=== PATIENT | male | born 1940 | race Caucasian/White ===

== ENCOUNTER → 2016-11-14 | Outpatient (CLI) | payer MEDICARE, BC | END | disposition home or self-care (01) | LOC: LABWHC1 10:34 | PROVIDERS: ATTEND Internal Medicine | DX: M06.9 Rheumatoid arthritis, unspecified (principal) | CPT/HCPCS: 36415; 80299 ==

== ENCOUNTER → 2017-02-13 | Outpatient (CLI) | payer MEDICARE, BC | END | disposition home or self-care (01) | LOC: LABWHC1 10:34 | PROVIDERS: ATTEND Internal Medicine | DX: M06.9 Rheumatoid arthritis, unspecified (principal) | CPT/HCPCS: 36415; 80299 ==

== ENCOUNTER → 2017-05-22 | Outpatient (CLI) | payer MEDICARE, BC | END | disposition home or self-care (01) | LOC: LABWHC1 11:10 | PROVIDERS: ATTEND Internal Medicine | DX: M06.9 Rheumatoid arthritis, unspecified (principal) | CPT/HCPCS: 36415; 80299 ==

== ENCOUNTER → 2017-07-24 | Outpatient (CLI) | payer MEDICARE, BC ==
[2017-07-24 10:10] LABS: Basophils % (A) 0 %; CH 31.1; CHCM 33.3; Eosinophils # (A) 0.4 k/uL (0-0.7); Eosinophils % (A) 6 %; HCT 48.1 % (39.0-53.0); HDW 3.39; HGB 15.3 gm/dL (13.0-17.5); Luc # (Auto) 0.17; Luc % (Auto) 3; Lymphocytes # (A) 1.4 k/uL (1.0-4.8); Lymphocytes % (A) 20 %; MCHC 31.9 g/dL (31.0-37.0); MCV 93.9 fL (80.0-100.0); Monocytes # (A) 0.3 k/uL (0-1.0); Monocytes % (A) 5 %; Neutrophils # (A) 4.5 k/uL (1.3-7.7); Neutrophils % (A) 66 %; RBC 5.12 m/uL (4.30-5.90); RDW 15.7 % (11.5-15.5); WBC 6.8 k/uL (3.8-10.6); WBC (Perox) 6.66
[2017-07-24 10:20] LABS: ALT 36 U/L (21-72); AST 19 U/L (17-59); Alkaline Phosphatase 62 U/L (38-126); Anion Gap 8 mmol/L; Blood Urea Nitrogen 19 mg/dL (9-20); Calcium 9.2 mg/dL (8.4-10.2); Carbon Dioxide 28 mmol/L (22-30); Chloride 104 mmol/L (98-107); Cholesterol 174 mg/dL (<200); Glucose 176 mg/dL (74-99); HDL Cholesterol 59 mg/dL (40-60); Non-African American GFR(MDRD) >60 (>60 ml/min/1.73 sqM); Potassium 4.7 mmol/L (3.5-5.1); Sodium 140 mmol/L (137-145); Total Bilirubin 1.3 mg/dL (0.2-1.3); Total Protein 7.1 g/dL (6.3-8.2)
[2017-07-25 16:12] LABS: Mis test requested (Blood) CLORAZEPATE LEVEL
== END | disposition home or self-care (01) ==
LOC: LABWHC1 09:42
PROVIDERS: ATTEND Internal Medicine
DX: E78.5 Hyperlipidemia, unspecified (principal); I10 Essential (primary) hypertension; M06.9 Rheumatoid arthritis, unspecified; E11.9 Type 2 diabetes mellitus without complications
CPT/HCPCS: 80299; 80061; 80053; 85025; 83036; 36415; G0480; 80346

== ENCOUNTER → 2017-10-23 | Outpatient (CLI) | payer MEDICARE, BC ==
[2017-10-23 08:55] LABS: HCT 45.5 % (39.0-53.0); HGB 14.6 gm/dL (13.0-17.5); MCH 30.5 pg (25.0-35.0); MCHC 32.1 g/dL (31.0-37.0); Platelet Count 198 k/uL (150-450); RBC 4.79 m/uL (4.30-5.90); RDW 15.4 % (11.5-15.5); WBC 6.4 k/uL (3.8-10.6)
[2017-10-23 09:12] LABS: Albumin 3.9 g/dL (3.5-5.0); Bilirubin, Delta 0.3 mg/dL (0.0-0.2); Bilirubin,Unconjugated 1.3 mg/dL (0.0-1.1); Total Bilirubin 1.6 mg/dL (0.2-1.3); Total Protein 6.6 g/dL (6.3-8.2)
== END | disposition home or self-care (01) ==
LOC: LABWHC1 08:24
PROVIDERS: ATTEND Internal Medicine
DX: E11.9 Type 2 diabetes mellitus without complications (principal); M06.9 Rheumatoid arthritis, unspecified; R13.10 Dysphagia, unspecified
CPT/HCPCS: 36415; 80061; 80076; 80299; 82746; 83036; 85027

== ENCOUNTER → 2018-02-16 | Outpatient (CLI) | payer MEDICARE, BC ==
[2018-02-16 13:45] LABS: Anisocytosis Slight; HCT 44.5 % (39.0-53.0); MCH 31.2 pg (25.0-35.0); MCHC 33.7 g/dL (31.0-37.0); MCV 92.8 fL (80.0-100.0); Mean Platelet Volume 6.9; Platelet Count 201 k/uL (150-450); RBC 4.79 m/uL (4.30-5.90); RDW 16.1 % (11.5-15.5); WBC 6.9 k/uL (3.8-10.6)
[2018-02-16 13:58] LABS: Bilirubin, Delta 0.1 mg/dL (0.0-0.2); Bilirubin,Unconjugated 1.4 mg/dL (0.0-1.1); Total Bilirubin 1.5 mg/dL (0.2-1.3); Total Protein 6.6 g/dL (6.3-8.2)
[2018-02-16 22:51] LABS: Hemoglobin A1C 6.4 % (4.0-6.0)
== END | disposition home or self-care (01) ==
LOC: LABWHC1 12:55
PROVIDERS: ATTEND Internal Medicine
DX: M06.9 Rheumatoid arthritis, unspecified (principal); E78.5 Hyperlipidemia, unspecified; E11.9 Type 2 diabetes mellitus without complications
CPT/HCPCS: 36415; 80076; 80299; 82746; 83036; 85027

== ENCOUNTER → 2018-05-28 | Outpatient (CLI) | payer MEDICARE, BC ==
[2018-05-28 12:25] LABS: HCT 44.4 % (39.0-53.0); HGB 14.3 gm/dL (13.0-17.5); MCH 29.6 pg (25.0-35.0); MCHC 32.1 g/dL (31.0-37.0); MCV 92.1 fL (80.0-100.0); Mean Platelet Volume 6.8; Platelet Count 191 k/uL (150-450); RBC 4.83 m/uL (4.30-5.90); RDW 15.6 % (11.5-15.5); WBC 7.2 k/uL (3.8-10.6)
[2018-05-28 12:51] LABS: Albumin 3.7 g/dL (3.5-5.0); Bilirubin, Delta 0.3 mg/dL (0.0-0.2); Total Bilirubin 1.3 mg/dL (0.2-1.3); Total Protein 6.4 g/dL (6.3-8.2)
[2018-05-28 18:06] LABS: Hemoglobin A1C 5.7 % (4.0-6.0)
== END | disposition home or self-care (01) ==
LOC: LABWHC1 11:48
PROVIDERS: ATTEND Internal Medicine
DX: E78.5 Hyperlipidemia, unspecified (principal); E11.9 Type 2 diabetes mellitus without complications; M06.9 Rheumatoid arthritis, unspecified
CPT/HCPCS: 36415; 80076; 80299; 82746; 83036; 85027

== ENCOUNTER → 2018-09-03 | Outpatient (CLI) | payer MEDICARE, BC ==
[2018-09-03 10:41] LABS: HCT 42.7 % (39.0-53.0); HGB 13.7 gm/dL (13.0-17.5); MCH 29.4 pg (25.0-35.0); MCHC 32.1 g/dL (31.0-37.0); MCV 91.6 fL (80.0-100.0); Mean Platelet Volume 6.9; Platelet Count 233 k/uL (150-450); RBC 4.66 m/uL (4.30-5.90); RDW 15.9 % (11.5-15.5); WBC 6.3 k/uL (3.8-10.6)
[2018-09-03 15:42] LABS: Albumin/Globulin Ratio 1.82 (1.20-2.10); Bilirubin, Conjugated 0.2 mg/dL (0.20-0.40); Bilirubin,Unconjugated 0.8 mg/dL; Globulin 2.2 g/dL (1.6-3.3); Total Protein 6.2 g/dL (6.2-8.2)
[2018-09-03 17:19] LABS: Hemoglobin A1C 5.5 % (4.0-6.0)
== END ==
LOC: LABWHC1 10:03
PROVIDERS: ATTEND Internal Medicine
DX: E11.9 Type 2 diabetes mellitus without complications (principal); I51.9 Heart disease, unspecified; M06.9 Rheumatoid arthritis, unspecified
CPT/HCPCS: 36415; 80076; 80299; 82746; 83036; 85027

== ENCOUNTER → 2019-01-07 | Outpatient (CLI) | payer MEDICARE, BC ==
[2019-01-07 11:26] LABS: HCT 42.6 % (39.0-53.0); MCH 30.4 pg (25.0-35.0); MCHC 32.9 g/dL (31.0-37.0); MCV 92.4 fL (80.0-100.0); Mean Platelet Volume 7.2; Platelet Count 181 k/uL (150-450); RBC 4.61 m/uL (4.30-5.90); RDW 15.3 % (11.5-15.5); WBC 6.9 k/uL (3.8-10.6)
[2019-01-07 16:41] LABS: Albumin 3.9 g/dL (3.80-4.90); Albumin/Globulin Ratio 1.95 (1.60-3.17); Bilirubin, Conjugated 0.2 mg/dL (0.20-0.40); Bilirubin,Unconjugated 0.6 mg/dL; Total Bilirubin 0.8 mg/dL (0.3-1.2); Total Protein 5.9 g/dL (6.2-8.2)
[2019-01-07 18:44] LABS: Hemoglobin A1C 5.5 % (4.0-6.0)
== END ==
LOC: LABWHC1 10:38
PROVIDERS: ATTEND Internal Medicine
DX: E11.9 Type 2 diabetes mellitus without complications (principal); M06.9 Rheumatoid arthritis, unspecified; I51.9 Heart disease, unspecified
CPT/HCPCS: 36415; 80076; 80299; 82746; 83036; 85027

== ENCOUNTER → 2019-05-27 | Outpatient (CLI) | payer MEDICARE, BC | END | disposition home or self-care (01) | LOC: LABWHC1 11:03 | PROVIDERS: ATTEND Internal Medicine | DX: E78.5 Hyperlipidemia, unspecified (principal); G93.89 Other specified disorders of brain; M05.9 Rheumatoid arthritis with rheumatoid factor, unspecified; I25.10 Atherosclerotic heart disease of native coronary artery without angina pectoris; E11.9 Type 2 diabetes mellitus without complications | CPT/HCPCS: 36415; 80299 ==

== ENCOUNTER → 2019-08-07 | Outpatient (CLI) | payer MEDICARE, BC ==
[2019-08-07 09:36] LABS: Basophils % (A) 0 %; Eosinophils # (A) 0.3 k/uL (0-0.7); Eosinophils % (A) 5 %; HGB 14.8 gm/dL (13.0-17.5); Lymphocytes # (A) 1.2 k/uL (1.0-4.8); Lymphocytes % (A) 21 %; MCHC 33.5 g/dL (31.0-37.0); MCV 92.6 fL (80.0-100.0); Mean Platelet Volume 6.9; Monocytes # (A) 0.4 k/uL (0-1.0); Monocytes % (A) 7 %; Neutrophils # (A) 3.7 k/uL (1.3-7.7); Neutrophils % (A) 64 %; Platelet Count 186 k/uL (150-450); RBC 4.75 m/uL (4.30-5.90); RDW 15.2 % (11.5-15.5); WBC 5.8 k/uL (3.8-10.6)
[2019-08-07 17:15] LABS: ALT 16 U/L (10-49); AST 17 U/L (14-35); African American GFR (CKD) 74.1 (60.0-200.0); Alkaline Phosphatase 54 U/L (41-126); BUN/Creat Ratio 17.27 Ratio (12.00-20.00); Carbon Dioxide 30.5 mmol/L (21.6-31.8); Chloride 108 mmol/L (96-109); Chol/HDL Ratio 3.49; Cholesterol 164 mg/dL (0-200); Globulin 2.1 g/dL (1.6-3.3); Glucose 120 mg/dL (70-110); LDL Cholesterol,Calculated 66.8 mg/dL (0.0-131.0); Potassium 4.4 mmol/L (3.5-5.5); Sodium 144 mmol/L (135-145); Total Bilirubin 1.2 mg/dL (0.2-1.2); Total Protein 6.1 g/dL (6.2-8.2)
[2019-08-07 17:35] LABS: Folate, Serum >24.0 ng/mL
[2019-08-07 19:52] LABS: Hemoglobin A1C 5.3 % (4.0-6.0)
== END | disposition home or self-care (01) ==
LOC: LABWHC1 08:54
PROVIDERS: ATTEND Internal Medicine
DX: E11.9 Type 2 diabetes mellitus without complications (principal); M05.9 Rheumatoid arthritis with rheumatoid factor, unspecified; G93.89 Other specified disorders of brain; E78.5 Hyperlipidemia, unspecified; I25.10 Atherosclerotic heart disease of native coronary artery without angina pectoris
CPT/HCPCS: 80299; 80061; 80053; 82746; 85025; 83036; 36415; G0480; 80346

== ENCOUNTER 2020-01-30 02:25 | Inpatient (IN) | payer MEDICARE, BC ==
--- NOTE | 2020-01-30 02:37 | ED ---
Chest Pain HPI - General Chief Complaint: Chest Pain Stated Complaint: Chest Pain Time Seen by Provider: 01/30/20 02:26 Source: patient, EMS, RN notes reviewed, old records reviewed Mode of arrival: EMS Limitations: no limitations - History of Present Illness MD Complaint: chest pain -: hour(s) Onset: during rest, during exertion Pain Location: left chest, epigastric Pain Radiation: LUE Severity: moderate Severity scale (1-10): 6 Quality: aching, heaviness Consistency: constant Improves With: nothing Worsens With: nothing Anginal Symptoms: diaphoresis, dyspnea Other Symptoms: palpitations Treatments Prior to Arrival: none - Related Data Home Medications Medication Instructions Recorded Confirmed Cinnamon Bark [Cinnamon] 500 mg PO TID 01/30/20 01/30/20 Clorazepate Dipotassium [Tranxene 7.5 mg PO HS 01/30/20 01/30/20 T] Folic Acid 1 mg PO DAILY 01/30/20 01/30/20 Furosemide [Lasix] 40 mg PO BID 01/30/20 01/30/20 Methotrexate Sodium [Methotrexate] 25 mg PO SA 01/30/20 01/30/20 Metoprolol Tartrate [Lopressor] 25 mg PO BID 01/30/20 01/30/20 Olopatadine HCl [Pataday] 1 drop BOTH EYES BID 01/30/20 01/30/20 hydrALAZINE HCL [Apresoline] 50 mg PO AC-BID 01/30/20 01/30/20 metFORMIN HCL [Glucophage] 500 mg PO AC-BID 01/30/20 01/30/20 Allergies Allergy/AdvReac Type Severity Reaction Status Date / Time Penicillins Allergy Intermediate shortness Verified 01/30/20 09:38 of breath/nausea Review of Systems ROS Statement: Those systems with pertinent positive or pertinent negative responses have been documented in the HPI. ROS Other: All systems not noted in ROS Statement are negative. EKG Findings - EKG Comments: EKG Findings:: EKG is sinus rhythm 89, MD 144, QRS 76, QTC 455 Past Medical History Past Medical History: Atrial Fibrillation, Diabetes Mellitus, Hypertension History of Any Multi-Drug Resistant Organisms: None Reported Past Surgical History: Cholecystectomy Past Psychological History: No Psychological Hx Reported Smoking Status: Former smoker Past Alcohol Use History: None Reported Past Drug Use History: None Reported - Past Family History Father History Unknown: Yes Mother History Unknown: Yes General Exam Limitations: no limitations General appearance: alert, in no apparent distress, anxious Head exam: Present: atraumatic, normocephalic, normal inspection Eye exam: Present: normal appearance, PERRL, EOMI. Absent: scleral icterus, conjunctival injection, periorbital swelling ENT exam: Present: normal exam, mucous membranes moist Neck exam: Present: normal inspection. Absent: tenderness, meningismus, lymphadenopathy Respiratory exam: Present: normal lung sounds bilaterally. Absent: respiratory distress, wheezes, rales, rhonchi, stridor Cardiovascular Exam: Present: regular rate, normal rhythm, normal heart sounds. Absent: systolic murmur, diastolic murmur, rubs, gallop, clicks GI/Abdominal exam: Present: soft, normal bowel sounds. Absent: distended, tenderness, guarding, rebound, rigid Extremities exam: Present: normal inspection, full ROM, normal capillary refill. Absent: tenderness, pedal edema, joint swelling, calf tenderness Back exam: Present: normal inspection Neurological exam: Present: alert, oriented X3, CN II-XII intact Psychiatric exam: Present: normal affect, normal mood Skin exam: Present: warm, dry, intact, normal color. Absent: rash Course Vital Signs 01/30/20 01/30/20 01/30/20 02:27 02:32 03:25 Temperature 98.6 F Pulse Rate 93 66 Pulse Rate [ 99 Rivet Passer ] Respiratory 20 18 20 Rate Blood Pressure 107/64 95/57 O2 Sat by Pulse 99 97 Oximetry 01/30/20 01/30/20 04:40 05:00 Temperature Pulse Rate 62 74 Pulse Rate [ Rivet Passer ] Respiratory 16 16 Rate Blood Pressure 114/60 108/62 O2 Sat by Pulse 99 98 Oximetry Disposition Clinical Impression: Chest pain, Acute non-ST elevation myocardial infarction (NSTEMI) Disposition: ADMITTED IP TO THIS HOSP Condition: Fair Is patient prescribed a controlled substance at d/c from ED?: No
[2020-01-30 02:43] LABS: Basophils % (A) 0 %; Eosinophils # (A) 0.4 k/uL (0-0.7); Eosinophils % (A) 5 %; HCT 42.5 % (39.0-53.0); HGB 14.6 gm/dL (13.0-17.5); Lymphocytes # (A) 0.9 k/uL (1.0-4.8); Lymphocytes % (A) 12 %; MCH 31.5 pg (25.0-35.0); MCHC 34.5 g/dL (31.0-37.0); MCV 91.3 fL (80.0-100.0); Mean Platelet Volume 9.7; Monocytes # (A) 0.4 k/uL (0-1.0); Monocytes % (A) 5 %; Neutrophils % (A) 77 %; Platelet Count 217 k/uL (150-450); Poikilocytosis Slight; RBC 4.65 m/uL (4.30-5.90); RDW 15.5 % (11.5-15.5); WBC 7.8 k/uL (3.8-10.6)
[2020-01-30 03:01] LABS: Albumin 3.8 g/dL (3.5-5.0); Potassium 3.9 mmol/L (3.5-5.1); Total Bilirubin 1.2 mg/dL (0.2-1.3); Total Protein 6.8 g/dL (6.3-8.2)
--- NOTE | 2020-01-30 03:02 | XR ---
EXAMINATION TYPE: XR chest 2V DATE OF EXAM: 01/30/2020 COMPARISON: NONE HISTORY: Chest pain TECHNIQUE: 2 views FINDINGS: Heart is normal. There is slight blunting right costophrenic angle. There is no heart failu re. There are no hilar masses. There are chest leads. Bony thorax appears intact. IMPRESSION: Mild pleural diaphragmatic scarring at the lateral right lung base. Normal heart. No hear t failure.
[2020-01-30 03:11] LABS: INR 0.9 (<1.2); Partial Thromboplastin Time 25.1 sec (22.0-30.0); Prothrombin Time 9.9 sec (9.0-12.0)
[2020-01-30] MEDS ORDERED: NITROGLYCERIN SL TABS 0.4 MG TAB SUBLINGUAL PRN ×2 (04:25→10:25)
[2020-01-30] MEDS ORDERED: ASPIRIN 81 MG PO STA (04:25)
[2020-01-30 06:00] LABS: Glucose,Whole Blood 176 mg/dL (75-99)
[2020-01-30] MEDS: INSULIN ASPART (NovoLOG) 100 UNIT/ML VIAL SQ SCH ×4 (06:09→20:12)
[2020-01-30] MEDS ORDERED: ATORVASTATIN 80 MG TAB PO SCH (10:00)
[2020-01-30] MEDS ORDERED: METOPROLOL TARTRATE 25 MG TAB PO STA (10:18)
[2020-01-30] MEDS ORDERED: ATORVASTATIN 80 MG TAB PO STA (10:25)
[2020-01-30] MEDS ORDERED: SODIUM CHLORIDE 0.9% 1,000 ML in EMPTY BAG 1 BAG IV ONE (10:25)
[2020-01-30] MEDS ORDERED: ALPRAZolam 0.5 MG TAB PO PRN (10:25)
[2020-01-30] MEDS ORDERED: ASPIRIN 325 MG TAB PO STA ×2 (10:25→10:26)
[2020-01-30] MEDS ORDERED: ALPRAZolam 0.25 MG TAB PO PRN (10:25)
--- NOTE | 2020-01-30 10:25 | P.CRDCN ---
History of Present Illness History of present illness: Prakash tobin This is Dr. Mitchell dictating a consult on this patient The patient was interviewed and examined by me IMPRESSION / ASSESSMENT: Acute myocardial infarction, non-Q-wave VA Patient admitted with chest discomfort. T-wave inversions in the inferior leads First cardiac enzyme is mildly abnormal. Second troponin is higher History of hypertension PLAN: Serial troponins Repeat EKG stat IV heparin Statins 2-D echo and Doppler study I interviewed the patient and examined him. Discussed with Dr. Croft We'll proceed with coronary angiography today Discussed with patient and Susanna Bedolla Discussed with nurse HPI Patient admitted with chest discomfort History of hypertension Patient woke up this morning around 12 AM and started experiencing discomfort in the chest which is quite severe and radiated down his left arm. It lasted for several hours and then finally went away when EMS arrived and started oxygen His twelve-lead ECG shows inverted T waves in the inferior leads His repeat twelve-lead ECG shows T-wave inversions in the inferior leads but this seems to be an ST elevation in V1 consistent with posterior extension of the VA ROS: No fever chills or rigors, no cough, phlegm or expectoration, no nausea, vomiting or diarrhea, no hematuria, dysuria, no musculoskeletal complaints, no strokes or seizures, no skin lesions. EXAMINATION: On examination blood pressure 108/62, pulse rate in the 60s and 70s afebrile Ejection systolic murmur, harsh, radiating upwards into the neck but easily audible all over the precordium Diminished carotid pulses are palpable Abdomen soft Lungs are clear no rhonchi Extremities are warm no edema Scar of carotid endarterectomy in the right side REVIEW OF LABS, ECG & MEDICAL DATA twelve-lead ECG shows sinus rhythm normal IN QRS Inverted T waves in leads 3 and aVF Hemoglobin is 14.6, white count 7.8 Sodium 135 potassium 3.9 BUN 22 creatinine 0.94 First troponin is 0.035 Past Medical History Past Medical History: Diabetes Mellitus, Hypertension, Myocardial Infarction (VA) Last Myocardial Infarction Date:: 1993 History of Any Multi-Drug Resistant Organisms: None Reported Past Surgical History: Cholecystectomy, Heart Catheterization Past Anesthesia/Blood Transfusion Reactions: No Reported Reaction Past Psychological History: No Psychological Hx Reported Smoking Status: Former smoker Past Alcohol Use History: None Reported Past Drug Use History: None Reported - Past Family History Father History Unknown: Yes Mother History Unknown: Yes Medications and Allergies Home Medications Medication Instructions Recorded Confirmed Type Cinnamon Bark [Cinnamon] 500 mg PO TID 01/30/20 01/30/20 History Clorazepate Dipotassium [Tranxene 7.5 mg PO HS 01/30/20 01/30/20 History T] Folic Acid 1 mg PO DAILY 01/30/20 01/30/20 History Furosemide [Lasix] 40 mg PO BID 01/30/20 01/30/20 History Methotrexate Sodium [Methotrexate] 25 mg PO SA 01/30/20 01/30/20 History Metoprolol Tartrate [Lopressor] 25 mg PO BID 01/30/20 01/30/20 History Olopatadine HCl [Pataday] 1 drop BOTH EYES BID 01/30/20 01/30/20 History hydrALAZINE HCL [Apresoline] 50 mg PO AC-BID 01/30/20 01/30/20 History metFORMIN HCL [Glucophage] 500 mg PO AC-BID 01/30/20 01/30/20 History Allergies Allergy/AdvReac Type Severity Reaction Status Date / Time Penicillins Allergy Intermediate shortness Verified 01/30/20 09:38 of breath/nausea Physical Exam Vitals: Vital Signs Temp Pulse Pulse Resp BP BP Pulse Ox 01/30/20 08:00 97.6 F 59 L 18 103/52 97 01/30/20 05:25 98.1 F 59 L 18 143/74 97 01/30/20 05:00 74 16 108/62 98 01/30/20 04:40 62 16 114/60 99 01/30/20 03:25 66 20 95/57 97 01/30/20 02:32 99 18 01/30/20 02:27 98.6 F 93 20 107/64 99 Intake and Output 01/29/20 01/30/20 01/30/20 22:59 06:59 14:59 Other: Weight 93.8 kg Results 01/30/20 02:37 01/30/20 02:37 Cardiac Enzymes 01/30/20 01/30/20 01/30/20 Range/Units 02:37 02:37 08:37 AST 24 (17-59) U/L Troponin I 0.035 H* 0.181 H* (0.000-0.034) ng/mL Coagulation 01/30/20 Range/Units 02:37 PT 9.9 (9.0-12.0) sec APTT 25.1 (22.0-30.0) sec CBC 01/30/20 Range/Units 02:37 WBC 7.8 (3.8-10.6) k/uL RBC 4.65 (4.30-5.90) m/uL Hgb 14.6 (13.0-17.5) gm/dL Hct 42.5 (39.0-53.0) % Plt Count 217 (150-450) k/uL Comprehensive Metabolic Panel 01/30/20 Range/Units 02:37 Sodium 135 L (137-145) mmol/L Potassium 3.9 (3.5-5.1) mmol/L Chloride 101 (98-107) mmol/L Carbon Dioxide 27 (22-30) mmol/L BUN 22 H (9-20) mg/dL Creatinine 0.94 (0.66-1.25) mg/dL Glucose 183 H (74-99) mg/dL Calcium 9.0 (8.4-10.2) mg/dL AST 24 (17-59) U/L ALT 16 (4-49) U/L Alkaline Phosphatase 63 (38-126) U/L Total Protein 6.8 (6.3-8.2) g/dL Albumin 3.8 (3.5-5.0) g/dL Current Medications Generic Name Dose Route Start Last Admin Trade Name Freq PRN Reason Stop Dose Admin Aspirin 81 mg 01/31/20 09:00 Aspirin PO DAILY [facility] Atorvastatin Calcium 80 mg 01/30/20 10:00 Lipitor PO DAILY [facility] Heparin Sodium/Sodium Chloride 250 mls @ 10.037 mls/hr 01/30/20 10:15 25,000 unit/ Sodium Chloride IV .Q24H [facility] Protocol 10.7 UNITS/KG/HR Insulin Aspart 0 unit 01/30/20 07:30 01/30/20 06:09 Novolog SQ 2 unit ACHS [facility] Administration Protocol Metoprolol Tartrate 50 mg 01/30/20 21:00 Lopressor PO BID [facility] Nitroglycerin 0.4 mg 01/30/20 04:25 Nitrostat SUBLINGUAL Q5M PRN Chest Pain Intake and Output 01/29/20 01/30/20 01/30/20 22:59 06:59 14:59 Other: Weight 93.8 kg 01/30/20 02:37 01/30/20 02:37
[2020-01-30] MEDS ORDERED: HEPARIN SODIUM,PORCINE 5,000 UNIT/ML 1 ML VIAL IV ONE (10:27)
[2020-01-30] MEDS: HEPARIN SOD,PORK IN 0.45% NACL 25,000 UNIT in 0.45% NACL 1 250ML.BAG IV SCH (11:07)
[2020-01-30 11:21] LABS: Glucose,Whole Blood 149 mg/dL (75-99)
[2020-01-30] MEDS ORDERED: LIDOCAINE 1% INJ 10MG/ML (20 ML MDV) ONE (12:32)
[2020-01-30] MEDS ORDERED: IV FLUID CONTINUATION 1,000 ML IV ONE (12:37)
[2020-01-30] MEDS ORDERED: VERAPAMIL 2.5 MG/ML 2 ML AMP ONE (12:39)
[2020-01-30] MEDS ORDERED: MIDAZOLAM 2 MG/2 ML VIAL IVP ONE (13:02)
[2020-01-30] MEDS ORDERED: LIDOCAINE 1% INJ 10MG/ML (20 ML MDV) SQ ONE (13:04)
[2020-01-30] MEDS: VERAPAMIL SYRINGE (5 MG/10 ML) INTRAARTER ONE ×2 (13:06→13:20)
[2020-01-30] MEDS ORDERED: IOPAMIDOL-370 100ML BTL INJ ONE (13:21)
[2020-01-30] MEDS: SODIUM CHLORIDE 0.9% 1,000 ML IV SCH (14:19)
--- NOTE | 2020-01-30 14:42 | P.HPIM ---
History of Present Illness Patient is a pleasant 73-year-old gentleman came in with complaints of chest pressure-like sensation started yesterday exertional radiating to the left thumb without any diaphoresis is all by the time EMS came in which means it lasted for few minutes. Patient chest pain is pressure-like sensation moderate amount of chest pain. Patient has minimally elevated troponin and then some nonspecific T-wave inversions in inferior leads patient first set of limited the hospital because of which patient went cardiac catheterization which did not show any significant ago started a couple disease but did show severe headache stenosis. Patient does have at rough and rambling grade of 5/6 severe ejection systolic murmur and I aortic area. Patient denied any shortness of breath doesn't have any pulmonary edema on the chest x-ray doesn't have any elevated JVD Review of Systems REVIEW OF SYSTEMS: CONSTITUTIONAL: No fever, no malaise, no fatigue. HEENT: No recent visual problems or hearing problems. Denied any sore throat. CARDIOVASCULAR: No orthopnea, PND, no palpitations, no syncope. PULMONARY: No shortness of breath, no cough, no hemoptysis. GASTROINTESTINAL: No diarrhea, no nausea, no vomiting, no abdominal pain. NEUROLOGICAL: No headaches, no weakness, no numbness. HEMATOLOGICAL: Denies any bleeding or petechiae. GENITOURINARY: Denies any burning micturition, frequency, or urgency. MUSCULOSKELETAL/RHEUMATOLOGICAL: Denies any joint pain, swelling, or any muscle pain. ENDOCRINE: Denies any polyuria or polydipsia. The rest of the 14-point review of systems is negative. Past Medical History Past Medical History: Diabetes Mellitus, Hypertension, Myocardial Infarction ([place]) Last Myocardial Infarction Date:: 1993 History of Any Multi-Drug Resistant Organisms: None Reported Past Surgical History: Cholecystectomy, Heart Catheterization Past Anesthesia/Blood Transfusion Reactions: No Reported Reaction Past Psychological History: No Psychological Hx Reported Smoking Status: Former smoker Past Alcohol Use History: None Reported Past Drug Use History: None Reported - Past Family History Father History Unknown: Yes Mother History Unknown: Yes Medications and Allergies Home Medications Medication Instructions Recorded Confirmed Type Cinnamon Bark [Cinnamon] 500 mg PO TID 01/30/20 01/30/20 History Clorazepate Dipotassium [Tranxene 7.5 mg PO HS 01/30/20 01/30/20 History T] Folic Acid 1 mg PO DAILY 01/30/20 01/30/20 History Furosemide [Lasix] 40 mg PO BID 01/30/20 01/30/20 History Methotrexate Sodium [Methotrexate] 25 mg PO SA 01/30/20 01/30/20 History Metoprolol Tartrate [Lopressor] 25 mg PO BID 01/30/20 01/30/20 History Olopatadine HCl [Pataday] 1 drop BOTH EYES BID 01/30/20 01/30/20 History hydrALAZINE HCL [Apresoline] 50 mg PO AC-BID 01/30/20 01/30/20 History metFORMIN HCL [Glucophage] 500 mg PO AC-BID 01/30/20 01/30/20 History Allergies Allergy/AdvReac Type Severity Reaction Status Date / Time Penicillins Allergy Intermediate shortness Verified 01/30/20 09:38 of breath/nausea Physical Exam Vitals: Vital Signs Temp Pulse Pulse Resp BP BP Pulse Ox 01/30/20 11:58 98.0 F 69 18 144/73 96 01/30/20 11:25 98.1 F 69 17 144/73 96 01/30/20 08:15 59 L 18 01/30/20 08:00 97.6 F 59 L 18 103/52 97 01/30/20 05:25 98.1 F 59 L 18 143/74 97 01/30/20 05:00 74 16 108/62 98 01/30/20 04:40 62 16 114/60 99 01/30/20 03:25 66 20 95/57 97 01/30/20 02:32 99 18 01/30/20 02:27 98.6 F 93 20 107/64 99 Intake and Output 01/29/20 01/30/20 01/30/20 22:59 06:59 14:59 Intake Total 100 Balance 100 Intake: IV 100 Other: Voiding Method Toilet # Voids 3 Weight 93.8 kg PHYSICAL EXAMINATION: GENERAL: The patient is alert and oriented x3, not in any acute distress. Well developed, well nourished. HEENT: Pupils are round and equally reacting to light. EOMI. No scleral icterus. No conjunctival pallor. Normocephalic, atraumatic. No pharyngeal erythema. No thyromegaly. CARDIOVASCULAR: S1 and S2 present. No rubs, or gallops has ejection systolic murmur 5/6 severity in aortic area. PULMONARY: Chest is clear to auscultation, no wheezing or crackles. ABDOMEN: Soft, nontender, nondistended, normoactive bowel sounds. No palpable organomegaly. MUSCULOSKELETAL: No joint swelling or deformity. EXTREMITIES: No cyanosis, clubbing, or pedal edema. NEUROLOGICAL: Gross neurological examination did not reveal any focal deficits. SKIN: No rashes. Results CBC & Chem 7: 01/30/20 02:37 01/30/20 02:37 Labs: Abnormal Lab Results - Last 24 Hours (Table) 01/30/20 01/30/20 01/30/20 Range/Units 02:37 02:37 02:37 Lymphocytes # 0.9 L (1.0-4.8) k/uL Sodium 135 L (137-145) mmol/L BUN 22 H (9-20) mg/dL Glucose 183 H (74-99) mg/dL POC Glucose (mg/dL) (75-99) mg/dL Troponin I 0.035 H* (0.000-0.034) ng/mL 01/30/20 01/30/20 01/30/20 Range/Units 05:58 08:37 11:17 Lymphocytes # (1.0-4.8) k/uL Sodium (137-145) mmol/L BUN (9-20) mg/dL Glucose (74-99) mg/dL POC Glucose (mg/dL) 176 H 149 H (75-99) mg/dL Troponin I 0.181 H* (0.000-0.034) ng/mL 01/30/20 Range/Units 13:06 Lymphocytes # (1.0-4.8) k/uL Sodium (137-145) mmol/L BUN (9-20) mg/dL Glucose (74-99) mg/dL POC Glucose (mg/dL) (75-99) mg/dL Troponin I 0.137 H* (0.000-0.034) ng/mL Thrombosis Risk Factor Assmnt - Choose All That Apply Each Factor Represents 1 point: Obesity (BMI >25) Each Risk Factor Represents 3 Points: Age 75 years or older Other congenital or acquired thrombophilia - If yes, enter type in comment: No Thrombosis Risk Factor Assessment Total Risk Factor Score: 4 Thrombosis Risk Factor Assessment Level: Moderate Risk Assessment and Plan Plan: -Chest pain with elevated troponins, patient underwent cardiac catheterization did not show any significant atherosclerotic occlusive disease that will need intervention are stenting. Chest pain is most probably secondary to aortic stenosis, cardiothoracic surgery is being consulted because of severe headache stenosis and will need aotic valve replacement soon -Type 2 diabetes mellitus: Patient will be resumed on home regimen except for metformin patient will be on sliding scale insulin. -Hypertension -Elevated troponin secondary to possible type II myocardial infarction
[2020-01-30 16:11] LABS: Glucose,Whole Blood 187 mg/dL (75-99)
[2020-01-30] MEDS: hydrALAZINE HCL 50 MG TAB PO SCH (17:45)
[2020-01-30] MEDS: FUROSEMIDE 40 MG TAB PO SCH (17:45)
[2020-01-30] MEDS: METOPROLOL TARTRATE 25 MG TAB PO SCH (20:09)
[2020-01-30] MEDS: KETOTIFEN 0.025% OPHTH DROPS 5 ML BTL BOTH EYES SCH (20:09)
[2020-01-30 20:11] LABS: Glucose,Whole Blood 133 mg/dL (75-99)
[2020-01-30] MEDS ORDERED: METOPROLOL TARTRATE 50 MG TAB PO SCH (21:00)
--- NOTE | 2020-01-30 21:02 | CC ---
CARDIAC CATHETERIZATION REPORT DATE OF SERVICE: 01/30/2020 PROCEDURE PERFORMED: Left heart catheterization and coronary angiography. PERFORMED BY: Dr. Luis Carlos Croft. SEDATION: Moderate conscious sedation time was 26 minutes. The patient was administered Versed. Oxygen saturation, hemodynamics and EKG were monitored closely. CLINICAL INFORMATION: Mr. Prakash Mullins is a 79-year-old gentleman with history of hypertension, hypercholesterolemia and rheumatoid arthritis. He also has type 2 diabetes and is known to have aortic stenosis. He came in with chest pain radiating to both upper extremities, had a troponin elevation, peaked T-waves and mild nonspecific ST abnormality. He was evaluated by Dr. Mitchell, advised coronary angiography given his presentation suggestive of non-ST elevation OK and also valvular heart disease. Rationale, risks, benefits, options were explained by Dr. Mitchell and myself. The patient understood all details and wished to proceed with the procedure. PROCEDURE NOTE: Under local anesthesia and strict aseptic precautions, a 6-Swazi sheath was placed in the right radial artery. Using a JL3.5 and JR4 catheters I performed coronary angiography and the same right catheter was used to cross the aortic valve with a wire and I checked pressures across the aortic valve. Following the procedure, the sheath was taken out and TR band applied as per protocol and saturation of the fingers of the right hand was more than 91%. Patient tolerated procedure well without complication. Results were discussed with the patient and I also spoke to his by phone. CARDIAC CATHETERIZATION FINDINGS: The left ventricular end-diastolic pressure is about 15 mmHg and the gradient on pullback was about 52 mmHg across the aortic valve suggestive of severe aortic stenosis. I did not perform an LV gram. CORONARY ANGIOGRAPHY FINDINGS: RIGHT CORONARY ARTERY : A very dominant vessel, heavily calcified throughout has lesions of up to 50% or so. The RCA at the junction of the proximal and middle 1/3, has about a 50% to 55% lesion and then the caliber improves distally, bifurcates into PDA, PLV, both of which have minor diffuse disease. Mid RCA therefore has about a 50- 55 percent calcified lesion. LEFT MAIN CORONARY ARTERY: This is a long calcified vessel that has mild diffuse disease and bifurcates into LAD and circumflex. LEFT ANTERIOR DESCENDING CORONARY ARTERY: Good caliber vessel extends along the anterior wall. It gives off a very high diagonal branch proximally and this diagonal branch that comes off proximally is large and also gives a secondary branch both of which have minor irregularities but no significant disease. There are irregularities, calcification and the narrowing is no more than 40% to 45%. There was a branch that comes off the diagonal. The branch of the ostium has a narrowing but the caliber of the branch is less than 2 mm. The LAD itself continues along the anterior wall calcified. In the midportion there is tortuosity gives off 2 good-sized diagonal branches, runs all the way to the apex, has minor irregularities. No other significant disease. LAD therefore has no more than 40% narrowing located in the midportion after the origin of the diagonal branches. The diagonal branch itself has moderate disease. The mid LAD therefore has a 40% mid lesion after the diagonal branch, minor irregularities throughout. LEFT POSTERIOR CIRCUMFLEX CORONARY ARTERY: Technically a nondominant vessel gives off a single obtuse marginal that is small in caliber and distribution, has diffuse disease and at the ostium as it comes off from circumflex, there is a 90% narrowing but the amount of myocardium supplied by the obtuse marginal is small. The circumflex then continues in the AV groove and has a small diffuse disease branch. There is a left atrial circumflex branch that comes off, runs laterally and supplies a fair amount of myocardium. No significant disease noted in the left atrial circumflex branch. LEFT VENTRICULOGRAM: Left ventriculogram was not performed. FINAL IMPRESSION: This patient has a right dominant system, a 50% mid RCA disease, heavily calcified RCA. The LAD has diffuse disease, about a 40% mid lesion after the diagonal branch. The circumflex marginal which is a small caliber vessel has a 90% stenosis. Rest of circumflex has diffuse disease. Severe aortic stenosis with a peak gradient on pullback of 52 mmHg. LV end-diastolic pressures are mildly elevated. RECOMMENDATIONS: I will refer this patient to surgery as a 1st option. Possible surgical aortic valve replacement with a single graft to RCA versus TAVR and stress test or a fractional flow reserve assessment of RCA and then intervention based on the findings. I discussed my thoughts in detail with the patient. No critical stenosis is noted in the coronaries at this time. I will await further input from the surgery and Dr. Watson will be consulted. MMODL / IJN: [id number] /
[2020-01-31] MEDS: SODIUM CHLORIDE 0.9% 1,000 ML IV SCH ×2 (04:21→21:59)
[2020-01-31 06:14] LABS: Glucose,Whole Blood 144 mg/dL (75-99)
[2020-01-31] MEDS: INSULIN ASPART (NovoLOG) 100 UNIT/ML VIAL SQ SCH ×4 (06:24→21:10)
[2020-01-31] MEDS: hydrALAZINE HCL 50 MG TAB PO SCH ×2 (06:24→17:28)
[2020-01-31 06:50] LABS: Basophils % (A) 0 %; Eosinophils # (A) 0.3 k/uL (0-0.7); Eosinophils % (A) 4 %; HCT 43.4 % (39.0-53.0); HGB 13.9 gm/dL (13.0-17.5); Lymphocytes # (A) 1.1 k/uL (1.0-4.8); Lymphocytes % (A) 16 %; MCH 29.6 pg (25.0-35.0); MCHC 32.1 g/dL (31.0-37.0); MCV 92.3 fL (80.0-100.0); Mean Platelet Volume 7.8; Monocytes # (A) 0.4 k/uL (0-1.0); Monocytes % (A) 5 %; Neutrophils # (A) 5.1 k/uL (1.3-7.7); Neutrophils % (A) 73 %; Platelet Count 194 k/uL (150-450)
[2020-01-31 07:00] LABS: Calcium 8.6 mg/dL (8.4-10.2); Potassium 4.4 mmol/L (3.5-5.1)
[2020-01-31] MEDS: KETOTIFEN 0.025% OPHTH DROPS 5 ML BTL BOTH EYES SCH ×2 (08:05→21:25)
[2020-01-31] MEDS: ASPIRIN 81 MG PO SCH (08:06)
[2020-01-31] MEDS: FUROSEMIDE 40 MG TAB PO SCH ×2 (08:06→17:28)
[2020-01-31] MEDS: ATORVASTATIN 80 MG TAB PO SCH (08:06)
[2020-01-31] MEDS: METOPROLOL TARTRATE 25 MG TAB PO SCH ×2 (08:06→21:25)
[2020-01-31] MEDS ORDERED: ASPIRIN 325 MG TAB PO SCH (09:00)
--- NOTE | 2020-01-31 11:19 | US ---
EXAMINATION TYPE: US carotid duplex BILAT DATE OF EXAM: 01/31/2020 COMPARISON: NONE CLINICAL HISTORY: Pre-Op Cardiac Surgery. EXAM MEASUREMENTS: RIGHT: Peak Systolic Velocity (PSV) cm/sec ----- Right CCA: 98.2 ----- Right ICA: 109.9 ----- Right ECA: 98.2 ICA/CCA ratio: 1.1 RIGHT: End Diastole cm/sec ----- Right CCA: 16.9 ----- Right ICA: 18.3 ----- Right ECA: 11.0 LEFT: Peak Systolic Velocity (PSV) cm/sec ----- Left CCA: 94.7 ----- Left ICA: 91.4 ----- Left ECA: 105.6 ICA/CCA ratio: 1.0 LEFT: End Diastole cm/sec ----- Left CCA: 15.5 ----- Left ICA: 20.4 ----- Left ECA: 9.8 VERTEBRALS (direction of flow): Right Vertebral: Antegrade Left Vertebral: Antegrade Rhythm: Normal Grayscale, color Doppler, spectral Doppler imaging performed of the carotid arteries. Waveform analys is does not show significant stenosis of the internal carotid arteries. Severe amount of plaque visu alized in bilateral bulbs, right greater than left, Elevated velocities in right ECA IMPRESSION: No hemodynamic significant stenosis of the proximal internal carotid arteries by Doppler criteria, an indirect measurement of carotid stenosis. Dense atherosclerotic plaque at the carotid bulb on the ri ght could limit evaluation.
--- NOTE | 2020-01-31 11:20 | P.GSCN ---
<Brown Philippe - Last Filed: 01/31/20 10:22> History of Present Illness Consult date: 01/31/20 Reason for Consult: Aortic stenosis and coronary artery disease, evaluation for aortic valve replac ement and myocardial revascularization. Requesting physician: Chraity Croft History of present illness: This is 79-year-old gentleman who follows with Dr. Eduardo Mckeon on an outpatient basis. He has a past medical history significant for hypertension, type 2 diabetes mellitus, rheumatoid arthritis on methotrexate at home, ALLERGIC conjunctivitis, peripheral vascular disease with history of right carotid endarterectomy, remote history of nicotine dependence quit smoking in 1991 and known history of aortic valve stenosis. The patient reports he does follow with Dr. Cruz from [facility] on an outpatient basis for the aortic stenosis. On 01/30/2020, the patient reports he woke up around 12:30 AM from a deep sleep with complaints of burning type chest pain which radiated down both of his arms. He denies any complaints of shortness of breath, fever, chills, nausea, vomiting, presyncope or syncope. Subsequently, EMS was called and he was transferred to [facility] for further evaluation and workup. In the emergency department a 12-lead EKG was completed which showed normal sinus rhythm with T-wave inversion in the inferior leads and a heart rate of 89 BPM. Initial laboratory results showed a WBC count 7.8, hemoglobin 14.6, platelets 217, sodium 135, potassium 3.9, BUN 22, creatinine 0.94, glucose 183 and an initial troponin abnormal at 0.035. Serial troponins were completed and were as high as 0.181. Due to the patient's presenting symptoms and abnormal troponins cardiology was consulted and a cardiac catheterization was completed which demonstrated a 50% stenosis to his mid right coronary artery, a heavily calcified right coronary artery, diffuse disease to his left anterior descending coronary artery with a 40% stenosis to his mid left anterior descending coronary artery after his diagonal branch, and a 90% stenosis to the ostial obtuse marginal coronary artery as it comes off the circumflex coronary artery. A left ventricular gram was not completed during the cardiac catheterization and at this time his 2-D echocardiogram is pending. The patient does report he had a 2 -D echocardiogram completed at Dr. Cruz's office, at this time the report is unavailable. Subsequently, due to the patient's presenting symptoms, history of aortic valve stenosis and the cardiac catheterization results a consult was placed to Dr. Ilya Watson from cardiothoracic surgery for evaluation and recommendations on aortic valve surgery and myocardial revascularization. Review of Systems A 14 point review of systems was completed and was negative except as mentioned in the HPI. Past Medical History Past Medical History: Diabetes Mellitus, Eye Disorder (ALLERGIC conjunctivitis), Hypertension, Rheumatoid Arthritis (RA), Vascular Disorder (History of right carotid endarterectomy) Last Myocardial Infarction Date:: 1993 and 01/30/2020 History of Any Multi-Drug Resistant Organisms: None Reported Past Surgical History: Cholecystectomy Additional Past Surgical History / Comment(s): Right carotid endarterectomy Past Anesthesia/Blood Transfusion Reactions: No Reported Reaction Past Psychological History: No Psychological Hx Reported Smoking Status: Former smoker (Quit smoking in 1991) Past Alcohol Use History: None Reported Past Drug Use History: None Reported - Past Family History Father History Unknown: Yes Additional Family Medical History / Comment(s): The patient reports he was adopted and is unaware of his parents medical history. Mother History Unknown: Yes Additional Family Medical History / Comment(s): The patient reports he was ad opted and is unaware of his parents medical history. Brother(s) Family Medical History: Myocardial Infarction ([place]) Additional Family Medical History / Comment(s): The patient reports that he does know his biological brother and he does have a history of myocardial infarction in his 60s. Medications and Allergies Home Medications Medication Instructions Recorded Confirmed Type Cinnamon Bark [Cinnamon] 500 mg PO TID 01/30/20 01/30/20 History Clorazepate Dipotassium [Tranxene 7.5 mg PO HS 01/30/20 01/30/20 History T] Folic Acid 1 mg PO DAILY 01/30/20 01/30/20 History Furosemide [Lasix] 40 mg PO BID 01/30/20 01/30/20 History Methotrexate Sodium [Methotrexate] 25 mg PO SA 01/30/20 01/30/20 History Metoprolol Tartrate [Lopressor] 25 mg PO BID 01/30/20 01/30/20 History Olopatadine HCl [Pataday] 1 drop BOTH EYES BID 01/30/20 01/30/20 History hydrALAZINE HCL [Apresoline] 50 mg PO AC-BID 01/30/20 01/30/20 History metFORMIN HCL [Glucophage] 500 mg PO AC-BID 01/30/20 01/30/20 History Allergies Allergy/AdvReac Type Severity Reaction Status Date / Time Penicillins Allergy Intermediate shortness Verified 01/30/20 09:38 of breath/nausea Surgical - Exam Vital Signs Temp Pulse Resp BP Pulse Ox 98.6 F 93 20 107/64 99 01/30/20 02:27 01/30/20 02:27 01/30/20 02:27 01/30/20 02:27 01/30/20 02:27 This is a 79-year-old pleasant gentleman who is sitting up to his bedside edge on the cardiac stepdown unit. He is awake, alert and oriented 3. He is in no acute distress. Oxygen saturation are 98% on room air. - General well developed, well nourished, no distress, no pain, obese - Eyes PERRL, normal ocular movement - ENT normal pinna, normal nares, normal mucosa, no hearing loss, no congestion, poor chcf (Lower teeth), dentures (Dentures to his upper) - Neck Neck is supple, no JVD. no masses, trachea midline, no venous distension carotid bruit: bilateral - Respiratory Lung sounds are essentially clear throughout, no wheezes, rhonchi or crackles. Respirations are symmetrical and nonlabored. - Cardiovascular Regular rhythm and rate. S1 and S2 present, negative for S3, or gallop. Po sitive pansystolic ejection murmur, radiating upwards into the neck. - Abdomen Abdomen is soft, nontender and nondistended. Active bowel sounds present in all 4 abdominal quadrants. No guarding or rigidity. No organomegaly appreciated. - Genitourinary Deferred - Rectum Deferred - Integumentary no rash, no growths, no abnormal pigmentation - Neurologic Cranial nerves II through XII intact. normal coordination, normal sensation - Musculoskeletal normal gait, normal posture - Psychiatric oriented to time, oriented to person, oriented to place, speech is normal, memory intact Results - Labs 01/31/20 06:25 01/31/20 06:25 Abnormal Lab Results - Last 24 Hours (Table) 01/30/20 01/30/20 01/30/20 Range/Units 11:17 13:06 16:09 Glucose (74-99) mg/dL POC Glucose (mg/dL) 149 H 187 H (75-99) mg/dL Troponin I 0.137 H* (0.000-0.034) ng/mL Triglycerides (<150) mg/dL 01/30/20 01/31/20 01/31/20 Range/Units 20:10 06:12 06:25 Glucose 138 H (74-99) mg/dL POC Glucose (mg/dL) 133 H 144 H (75-99) mg/dL Troponin I (0.000-0.034) ng/mL Triglycerides 209 H (<150) mg/dL Diabetes panel 01/31/20 Range/Units 06:25 Sodium 139 (137-145) mmol/L Potassium 4.4 (3.5-5.1) mmol/L Chloride 106 (98-107) mmol/L Carbon Dioxide 26 (22-30) mmol/L BUN 18 (9-20) mg/dL Creatinine 0.95 (0.66-1.25) mg/dL Glucose 138 H (74-99) mg/dL Calcium 8.6 (8.4-10.2) mg/dL Triglycerides 209 H (<150) mg/dL HDL Cholesterol 57 (40-60) mg/dL Calcium panel 01/31/20 Range/Units 06:25 Calcium 8.6 (8.4-10.2) mg/dL Pituitary panel 01/31/20 Range/Units 06:25 Sodium 139 (137-145) mmol/L Potassium 4.4 (3.5-5.1) mmol/L Chloride 106 (98-107) mmol/L Carbon Dioxide 26 (22-30) mmol/L BUN 18 (9-20) mg/dL Creatinine 0.95 (0.66-1.25) mg/dL Glucose 138 H (74-99) mg/dL Calcium 8.6 (8.4-10.2) mg/dL Adrenal panel 01/31/20 Range/Units 06:25 Sodium 139 (137-145) mmol/L Potassium 4.4 (3.5-5.1) mmol/L Chloride 106 (98-107) mmol/L Carbon Dioxide 26 (22-30) mmol/L BUN 18 (9-20) mg/dL Creatinine 0.95 (0.66-1.25) mg/dL Glucose 138 H (74-99) mg/dL Calcium 8.6 (8.4-10.2) mg/dL - Imaging Chest x-ray: report reviewed, image reviewed Assessment and Plan Assessment: 1. Acute non-ST elevated myocardial infarction, abnormal troponins on admission 2. Coronary artery disease, status post heart catheterization 3. History of aortic valve stenosis 4. History of hypertension 5. History of type 2 diabetes mellitus 6. History of rheumatoid arthritis, on methotrexate at home 7. History of peripheral vascular disease, remote history of right carotid endarterectomy 8. Remote history of nicotine dependence, quit smoking in 1991 Plan: The patient was seen and examined at his bedside on the cardiac stepdown unit. His chart and diagnostics were reviewed. His case was discussed in detail with Dr. Ilya Watson from cardiothoracic surgery. Preoperative testing and preoperative teaching has been initiated. A 5 m walk test was completed with the patient, Time 1:2.38 seconds, time 2: 2.90 seconds, time 3: 2.53 seconds. Continue to optimize medical management with aspirin, statin and beta nas. Once his preoperative testing has been collected and reviewed an STS risk score will be calculated in discussed with the patient by cardiothoracic surgeon. The patient will need dental clearance preoperatively. More recommendations to follow based on patient's clinical course and once Dr. Watson sees the patient today. We will consult Dr. Mena for dental clearance and Dr. Rodriguez for pulmonary clearance. Thank you Dr. Croft for this consult and we will look for to working with you in the care of this patient. Time with Patient: Greater than 30 <Ilya Watson R - Last Filed: 01/31/20 12:34> Surgical - Exam Vital Signs Temp Pulse Resp BP Pulse Ox 98.6 F 93 20 107/64 99 01/30/20 02:27 01/30/20 02:27 01/30/20 02:27 01/30/20 02:27 01/30/20 02:27 Results - Labs 01/31/20 06:25 01/31/20 06:25 Abnormal Lab Results - Last 24 Hours (Table) 01/30/20 01/30/20 01/30/20 Range/Units 13:06 16:09 20:10 Glucose (74-99) mg/dL POC Glucose (mg/dL) 187 H 133 H (75-99) mg/dL Troponin I 0.137 H* (0.000-0.034) ng/mL Triglycerides (<150) mg/dL 01/31/20 01/31/20 01/31/20 Range/Units 06:12 06:25 12:02 Glucose 138 H (74-99) mg/dL POC Glucose (mg/dL) 144 H 127 H (75-99) mg/dL Troponin I (0.000-0.034) ng/mL Triglycerides 209 H (<150) mg/dL Diabetes panel 01/31/20 Range/Units 06:25 Sodium 139 (137-145) mmol/L Potassium 4.4 (3.5-5.1) mmol/L Chloride 106 (98-107) mmol/L Carbon Dioxide 26 (22-30) mmol/L BUN 18 (9-20) mg/dL Creatinine 0.95 (0.66-1.25) mg/dL Glucose 138 H (74-99) mg/dL Calcium 8.6 (8.4-10.2) mg/dL Triglycerides 209 H (<150) mg/dL HDL Cholesterol 57 (40-60) mg/dL Thyroid panel 01/31/20 Range/Units 06:25 TSH 2.070 (0.465-4.680) mIU/L Calcium panel 01/31/20 Range/Units 06:25 Calcium 8.6 (8.4-10.2) mg/dL Pituitary panel 01/31/20 01/31/20 Range/Units 06:25 06:25 Sodium 139 (137-145) mmol/L Potassium 4.4 (3.5-5.1) mmol/L Chloride 106 (98-107) mmol/L Carbon Dioxide 26 (22-30) mmol/L BUN 18 (9-20) mg/dL Creatinine 0.95 (0.66-1.25) mg/dL Glucose 138 H (74-99) mg/dL Calcium 8.6 (8.4-10.2) mg/dL TSH 2.070 (0.465-4.680) mIU/L Adrenal panel 01/31/20 Range/Units 06:25 Sodium 139 (137-145) mmol/L Potassium 4.4 (3.5-5.1) mmol/L Chloride 106 (98-107) mmol/L Carbon Dioxide 26 (22-30) mmol/L BUN 18 (9-20) mg/dL Creatinine 0.95 (0.66-1.25) mg/dL Glucose 138 H (74-99) mg/dL Calcium 8.6 (8.4-10.2) mg/dL Assessment and Plan Assessment: 79-year-old male with known aortic valvular stenosis and documented three-vessel coronary artery disease by cardiac catheterization. He presents with subendocardial infarction. He is currently pain-free. Left ventricular function appears to be well-preserved. Follow-up echo is needed. Plan is for preoperative evaluation including dental clearance followed by aortic valve and CABG this admission. Most likely will bypass the posterior descending coronary artery, obtuse marginal coronary artery, and the left anterior descending coronary arteries. We'll replace the aortic valve with a tissue prosthesis. Patient needs preoperative workup including dental clearance prior to surgery. We will obtain this over the next 24-48 hours. Plan surgery February 02. This plan was discussed with the patient. He is amenable. Indications for surgery, risks versus benefits and possible complications were all outlined with the patient. Usual perioperative course was described. Patient asked appropriate questions and these were answered to the best of my ability. He appears comfortable with the plan.
[2020-01-31 12:03] LABS: Glucose,Whole Blood 127 mg/dL (75-99)
--- NOTE | 2020-01-31 12:27 | P.PN ---
Subjective Patient is admitted for non-ST elevation microinfarction found to have a 50% of disease in RCA and 90% occlusion in the circumflex with diffuse disease in the circumflex. Patient also found to have severe at stenosis and cardiac thoracic surgery was consulted for valve replacement and single graft to RCA Constitutional: Denied any fatigue denied any fever. Cardio vascular: denied any chest pain, palpitations Gastrointestinal denied any nausea vomiting Pulmonary: Denied any shortness of breath cough Neurologic denied any new focal deficits All inpatient medications were reviewed and appropriate changes in these medications as dictated in the interval history and assessment and plan. Objective - Vital Signs Vital signs: Vital Signs Temp 97.8 F 01/31/20 07:43 Pulse 91 01/31/20 07:43 Resp 20 01/31/20 07:43 BP 154/70 01/31/20 07:43 Pulse Ox 98 01/31/20 07:43 Intake & Output 01/30/20 01/31/20 01/31/20 18:59 06:59 18:59 Intake Total 490 600 300 Output Total 800 1100 1100 Balance -310 -500 -800 Weight 92.6 kg Intake: IV 100 Intake, IV Titration 150 600 Amount Sodium Chloride 0.9% 1, 150 600 000 ml @ 75 mls/hr IV . [id number] Rx#:[id number] Oral 240 300 Output: Urine 800 1100 1100 Other: Voiding Method Toilet Toilet # Voids 2 1 1 - Exam PHYSICAL EXAMINATION: GENERAL: The patient is alert and oriented x3, not in any acute distress. Well developed, well nourished. HEENT: Pupils are round and equally reacting to light. EOMI. No scleral icterus. No conjunctival pallor. Normocephalic, atraumatic. No pharyngeal erythema. No thyromegaly. CARDIOVASCULAR: S1 and S2 present. No murmurs, rubs, or gallops. PULMONARY: Chest is clear to auscultation, no wheezing or crackles. ABDOMEN: Soft, nontender, nondistended, normoactive bowel sounds. No palpable organomegaly. MUSCULOSKELETAL: No joint swelling or deformity. EXTREMITIES: No cyanosis, clubbing, or pedal edema. NEUROLOGICAL: Gross neurological examination did not reveal any focal deficits. SKIN: No rashes. - Labs CBC & Chem 7: 01/31/20 06:25 05/25/20 06:25 Labs: Abnormal Lab Results - Last 24 Hours (Table) 01/30/20 01/30/20 01/30/20 Range/Units 13:06 16:09 20:10 Glucose (74-99) mg/dL POC Glucose (mg/dL) 187 H 133 H (75-99) mg/dL Troponin I 0.137 H* (0.000-0.034) ng/mL Triglycerides (<150) mg/dL 01/31/20 01/31/20 01/31/20 Range/Units 06:12 06:25 12:02 Glucose 138 H (74-99) mg/dL POC Glucose (mg/dL) 144 H 127 H (75-99) mg/dL Troponin I (0.000-0.034) ng/mL Triglycerides 209 H (<150) mg/dL Assessment and Plan Plan: -Non-ST elevation microinfarction: Cardiac catheterization but patient did not receive any stents further management as mentioned in didn't roll history patient is on dual Antiplatelet therapy beta nas, statin cardio thoracic surgery evaluation. -Aortic stenosis: She is undergoing workup for valve replacement -Type 2 diabetes mellitus: Patient will be resumed on home regimen except for metformin patient will be on sliding scale insulin. -Hypertension -Elevated troponin secondary to possible type II myocardial infarction
[2020-01-31 12:32] LABS: Appearance,Urine Clear (Clear); Bilirubin,Urine Negative (Negative); Blood,Urine Negative (Negative); Color,Urine Light Yellow; Glucose,Urine (UA) Negative (Negative); Ketones,Urine Negative (Negative); Leukocyte Esterase,Urine Negative (Negative); Nitrite,Urine Negative (Negative); PH, Urine 7.5 (5.0-8.0); Protein,Urine Negative (Negative); Specific Gravity,Urine 1.007 (1.001-1.035); Urobilinogen,Urine <2.0 mg/dL (<2.0)
[2020-01-31] MEDS ORDERED: MD COMMUNICATION TO PHARMACY 1 EACH MISC PO ONE ×4 (13:13)
[2020-01-31 17:00] LABS: Glucose,Whole Blood 125 mg/dL (75-99)
[2020-01-31 20:40] LABS: Glucose,Whole Blood 129 mg/dL (75-99)
[2020-01-31] MEDS: MUPIROCIN 2% OINT 22 GM TUBE NASAL SCH (21:25)
[2020-01-31] MEDS: CLORAZEPATE 7.5 MG PO SCH (21:25)
[2020-01-31] MEDS: HEPARIN SOD,PORK IN 0.45% NACL 25,000 UNIT in 0.45% NACL 1 250ML.BAG IV SCH (21:55)
[2020-02-01 06:13] LABS: Glucose,Whole Blood 150 mg/dL (75-99)
[2020-02-01] MEDS: hydrALAZINE HCL 50 MG TAB PO SCH ×2 (06:17→20:51)
[2020-02-01] MEDS: INSULIN ASPART (NovoLOG) 100 UNIT/ML VIAL SQ SCH ×4 (06:17→20:51)
--- NOTE | 2020-02-01 06:34 | P.PN ---
Subjective Seen on 30 of January Patient is doing well. He has no chest discomfort no dizziness lightheadedness or palpitations On examination breath sounds are clear no rhonchi no crackles Ejection systolic murmur over the precordium consistent with aortic stenosis Abdomen soft nontender No lower extremity edema Diminished carotid upstroke Known carotid atherosclerosis status post endarterectomy many years back He underwent coronary angiography in the setting of a non-Q-wave myocardial infarction and was found to have a critically occluded circumflex vessel of small caliber, moderate RCA disease and moderate LAD disease Severe aortic stenosis with elevated EDP He was seen by CT surgery and aortic valve replacement with coronary artery proper is grafting is being planned for Blood pressure 126/71 mmHg pulse rate was 60 is afebrile Impression Non-Q-wave myocardial infarction Coronary artery disease as described above, awaiting surgery Severe extrinsic stenosis awaiting surgery CT surgery planning surgery on Suggest 2-D echo Doppler study Continue aspirin and statins and beta blockers and hydralazine Blood pressure control CT surgery planning Objective - Vital Signs Vital signs: Vital Signs Temp 98.4 F 02/01/20 04:00 Pulse 62 02/01/20 04:00 Resp 169 H 02/01/20 04:00 BP 110/47 02/01/20 04:00 Pulse Ox 95 01/31/20 23:03 Intake & Output 01/31/20 01/31/20 02/01/20 06:59 18:59 06:59 Intake Total 600 1236 160 Output Total 1100 1100 Balance -500 136 160 Weight 92.6 kg 91.5 kg Intake: IV 10 Invasive Line 1 10 Intake, IV Titration 600 Amount Sodium Chloride 0.9% 1, 600 000 ml @ 75 mls/hr IV . [id number] [facility] Rx#:[id number] Oral 1236 150 Output: Urine 1100 1100 Other: Voiding Method Toilet Toilet # Voids 1 2 2 - Labs CBC & Chem 7: 01/31/20 06:25 01/31/20 06:25 Labs: Abnormal Lab Results - Last 24 Hours (Table) 01/31/20 01/31/20 01/31/20 Range/Units 06:25 12:02 16:59 Glucose 138 H (74-99) mg/dL POC Glucose (mg/dL) 127 H 125 H (75-99) mg/dL Triglycerides 209 H (<150) mg/dL 01/31/20 02/01/20 Range/Units 20:39 06:11 Glucose (74-99) mg/dL POC Glucose (mg/dL) 129 H 150 H (75-99) mg/dL Triglycerides (<150) mg/dL Microbiology - Last 24 Hours (Table) 01/31/20 12:20 Nasal Screen MRSA/MSSA - Preliminary Nasal Swab
[2020-02-01] MEDS: ATORVASTATIN 80 MG TAB PO SCH (09:02)
[2020-02-01] MEDS: ASPIRIN 81 MG PO SCH (09:02)
[2020-02-01] MEDS: KETOTIFEN 0.025% OPHTH DROPS 5 ML BTL BOTH EYES SCH ×2 (09:02→20:52)
[2020-02-01] MEDS: FUROSEMIDE 40 MG TAB PO SCH ×2 (09:02→20:51)
[2020-02-01] MEDS: METOPROLOL TARTRATE 25 MG TAB PO SCH ×2 (09:02→20:51)
[2020-02-01] MEDS: MUPIROCIN 2% OINT 22 GM TUBE NASAL SCH ×2 (09:10→20:52)
--- NOTE | 2020-02-01 10:18 | P.CNPUL ---
History of Present Illness Consult date: 02/01/20 Requesting physician: Ilya Watson Reason for consult: chest pain Chief complaint: chest pain, dyspnea, CAD and aortic stenosis History of present illness: 79-year-old white male patient of Dr. Mckeon, with past medical history of hypertension, type 2 diabetes mellitus, rheumatoid arthritis on methotrexate, carotid stenosis with previous history of right carotid endarterectomy, remote history of smoking, and known history of aortic valve stenosis, and atrial fibrillation. Patient follows with Dr. Cruz. Patient presented to the emergency department on 01/30/2020 per EMS for evaluation of left chest pain, with diaphoresis, dyspnea and palpitations. EKG showed normal sinus rhythm with T-wave inversions in the inferior leads. First set of troponin was 0.035, second and third troponins was 0.181 and 0.137 respectively. CBC was within normal limits with the exception of lymphocyte count was 0.9 on admission. INR 0.9, sodium was 135, the rest of the electrolytes were within normal limits, B1 is 22 creatinine was 0.94, LFTs were within normal limits, proBNP was 158, lipase was normal at 36, urinalysis was negative. Admission chest x-ray showed mild pleural diaphragmatic scarring at the lateral right lung base. Patient had a cardiac catheterization on 01/31/2020 which showed RCA disease of 50%, 40% stenosis after the diagonal branch, 90% stenosis of the circumflex, and severe aortic stenosis with a peak gradient of 52 mmHg. LV end-diastolic pressures were mildly elevated. Patient was referred to cardiac surgery for evaluation, the patient is undergoing preoperative testing, and is being scheduled for surgery on 02/03/2020 for aortic valve replacement, and coronary artery bypass grafting by Dr. Watson Review of Systems All systems: negative Constitutional: Denies chills, Denies fever Eyes: denies blurred vision, denies pain Ears, nose, mouth and throat: Denies headache, Denies sore throat Cardiovascular: Reports chest pain, Denies shortness of breath Respiratory: Reports dyspnea, Denies cough Gastrointestinal: Denies abdominal pain, Denies diarrhea, Denies nausea, Denies vomiting Musculoskeletal: Denies myalgias Integumentary: Denies pruritus, Denies rash Neurological: Denies numbness, Denies weakness Psychiatric: Denies anxiety, Denies depression Endocrine: Denies fatigue, Denies weight change Past Medical History Past Medical History: Diabetes Mellitus, Eye Disorder (ALLERGIC conjunctivitis), Hypertension, Rheumatoid Arthritis (RA), Vascular Disorder (History of right carotid endarterectomy) Last Myocardial Infarction Date:: 1993 and 01/30/2020 History of Any Multi-Drug Resistant Organisms: None Reported Past Surgical History: Cholecystectomy Additional Past Surgical History / Comment(s): Right carotid endarterectomy Past Anesthesia/Blood Transfusion Reactions: No Reported Reaction Past Psychological History: No Psychological Hx Reported Smoking Status: Former smoker (Quit smoking in 1991) Past Alcohol Use History: None Reported Past Drug Use History: None Reported - Past Family History Father History Unknown: Yes Additional Family Medical History / Comment(s): The patient reports he was adopted and is unaware of his parents medical history. Mother History Unknown: Yes Additional Family Medical History / Comment(s): The patient reports he was adopted and is unaware of his parents medical history. Brother(s) Family Medical History: Myocardial Infarction (SD) Additional Family Medical History / Comment(s): The patient reports that he does know his biological brother and he does have a history of myocardial infarction in his 60s. Medications and Allergies Home Medications Medication Instructions Recorded Confirmed Type Cinnamon Bark [Cinnamon] 500 mg PO TID 01/30/20 01/30/20 History Clorazepate Dipotassium [Tranxene 7.5 mg PO HS 01/30/20 01/30/20 History T] Folic Acid 1 mg PO DAILY 01/30/20 01/30/20 History Furosemide [Lasix] 40 mg PO BID 01/30/20 01/30/20 History Methotrexate Sodium [Methotrexate] 25 mg PO SA 01/30/20 01/30/20 History Metoprolol Tartrate [Lopressor] 25 mg PO BID 01/30/20 01/30/20 History Olopatadine HCl [Pataday] 1 drop BOTH EYES BID 01/30/20 01/30/20 History hydrALAZINE HCL [Apresoline] 50 mg PO AC-BID 01/30/20 01/30/20 History metFORMIN HCL [Glucophage] 500 mg PO AC-BID 01/30/20 01/30/20 History Allergies Allergy/AdvReac Type Severity Reaction Status Date / Time Penicillins Allergy Intermediate shortness Verified 01/30/20 09:38 of breath/nausea Physical Exam Vitals: Vital Signs Temp Pulse Resp BP BP Pulse Ox 02/01/20 08:00 98 F 83 18 143/64 98 02/01/20 04:00 98.4 F 62 169 H 110/47 02/01/20 03:51 58 L 16 01/31/20 23:07 58 L 16 01/31/20 23:03 97.9 F 58 L 16 112/62 95 01/31/20 19:55 66 18 01/31/20 19:54 97.5 F L 66 18 126/71 99 01/31/20 15:59 98.1 F 57 L 18 136/67 98 Intake and Output 01/31/20 02/01/20 02/01/20 22:59 06:59 14:59 Intake Total 536 160 Balance 536 160 Intake: IV 10 Invasive Line 1 10 Oral 536 150 Other: Voiding Method Toilet Toilet # Voids 2 2 0 # Bowel Movements 0 Weight 91.5 kg GENERAL EXAM: Alert, very pleasant, 71-year-old white male, resting comfortably in bed, on room air the pulse ox of 98%, comfortable in no apparent distress. HEAD: Normocephalic/atraumatic. EYES: Normal reaction of pupils, equal size. Conjunctiva pink, sclera white. NOSE: Clear with pink turbinates. THROAT: No erythema or exudates. NECK: No masses, no JVD, no thyroid enlargement, no adenopathy. CHEST: No chest wall deformity. Symmetrical expansion. LUNGS: Equal air entry with no crackles, wheeze, rhonchi or dullness. CVS: Regular rate and rhythm, normal S1 and S2, no gallops, no murmurs, no rubs ABDOMEN: Soft, nontender. No hepatosplenomegaly, normal bowel sounds, no gua rding or rigidity. EXTREMITIES: No clubbing, no edema, no cyanosis, 2+ pulses and upper and lower extremities. MUSCULOSKELETAL: Muscle strength and tone normal. SPINE: No scoliosis or deformity SKIN: No rashes CENTRAL NERVOUS SYSTEM: Alert and oriented -3. No focal deficits, tone is normal in all 4 extremities. PSYCHIATRIC: Alert and oriented -3. Appropriate affect. Intact judgment and insight. Results - Laboratory Findings CBC and BMP: 01/31/20 06:25 01/31/20 06:25 PT/INR, D-dimer PT 9.9 sec (9.0-12.0) 01/30/20 02:37 INR 0.9 (<1.2) 01/30/20 02:37 Abnormal lab findings: Abnormal Labs 01/30/20 01/30/20 01/30/20 02:37 02:37 02:37 Lymphocytes # 0.9 L Sodium 135 L BUN 22 H Glucose 183 H POC Glucose (mg/dL) Troponin I 0.035 H* Triglycerides 01/30/20 01/30/20 01/30/20 05:58 08:37 11:17 Lymphocytes # Sodium BUN Glucose POC Glucose (mg/dL) 176 H 149 H Troponin I 0.181 H* Triglycerides 01/30/20 01/30/20 01/30/20 13:06 16:09 20:10 Lymphocytes # Sodium BUN Glucose POC Glucose (mg/dL) 187 H 133 H Troponin I 0.137 H* Triglycerides 01/31/20 01/31/20 01/31/20 06:12 06:25 12:02 Lymphocytes # Sodium BUN Glucose 138 H POC Glucose (mg/dL) 144 H 127 H Troponin I Triglycerides 209 H 01/31/20 01/31/20 02/01/20 16:59 20:39 06:11 Lymphocytes # Sodium BUN Glucose POC Glucose (mg/dL) 125 H 129 H 150 H Troponin I Triglycerides - Diagnostic Findings Chest x-ray: report reviewed, image reviewed Additional studies: EKG, carotid Doppler study results reviewed Assessment and Plan Plan: Assessment: #1. Chest pain related to acute non-ST elevated myocardial infarction #2. Severe aortic stenosis, pending aortic valve replacement on 02/03/2020 #3. Coronary artery disease, awaiting coronary artery bypass grafting on #4. Hypertension #5. Type 2 diabetes mellitus #6. Rheumatoid arthritis on methotrexate #7. Remote history of smoking #8. History of carotid stenosis, with history of right carotid endarterectomy #9. History of atrial fibrillation, currently in sinus rhythm Plan: We'll obtain bedside spirometry, patient denies any history of chronic lung disease, he is currently on room air, no complaints of dyspnea, vital signs are stable, he is undergoing preop evaluation, his surgery for aortic valve replacement and coronary artery bypass grafting is scheduled for 02/03/2020. Encourage deep breathing and coughing, incentive spirometry use. We'll continue to follow I performed a history & physical examination of the patient and discussed their management with my nurse practitioner, Minnie Mcmillan. I reviewed the nurse practitioner's note and agree with the documented findings and plan of care. Lung sounds are positive for clear breath sounds. The findings and the impression was discussed with the patient. I attest to the documentation by the nurse practitioner. Time with Patient: Greater than 30
[2020-02-01 11:47] LABS: Hemoglobin A1C 5.6 % (4.0-6.0)
[2020-02-01 12:01] LABS: Glucose,Whole Blood 123 mg/dL (75-99)
--- NOTE | 2020-02-01 13:27 | P.PN ---
Subjective Patient is admitted for non-ST elevation microinfarction found to have a 50% of disease in RCA and 90% occlusion in the circumflex with diffuse disease in the circumflex. Patient also found to have severe at stenosis and cardiac thoracic surgery was consulted for valve replacement and single graft to RCA 02/01/2020 No overnight events patient will undergo coronary artery bypass grafting along with aortic valve replacement on Constitutional: Denied any fatigue denied any fever. Cardio vascular: denied any chest pain, palpitations Gastrointestinal denied any nausea vomiting Pulmonary: Denied any shortness of breath cough Neurologic denied any new focal deficits All inpatient medications were reviewed and appropriate changes in these medications as dictated in the interval history and assessment and plan. Objective - Vital Signs Vital signs: Vital Signs Temp 98 F 02/01/20 12:00 Pulse 58 L 02/01/20 12:00 Resp 21 02/01/20 12:00 BP 121/57 02/01/20 12:00 Pulse Ox 98 02/01/20 12:00 Intake & Output 01/31/20 02/01/20 02/01/20 18:59 06:59 18:59 Intake Total 1236 160 360 Output Total 1100 Balance 136 160 360 Weight 91.5 kg Intake: IV 10 Invasive Line 1 10 Oral 1236 150 360 Output: Urine 1100 Other: Voiding Method Toilet # Voids 2 2 1 # Bowel Movements 0 - Exam PHYSICAL EXAMINATION: GENERAL: The patient is alert and oriented x3, not in any acute distress. Well developed, well nourished. HEENT: Pupils are round and equally reacting to light. EOMI. No scleral icterus. No conjunctival pallor. Normocephalic, atraumatic. No pharyngeal erythema. No thyromegaly. CARDIOVASCULAR: S1 and S2 present. No murmurs, rubs, or gallops. PULMONARY: Chest is clear to auscultation, no wheezing or crackles. ABDOMEN: Soft, nontender, nondistended, normoactive bowel sounds. No palpable organomegaly. MUSCULOSKELETAL: No joint swelling or deformity. EXTREMITIES: No cyanosis, clubbing, or pedal edema. NEUROLOGICAL: Gross neurological examination did not reveal any focal deficits. SKIN: No rashes. - Labs CBC & Chem 7: 01/31/20 06:25 01/31/20 06:25 Labs: Abnormal Lab Results - Last 24 Hours (Table) 01/31/20 01/31/20 02/01/20 Range/Units 16:59 20:39 06:11 POC Glucose (mg/dL) 125 H 129 H 150 H (75-99) mg/dL 02/01/20 Range/Units 11:57 POC Glucose (mg/dL) 123 H (75-99) mg/dL Microbiology - Last 24 Hours (Table) 01/31/20 12:20 Nasal Screen MRSA/MSSA - Preliminary Nasal Swab Assessment and Plan Plan: -Non-ST elevation microinfarction: Cardiac catheterization but patient did not receive any stents further management as mentioned in didn't roll history patient is on dual Antiplatelet therapy beta nas, statin cardio thoracic surgery evaluation. -Aortic stenosis: She is undergoing workup for valve replacement -Type 2 diabetes mellitus: Patient will be resumed on home regimen except for metformin patient will be on sliding scale insulin. -Hypertension -Elevated troponin secondary to possible type II myocardial infarction
--- NOTE | 2020-02-01 15:02 | P.PN ---
Subjective Progress Note Date: 02/01/20 This is a 79-year-old patient with history of hypertension, diabetes, rheumatoid arthritis on methotrexate, carotid stenosis with prior right carotid endarterectomy, remote history of smoking, history of aortic valve stenosis and atrial fibrillation who follows with Dr. Cruz in the office. Patient p resented to the emergency department on 01/30/2020 per EMS for evaluation of left chest pain, with diaphoresis, dyspnea and palpitations. EKG showed normal sinus rhythm with T-wave inversions in the inferior leads. First set of troponin was 0.035, second and third troponins was 0.181 and 0.137 respectively. CBC was within normal limits with the exception of lymphocyte count was 0.9 on admission. INR 0.9, sodium was 135, the rest of the electrolytes were within normal limits, B1 is 22 creatinine was 0.94, LFTs were within normal limits, proBNP was 158, lipase was normal at 36, urinalysis was negative. Admission chest x-ray showed mild pleural diaphragmatic scarring at the lateral right lung base. Patient had a cardiac catheterization on 01/31/2020 which showed RCA disease of 50%, 40% stenosis after the diagonal branch, 90% stenosis of the circumflex, and severe aortic stenosis with a peak gradient of 52 mmHg. LV end- diastolic pressures were mildly elevated. Patient was referred to cardiac surgery for evaluation, the patient is undergoing preoperative testing, and is being scheduled for surgery on 02/03/2020 for aortic valve replacement, and coronary artery bypass grafting by Dr. Watson. Patient was seen and examined this morning, denied any chest discomfort in his breathing is stable. Blood pressure 120/57, heart rate in the 50s to 60s, 98% on room air. Objective - Vital Signs Vital signs: Vital Signs Temp 98 F 02/01/20 12:00 Pulse 58 L 02/01/20 12:00 Resp 21 02/01/20 12:00 BP 121/57 02/01/20 12:00 Pulse Ox 98 02/01/20 12:00 Intake & Output 01/31/20 02/01/20 02/01/20 18:59 06:59 18:59 Intake Total 1236 160 720 Output Total 1100 Balance 136 160 720 Weight 91.5 kg Intake: IV 10 Invasive Line 1 10 Oral 1236 150 720 Output: Urine 1100 Other: Voiding Method Toilet # Voids 2 2 1 # Bowel Movements 0 - Exam GENERAL EXAM: Alert, very pleasant, 71-year-old white male, resting comfortably in bed, on room air the pulse ox of 98%, comfortable in no apparent distress. HEAD: Normocephalic/atraumatic. EYES: Normal reaction of pupils, equal size. Conjunctiva pink, sclera white. NOSE: Clear with pink turbinates. THROAT: No erythema or exudates. NECK: No masses, no JVD, no thyroid enlargement, no adenopathy. CHEST: No chest wall deformity. Symmetrical expansion. LUNGS: Equal air entry with no crackles, wheeze, rhonchi or dullness. CVS: Regular rate and rhythm, normal S1 and S2, no gallops, no murmurs, no rubs ABDOMEN: Soft, nontender. No hepatosplenomegaly, normal bowel sounds, no guarding or rigidity. EXTREMITIES: No clubbing, no edema, no cyanosis, 2+ pulses and upper and lower extremities. MUSCULOSKELETAL: Muscle strength and tone normal. SPINE: No scoliosis or deformity SKIN: No rashes CENTRAL NERVOUS SYSTEM: Alert and oriented -3. No focal deficits, tone is normal in all 4 extremities. PSYCHIATRIC: Alert and oriented -3. Appropriate affect. Intact judgment and insight. - Labs CBC & Chem 7: 01/31/20 06:25 01/31/20 06:25 Labs: Abnormal Lab Results - Last 24 Hours (Table) 01/31/20 01/31/20 02/01/20 Range/Units 16:59 20:39 06:11 POC Glucose (mg/dL) 125 H 129 H 150 H (75-99) mg/dL 02/01/20 Range/Units 11:57 POC Glucose (mg/dL) 123 H (75-99) mg/dL Microbiology - Last 24 Hours (Table) 01/31/20 12:20 Nasal Screen MRSA/MSSA - Preliminary Nasal Swab Assessment and Plan Plan: Assessment: #1. Non-ST elevated myocardial infarction #2. Severe aortic stenosis, pending aortic valve replacement on 02/03/2020 #3. Coronary artery disease, awaiting coronary artery bypass grafting on 02/03/2020 #4. Hypertension #5. Type 2 diabetes mellitus #6. Rheumatoid arthritis on methotrexate #7. Remote history of smoking #8. History of carotid stenosis, with history of right carotid endarterectomy #9. History of paroxysmal atrial fibrillation, currently in sinus rhythm Plan We will continue current medications, patient is scheduled to undergo coronary bypass grafting surgery and aortic valve replacement on . DNP note has been reviewed, I agree with a documented findings and plan of care. Patient was seen and examined.
[2020-02-01 15:04] LABS: Hepatitis A Antibody IgM Non-Reactive (Non-Reactive); Hepatitis B Core IgM Non-Reactive (Non-Reactive); Hepatitis B Surface Antigen Non-Reactive (Non-Reactive); Hepatitis C IgG Antibody Non-Reactive (Non-Reactive)
[2020-02-01 17:03] LABS: Glucose,Whole Blood 136 mg/dL (75-99)
--- NOTE | 2020-02-01 18:38 | P.PN ---
Subjective Progress Note Date: 02/01/20 Principal diagnosis: Aortic stenosis and coronary artery disease, evaluation for aortic valve replacement and myocardial revascularization. This is 79-year-old gentleman who follows with Dr. Eduardo Mckeon on an outpatient basis. He has a past medical history significant for hypertension, type 2 diabetes mellitus, rheumatoid arthritis on methotrexate at home, ALLERGIC conjunctivitis, peripheral vascular disease with history of right carotid endarterectomy, remote history of nicotine dependence quit smoking in 1991 and known history of aortic valve stenosis. The patient reports he does follow with Dr. [facility] on an outpatient basis for the aortic stenosis. On 01/30/2020, the patient reports he woke up around 12:30 AM from a deep sleep with complaints of burning type chest pain which radiated down both of his arms. He denies any complaints of shortness of breath, fever, chills, nausea, vomiting, presyncope or syncope. Subsequently, EMS was called and he was transferred to [facility] for further evaluation and work up. In the emergency department a 12-lead EKG was completed which showed normal sinus rhythm with T-wave inversion in the inferior leads and a heart rate of 89 BPM. Initial laboratory results showed a WBC count 7.8, hemoglobin 14.6, platelets 217, sodium 135, potassium 3.9, BUN 22, creatinine 0.94, glucose 183 and an initial troponin abnormal at 0.035. Serial troponins were completed and were as high as 0.181. Due to the patient's presenting symptoms and abnormal troponins cardiology was consulted and a cardiac catheterization was completed which demonstrated a 50% stenosis to his mid right coronary artery, a heavily calcified right coronary artery, diffuse disease to his left anterior descending coronary artery with a 40% stenosis to his mid left anterior descending coronary artery after his diagonal branch, and a 90% stenosis to the ostial obtuse marginal coronary artery as it comes off the circumflex coronary artery. A left ventricular gram was not completed during the cardiac catheterization and at this time his 2-D echocardiogram is pending. The patient does report he had a 2-D echocardiogram completed at Dr. Cruz's office, at this time the report is unavailable. Subsequently, due to the patient's presenting symptoms, history of aortic valve stenosis and the cardiac catheterization results a consult was placed to Dr. Ilya Watson from cardiothoracic surgery for evaluation and recommendations on aortic valve surgery and myocardial revascularization. POD #2 left heart catheterization and coronary angiography performed by Dr. KELLY Croft. The patient was seen in follow-up today 02/01/2020 at his bedside on the cardiac stepdown unit. He is currently sitting up to the bedside edge and is eating his breakfast. He is awake, alert and oriented 3 and is in no acute distress. He remains hemodynamically stable and denies any complaints of shortness of breath or chest pain within the last 24 hours. Preoperative workup for myocardial revascularization and aortic valve replacement remains in progress. His carotid duplex study shows no hemodynamic significant stenosis. Preoperative teaching has been reinforced with the patient and his questions answered to the best my ability. The patient's is also updated per phone. Bedside FEV1 was completed yesterday which demonstrated a 92% of predicted value. Oxygen saturations are 98% on room air and he is achieving 2500 mL on his incentive spirometry. He is tentatively scheduled for aortic valve replacement and myocardial revascularization surgery to be performed by Dr. Ilya Watson on 02/03/2020. We are awaiting dental clearance. Objective - Vital Signs Vital signs: Vital Signs Temp 98 F 02/01/20 12:00 Pulse 58 L 02/01/20 12:00 Resp 21 02/01/20 12:00 BP 121/57 02/01/20 12:00 Pulse Ox 98 02/01/20 12:00 Intake & Output 01/31/20 02/01/20 02/01/20 18:59 06:59 18:59 Intake Total 1236 160 720 Output Total 1100 Balance 136 160 720 Weight 91.5 kg Intake: IV 10 Invasive Line 1 10 Oral 1236 150 720 Output: Urine 1100 Other: Voiding Method Toilet # Voids 2 2 1 # Bowel Movements 0 - Exam This is a pleasant 79-year-old gentleman who is sitting up to his bedside edge eating his breakfast. He is awake, alert and oriented 3 and is in no acute distress. Oxygen saturations are 98% on room air. - Constitutional General appearance: Present: cooperative, no acute distress, obese - EENT Eyes: Present: PERRLA, poor dentition (Lower teeth), normal appearance. Absent: scleral icterus ENT: Present: hearing grossly normal. Absent: thrush - Neck Details: Neck is supple, no JVD. Positive bilateral bruits. - Respiratory Details: Lung sounds are essentially clear throughout, diminished to his bilateral bases. No wheezes, rhonchi or crackles. Respirations are symmetrical and nonlabored. - Cardiovascular Details: Regular rhythm and rate. S1 and S2 present, negative for S3, or gallop. Positive pansystolic ejection murmur, radiating upwards into the neck. - Gastrointestinal Gastrointestinal Comment(s): Abdomen is soft, nontender and nondistended. Active bowel sounds present in all 4 abdominal quadrants. No guarding or rigidity. No organomegaly appreciated. - Integumentary Integumentary Comment(s): Skin is warm and dry. No clubbing or cyanosis is present. no rash, no growths, no abnormal pigmentation - Neurologic Neurologic: Present: CNII-XII intact - Musculoskeletal Musculoskeletal: Present: gait normal, strength equal bilaterally - Psychiatric Psychiatric: Present: A&O x's 3, appropriate affect, intact judgment & insight - Allied health notes Allied health notes reviewed: nursing - Labs CBC & Chem 7: 01/31/20 06:25 01/31/20 06:25 Labs: Abnormal Lab Results - Last 24 Hours (Table) 01/31/20 02/01/20 02/01/20 Range/Units 20:39 06:11 11:57 POC Glucose (mg/dL) 129 H 150 H 123 H (75-99) mg/dL 02/01/20 Range/Units 17:01 POC Glucose (mg/dL) 136 H (75-99) mg/dL Microbiology - Last 24 Hours (Table) 01/31/20 12:20 Nasal Screen MRSA/MSSA - Preliminary Nasal Swab Assessment and Plan Assessment: 1. Acute non-ST elevated myocardial infarction, abnormal troponins on admission 2. Coronary artery disease, status post heart catheterization 3. History of aortic valve stenosis 4. History of hypertension 5. History of type 2 diabetes mellitus 6. History of rheumatoid arthritis, on methotrexate at home 7. History of peripheral vascular disease, remote history of right carotid endarterectomy 8. Remote history of nicotine dependence, quit smoking in 1991 Plan: 1. Continue to optimize medically with aspirin, statin, beta nas. 2. He is a tentatively scheduled for aortic valve replacement, myocardial revascularization surgery with left internal mammary artery, and endovascular vein harvest for , 02/02 Ilya Watson. 3. Once all of the preoperative testing has been obtained a STS risk score Will bealculated and discussed with the patient by Ilya Watson. 4. Continue preoperative teaching. His was updated on his care at his bedside and her questions answered to the best of my ability. 5. Encourage use of his incentive spirometry 10 times every hour while awake. 6. Computed tomography scan of his facial bones without contrast with Panorex reconstruction has been ordered, awaiting dental clearance. 7. More recommendations to follow based on patient's clinical course. Time with Patient: Greater than 30
[2020-02-01 20:43] LABS: Glucose,Whole Blood 156 mg/dL (75-99)
[2020-02-01] MEDS: HEPARIN SOD,PORK IN 0.45% NACL 25,000 UNIT in 0.45% NACL 1 250ML.BAG IV SCH (20:46)
[2020-02-01] MEDS: CLORAZEPATE 7.5 MG PO SCH (21:03)
[2020-02-02 06:17] LABS: Glucose,Whole Blood 137 mg/dL (75-99)
[2020-02-02] MEDS: INSULIN ASPART (NovoLOG) 100 UNIT/ML VIAL SQ SCH ×4 (06:17→21:10)
[2020-02-02] MEDS: hydrALAZINE HCL 50 MG TAB PO SCH ×2 (06:19→16:10)
[2020-02-02 07:48] LABS: HCT 41.9 % (39.0-53.0); HGB 14.2 gm/dL (13.0-17.5); MCH 31.3 pg (25.0-35.0); MCV 91.9 fL (80.0-100.0); Platelet Count 196 k/uL (150-450); RBC 4.56 m/uL (4.30-5.90); RDW 14.8 % (11.5-15.5); WBC 9.2 k/uL (3.8-10.6)
[2020-02-02 08:05] LABS: Calcium 8.5 mg/dL (8.4-10.2)
--- NOTE | 2020-02-02 08:41 | CT ---
EXAMINATION TYPE: CT facial bones wo con DATE OF EXAM: 02/02/2020 COMPARISON: None HISTORY: Pre op valve reconstruction CT DLP: 460.[address] of the paranasal sinuses was performed in the axial and coronal planes. Bone and soft tissue settings are submitted. The paranasal sinuses demonstrate normal aeration and development. There is evidence of mucosal thickening involving the ethmoid air cells, frontal sinuses and sphenoid sinus. Minimal mucoperiosteal thickening is seen of the right maxillary sinus. The osteal meatal units are patent bilaterally. The nasal septum is deviated from left to right. No bony destructive changes are seen within the field of view. IMPRESSION: Chronic sinusitis.
[2020-02-02] MEDS: KETOTIFEN 0.025% OPHTH DROPS 5 ML BTL BOTH EYES SCH ×2 (09:04→21:09)
[2020-02-02] MEDS: METOPROLOL TARTRATE 25 MG TAB PO SCH ×2 (09:04→21:09)
[2020-02-02] MEDS: ATORVASTATIN 80 MG TAB PO SCH (09:04)
[2020-02-02] MEDS: ASPIRIN 81 MG PO SCH (09:04)
[2020-02-02] MEDS: FUROSEMIDE 40 MG TAB PO SCH ×2 (09:04→16:10)
[2020-02-02] MEDS: MUPIROCIN 2% OINT 22 GM TUBE NASAL SCH ×2 (09:07→21:10)
[2020-02-02 11:22] LABS: Glucose,Whole Blood 125 mg/dL (75-99)
[2020-02-02] MEDS: HEPARIN SOD,PORK IN 0.45% NACL 25,000 UNIT in 0.45% NACL 1 250ML.BAG IV SCH (11:25)
--- NOTE | 2020-02-02 12:27 | P.PN ---
Subjective Patient is admitted for non-ST elevation microinfarction found to have a 50% of disease in RCA and 90% occlusion in the circumflex with diffuse disease in the circumflex. Patient also found to have severe at stenosis and cardiac thoracic surgery was consulted for valve replacement and single graft to RCA 02/01/2020 No overnight events patient will undergo coronary artery bypass grafting along with aortic valve replacement on 02/02/2020 Patient will undergo valve replacement and CABG tomorrow overnight events Constitutional: Denied any fatigue denied any fever. Cardio vascular: denied any chest pain, palpitations Gastrointestinal denied any nausea vomiting Pulmonary: Denied any shortness of breath cough Neurologic denied any new focal deficits All inpatient medications were reviewed and appropriate changes in these medications as dictated in the interval history and assessment and plan. Objective - Vital Signs Vital signs: Vital Signs Temp 97.6 F 02/02/20 11:58 Pulse 59 L 02/02/20 12:00 Resp 18 02/02/20 11:58 BP 131/70 02/02/20 11:58 Pulse Ox 98 02/02/20 11:58 Intake & Output 02/01/20 02/02/20 02/02/20 18:59 06:59 18:59 Intake Total 960 450 225 Balance 960 450 225 Weight 92 kg Intake: Oral 960 450 225 Other: Voiding Method Toilet # Voids 1 2 # Bowel Movements 0 - Exam PHYSICAL EXAMINATION: GENERAL: The patient is alert and oriented x3, not in any acute distress. Well developed, well nourished. HEENT: Pupils are round and equally reacting to light. EOMI. No scleral icterus. No conjunctival pallor. Normocephalic, atraumatic. No pharyngeal erythema. No thyromegaly. CARDIOVASCULAR: S1 and S2 present. No murmurs, rubs, or gallops. PULMONARY: Chest is clear to auscultation, no wheezing or crackles. ABDOMEN: Soft, nontender, nondistended, normoactive bowel sounds. No palpable organomegaly. MUSCULOSKELETAL: No joint swelling or deformity. EXTREMITIES: No cyanosis, clubbing, or pedal edema. NEUROLOGICAL: Gross neurological examination did not reveal any focal deficits. SKIN: No rashes. - Labs CBC & Chem 7: 02/02/20 07:21 02/02/20 07:21 Labs: Abnormal Lab Results - Last 24 Hours (Table) 02/01/20 02/01/20 02/02/20 Range/Units 17:01 20:41 06:16 Glucose (74-99) mg/dL POC Glucose (mg/dL) 136 H 156 H 137 H (75-99) mg/dL Crossmatch 02/02/20 02/02/20 02/02/20 Range/Units 07:21 07:21 11:21 Glucose 142 H (74-99) mg/dL POC Glucose (mg/dL) 125 H (75-99) mg/dL Crossmatch See Detail Microbiology - Last 24 Hours (Table) 01/31/20 12:20 Nasal Screen MRSA/MSSA - Final Nasal Swab Assessment and Plan Plan: -Non-ST elevation microinfarction: Cardiac catheterization but patient did not receive any stents further management as mentioned in didn't roll history patient is on dual Antiplatelet therapy beta nas, statin cardio thoracic surgery evaluation. -Aortic stenosis: She is undergoing workup for valve replacement -Type 2 diabetes mellitus: Patient will be resumed on home regimen except for metformin patient will be on sliding scale insulin. -Hypertension -Elevated troponin secondary to possible type II myocardial infarction
--- NOTE | 2020-02-02 12:37 | P.PN ---
Subjective Progress Note Date: 02/02/20 Principal diagnosis: Aortic stenosis and coronary artery disease, evaluation for aortic valve replacement and myocardial revascularization. This is 79-year-old gentleman who follows with Dr. Eduardo Mckeon on an outpatient basis. He has a past medical history significant for hypertension, type 2 diabetes mellitus, rheumatoid arthritis on methotrexate at home, ALLERGIC conjunctivitis, peripheral vascular disease with history of right carotid endarterectomy, remote history of nicotine dependence quit smoking in 1991 and known history of aortic valve stenosis. The patient reports he does follow with Dr. Cruz [facility] on an outpatient basis for the aortic stenosis. On 01/30/2020, the patient reports he woke up around 12:30 AM from a deep sleep with complaints of burning type chest pain which radiated down both of his arms. He denies any complaints of shortness of breath, fever, chills, nausea, vomiting, presyncope or syncope. Subsequently, EMS was called and he was transferred to [facility] for further evaluation and work up. In the emergency department a 12-lead EKG was completed which showed normal sinus rhythm with T-wave inversion in the inferior leads and a heart rate of 89 BPM. Initial laboratory results showed a WBC count 7.8, hemoglobin 14.6, platelets 217, sodium 135, potassium 3.9, BUN 22, creatinine 0.94, glucose 183 and an initial troponin abnormal at 0.035. Serial troponins were completed and were as high as 0.181. Due to the patient's presenting symptoms and abnormal troponins cardiology was consulted and a cardiac catheterization was completed which demonstrated a 50% stenosis to his mid right coronary artery, a heavily calcified right coronary artery, diffuse disease to his left anterior descending coronary artery with a 40% stenosis to his mid left anterior descending coronary artery after his diagonal branch, and a 90% stenosis to the ostial obtuse marginal coronary artery as it comes off the circumflex coronary artery. A left ventricular gram was not completed during the cardiac catheterization and at this time his 2-D echocardiogram is pending. The patient does report he had a 2-D echocardiogram completed at Dr. Cruz's office, at this time the report is unavailable. Subsequently, due to the patient's presenting symptoms, history of aortic valve stenosis and the cardiac catheterization results a consult was placed to Dr. Ilya Watson from cardiothoracic surgery for evaluation and recommendations on aortic valve surgery and myocardial revascularization. POD #3 left heart catheterization and coronary angiography performed by Dr. KELLY Croft. The patient was seen in follow-up today 02/02/2020 at his bedside on the cardiac stepdown unit. Patient is currently sitting up to the bedside chair and is in no acute distress. He is awake, alert and oriented 3 and is hemodynamically stable. Currently denies any complaints of pain or shortness of breath. Oxygen saturation is 98% on room air and he is achieving 2500 mL on his incentive spirometry. Preoperative open heart binder Road to a healthy heart was given to the patient and discussed with the patient. His questions were answered to the best my ability. The patient is scheduled tentatively for tomorrow 02/03/2024 aortic valve replacement, myocardial revascularization with BUNNY MCCLAIN to be performed by Dr. Ilya Watson. A 2-D echocardiogram was completed this morning although the results are unavailable at this time. Objective - Vital Signs Vital signs: Vital Signs Temp 97.6 F 02/02/20 11:58 Pulse 59 L 02/02/20 12:00 Resp 18 02/02/20 11:58 BP 131/70 02/02/20 11:58 Pulse Ox 98 02/02/20 11:58 Intake & Output 02/01/20 02/02/20 02/02/20 18:59 06:59 18:59 Intake Total 960 450 225 Balance 960 450 225 Weight 92 kg Intake: Oral 960 450 225 Other: Voiding Method Toilet # Voids 1 2 # Bowel Movements 0 - Exam This is a pleasant 79-year-old gentleman who is sitting up to his bedside chair on the cardiac stepdown unit. He is awake, alert and oriented 3 and is in no acute distress. Oxygen saturations are 98% on room air. - Constitutional General appearance: Present: cooperative, no acute distress, obese - EENT Eyes: Present: PERRLA, normal appearance. Absent: scleral icterus ENT: Present: hearing grossly normal - Neck Details: Neck is supple, no JVD. Positive bilateral bruits. - Respiratory Details: Lungs sounds essentially clear throughout, diminished to his bilateral bases. Respirations are symmetrical and nonlabored. Oxygen saturation are 98% on room air. Achieving 2500 mL on his incentive spirometry. - Cardiovascular Details: Regular rhythm and rate. S1 and S2 present, negative for S3, gallop or murmur. Positive pansystolic ejection murmur, radiating upwards into the neck. - Gastrointestinal Gastrointestinal Comment(s): Abdomen is soft, nontender and nondistended. Normal bowel sounds throughout. No guarding or rigidity. No organomegaly appreciated. - Genitourinary Genitourinary Comment(s): Voiding clear yellow urine. - Integumentary Integumentary Comment(s): Skin is warm and dry. No clubbing or cyanosis present. No rash or abnormal pigmentation is present. - Neurologic Neurologic Comment(s): No focal neurological deficits. Neurologic: Present: CNII-XII intact - Musculoskeletal Musculoskeletal: Present: gait normal, strength equal bilaterally - Psychiatric Psychiatric: Present: A&O x's 3, appropriate affect, intact judgment & insight - Allied health notes Allied health notes reviewed: nursing - Labs CBC & Chem 7: 02/02/20 07:21 02/02/20 07:21 Labs: Abnormal Lab Results - Last 24 Hours (Table) 02/01/20 02/01/20 02/02/20 Range/Units 17:01 20:41 06:16 Glucose (74-99) mg/dL POC Glucose (mg/dL) 136 H 156 H 137 H (75-99) mg/dL Crossmatch 02/02/20 02/02/20 02/02/20 Range/Units 07:21 07:21 11:21 Glucose 142 H (74-99) mg/dL POC Glucose (mg/dL) 125 H (75-99) mg/dL Crossmatch See Detail Microbiology - Last 24 Hours (Table) 01/31/20 12:20 Nasal Screen MRSA/MSSA - Final Nasal Swab Assessment and Plan Assessment: 1. Acute non-ST elevated myocardial infarction, abnormal troponins on admission 2. Coronary artery disease, status post heart catheterization 3. History of aortic valve stenosis 4. History of hypertension 5. History of type 2 diabetes mellitus 6. History of rheumatoid arthritis, on methotrexate at home 7. History of peripheral vascular disease, remote history of right carotid endarterectomy 8. Remote history of nicotine dependence, quit smoking in 1991 Plan: 1. Continue to optimize medically with aspirin, statin, beta nas. 2. He is a tentatively scheduled for aortic valve replacement, myocardial revascularization surgery with left internal mammary artery, and endovascular vein harvest for , 02/02 Ilya Watson. 3. STS risk score was calculated and discussed with the patient by Dr. Maya Cruz. 4. Continue preoperative teaching with the patient and his per phone and their questions answered to the best of my ability. 5. Encourage use of his incentive spirometry 10 times every hour while awake. 6. Computed tomography scan of his facial bones without contrast with Panorex reconstruction was completed this a.m., awaiting dental clearance. 7. 2-D echocardiogram was completed this morning results pending. 8. Nothing by mouth after midnight. 9. More recommendations to follow based on patient's clinical course. Time with Patient: Greater than 30
--- NOTE | 2020-02-02 13:04 | P.GSCN ---
History of Present Illness Consult date: 02/02/20 Reason for Consult: Pt presented with lower teeth present only, with a complete upper denture. Radiographically, all seem ok, except a possible radiolucency on apex of #31, suggesting a chronic abscess and a devital pulp. Intra-orally, patient has two missing restorations on both teeth #18,31, but no deep decay seem present. Negative percussion testing, no swelling or pain on pressure. Gingiva and mandibular vestibule are pink, firm and healthy. Please note #25 (lower right incisor) has a grade II mobilty. Care should be taken when intubating, to minimize trauma or expulsion of tooth. Otherwise, patient is clear from actue infections and ok to proceed with the surgery. Thank you for your referral. Past Medical History Past Medical History: Diabetes Mellitus, Eye Disorder (ALLERGIC conjunctivitis), Hypertension, Rheumatoid Arthritis (RA), Vascular Disorder (History of right carotid endarterectomy) Last Myocardial Infarction Date:: 1993 and 01/30/2020 History of Any Multi-Drug Resistant Organisms: None Reported Past Surgical History: Cholecystectomy Additional Past Surgical History / Comment(s): Right carotid endarterectomy Past Anesthesia/Blood Transfusion Reactions: No Reported Reaction Past Psychological History: No Psychological Hx Reported Smoking Status: Former smoker (Quit smoking in 1991) Past Alcohol Use History: None Reported Past Drug Use History: None Reported - Past Family History Father History Unknown: Yes Additional Family Medical History / Comment(s): The patient reports he was adopt ed and is unaware of his parents medical history. Mother History Unknown: Yes Additional Family Medical History / Comment(s): The patient reports he was adopted and is unaware of his parents medical history. Brother(s) Family Medical History: Myocardial Infarction ([place]) Additional Family Medical History / Comment(s): The patient reports that he does know his biological brother and he does have a history of myocardial infarction in his 60s. Medications and Allergies Home Medications Medication Instructions Recorded Confirmed Type Cinnamon Bark [Cinnamon] 500 mg PO TID 01/30/20 01/30/20 History Clorazepate Dipotassium [Tranxene 7.5 mg PO HS 01/30/20 01/30/20 History T] Folic Acid 1 mg PO DAILY 01/30/20 01/30/20 History Furosemide [Lasix] 40 mg PO BID 01/30/20 01/30/20 History Methotrexate Sodium [Methotrexate] 25 mg PO SA 01/30/20 01/30/20 History Metoprolol Tartrate [Lopressor] 25 mg PO BID 01/30/20 01/30/20 History Olopatadine HCl [Pataday] 1 drop BOTH EYES BID 01/30/20 01/30/20 History hydrALAZINE HCL [Apresoline] 50 mg PO AC-BID 01/30/20 01/30/20 History metFORMIN HCL [Glucophage] 500 mg PO AC-BID 01/30/20 01/30/20 History Allergies Allergy/AdvReac Type Severity Reaction Status Date / Time Penicillins Allergy Intermediate shortness Verified 01/30/20 09:38 of breath/nausea Surgical - Exam Vital Signs Temp Pulse Resp BP Pulse Ox 98.6 F 93 20 107/64 99 01/30/20 02:27 01/30/20 02:27 01/30/20 02:27 01/30/20 02:27 01/30/20 02:27 Results - Labs 02/02/20 07:21 02/02/20 07:21 Abnormal Lab Results - Last 24 Hours (Table) 02/01/20 02/01/20 02/02/20 Range/Units 17:01 20:41 06:16 Glucose (74-99) mg/dL POC Glucose (mg/dL) 136 H 156 H 137 H (75-99) mg/dL Crossmatch 02/02/20 02/02/20 02/02/20 Range/Units 07:21 07:21 11:21 Glucose 142 H (74-99) mg/dL POC Glucose (mg/dL) 125 H (75-99) mg/dL Crossmatch See Detail Microbiology - Last 24 Hours (Table) 01/31/20 12:20 Nasal Screen MRSA/MSSA - Final Nasal Swab Diabetes panel 02/02/20 Range/Units 07:21 Sodium 137 (137-145) mmol/L Potassium 5.0 (3.5-5.1) mmol/L Chloride 105 (98-107) mmol/L Carbon Dioxide 25 (22-30) mmol/L BUN 19 (9-20) mg/dL Creatinine 0.98 (0.66-1.25) mg/dL Glucose 142 H (74-99) mg/dL Calcium 8.5 (8.4-10.2) mg/dL Calcium panel 02/02/20 Range/Units 07:21 Calcium 8.5 (8.4-10.2) mg/dL Pituitary panel 02/02/20 Range/Units 07:21 Sodium 137 (137-145) mmol/L Potassium 5.0 (3.5-5.1) mmol/L Chloride 105 (98-107) mmol/L Carbon Dioxide 25 (22-30) mmol/L BUN 19 (9-20) mg/dL Creatinine 0.98 (0.66-1.25) mg/dL Glucose 142 H (74-99) mg/dL Calcium 8.5 (8.4-10.2) mg/dL Adrenal panel 02/02/20 Range/Units 07:21 Sodium 137 (137-145) mmol/L Potassium 5.0 (3.5-5.1) mmol/L Chloride 105 (98-107) mmol/L Carbon Dioxide 25 (22-30) mmol/L BUN 19 (9-20) mg/dL Creatinine 0.98 (0.66-1.25) mg/dL Glucose 142 H (74-99) mg/dL Calcium 8.5 (8.4-10.2) mg/dL
--- NOTE | 2020-02-02 13:33 | P.VSCSTY ---
Greater Saphenous Vein Mapping This is bilateral lower extremity greater saphenous vein mapping. Date of service: 01/31/2020 Vein quality and ultrasound appearance: We see no endoluminal thrombus or wall changes. Vein size groin right : 7.1 x 5.9 groin left: 7.7 x 6.9 High thigh right: 4.2 x 4.3 high thigh left: 6.6 x 5.0 Mid thigh right: 2.9 x 3.1 mid thigh left: 4.0 x 3.7 Above-knee right: 3.3 x 3.1 above- knee left: 3.8 x 3.3 Below knee right: 2.9 x 2.3 below-knee left: 4.0 x 3.2 Mid calf right: 1.9 x 1.5 mid calf left: 2.9 x 2.3 Ankle right: 1.5 x 1.4 ankle left: 1.7 x 1.8 Impression: Usable bilateral greater saphenous vein. Lower leg on the right and ankle on the left appear small for conduit..
--- NOTE | 2020-02-02 13:34 | P.ARTDOP ---
Arterial Doppler LOWER EXTREMITY ARTERIAL DOPPLER: DATE OF SERVICE: 01/31/2020 Reason for study: Pre-CABG. Doppler waveforms: Multiphasic bilaterally throughout. Pulse volume recording: []. Pressure gradients: None. Ankle-brachial indices: Greater than 1 bilaterally. Toe brachial indices: 0.7 on the right, 0.77 on the left Impression: Normal study.
--- NOTE | 2020-02-02 14:32 | P.PN ---
Subjective Progress Note Date: 02/02/20 Principal diagnosis: chest pain, dyspnea, CAD and severe aortic stenosis 79-year-old white male patient of Dr. Mckeon, with past medical history of hypertension, type 2 diabetes mellitus, rheumatoid arthritis on methotrexate, carotid stenosis with previous history of right carotid endarterectomy, remote history of smoking, and known history of aortic valve stenosis, and atrial f ibrillation. Patient follows with Dr. Cruz. Patient presented to the emergency department on 01/30/2020 per EMS for evaluation of left chest pain, with diaphoresis, dyspnea and palpitations. EKG showed normal sinus rhythm with T-wave inversions in the inferior leads. First set of troponin was 0.035, second and third troponins was 0.181 and 0.137 respectively. CBC was within normal limits with the exception of lymphocyte count was 0.9 on admission. INR 0.9, sodium was 135, the rest of the electrolytes were within normal limits, B1 is 22 creatinine was 0.94, LFTs were within normal limits, proBNP was 158, lipase was normal at 36, urinalysis was negative. Admission chest x-ray showed mild pleural diaphragmatic scarring at the lateral right lung base. Patient had a cardiac catheterization on 01/31/2020 which showed RCA disease of 50%, 40% stenosis after the diagonal branch, 90% stenosis of the circumflex, and severe aortic stenosis with a peak gradient of 52 mmHg. LV end-diastolic pressures were mildly elevated. Patient was referred to cardiac surgery for evaluation, the patient is undergoing preoperative testing, and is being scheduled for surgery on 02/03/2020 for aortic valve replacement, and coronary artery bypass grafting by Dr. Watson On 02/02/2020 patient seen in follow-up on selective care unit, he is awake and alert, oriented 3, in no acute distress, currently on room air, no couplets chest pain or shortness of breath. No lightheadedness dizziness, syncopal episodes, room air pulse ox is 98%, hemodynamically patient is stable, patient is in sinus mechanism, the rate of 58 BPM. no drips. lung sounds are clear, no difficulty breathing. patient is pulling 2.5 L on his incentive spirometry. Today's labs have been reviewed. Objective - Vital Signs Vital signs: Vital Signs Temp 97.6 F 02/02/20 11:58 Pulse 59 L 05/27/20 12:00 Resp 18 02/02/20 11:58 BP 131/70 02/02/20 11:58 Pulse Ox 98 02/02/20 11:58 Intake & Output 02/01/20 02/02/20 02/02/20 18:59 06:59 18:59 Intake Total 960 450 225 Balance 960 450 225 Weight 92 kg Intake: Oral 960 450 225 Other: Voiding Method Toilet # Voids 1 2 # Bowel Movements 0 - Exam GENERAL EXAM: Alert, very pleasant, 71-year-old white male, resting comfortably in bed, on room air the pulse ox of 98%, comfortable in no apparent distress. HEAD: Normocephalic/atraumatic. EYES: Normal reaction of pupils, equal size. Conjunctiva pink, sclera white. NOSE: Clear with pink turbinates. THROAT: No erythema or exudates. NECK: No masses, no JVD, no thyroid enlargement, no adenopathy. CHEST: No chest wall deformity. Symmetrical expansion. LUNGS: Equal air entry with no crackles, wheeze, rhonchi or dullness. CVS: Regular rate and rhythm, normal S1 and S2, no gallops, no murmurs, no rubs ABDOMEN: Soft, nontender. No hepatosplenomegaly, normal bowel sounds, no guarding or rigidity. EXTREMITIES: No clubbing, no edema, no cyanosis, 2+ pulses and upper and lower extremities. MUSCULOSKELETAL: Muscle strength and tone normal. SPINE: No scoliosis or deformity SKIN: No rashes CENTRAL NERVOUS SYSTEM: Alert and oriented -3. No focal deficits, tone is normal in all 4 extremities. PSYCHIATRIC: Alert and oriented -3. Appropriate affect. Intact judgment and insight. - Labs CBC & Chem 7: 02/02/20 07:21 02/02/20 07:21 Labs: Abnormal Lab Results - Last 24 Hours (Table) 02/01/20 02/01/20 02/02/20 Range/Units 17:01 20:41 06:16 Glucose (74-99) mg/dL POC Glucose (mg/dL) 136 H 156 H 137 H (75-99) mg/dL Crossmatch 02/02/20 02/02/20 02/02/20 Range/Units 07:21 07:21 11:21 Glucose 142 H (74-99) mg/dL POC Glucose (mg/dL) 125 H (75-99) mg/dL Crossmatch See Detail Microbiology - Last 24 Hours (Table) 01/31/20 12:20 Nasal Screen MRSA/MSSA - Final Nasal Swab Assessment and Plan Plan: Assessment: #1. Chest pain related to acute non-ST elevated myocardial infarction #2. Severe aortic stenosis, pending aortic valve replacement on 02/03/2020 #3. Coronary artery disease, awaiting coronary artery bypass grafting on 02/03/2020 #4. Hypertension #5. Type 2 diabetes mellitus #6. Rheumatoid arthritis on methotrexate #7. Remote history of smoking #8. History of carotid stenosis, with history of right carotid endarterectomy #9. History of atrial fibrillation, currently in sinus rhythm Plan: preop PFTs have been reviewed by Dr. Blancas and were within normal limits. Patient has had no acute events overnight, clinically stable, remains in sinus mechanism, no complaints of chest pain or shortness of breath. He is awaiting surgery tomorrow for aortic valve replacement and coronary artery bypass grafting by Dr. Watson. I performed a history & physical examination of the patient and discussed their management with my nurse practitioner, Minnie Mcmillan. I reviewed the nurse practitioner's note and agree with the documented findings and plan of care. Lung sounds are positive for clear breath sounds. The findings and the imp ression was discussed with the patient. I attest to the documentation by the nurse practitioner. Time with Patient: Less than 30
--- NOTE | 2020-02-02 16:00 | ECHOF ---
Referral Reason:elevTrop MEASUREMENTS -------- HEIGHT: 170.2 cm WEIGHT: 91.6 kg BP: 139/51 IVSd: 1.4 cm (0.6 - 1.1) LVIDd: 3.8 cm (3.9 - 5.3) LVPWd: 1.7 cm (0.6 - 1.1) IVSs: 1.6 cm LVIDs: 2.4 cm LVPWs: 1.5 cm RVIDd: 3.2 cm (< 3.3) LAESV Index (A-L): 45.22 ml/m Ao Diam: 3.4 cm (2.0 - 3.7) AV Cusp: 1.4 cm (1.5 - 2.6) EPSS: 0.9 cm MV E Nate: 1.09 m/s MV DecT: 274 ms MV A Nate: 1.60 m/s MV E/A Ratio: 0.68 AV maxP.99 mmHg AV meanP.87 mmHg RAP: 5.00 mmHg RVSP: 49.58 mmHg MV EF SLOPE: 95.74 mm/s (70 - 150) MV EXCURSION: 12.84 mm (> 18.000) FINDINGS -------- Sinus rhythm. This was a technically adequate study. The left ventricular size is normal. There is moderate concentric left ventricular hypertrophy. O verall left ventricular systolic function is normal with, an EF between 55 - 60 %. Both the mean at rial pressure as well as the LV end diastolic pressure is elevated 30.36. The right ventricle is normal in size. LA is moderately dilated 34-39 ml/m2 The right atrial size is normal. Interatrial and interventricular septum intact. There is no evidence of aortic regurgitation. There is severe aortic stenosis present. Peak/mean gradient across the Aortic Valve is 90.99mmHg / 54.87mmHg. Mild mitral annular calcification present. Mild mitral regurgitation is present. Mild mitral sten osis , with a MVA of 2.8cm (by PHT) Moderate tricuspid regurgitation present. There is moderate pulmonary hypertension. The right isha tricular systolic pressure, as measured by Doppler, is 49.58mmHg. There is no pulmonic regurgitation present. The aortic root size is normal. Normal inferior vena cava with normal inspiratory collapse consistent with estimated right atrial pre ssure of 5 mmHg. There is no pericardial effusion. CONCLUSIONS -------- 1. Sinus rhythm. 2. This was a technically adequate study. 3. The left ventricular size is normal. 4. There is moderate concentric left ventricular hypertrophy. 5. Overall left ventricular systolic function is normal with, an EF between 55 - 60 %. 6. Both the mean atrial pressure as well as the LV end diastolic pressure is elevated 30.36. 7. The right ventricle is normal in size. 8. LA is moderately dilated 34-39 ml/m2 9. The right atrial size is normal. 10. Interatrial and interventricular septum intact. 11. There is no evidence of aortic regurgitation. 12. There is severe aortic stenosis present. 13. Peak/mean gradient across the Aortic Valve is 90.99mmHg / 54.87mmHg. 14. Mild mitral annular calcification present. 15. Mild mitral regurgitation is present. 16. Mild mitral stenosis. 17. , with a MVA of 2.8cm (by PHT) 18. Moderate tricuspid regurgitation present. 19. There is moderate pulmonary hypertension. 20. The right ventricular systolic pressure, as measured by Doppler, is 49.58mmHg. 21. There is no pulmonic regurgitation present. 22. The aortic root size is normal. 23. Normal inferior vena cava with normal inspiratory collapse consistent with estimated right atrial pressure of 5 mmHg. 24. There is no pericardial effusion. ADMITTING REPRESENTATIVE: Donna Carvajal RDCS
--- NOTE | 2020-02-02 16:22 | P.PN ---
Subjective Progress Note Date: 02/02/20 This is a 79-year-old patient with history of hypertension, diabetes, rheumatoid arthritis on methotrexate, carotid stenosis with prior right carotid endarterectomy, remote history of smoking, history of aortic valve stenosis and atrial fibrillation who follows with Dr. Cruz in the office. Patient p resented to the emergency department on 01/30/2020 per EMS for evaluation of left chest pain, with diaphoresis, dyspnea and palpitations. EKG showed normal sinus rhythm with T-wave inversions in the inferior leads. First set of troponin was 0.035, second and third troponins was 0.181 and 0.137 respectively. CBC was within normal limits with the exception of lymphocyte count was 0.9 on admission. INR 0.9, sodium was 135, the rest of the electrolytes were within normal limits, B1 is 22 creatinine was 0.94, LFTs were within normal limits, proBNP was 158, lipase was normal at 36, urinalysis was negative. Admission chest x-ray showed mild pleural diaphragmatic scarring at the lateral right lung base. Patient had a cardiac catheterization on 01/31/2020 which showed RCA disease of 50%, 40% stenosis after the diagonal branch, 90% stenosis of the circumflex, and severe aortic stenosis with a peak gradient of 52 mmHg. LV end- diastolic pressures were mildly elevated. Patient was referred to cardiac surgery for evaluation, the patient is undergoing preoperative testing, and is being scheduled for surgery on 02/03/2020 for aortic valve replacement, and coronary artery bypass grafting by Dr. Watson. Patient was seen and examined this morning, denied any chest discomfort in his breathing is stable. Blood pressure 120/57, heart rate in the 50s to 60s, 98% on room air. 02/02/2020 Patient seen and examined this morning, hemodynamically stable. He's been up ambulating in the hallway without any difficulty. Scheduled for bypass and aortic valve replacement tomorrow. Objective - Vital Signs Vital signs: Vital Signs Temp 97.4 F L 02/02/20 16:00 Pulse 55 L 02/02/20 16:00 Resp 18 02/02/20 16:00 BP 151/72 02/02/20 16:00 Pulse Ox 97 02/02/20 16:00 Intake & Output 02/01/20 02/02/20 02/02/20 18:59 06:59 18:59 Intake Total 960 450 225 Balance 960 450 225 Weight 92 kg Intake: Oral 960 450 225 Other: Voiding Method Toilet # Voids 1 2 # Bowel Movements 0 - Exam GENERAL EXAM: Alert, very pleasant, 71-year-old white male, resting comfortably in bed, on room air the pulse ox of 98%, comfortable in no apparent distress. HEAD: Normocephalic/atraumatic. EYES: Normal reaction of pupils, equal size. Conjunctiva pink, sclera white. NOSE: Clear with pink turbinates. THROAT: No erythema or exudates. NECK: No masses, no JVD, no thyroid enlargement, no adenopathy. CHEST: No chest wall deformity. Symmetrical expansion. LUNGS: Equal air entry with no crackles, wheeze, rhonchi or dullness. CVS: Regular rate and rhythm, normal S1 and S2, no gallops, systolic ejection murmur heard , no rubs ABDOMEN: Soft, nontender. No hepatosplenomegaly, normal bowel sounds, no guarding or rigidity. EXTREMITIES: No clubbing, no edema, no cyanosis, 2+ pulses and upper and lower extremities. MUSCULOSKELETAL: Muscle strength and tone normal. SPINE: No scoliosis or deformity SKIN: No rashes CENTRAL NERVOUS SYSTEM: Alert and oriented -3. No focal deficits, tone is normal in all 4 extremities. PSYCHIATRIC: Alert and oriented -3. Appropriate affect. Intact judgment and insight. - Labs CBC & Chem 7: 02/02/20 07:21 02/02/20 07:21 Labs: Abnormal Lab Results - Last 24 Hours (Table) 02/01/20 02/01/20 02/02/20 Range/Units 17:01 20:41 06:16 Glucose (74-99) mg/dL POC Glucose (mg/dL) 136 H 156 H 137 H (75-99) mg/dL Crossmatch 02/02/20 02/02/20 02/02/20 Range/Units 07:21 07:21 11:21 Glucose 142 H (74-99) mg/dL POC Glucose (mg/dL) 125 H (75-99) mg/dL Crossmatch See Detail Microbiology - Last 24 Hours (Table) 01/31/20 12:20 Nasal Screen MRSA/MSSA - Final Nasal Swab Assessment and Plan Plan: Assessment: #1. Non-ST elevated myocardial infarction #2. Severe aortic stenosis, pending aortic valve replacement on 02/03/2020 #3. Coronary artery disease, awaiting coronary artery bypass grafting on 02/03/2020 #4. Hypertension #5. Type 2 diabetes mellitus #6. Rheumatoid arthritis on methotrexate #7. Remote history of smoking #8. History of carotid stenosis, with history of right carotid endarterectomy #9. History of paroxysmal atrial fibrillation, currently in sinus rhythm Plan We will continue current medications, patient is scheduled to undergo coronary bypass grafting surgery and aortic valve replacement on . DNP note has been reviewed, I agree with a documented findings and plan of care. Patient was seen and examined.
[2020-02-02 16:39] LABS: Glucose,Whole Blood 123 mg/dL (75-99)
[2020-02-02 20:03] LABS: Glucose,Whole Blood 187 mg/dL (75-99)
[2020-02-02] MEDS: CLORAZEPATE 7.5 MG PO SCH (21:42)
[2020-02-03] MEDS ORDERED: MANNITOL 25% 12.5 GM/50 ML VIAL IV ONE ×2 (05:00)
[2020-02-03] MEDS ORDERED: ALBUMIN HUMAN 25% 50 ML in EMPTY BAG 1 BAG IVPB ONE (05:00)
[2020-02-03] MEDS ORDERED: ALBUMIN HUMAN 5% 500 ML in EMPTY BAG 1 BAG IVPB ONE ×6 (05:00)
[2020-02-03] MEDS ORDERED: MAGNESIUM SULFATE SYG 4.06 MEQ/ML SYRINGE IV ONE (05:00)
[2020-02-03] MEDS ORDERED: CARDIOPLEGIC SOLN (K+ 16 MEQ/L 1,000 ML with SOD BICARB SYR 8.4% (1 MEQ/ML) 20 ML, LIDO... PERFUSION NR ×3 (05:00)
[2020-02-03] MEDS ORDERED: NITROGLYCERIN-D5W PMX 25 MG/250 ML BTL IV ONE (05:00)
[2020-02-03] MEDS ORDERED: ATORVASTATIN 10 MG TAB PO ONE (05:00)
[2020-02-03] MEDS ORDERED: METOPROLOL TARTRATE 12.5 MG TAB PO ONE (05:00)
[2020-02-03] MEDS ORDERED: ASPIRIN 325 MG TAB PO ONE (05:00)
[2020-02-03] MEDS ORDERED: SODIUM BICARB 8.4% 50 ML SYR (1 MEQ/ML) IV ONE (05:00)
[2020-02-03] MEDS ORDERED: NOREPINEPHRINE 4 MG in SODIUM CHLORIDE 0.9% 250 ML IV SCH (05:00)
[2020-02-03] MEDS ORDERED: CALCIUM CHLORIDE 100 MG/ML 10 ML SYRINGE IVP ONE (05:00)
[2020-02-03] MEDS ORDERED: PROTAMINE SULFATE 10 MG/ML 25 ML VIAL IV ONE ×2 (05:00→07:37)
[2020-02-03] MEDS ORDERED: PROPOFOL 1,000 MG in EMPTY BAG 1 BAG IV PRN (05:00)
[2020-02-03] MEDS ORDERED: HEPARIN SODIUM,PORCINE 5,000 UNIT in SODIUM CHLORIDE 0.9% 500 ML 500 ML IV ONE (05:00)
[2020-02-03] MEDS ORDERED: CLEVIDIPINE BUTYRATE 25 MG in EMPTY BAG 1 BAG IV SCH (05:00)
[2020-02-03] MEDS ORDERED: PHENYLEPHRINE 40 MG in SODIUM CHLORIDE 0.9% 250 ML IV ONE (05:00)
[2020-02-03] MEDS ORDERED: HEPARIN SODIUM 1,000 UN/ML (10ML VL) IV ONE (05:00)
[2020-02-03] MEDS ORDERED: TRANEXAMIC ACID 2,000 MG in SODIUM CHLORIDE 0.9% 80 ML IV ONE (05:00)
[2020-02-03] MEDS ORDERED: PAPAVERINE 360 MG in SODIUM CHLORIDE 0.9% 90 ML IV ONE (05:00)
[2020-02-03] MEDS ORDERED: CHLORHEXIDINE GLUCONATE 15 ML CUP MUCOUS MEM ONE (05:00)
[2020-02-03] MEDS ORDERED: PROTAMINE SULFATE 250 MG in EMPTY BAG 1 BAG IV ONE (05:00)
[2020-02-03] MEDS ORDERED: INSULIN REGULAR 100 UNIT in SODIUM CHLORIDE 0.9% 100 ML IV SCH ×2 (05:00→14:19)
[2020-02-03] MEDS: hydrALAZINE HCL 50 MG TAB PO SCH (06:16)
[2020-02-03] MEDS: INSULIN ASPART (NovoLOG) 100 UNIT/ML VIAL SQ SCH (06:16)
[2020-02-03] MEDS ORDERED: LACTATED RINGERS 1,000 ML IV ONE (06:32)
[2020-02-03 06:36] LABS: Glucose,Whole Blood 146 mg/dL (75-99)
[2020-02-03] MEDS ORDERED: ceFAZolin 1,000 MG in SODIUM CHLORIDE 0.9% IRRIGATIO 1,000 ML IRRIGATION ONE (07:00)
[2020-02-03] MEDS ORDERED: ceFAZolin 2,000 MG in SODIUM CHLORIDE 0.9% 30 ML IVPB ONE (07:00)
[2020-02-03] MEDS ORDERED: ceFAZolin 2 GM in SODIUM CHLORIDE 0.9% 30 ML IVPB ONE (07:00)
[2020-02-03] MEDS ORDERED: SODIUM CHLORIDE 0.9% IRRIG 3,000 ML BAG IRRIGATION ONE (07:37)
[2020-02-03] MEDS ORDERED: VECURONIUM 10 MG VIAL IV ONE (07:37)
[2020-02-03] MEDS ORDERED: MIDAZOLAM 2 MG/2 ML VIAL ONE (07:37)
[2020-02-03] MEDS ORDERED: ALBUMIN HUMAN 5% (25gm) 500 ML VIAL IVPB ONE (07:37)
[2020-02-03] MEDS ORDERED: SODIUM CHLORIDE 0.9% 250 ML BAG ONE (07:37)
[2020-02-03] MEDS ORDERED: NITROGLYCERIN-D5W PMX 50 MG/250 ML BOTTLE IV ONE (07:37)
[2020-02-03] MEDS ORDERED: PROPOFOL 10 MG/ML 20 ML VIAL IV ONE (07:37)
[2020-02-03] MEDS ORDERED: HEPARIN SODIUM,PORCINE 10,000 UNIT/ML 1 ML VIAL ONE (07:37)
[2020-02-03] MEDS ORDERED: ePHEDrine SULFATE/0.9% NACL/PF 50 MG/5 ML SYRINGE IV ONE (07:37)
[2020-02-03] MEDS ORDERED: fentaNYL (PF) 50 MCG/ML 50 ML VIAL ONE (07:37)
[2020-02-03] MEDS ORDERED: LACTATED RINGERS 1,000 ML BAG IV ONE (07:37)
[2020-02-03] MEDS ORDERED: LIDOCAINE 2% SYG (PF) 100 MG/5 ML ONE (07:37)
[2020-02-03] MEDS ORDERED: fentaNYL (PF) 50 MCG/ML 2 ML AMP ONE (07:37)
[2020-02-03] MEDS ORDERED: TRANEXAMIC ACID 1,000 MG/10 ML VIAL ONE (07:37)
[2020-02-03 08:32] LABS: ABG Base Excess 4.1 mmol/L; ABG Glucose Whole Blood 128 mg/dL (75-99); ABG HCO3 28 mmol/L (21-25); ABG Hematocrit 37 % (34.0-46.0); ABG Ionized Calcium 4.4 mg/dL (4.5-5.3); ABG Lactic Acid Whole Blood 0.9 mmol/L (0.5-1.6); ABG PCO2 38 mmHg (35-45); ABG PO2 227 mmHg (83-108); ABG Potassium Whole Blood 3.9 mmol/L (3.4-4.5); ABG Sodium Whole Blood 141 mmol/L (135-146); ABG TCO2 29 mmol/L (19-24)
[2020-02-03 10:10] LABS: ABG Base Excess 2.8 mmol/L; ABG Glucose Whole Blood 128 mg/dL (75-99); ABG HCO3 28 mmol/L (21-25); ABG Hematocrit 35 % (34.0-46.0); ABG Ionized Calcium 4.4 mg/dL (4.5-5.3); ABG Lactic Acid Whole Blood 1.2 mmol/L (0.5-1.6); ABG Oxygen Saturation 99.9 % (94-97); ABG PCO2 43 mmHg (35-45); ABG PH 7.42 (7.35-7.45); ABG PO2 247 mmHg (83-108); ABG Potassium Whole Blood 4.1 mmol/L (3.4-4.5); ABG Sodium Whole Blood 140 mmol/L (135-146); ABG TCO2 29 mmol/L (19-24)
[2020-02-03 11:25] LABS: ABG Base Excess 1.8 mmol/L; ABG Glucose Whole Blood 61 mg/dL (75-99); ABG HCO3 27 mmol/L (21-25); ABG Hematocrit 26 % (34.0-46.0); ABG Ionized Calcium 4.3 mg/dL (4.5-5.3); ABG Lactic Acid Whole Blood 1.3 mmol/L (0.5-1.6); ABG PCO2 46 mmHg (35-45); ABG PH 7.38 (7.35-7.45); ABG PO2 249 mmHg (83-108); ABG Potassium Whole Blood 3.9 mmol/L (3.4-4.5); ABG Sodium Whole Blood 139 mmol/L (135-146); ABG TCO2 29 mmol/L (19-24)
[2020-02-03 11:37] LABS: ABG Base Excess 2.1 mmol/L; ABG Glucose Whole Blood 66 mg/dL (75-99); ABG HCO3 28 mmol/L (21-25); ABG Hematocrit 28 % (34.0-46.0); ABG Ionized Calcium 4.3 mg/dL (4.5-5.3); ABG Lactic Acid Whole Blood 1.3 mmol/L (0.5-1.6); ABG PCO2 49 mmHg (35-45); ABG PH 7.37 (7.35-7.45); ABG PO2 232 mmHg (83-108); ABG Potassium Whole Blood 4.1 mmol/L (3.4-4.5); ABG Sodium Whole Blood 141 mmol/L (135-146); ABG TCO2 29 mmol/L (19-24)
[2020-02-03 12:04] LABS: ABG Base Excess 1.3 mmol/L; ABG Glucose Whole Blood 125 mg/dL (75-99); ABG HCO3 26 mmol/L (21-25); ABG Hematocrit 28 % (34.0-46.0); ABG Ionized Calcium 4.2 mg/dL (4.5-5.3); ABG Lactic Acid Whole Blood 1.4 mmol/L (0.5-1.6); ABG PCO2 39 mmHg (35-45); ABG PH 7.43 (7.35-7.45); ABG PO2 314 mmHg (83-108); ABG Potassium Whole Blood 4.4 mmol/L (3.4-4.5); ABG Sodium Whole Blood 139 mmol/L (135-146); ABG TCO2 27 mmol/L (19-24)
[2020-02-03 12:30] LABS: ABG Base Excess 1.2 mmol/L; ABG Glucose Whole Blood 120 mg/dL (75-99); ABG HCO3 25 mmol/L (21-25); ABG Hematocrit 29 % (34.0-46.0); ABG Ionized Calcium 4.2 mg/dL (4.5-5.3); ABG Lactic Acid Whole Blood 1.7 mmol/L (0.5-1.6); ABG PCO2 36 mmHg (35-45); ABG PH 7.45 (7.35-7.45); ABG PO2 285 mmHg (83-108); ABG Potassium Whole Blood 4.3 mmol/L (3.4-4.5); ABG Sodium Whole Blood 139 mmol/L (135-146); ABG TCO2 26 mmol/L (19-24)
--- NOTE | 2020-02-03 14:14 | P.OP ---
Date of Procedure: 02/03/20 Preoperative Diagnosis: Aortic stenosis, coronary artery disease Postoperative Diagnosis: Same Procedure(s) Performed: Aortic valve replacement with 25 mm in spirits bovine pericardial valve prosthesis, CABG 2 with MCCLAIN to LAD and saphenous vein graft to PDA, exclusion of left atrial appendage with 35 mm AtriCure clip Implants: Following pericardial valve, AtriCure clip Anesthesia: ALONSO Surgeon: Ilya Watson Sergeant [employer] #1: Brown Philippe IV fluids (ml): 200 Urine output (ml): 300 Pathology: other (Aortic valve) Condition: stable Disposition: ICU Indications for Procedure: 79-year-old male with known severe aortic stenosis diagnosed prior to the [place]ard the crisis and put on hold for its duration. The patient presented with chest pain. Components were elevated. Cardiac catheterization demonstrated significant three-vessel coronary artery disease. Surgery was consulted. Operative Findings: Diffuse calcific coronary artery disease. Ulcerative plaque in the left lateral wall of the ascending aorta. Calcified tricuspid aortic valve. Conduits were good. Aortic root was relatively small but the annulus was good size. Description of Procedure: The patient was brought to the operating room and placed supine on the operating table, anesthetized and intubated. T probe was placed. The anterior torso and lower extremities were sterilely prepped and draped after placing a Quevedo catheter. [place]-Corine catheter and radial arterial line and been placed in the preop holding area. After timeout midline incision was performed over the ster num. Left hemisternum was retracted upwards and the left internal mammary artery harvested on a vascularized pedicle left intact on its origin from the subclavian and divided distally. Simultaneously saphenous vein was harvested using endovascular vein harvest technique from the left lower extremity from mid calf to groin. Left pleural space was drained with 32-Luxembourger chest tube. Standard sternal retractor was placed and the pericardium was opened in the midline. The heart was exposed with pericardial sutures. Patient was heparinized and cannulated for cardiopulmonary bypass. Was noted that there was a calcific plaque in the left lateral wall of the ascending aorta. Propria cannulation and proximal and aortotomy sites were planned around this. Crossclamping was also planned around this. The aorta was cannulated with a 7 mm Sarns soft flow cannula. The right atrium was cannulated with a two-stage venous cannula. Antegrade and retrograde cardioplegia lines were placed in appr opriate fashion. Pursestring suture was placed in the right superior pulmonary vein. Patient was placed on cardiopulmonary bypass and stabilized the targets were identified. The LAD was buried deep in the intramyocardial fat from its length and emerged at the apex. It was identified fairly proximally just after the takeoff of the first diagonal branch. Here it was a soft vessel. The PDA was diffusely calcified. It was graftable distally. Second obtuse marginal was a very small vessel. There was not significant blockage in the first obtuse marginal. Plans were made to graft the LAD and the PDA. 35mm AtriCure clip was placed at the base of the left atrial appendage. The aorta was crossclamped and the heart arrested with cold crystalloid antegrade cardioplegia followed by retrograde cardioplegia. Left atrial vent was placed through pursestring in the right superior pulmonary vein. Inferior wall the heart was exposed and the PDA was opened. It was a 1.5-1.75 mm vessel. It was heavily calcified distally and grafted fairly proximally. Here there was still diffuse disease present. Saphenous vein was anastomosed end-to-side fashion with running 7-0 Prolene suture. 1.5 mm probe advanced easily distally. Vein was cut to appropriate length to reach the ascending aorta. Next the LAD was opened. 2 mm probe went distally but not proximally for a distance of about an inch and a half beyond this a 1.5 mm probe easily advanced to the apex. 1.5 mm probe advanced proximally some distance but not all the way to the aorta and weren't meant a hard calcific lesion. MCCLAIN to the LAD anastomosis was performed with running 8- 0 Prolene suture. On completion anastomosis was probed and then suture tied and inflow open briefly with good hemostasis. The aorta was now opened t ransversely. The aortic valve was exposed. The aortic root was fairly small. The aortic valve was tricuspid and heavily calcific. It was excised and the annulus debrided of calcium. Copious irrigation was performed. Circumferential valve sutures of 2-0 Tycron suture were placed with the pledgets on the ventricular side to allow a supra-annular implantation. The annulus was sized and a 25 mm Inspiris bovine pericardial valve was chosen and brought up on the field.Valve sutures are placed through the sewing ring of the valve and it was seated without difficulty. Sutures were tied and cut and the valve was noted to seat well. Coronary ostia were well away from the annulus. We again irrigated and closed the aorta with a running 2 layer closure of 4-0 Prolene. This was reinforced with some Pro-gel. Proximal anastomosis was performed a 4 mm punch hole in the ascending aorta. On completion of this the cross-clamp was removed. The vein graft was de-aired with needle holes and the inflow open. The inflow to the MCCLAIN to the LAD was opened. The balloon and the retrograde catheter was taken down. The left atrial vent was removed and the pursestring tied with good hemostasis. Retrograde catheter was removed and atrial and ventricular pacing wires placed. The patient was in a sinus bradycardia around 60. After. Reperfusion and rewarming the patient was weaned from cardioplegic bypass without the use of inotropic support. The aortic vent cannula been removed first. De-airing of and monitored with DENNISE and the apex had been punctured with a 16-gauge Angiocath in order to assure good de-airing. Once from cardiopulmonary bypass heparin was reversed with protamine and the patient was decannulated in standard fashion. The aortic cannulation site was reinforced with a 4 pledgeted Prolene suture. Patient remained hemodynamically stable. There was no significant bleeding. The mediastinum was drained with 236-Luxembourger chest tubes irrigated with antibiotic solution and the sternum closed with 8 sternal wires. Fascia was closed with 0 Ethibond. Cutaneous and subcuticular layers in the left chest was closed with layers of Vicryl suture. Patient was transferred to [facility] ICU in stable condition. He was being paced but on no inotropic support.He received no blood transfusions.
[2020-02-03 14:17] LABS: Glucose,Whole Blood 106 mg/dL (75-99)
[2020-02-03] MEDS ORDERED: DEXTROSE 5% IN WATER 100 ML with AMIODARONE 150 MG IV PRN (14:19)
[2020-02-03] MEDS ORDERED: CALCIUM GLUCONATE 2 GM in SODIUM CHLORIDE 0.9% 100 ML IVPB PRN (14:19)
[2020-02-03] MEDS ORDERED: IPRATROPIUM-ALBUTEROL 3 ML NEB INHALATION PRN (14:19)
[2020-02-03] MEDS ORDERED: ONDANSETRON 4 MG/2 ML VIAL IVP PRN (14:19)
[2020-02-03] MEDS ORDERED: Phosphorus Replacement Protoco 1 EACH MISC MISCELLANE PRN (14:19)
[2020-02-03] MEDS ORDERED: BENZOCAINE/MENTHOL LOZENG 1 EACH LOZENGE MUCOUS MEM PRN (14:19)
[2020-02-03] MEDS ORDERED: Magnesium Replacement Protocol 1 EACH MISC MISCELLANE PRN (14:19)
[2020-02-03] MEDS ORDERED: Potassium Replacement Protocol 1 EACH MISC MISCELLANE PRN (14:19)
[2020-02-03] MEDS ORDERED: PROPOFOL 1,000 MG in EMPTY BAG 1 BAG IV SCH (14:19)
[2020-02-03] MEDS ORDERED: METOCLOPRAMIDE 5 MG/ML 2 ML VIAL IVP PRN (14:19)
[2020-02-03 14:33] LABS: Basophils % (A) 0 %; Eosinophils # (A) 0.2 k/uL (0-0.7); Eosinophils % (A) 2 %; Lymphocytes % (A) 11 %; MCH 30.2 pg (25.0-35.0); MCHC 32.6 g/dL (31.0-37.0); MCV 92.4 fL (80.0-100.0); Mean Platelet Volume 8.7; Monocytes # (A) 0.3 k/uL (0-1.0); Monocytes % (A) 4 %; Neutrophils # (A) 7.5 k/uL (1.3-7.7); Neutrophils % (A) 83 %; Platelet Count 116 k/uL (150-450); RBC 3.46 m/uL (4.30-5.90); RDW 15.4 % (11.5-15.5)
[2020-02-03 14:36] LABS: HGB 10.4 gm/dL (13.0-17.5)
[2020-02-03 14:42] LABS: ABG Base Excess 0.8 mmol/L; ABG HCO3 27 mmol/L (21-25); ABG PCO2 51 mmHg (35-45); ABG PH 7.33 (7.35-7.45); ABG PO2 162 mmHg (83-108); ABG TCO2 28 mmol/L (19-24); Allen Test Performed? Yes
[2020-02-03 14:44] LABS: INR 1.2 (<1.2); Partial Thromboplastin Time 29.3 sec (22.0-30.0); Prothrombin Time 11.8 sec (9.0-12.0)
[2020-02-03 14:46] LABS: ABG Oxygen Saturation 99.2 % (94-97)
[2020-02-03] MEDS: NITROGLYCERIN-D5W PMX 50 MG in DEXTROSE/WATER 1 250ML.BAG IV SCH (14:54)
[2020-02-03] MEDS: LACTATED RINGERS 1,000 ML IV SCH (14:55)
[2020-02-03 14:59] LABS: Ionized Calcium 4.7 mg/dL (4.5-5.3)
--- NOTE | 2020-02-03 14:59 | XR ---
EXAMINATION TYPE: XR chest 1V portable DATE OF EXAM: 02/03/2020 COMPARISON: Prior chest x-ray 01/30/2020 HISTORY: Postop cardiac surgery TECHNIQUE: Single frontal view of the chest is obtained. FINDINGS: Patient is post median sternotomy. Endotracheal tube, NG tube, left chest tube, median jae rnal drain, right jugular central venous catheter are overlying appropriate positions. Patient shows post atrial appendage clipping placement, aortic valve replacement change. There is no sizable pneumo thorax. Patchy bibasilar density, perihilar increased attenuation is present. Lung volumes somewhat l ow. Hemidiaphragms are obscured. Heart is enlarged. IMPRESSION: Basilar atelectatic changes and possible associated effusions. Cardiomegaly and postproc edural changes as described.
[2020-02-03] MEDS ORDERED: AMIODARONE 360 MG in DEXTROSE 5% IN WATER 200 ML IV PRN ×2 (15:00)
[2020-02-03 15:06] LABS: ALT 15 U/L (4-49); AST 40 U/L (17-59); African American GFR (CKD) >90 (>60 ml/min/1.73 sqM); Albumin 2.8 g/dL (3.5-5.0); Alkaline Phosphatase 33 U/L (38-126); Anion Gap 5 mmol/L; Blood Urea Nitrogen 16 mg/dL (9-20); Calcium 7.8 mg/dL (8.4-10.2); Carbon Dioxide 25 mmol/L (22-30); Chloride 108 mmol/L (98-107); Glucose 98 mg/dL (74-99); Magnesium 3.7 mg/dL (1.6-2.3); Non-African American GFR(CKD) 83 (>60 ml/min/1.73 sqM); Potassium 4.1 mmol/L (3.5-5.1); Sodium 138 mmol/L (137-145); Total Bilirubin 1.6 mg/dL (0.2-1.3); Total Protein 4.7 g/dL (6.3-8.2)
[2020-02-03 15:12] LABS: Glucose,Whole Blood 108 mg/dL (75-99)
[2020-02-03] MEDS: CLEVIDIPINE BUTYRATE 25 MG in EMPTY BAG 1 BAG IV SCH ×2 (15:47→18:13)
[2020-02-03] MEDS ORDERED: IPRATROPIUM-ALBUTEROL 3 ML NEB INHALATION SCH (16:00)
[2020-02-03 16:05] LABS: Glucose,Whole Blood 134 mg/dL (75-99)
[2020-02-03 17:00] LABS: Glucose,Whole Blood 137 mg/dL (75-99)
[2020-02-03 17:13] LABS: Basophils % (A) 0 %; Eosinophils # (A) 0.2 k/uL (0-0.7); Eosinophils % (A) 1 %; HCT 37.2 % (39.0-53.0); HGB 12.1 gm/dL (13.0-17.5); Hypochromasia Slight; Lymphocytes # (A) 0.9 k/uL (1.0-4.8); Lymphocytes % (A) 7 %; MCH 30.5 pg (25.0-35.0); MCHC 32.6 g/dL (31.0-37.0); MCV 93.6 fL (80.0-100.0); Mean Platelet Volume 8.1; Monocytes # (A) 0.7 k/uL (0-1.0); Monocytes % (A) 5 %; Neutrophils # (A) 11.3 k/uL (1.3-7.7); Neutrophils % (A) 87 %; Platelet Count 148 k/uL (150-450); RBC 3.98 m/uL (4.30-5.90); RDW 15.5 % (11.5-15.5); WBC 13.1 k/uL (3.8-10.6)
[2020-02-03] MEDS: ACETAMINOPHEN IV (For NPO) 1,000 MG in EMPTY BAG 1 BAG IVPB SCH ×2 (17:39→23:08)
[2020-02-03 17:53] LABS: ABG HCO3 25 mmol/L (21-25); ABG Oxygen Saturation 91.8 % (94-97); ABG PCO2 50 mmHg (35-45); ABG PH 7.31 (7.35-7.45); ABG PO2 67 mmHg (83-108); ABG TCO2 27 mmol/L (19-24); Allen Test Performed? Yes
[2020-02-03 17:54] LABS: Glucose,Whole Blood 166 mg/dL (75-99)
[2020-02-03 18:56] LABS: Glucose,Whole Blood 179 mg/dL (75-99)
[2020-02-03 20:08] LABS: Glucose,Whole Blood 176 mg/dL (75-99)
[2020-02-03] MEDS: IPRATROPIUM-ALBUTEROL 3 ML NEB INHALATION SCH ×2 (20:30→20:32)
[2020-02-03 20:31] LABS: Basophils % (A) 0 %; Eosinophils % (A) 0 %; HCT 36.1 % (39.0-53.0); HGB 11.7 gm/dL (13.0-17.5); Lymphocytes # (A) 0.3 k/uL (1.0-4.8); Lymphocytes % (A) 2 %; MCH 30.3 pg (25.0-35.0); MCHC 32.5 g/dL (31.0-37.0); MCV 93.3 fL (80.0-100.0); Monocytes # (A) 0.5 k/uL (0-1.0); Monocytes % (A) 4 %; Neutrophils # (A) 12.7 k/uL (1.3-7.7); Neutrophils % (A) 93 %; Platelet Count 143 k/uL (150-450); RBC 3.86 m/uL (4.30-5.90); RDW 15.4 % (11.5-15.5); WBC 13.7 k/uL (3.8-10.6)
[2020-02-03] MEDS ORDERED: AMIODARONE 300 MG in DEXTROSE 5% IN WATER 250 ML IV PRN ×2 (21:00)
[2020-02-03 21:04] LABS: Glucose,Whole Blood 158 mg/dL (75-99)
[2020-02-03 22:10] LABS: Glucose,Whole Blood 133 mg/dL (75-99)
[2020-02-03 23:01] LABS: Glucose,Whole Blood 127 mg/dL (75-99)
[2020-02-04] MEDS: HEPARIN SODIUM,PORCINE 5,000 UNIT/ML 1 ML VIAL SQ SCH ×4 (00:04→23:15)
[2020-02-04 00:07] LABS: Glucose,Whole Blood 117 mg/dL (75-99)
[2020-02-04 01:02] LABS: Glucose,Whole Blood 111 mg/dL (75-99)
[2020-02-04] MEDS ORDERED: HYDROcodone/APAP 5-325MG 1 EACH TAB PO PRN ×2 (01:53)
[2020-02-04 02:03] LABS: Glucose,Whole Blood 126 mg/dL (75-99)
[2020-02-04] MEDS: ALBUMIN HUMAN 5% 250 ML in EMPTY BAG 1 BAG IVPB PRN ×2 (02:07→07:22)
[2020-02-04 03:07] LABS: Glucose,Whole Blood 121 mg/dL (75-99)
[2020-02-04 04:04] LABS: Glucose,Whole Blood 115 mg/dL (75-99)
[2020-02-04 04:17] LABS: Basophils % (A) 0 %; Eosinophils % (A) 0 %; HCT 32.4 % (39.0-53.0); HGB 10.5 gm/dL (13.0-17.5); Lymphocytes # (A) 0.5 k/uL (1.0-4.8); Lymphocytes % (A) 5 %; MCHC 32.4 g/dL (31.0-37.0); MCV 92.8 fL (80.0-100.0); Mean Platelet Volume 9.3; Monocytes # (A) 0.5 k/uL (0-1.0); Monocytes % (A) 6 %; Neutrophils # (A) 7.4 k/uL (1.3-7.7); Neutrophils % (A) 88 %; Platelet Count 109 k/uL (150-450); RBC 3.49 m/uL (4.30-5.90); RDW 15.5 % (11.5-15.5); WBC 8.4 k/uL (3.8-10.6)
[2020-02-04 04:22] LABS: Ionized Calcium 4.5 mg/dL (4.5-5.3)
[2020-02-04 04:31] LABS: ALT 17 U/L (4-49); AST 54 U/L (17-59); African American GFR (CKD) >90 (>60 ml/min/1.73 sqM); Albumin 2.9 g/dL (3.5-5.0); Alkaline Phosphatase 30 U/L (38-126); Anion Gap 3 mmol/L; Blood Urea Nitrogen 16 mg/dL (9-20); Calcium 7.2 mg/dL (8.4-10.2); Carbon Dioxide 27 mmol/L (22-30); Chloride 107 mmol/L (98-107); Glucose 111 mg/dL (74-99); Magnesium 2.9 mg/dL (1.6-2.3); Non-African American GFR(CKD) 85 (>60 ml/min/1.73 sqM); Potassium 4.4 mmol/L (3.5-5.1); Sodium 137 mmol/L (137-145); Total Bilirubin 1.5 mg/dL (0.2-1.3); Total Protein 4.9 g/dL (6.3-8.2)
[2020-02-04 05:13] LABS: Glucose,Whole Blood 111 mg/dL (75-99)
[2020-02-04] MEDS: IPRATROPIUM-ALBUTEROL 3 ML NEB INHALATION SCH ×4 (07:16→19:51)
[2020-02-04 07:20] LABS: Glucose,Whole Blood 139 mg/dL (75-99)
[2020-02-04] MEDS ORDERED: KETOROLAC 30 MG/ML 1 ML VIAL IVP STA (07:40)
--- NOTE | 2020-02-04 08:27 | P.PN ---
Subjective Progress Note Date: 02/04/20 Principal diagnosis: status post CABG This is a 79-year-old gentleman with diabetes, hypertension, and dyslipidemia who was admitted to the hospital with acute non-ST patient myocardial infarction. He washed to have severe aortic stenosis as well as severe coronary artery disease. He underwent yesterday aortic valve replacement with coronary artery bypass grafting with MCCLAIN to LAD and SVG to PDA. This is postoperative patient day #1. The patient has done well. He is ext ubated. He is hemodynamically stable. His cardiac index is excellent. He is in normal sinus mechanism. He is on dual antiplatelet therapy along with beta nas as well as high intensity statin. Overall and from the cardiovascular standpoint he is doing very well. Objective - Vital Signs Vital signs: Vital Signs Temp 97.0 F L 02/03/20 18:00 Pulse 83 02/04/20 07:24 Resp 19 02/04/20 07:00 BP 164/70 02/03/20 06:26 Pulse Ox 97 02/04/20 07:00 Intake & Output 02/03/20 02/04/20 02/04/20 18:59 06:59 18:59 Intake Total 202.148 9212.544 115.675 Output Total 2585 1192 35 Balance -2128.407 324.544 80.675 Weight 99.1 kg Intake: IV 91 1414.5 90.5 ACETAMINOPHEN IV (For NPO 100 ) 1,000 mg In Empty Bag 1 bag @ 400 mls/hr IVPB Q6HR [facility] Rx#:[id number] Albumin 5% 250 CO/CI Injectate 40 360 30 LR 530 50 Nitroglycerine 16.5 1.5 ceFAZolin 2 gm In Sodium 50 Chloride 0.9% 50 ml @ 100 mls/hr IVPB Q8HR [facility] Rx# :[id number] pressure bags 18 108 9 Intake, IV Titration 365.593 102.044 25.175 Amount ACETAMINOPHEN IV (For NPO 100 ) 1,000 mg In Empty Bag 1 bag @ 400 mls/hr IVPB Q6HR [facility] Rx#:[id number] Clevidipine Butyrate 25 23.067 23.133 0 mg In Empty Bag 1 bag @ 1 MG/HR 2 mls/hr IV .Q24H [facility] Rx#:[id number] Insulin Regular 100 unit 1.212 28.911 0 In Sodium Chloride 0.9% 100 ml @ Per Protocol IV .Q0M [facility] Rx#:[id number] Lactated Ringers 1,000 ml 150 50 @ 50 mls/hr IV .Q20H [facility] Rx#:[id number] Nitroglycerin-D5w Pmx 50 25.175 mg In Dextrose/Water 1 250ml.bag @ 5 MCG/MIN 1.5 mls/hr IV .Q24H [facility] Rx#: [id number] Propofol 1,000 mg In 41.314 Empty Bag 1 bag @ Titrate IV .Q0M [facility] Rx#: [id number] ceFAZolin 2 gm In Sodium 50 Chloride 0.9% 50 ml @ 100 mls/hr IVPB Q8HR [facility] Rx# :[id number] Output: Chest Tube Drainage 210 460 20 mediastinal x2 and left 210 460 20 pleural Urine 1725 732 15 Estimated Blood Loss 650 Other: Voiding Method Indwelling Catheter # Bowel Movements 0 ABP, PAP, CO, CI - Last Documented Arterial Blood Pressure 136/51 Pulmonary Artery Pressure 28/9 Cardiac Output 18.6 Cardiac Index 9.3 - Constitutional General appearance: Present: no acute distress - Respiratory Respiratory: bilateral: diminished - Cardiovascular Rhythm: regular - Labs CBC & Chem 7: 02/04/20 04:00 02/04/20 04:00 Labs: Abnormal Lab Results - Last 24 Hours (Table) 02/02/20 02/03/20 02/03/20 Range/Units 07:21 08:34 10:13 WBC (3.8-10.6) k/uL RBC (4.30-5.90) m/uL Hgb (13.0-17.5) gm/dL Hct (39.0-53.0) % Plt Count (150-450) k/uL Neutrophils # (1.3-7.7) k/uL Lymphocytes # (1.0-4.8) k/uL INR (<1.2) ABG pH (7.35-7.45) ABG pCO2 (35-45) mmHg ABG pO2 227 H 247 H (83-108) mmHg ABG HCO3 28 H 28 H (21-25) mmol/L ABG Total CO2 29 H 29 H (19-24) mmol/L ABG O2 Saturation 100.0 H 99.9 H (94-97) % ABG Hematocrit (34.0-46.0) % ABG Ionized Calcium 4.4 L 4.4 L (4.5-5.3) mg/dL ABG Glucose 128 H 128 H (75-99) mg/dL ABG Lactic Acid (0.5-1.6) mmol/L Hemoglobin 12.1 L 11.4 L (13.0-17.5) gm/dL Chloride (98-107) mmol/L Glucose (74-99) mg/dL POC Glucose (mg/dL) (75-99) mg/dL Calcium (8.4-10.2) mg/dL Magnesium (1.6-2.3) mg/dL Total Bilirubin (0.2-1.3) mg/dL Alkaline Phosphatase (38-126) U/L Total Protein (6.3-8.2) g/dL Albumin (3.5-5.0) g/dL Arterial Blood Glucose 128 H 128 H (75-99) mg/dL Crossmatch See Detail 02/03/20 02/03/20 02/03/20 Range/Units 11:28 11:40 12:06 WBC (3.8-10.6) k/uL RBC (4.30-5.90) m/uL Hgb (13.0-17.5) gm/dL Hct (39.0-53.0) % Plt Count (150-450) k/uL Neutrophils # (1.3-7.7) k/uL Lymphocytes # (1.0-4.8) k/uL INR (<1.2) ABG pH (7.35-7.45) ABG pCO2 46 H 49 H (35-45) mmHg ABG pO2 249 H 232 H 314 H (83-108) mmHg ABG HCO3 27 H 28 H 26 H (21-25) mmol/L ABG Total CO2 29 H 29 H 27 H (19-24) mmol/L ABG O2 Saturation 100.0 H 100.0 H 100.0 H (94-97) % ABG Hematocrit 26 L 28 L 28 L (34.0-46.0) % ABG Ionized Calcium 4.3 L 4.3 L 4.2 L (4.5-5.3) mg/dL ABG Glucose 61 L 66 L 125 H (75-99) mg/dL ABG Lactic Acid (0.5-1.6) mmol/L Hemoglobin 8.6 L 9.2 L 9.3 L (13.0-17.5) gm/dL Chloride (98-107) mmol/L Glucose (74-99) mg/dL POC Glucose (mg/dL) (75-99) mg/dL Calcium (8.4-10.2) mg/dL Magnesium (1.6-2.3) mg/dL Total Bilirubin (0.2-1.3) mg/dL Alkaline Phosphatase (38-126) U/L Total Protein (6.3-8.2) g/dL Albumin (3.5-5.0) g/dL Arterial Blood Glucose 61 L 66 L 125 H (75-99) mg/dL Crossmatch 02/03/20 02/03/20 02/03/20 Range/Units 12:32 14:15 14:17 WBC (3.8-10.6) k/uL RBC 3.46 L (4.30-5.90) m/uL Hgb 10.4 L D (13.0-17.5) gm/dL Hct 32.0 L (39.0-53.0) % Plt Count 116 L (150-450) k/uL Neutrophils # (1.3-7.7) k/uL Lymphocytes # (1.0-4.8) k/uL INR (<1.2) ABG pH (7.35-7.45) ABG pCO2 (35-45) mmHg ABG pO2 285 H (83-108) mmHg ABG HCO3 (21-25) mmol/L ABG Total CO2 26 H (19-24) mmol/L ABG O2 Saturation 100.0 H (94-97) % ABG Hematocrit 29 L (34.0-46.0) % ABG Ionized Calcium 4.2 L (4.5-5.3) mg/dL ABG Glucose 120 H (75-99) mg/dL ABG Lactic Acid 1.7 H (0.5-1.6) mmol/L Hemoglobin 9.3 L (13.0-17.5) gm/dL Chloride (98-107) mmol/L Glucose (74-99) mg/dL POC Glucose (mg/dL) 106 H (75-99) mg/dL Calcium (8.4-10.2) mg/dL Magnesium (1.6-2.3) mg/dL Total Bilirubin (0.2-1.3) mg/dL Alkaline Phosphatase (38-126) U/L Total Protein (6.3-8.2) g/dL Albumin (3.5-5.0) g/dL Arterial Blood Glucose 120 H (75-99) mg/dL Crossmatch 02/03/20 02/03/20 02/03/20 Range/Units 14:17 14:17 14:39 WBC (3.8-10.6) k/uL RBC (4.30-5.90) m/uL Hgb (13.0-17.5) gm/dL Hct (39.0-53.0) % Plt Count (150-450) k/uL Neutrophils # (1.3-7.7) k/uL Lymphocytes # (1.0-4.8) k/uL INR 1.2 H (<1.2) ABG pH 7.33 L (7.35-7.45) ABG pCO2 51 H (35-45) mmHg ABG pO2 162 H (83-108) mmHg ABG HCO3 27 H (21-25) mmol/L ABG Total CO2 28 H (19-24) mmol/L ABG O2 Saturation 99.2 H (94-97) % ABG Hematocrit (34.0-46.0) % ABG Ionized Calcium (4.5-5.3) mg/dL ABG Glucose (75-99) mg/dL ABG Lactic Acid (0.5-1.6) mmol/L Hemoglobin (13.0-17.5) gm/dL Chloride 108 H (98-107) mmol/L Glucose (74-99) mg/dL POC Glucose (mg/dL) (75-99) mg/dL Calcium 7.8 L (8.4-10.2) mg/dL Magnesium 3.7 H (1.6-2.3) mg/dL Total Bilirubin 1.6 H (0.2-1.3) mg/dL Alkaline Phosphatase 33 L (38-126) U/L Total Protein 4.7 L (6.3-8.2) g/dL Albumin 2.8 L (3.5-5.0) g/dL Arterial Blood Glucose (75-99) mg/dL Crossmatch 02/03/20 02/03/20 02/03/20 Range/Units 15:10 16:03 16:58 WBC (3.8-10.6) k/uL RBC (4.30-5.90) m/uL Hgb (13.0-17.5) gm/dL Hct (39.0-53.0) % Plt Count (150-450) k/uL Neutrophils # (1.3-7.7) k/uL Lymphocytes # (1.0-4.8) k/uL INR (<1.2) ABG pH (7.35-7.45) ABG pCO2 (35-45) mmHg ABG pO2 (83-108) mmHg ABG HCO3 (21-25) mmol/L ABG Total CO2 (19-24) mmol/L ABG O2 Saturation (94-97) % ABG Hematocrit (34.0-46.0) % ABG Ionized Calcium (4.5-5.3) mg/dL ABG Glucose (75-99) mg/dL ABG Lactic Acid (0.5-1.6) mmol/L Hemoglobin (13.0-17.5) gm/dL Chloride (98-107) mmol/L Glucose (74-99) mg/dL POC Glucose (mg/dL) 108 H 134 H 137 H (75-99) mg/dL Calcium (8.4-10.2) mg/dL Magnesium (1.6-2.3) mg/dL Total Bilirubin (0.2-1.3) mg/dL Alkaline Phosphatase (38-126) U/L Total Protein (6.3-8.2) g/dL Albumin (3.5-5.0) g/dL Arterial Blood Glucose (75-99) mg/dL Crossmatch 02/03/20 02/03/20 02/03/20 Range/Units 17:00 17:50 17:52 WBC 13.1 H (3.8-10.6) k/uL RBC 3.98 L (4.30-5.90) m/uL Hgb 12.1 L (13.0-17.5) gm/dL Hct 37.2 L (39.0-53.0) % Plt Count 148 L (150-450) k/uL Neutrophils # 11.3 H (1.3-7.7) k/uL Lymphocytes # 0.9 L (1.0-4.8) k/uL INR (<1.2) ABG pH 7.31 L (7.35-7.45) ABG pCO2 50 H (35-45) mmHg ABG pO2 67 L (83-108) mmHg ABG HCO3 (21-25) mmol/L ABG Total CO2 27 H (19-24) mmol/L ABG O2 Saturation 91.8 L (94-97) % ABG Hematocrit (34.0-46.0) % ABG Ionized Calcium (4.5-5.3) mg/dL ABG Glucose (75-99) mg/dL ABG Lactic Acid (0.5-1.6) mmol/L Hemoglobin (13.0-17.5) gm/dL Chloride (98-107) mmol/L Glucose (74-99) mg/dL POC Glucose (mg/dL) 166 H (75-99) mg/dL Calcium (8.4-10.2) mg/dL Magnesium (1.6-2.3) mg/dL Total Bilirubin (0.2-1.3) mg/dL Alkaline Phosphatase (38-126) U/L Total Protein (6.3-8.2) g/dL Albumin (3.5-5.0) g/dL Arterial Blood Glucose (75-99) mg/dL Crossmatch 02/03/20 02/03/20 02/03/20 Range/Units 18:54 20:05 20:06 WBC 13.7 H (3.8-10.6) k/uL RBC 3.86 L (4.30-5.90) m/uL Hgb 11.7 L (13.0-17.5) gm/dL Hct 36.1 L (39.0-53.0) % Plt Count 143 L (150-450) k/uL Neutrophils # 12.7 H (1.3-7.7) k/uL Lymphocytes # 0.3 L (1.0-4.8) k/uL INR (<1.2) ABG pH (7.35-7.45) ABG pCO2 (35-45) mmHg ABG pO2 (83-108) mmHg ABG HCO3 (21-25) mmol/L ABG Total CO2 (19-24) mmol/L ABG O2 Saturation (94-97) % ABG Hematocrit (34.0-46.0) % ABG Ionized Calcium (4.5-5.3) mg/dL ABG Glucose (75-99) mg/dL ABG Lactic Acid (0.5-1.6) mmol/L Hemoglobin (13.0-17.5) gm/dL Chloride (98-107) mmol/L Glucose (74-99) mg/dL POC Glucose (mg/dL) 179 H 176 H (75-99) mg/dL Calcium (8.4-10.2) mg/dL Magnesium (1.6-2.3) mg/dL Total Bilirubin (0.2-1.3) mg/dL Alkaline Phosphatase (38-126) U/L Total Protein (6.3-8.2) g/dL Albumin (3.5-5.0) g/dL Arterial Blood Glucose (75-99) mg/dL Crossmatch 02/03/20 02/03/20 02/03/20 Range/Units 21:00 22:08 22:59 WBC (3.8-10.6) k/uL RBC (4.30-5.90) m/uL Hgb (13.0-17.5) gm/dL Hct (39.0-53.0) % Plt Count (150-450) k/uL Neutrophils # (1.3-7.7) k/uL Lymphocytes # (1.0-4.8) k/uL INR (<1.2) ABG pH (7.35-7.45) ABG pCO2 (35-45) mmHg ABG pO2 (83-108) mmHg ABG HCO3 (21-25) mmol/L ABG Total CO2 (19-24) mmol/L ABG O2 Saturation (94-97) % ABG Hematocrit (34.0-46.0) % ABG Ionized Calcium (4.5-5.3) mg/dL ABG Glucose (75-99) mg/dL ABG Lactic Acid (0.5-1.6) mmol/L Hemoglobin (13.0-17.5) gm/dL Chloride (98-107) mmol/L Glucose (74-99) mg/dL POC Glucose (mg/dL) 158 H 133 H 127 H (75-99) mg/dL Calcium (8.4-10.2) mg/dL Magnesium (1.6-2.3) mg/dL Total Bilirubin (0.2-1.3) mg/dL Alkaline Phosphatase (38-126) U/L Total Protein (6.3-8.2) g/dL Albumin (3.5-5.0) g/dL Arterial Blood Glucose (75-99) mg/dL Crossmatch 02/04/20 02/04/20 02/04/20 Range/Units 00:01 00:58 02:01 WBC (3.8-10.6) k/uL RBC (4.30-5.90) m/uL Hgb (13.0-17.5) gm/dL Hct (39.0-53.0) % Plt Count (150-450) k/uL Neutrophils # (1.3-7.7) k/uL Lymphocytes # (1.0-4.8) k/uL INR (<1.2) ABG pH (7.35-7.45) ABG pCO2 (35-45) mmHg ABG pO2 (83-108) mmHg ABG HCO3 (21-25) mmol/L ABG Total CO2 (19-24) mmol/L ABG O2 Saturation (94-97) % ABG Hematocrit (34.0-46.0) % ABG Ionized Calcium (4.5-5.3) mg/dL ABG Glucose (75-99) mg/dL ABG Lactic Acid (0.5-1.6) mmol/L Hemoglobin (13.0-17.5) gm/dL Chloride (98-107) mmol/L Glucose (74-99) mg/dL POC Glucose (mg/dL) 117 H 111 H 126 H (75-99) mg/dL Calcium (8.4-10.2) mg/dL Magnesium (1.6-2.3) mg/dL Total Bilirubin (0.2-1.3) mg/dL Alkaline Phosphatase (38-126) U/L Total Protein (6.3-8.2) g/dL Albumin (3.5-5.0) g/dL Arterial Blood Glucose (75-99) mg/dL Crossmatch 02/04/20 02/04/20 02/04/20 Range/Units 03:05 04:00 04:00 WBC (3.8-10.6) k/uL RBC 3.49 L (4.30-5.90) m/uL Hgb 10.5 L (13.0-17.5) gm/dL Hct 32.4 L (39.0-53.0) % Plt Count 109 L (150-450) k/uL Neutrophils # (1.3-7.7) k/uL Lymphocytes # 0.5 L (1.0-4.8) k/uL INR (<1.2) ABG pH (7.35-7.45) ABG pCO2 (35-45) mmHg ABG pO2 (83-108) mmHg ABG HCO3 (21-25) mmol/L ABG Total CO2 (19-24) mmol/L ABG O2 Saturation (94-97) % ABG Hematocrit (34.0-46.0) % ABG Ionized Calcium (4.5-5.3) mg/dL ABG Glucose (75-99) mg/dL ABG Lactic Acid (0.5-1.6) mmol/L Hemoglobin (13.0-17.5) gm/dL Chloride (98-107) mmol/L Glucose 111 H (74-99) mg/dL POC Glucose (mg/dL) 121 H (75-99) mg/dL Calcium 7.2 L (8.4-10.2) mg/dL Magnesium 2.9 H (1.6-2.3) mg/dL Total Bilirubin 1.5 H (0.2-1.3) mg/dL Alkaline Phosphatase 30 L (38-126) U/L Total Protein 4.9 L (6.3-8.2) g/dL Albumin 2.9 L (3.5-5.0) g/dL Arterial Blood Glucose (75-99) mg/dL Crossmatch 02/04/20 02/04/20 02/04/20 Range/Units 04:01 05:11 07:11 WBC (3.8-10.6) k/uL RBC (4.30-5.90) m/uL Hgb (13.0-17.5) gm/dL Hct (39.0-53.0) % Plt Count (150-450) k/uL Neutrophils # (1.3-7.7) k/uL Lymphocytes # (1.0-4.8) k/uL INR (<1.2) ABG pH (7.35-7.45) ABG pCO2 (35-45) mmHg ABG pO2 (83-108) mmHg ABG HCO3 (21-25) mmol/L ABG Total CO2 (19-24) mmol/L ABG O2 Saturation (94-97) % ABG Hematocrit (34.0-46.0) % ABG Ionized Calcium (4.5-5.3) mg/dL ABG Glucose (75-99) mg/dL ABG Lactic Acid (0.5-1.6) mmol/L Hemoglobin (13.0-17.5) gm/dL Chloride (98-107) mmol/L Glucose (74-99) mg/dL POC Glucose (mg/dL) 115 H 111 H 139 H (75-99) mg/dL Calcium (8.4-10.2) mg/dL Magnesium (1.6-2.3) mg/dL Total Bilirubin (0.2-1.3) mg/dL Alkaline Phosphatase (38-126) U/L Total Protein (6.3-8.2) g/dL Albumin (3.5-5.0) g/dL Arterial Blood Glucose (75-99) mg/dL Crossmatch Assessment and Plan Assessment: assessment Acute non-ST patient myocardial infarction Severe aortic stenosis and status post aortic valve replacement Multiple comorbid conditions Plan Continue the current medical regimen Continue dual antiplatelet therapy along with anti-ischemic medication along with a statin Continue monitor the kidney function and electrolytes and hemoglobin Follow-up with the patient
[2020-02-04] MEDS: ASPIRIN 325 MG TAB PO SCH (08:28)
[2020-02-04] MEDS: ATORVASTATIN 40 MG TAB PO SCH (08:28)
[2020-02-04] MEDS: CLOPIDOGREL 75 MG TAB PO SCH (08:28)
[2020-02-04] MEDS: LACTATED RINGERS 1,000 ML IV SCH (08:29)
--- NOTE | 2020-02-04 08:32 | XR ---
EXAMINATION TYPE: XR chest 1V portable DATE OF EXAM: 02/04/2020 COMPARISON: Prior chest x-ray 02/03/2020 HISTORY: Postop cardiac surgery TECHNIQUE: Single frontal view of the chest is obtained. FINDINGS: Patient is post median sternotomy. Endotracheal tube and NG tube have been removed. Left c hest tube, right jugular central venous catheter, median sternal drain are overlying appropriate posi tions. There is no evident pneumothorax or sizable effusion. Bibasilar increased attenuation persists . The heart remains enlarged. Perihilar increased density is improved. There are overlying cardiac le ads. IMPRESSION: Interval extubation. Persistent atelectatic changes, improved aeration.
--- NOTE | 2020-02-04 08:36 | P.PN ---
Subjective Progress Note Date: 02/03/20 Principal diagnosis: Patient is admitted for non-ST elevation microinfarction found to have a 50% of disease in RCA and 90% occlusion in the circumflex with diffuse disease in the circumflex. Patient also found to have severe at stenosis and cardiac thoracic surgery was consulted for valve replacement and single graft to RCA 02/01/2020 No overnight events patient will undergo coronary artery bypass grafting along with aortic valve replacement on 02/02/2020 Patient will undergo valve replacement and CABG tomorrow overnight events Constitutional: Denied any fatigue denied any fever. Cardio vascular: denied any chest pain, palpitations Gastrointestinal denied any nausea vomiting Pulmonary: Denied any shortness of breath cough Neurologic denied any new focal deficits All inpatient medications were reviewed and appropriate changes in these medications as dictated in the interval history and assessment and plan. 02/03/2020 Patient is seen and evaluated status post CABG with valve replacement and is currently being monitored closely in the ICU. Patient currently remains on mechanical vent and is intubated and sedated at this time. Chest tubes noted wi indwelling Quevedo catheter with some mild hematuria noted may possibly be related to trauma during insertion. Nursing staff at the bedside stated patient will be weaned sometime this afternoon from the vent and will continue to monitor closely. Patient is on a small dose of club approximately blood pressure control along with propofol for sedation which will eventually be weaned. Patient is currently on an insulin drip for tight glycemic control. Surgical dressing noted of the mid sternum is dry and intact. Objective - Vital Signs Vital signs: Vital Signs Temp 98.5 F 02/03/20 06:26 Pulse 65 02/03/20 06:26 Resp 16 02/03/20 06:26 BP 164/70 02/03/20 06:26 Pulse Ox 97 02/03/20 06:26 Intake & Output 02/02/20 02/03/20 02/03/20 18:59 06:59 18:59 Intake Total 225 270 33 Output Total 1850 Balance 225 270 -1817 Weight 90.8 kg Intake: IV 50 33 Oral 225 220 Output: Urine 1200 Estimated Blood Loss 650 Other: # Voids 2 - Exam GENERAL: The patient is intubated and sedated, well-developed, well-nourished. HEENT: Pupils are round and equally reacting to light. EOMI. No scleral icterus. No conjunctival pallor. Normocephalic, atraumatic. No pharyngeal erythema. No thyromegaly. ET tube noted CARDIOVASCULAR: S1 and S2 present. No murmurs, rubs, or gallops. PULMONARY: Chest is clear to auscultation, no wheezing or crackles. ABDOMEN: Soft, nondistended, normoactive bowel sounds. No palpable organomegal y. MUSCULOSKELETAL: No joint swelling or deformity. EXTREMITIES: No cyanosis, clubbing, or pedal edema. NEUROLOGICAL: Intubated and sedated SKIN: No rashes. - Labs CBC & Chem 7: 02/04/20 04:00 02/04/20 04:00 Labs: Abnormal Lab Results - Last 24 Hours (Table) 02/02/20 02/02/20 02/02/20 Range/Units 07:21 16:37 20:01 ABG pCO2 (35-45) mmHg ABG pO2 (83-108) mmHg ABG HCO3 (21-25) mmol/L ABG Total CO2 (19-24) mmol/L ABG O2 Saturation (94-97) % ABG Hematocrit (34.0-46.0) % ABG Ionized Calcium (4.5-5.3) mg/dL ABG Glucose (75-99) mg/dL ABG Lactic Acid (0.5-1.6) mmol/L Hemoglobin (13.0-17.5) gm/dL POC Glucose (mg/dL) 123 H 187 H (75-99) mg/dL Arterial Blood Glucose (75-99) mg/dL Crossmatch See Detail 02/03/20 02/03/20 02/03/20 Range/Units 06:35 08:34 10:13 ABG pCO2 (35-45) mmHg ABG pO2 227 H 247 H (83-108) mmHg ABG HCO3 28 H 28 H (21-25) mmol/L ABG Total CO2 29 H 29 H (19-24) mmol/L ABG O2 Saturation 100.0 H 99.9 H (94-97) % ABG Hematocrit (34.0-46.0) % ABG Ionized Calcium 4.4 L 4.4 L (4.5-5.3) mg/dL ABG Glucose 128 H 128 H (75-99) mg/dL ABG Lactic Acid (0.5-1.6) mmol/L Hemoglobin 12.1 L 11.4 L (13.0-17.5) gm/dL POC Glucose (mg/dL) 146 H (75-99) mg/dL Arterial Blood Glucose 128 H 128 H (75-99) mg/dL Crossmatch 02/03/20 02/03/20 02/03/20 Range/Units 10:54 11:28 11:40 ABG pCO2 46 H 49 H (35-45) mmHg ABG pO2 409 H 249 H 232 H (83-108) mmHg ABG HCO3 27 H 27 H 28 H (21-25) mmol/L ABG Total CO2 28 H 29 H 29 H (19-24) mmol/L ABG O2 Saturation 100.0 H 100.0 H 100.0 H (94-97) % ABG Hematocrit 27 L 26 L 28 L (34.0-46.0) % ABG Ionized Calcium 4.3 L 4.3 L 4.3 L (4.5-5.3) mg/dL ABG Glucose 61 L 66 L (75-99) mg/dL ABG Lactic Acid (0.5-1.6) mmol/L Hemoglobin 8.7 L 8.6 L 9.2 L (13.0-17.5) gm/dL POC Glucose (mg/dL) (75-99) mg/dL Arterial Blood Glucose 61 L 66 L (75-99) mg/dL Crossmatch 02/03/20 02/03/20 02/03/20 Range/Units 12:06 12:32 13:25 ABG pCO2 (35-45) mmHg ABG pO2 314 H 285 H 70 L (83-108) mmHg ABG HCO3 26 H 26 H (21-25) mmol/L ABG Total CO2 27 H 26 H 27 H (19-24) mmol/L ABG O2 Saturation 100.0 H 100.0 H (94-97) % ABG Hematocrit 28 L 29 L 29 L (34.0-46.0) % ABG Ionized Calcium 4.2 L 4.2 L 4.3 L (4.5-5.3) mg/dL ABG Glucose 125 H 120 H 110 H (75-99) mg/dL ABG Lactic Acid 1.7 H (0.5-1.6) mmol/L Hemoglobin 9.3 L 9.3 L 9.3 L (13.0-17.5) gm/dL POC Glucose (mg/dL) (75-99) mg/dL Arterial Blood Glucose 125 H 120 H 110 H (75-99) mg/dL Crossmatch Assessment and Plan Assessment: -Non-ST elevation microinfarction: Cardiac catheterization but patient did not receive any stents further management was awaiting CABG and receiving maximum medical therapy -Status post post CABG and pericardial valve prosthesis with MCCLAIN to LAD and saphenous vein graft to PDA -Aortic stenosis: Patient underwent valve replacement with CABG -Type 2 diabetes mellitus: Patient currently on insulin drip and will continue with close glucose monitoring and once diet is resumed may discontinue insulin drip and continue sliding scale, will hold metformin at this time -Hypertension -Elevated troponin secondary to possible type II myocardial infarction
[2020-02-04] MEDS ORDERED: PANTOPRAZOLE 40 MG/10 ML VIAL IVP SCH (09:00)
[2020-02-04] MEDS ORDERED: METOPROLOL TARTRATE 12.5 MG TAB PO SCH (09:00)
[2020-02-04] MEDS ORDERED: MAGNESIUM HYDROXIDE 2,400 MG/10 ML CUP PO PRN (09:00)
[2020-02-04] MEDS ORDERED: BISACODYL 10 MG SUPP RECTAL PRN (09:00)
[2020-02-04 09:10] LABS: Glucose,Whole Blood 147 mg/dL (75-99)
[2020-02-04 09:13] VITALS: BMI 34.2
--- NOTE | 2020-02-04 09:39 | P.PN ---
Subjective Progress Note Date: 02/04/20 Principal diagnosis: Aortic valve stenosis and coronary artery disease. This is 79-year-old gentleman who follows with Dr. Eduardo Mckeon on an outpatient basis. He has a past medical history significant for hypertension, type 2 diabetes mellitus, rheumatoid arthritis on methotrexate at home, ALLERGIC conjunctivitis, peripheral vascular disease with history of right carotid end arterectomy, remote history of nicotine dependence quit smoking in 1991 and known history of aortic valve stenosis. The patient reports he does follow with Dr. Cruz from [facility] on an outpatient basis for the aortic stenosis. On 01/30/2020, the patient reports he woke up around 12:30 AM from a deep sleep with complaints of burning type chest pain which radiated down both of his arms. He denies any complaints of shortness of breath, fever, chills, nausea, vomiting, presyncope or syncope. Subsequently, EMS was called and he was transferred to [facility] for further evaluation and workup. In the emergency department a 12-lead EKG was completed which showed normal sinus rhythm with T-wave inversion in the inferior leads and a heart rate of 89 BPM. Initial laboratory results showed a WBC count 7.8, hemoglobin 14.6, platelets 217, sodium 135, potassium 3.9, BUN 22, creatinine 0.94, glucose 183 and an initial troponin abnormal at 0.035. Serial troponins were completed and were as high as 0.181. Due to the patient's presenting symptoms and abnormal troponins cardiology was consulted and a cardiac catheterization was completed which demonstrated a 50% stenosis to his mid right coronary artery, a heavily calcified right coronary artery, diffuse disease to his left anterior descending coronary artery with a 40% stenosis to his mid left anterior descending coronary artery after his diagonal branch, and a 90% stenosis to the ostial obtuse mar ginal coronary artery as it comes off the circumflex coronary artery. A left ventricular gram was not completed during the cardiac catheterization and at this time his 2-D echocardiogram is pending. The patient does report he had a 2-D echocardiogram completed at Dr. Cruz's office, at this time the report is unavailable. Subsequently, due to the patient's presenting symptoms, history of aortic valve stenosis and the cardiac catheterization results a consult was placed to Dr. Ilya Watson from cardiothoracic surgery for evaluation and recommendations on aortic valve surgery and myocardial revascularization. POD #4 left heart catheterization and coronary angiography performed by Dr. KELLY Croft. POD #1 aortic valve replacement with a 25 mm Inspiris bovine pericardial valve prosthesis, coronary artery bypass grafting 2 vessels with left internal mammary artery to the left anterior descending coronary artery, a reverse greater saphenous vein graft to the posterior descending coronary artery, exclusion of the left atrial appendage with a 35 mm Atriclip and an intraoperative transesophageal echocardiogram performed by anesthesia. Postoperative acute blood loss anemia, an expected outcome due to cardiopulmonary bypass and hemodilution. The patient was seen in follow-up today 02/04/2020 at his bedside in the intensive care unit. He is currently sitting up to the bedside chair, he is awake, alert and oriented 3 and is in no apparent acute distress. He remains hemodynamically stable and is currently on no inotropic or pressor support. Currently denies any complaints of shortness of breath, although he is complaining of some surgical type pain to his chest tube insertion sites. He was successfully extubated last evening at 1800 p.m., he is currently on 2 L nasal cannula with oxygen saturations 96% and he is achieving 1000 mL on his incentive spirometry. Mediastinal and left pleural chest tube to remain in place to low continuous wall suction -20 cm H2O. No air leak is present. Draining thin serosanguineous drainage with 290 mL output in the last 8 hours a nd 650 mL output since surgery. Right IJ Nelson-Corine catheter remains in place with current cardiac output 18.6, cardiac index 9.3, PA pressures 35/12 and CVP 6 mmHg. Bedside telemetry showing normal sinus rhythm. Atrial and ventricular epicardial pacemaker wires remained in place and connected to backup pacemaker generator with a VVI 50. Objective - Vital Signs Vital signs: Vital Signs Temp 97.0 F L 02/03/20 18:00 Pulse 83 02/04/20 07:24 Resp 19 02/04/20 07:00 BP 164/70 02/03/20 06:26 Pulse Ox 97 02/04/20 07:00 Intake & Output 02/03/20 02/04/20 02/04/20 18:59 06:59 18:59 Intake Total 807.401 5709.544 116.742 Output Total 2585 1192 35 Balance -2128.407 324.544 81.742 Weight 99.1 kg 99.1 kg Intake: IV 91 1414.5 90.5 ACETAMINOPHEN IV (For NPO 100 ) 1,000 mg In Empty Bag 1 bag @ 400 mls/hr IVPB Q6HR [facility] Rx#:[id number] Albumin 5% 250 CO/CI Injectate 40 360 30 LR 530 50 Nitroglycerine 16.5 1.5 ceFAZolin 2 gm In Sodium 50 Chloride 0.9% 50 ml @ 100 mls/hr IVPB Q8HR [facility] Rx# :[id number] pressure bags 18 108 9 Intake, IV Titration 365.593 102.044 26.242 Amount ACETAMINOPHEN IV (For NPO 100 ) 1,000 mg In Empty Bag 1 bag @ 400 mls/hr IVPB Q6HR [facility] Rx#:[id number] Clevidipine Butyrate 25 23.067 23.133 1.067 mg In Empty Bag 1 bag @ 1 MG/HR 2 mls/hr IV .Q24H [facility] Rx#:[id number] Insulin Regular 100 unit 1.212 28.911 0 In Sodium Chloride 0.9% 100 ml @ Per Protocol IV .Q0M [facility] Rx#:[id number] Lactated Ringers 1,000 ml 150 50 @ 50 mls/hr IV .Q20H [facility] Rx#:[id number] Nitroglycerin-D5w Pmx 50 25.175 mg In Dextrose/Water 1 250ml.bag @ 5 MCG/MIN 1.5 mls/hr IV .Q24H [facility] Rx#: [id number] Propofol 1,000 mg In 41.314 Empty Bag 1 bag @ Titrate IV .Q0M [facility] Rx#: [id number] ceFAZolin 2 gm In Sodium 50 Chloride 0.9% 50 ml @ 100 mls/hr IVPB Q8HR [facility] Rx# :[id number] Output: Chest Tube Drainage 210 460 20 mediastinal x2 and left 210 460 20 pleural Urine 1725 732 15 Estimated Blood Loss 650 Other: Voiding Method Indwelling Catheter # Bowel Movements 0 ABP, PAP, CO, CI - Last Documented Arterial Blood Pressure 136/51 Pulmonary Artery Pressure 28/9 Cardiac Output 18.6 Cardiac Index 9.3 - Exam This is a pleasant 79-year-old gentleman who is sitting up to his bedside chair on intensive care unit. He is awake, alert and oriented 3 and is in no apparent acute distress. Oxygen saturations are 96% on 2 L nasal cannula. - Constitutional General appearance: Present: cooperative, no acute distress, obese - EENT Eyes: Present: PERRLA, poor dentition (Lower teeth), normal appearance. Absent: scleral icterus - Neck Details: Neck is supple, no JVD, no lymphadenopathy. Right IJ Cordis and Nelson-Corine catheter in place and functioning. - Respiratory Details: Lung sounds are essentially clear throughout, diminished to his bilateral bases left greater than right. No wheezes, rhonchi or crackles. Respirations are symmetrical and nonlabored. Oxygen saturation are 96% on 2 L nasal cannula. Achieving 1000 mL on his incentive spirometry. Mediastinal and left pleural chest tubes remain in place to low continuous wall suction -20 cm H2O. No air leak is present. Draining thin serosanguineous drainage with 290 mL output in the last 8 hours and 650 mL output since surgery. - Cardiovascular Details: Regular rhythm and rate. S1 and S2 present, negative for S3, gallop or murmur. Sternum is stable. Bedside telemetry showing normal sinus rhythm heart rate 85 BPM. Atrial and ventricular epicardial pacemaker wires in place and connected to back up to bedside pacemaker generator with a VVI 50. Heart hugger is in place and he is demonstrating appropriate use. Knee-high JOHNIE hose and sequential compression devices in place to his bilateral lower extremities. Right IJ Cordis and Nelson-Corine in place with current cardiac output 18.6, cardiac index 9.3, he A pressures 35/12 and CVP 6 mmHg. - Gastrointestinal Gastrointestinal Comment(s): Abdomen is soft, nontender and nondistended. Hypoactive bowel sounds present in all 4 abdominal quadrants. No guarding or rigidity. No organomegaly appreciated. Tolerating oral intake. Passing flatus. - Genitourinary Genitourinary Comment(s): Quevedo catheter for accurate I&O. Draining clear holli urine with 340 mL output in the last 8 hours. - Integumentary Integumentary Comment(s): Skin is warm and dry. No clubbing or cyanosis is present. No rash or abnormal pigmentation is present. Midline sternal incision is clean, dry and approximated. No drainage or redness is present. Left lower extremity EVH site is clean, dry and approximated. No drainage or redness is present. - Neurologic Neurologic Comment(s): No focal neurological deficits. Neurologic: Present: CNII-XII intact - Musculoskeletal Musculoskeletal: Present: gait normal, generalized weakness, strength equal bilaterally - Psychiatric Psychiatric: Present: A&O x's 3, appropriate affect, intact judgment & insight - Allied health notes Allied health notes reviewed: nursing - Labs CBC & Chem 7: 02/04/20 04:00 02/04/20 04:00 Labs: Abnormal Lab Results - Last 24 Hours (Table) 02/02/20 02/03/20 02/03/20 Range/Units 07:21 08:34 10:13 WBC (3.8-10.6) k/uL RBC (4.30-5.90) m/uL Hgb (13.0-17.5) gm/dL Hct (39.0-53.0) % Plt Count (150-450) k/uL Neutrophils # (1.3-7.7) k/uL Lymphocytes # (1.0-4.8) k/uL INR (<1.2) ABG pH (7.35-7.45) ABG pCO2 (35-45) mmHg ABG pO2 227 H 247 H (83-108) mmHg ABG HCO3 28 H 28 H (21-25) mmol/L ABG Total CO2 29 H 29 H (19-24) mmol/L ABG O2 Saturation 100.0 H 99.9 H (94-97) % ABG Hematocrit (34.0-46.0) % ABG Ionized Calcium 4.4 L 4.4 L (4.5-5.3) mg/dL ABG Glucose 128 H 128 H (75-99) mg/dL ABG Lactic Acid (0.5-1.6) mmol/L Hemoglobin 12.1 L 11.4 L (13.0-17.5) gm/dL Chloride (98-107) mmol/L Glucose (74-99) mg/dL POC Glucose (mg/dL) (75-99) mg/dL Calcium (8.4-10.2) mg/dL Magnesium (1.6-2.3) mg/dL Total Bilirubin (0.2-1.3) mg/dL Alkaline Phosphatase (38-126) U/L Total Protein (6.3-8.2) g/dL Albumin (3.5-5.0) g/dL Arterial Blood Glucose 128 H 128 H (75-99) mg/dL Crossmatch See Detail 02/03/20 02/03/20 02/03/20 Range/Units 11:28 11:40 12:06 WBC (3.8-10.6) k/uL RBC (4.30-5.90) m/uL Hgb (13.0-17.5) gm/dL Hct (39.0-53.0) % Plt Count (150-450) k/uL Neutrophils # (1.3-7.7) k/uL Lymphocytes # (1.0-4.8) k/uL INR (<1.2) ABG pH (7.35-7.45) ABG pCO2 46 H 49 H (35-45) mmHg ABG pO2 249 H 232 H 314 H (83-108) mmHg ABG HCO3 27 H 28 H 26 H (21-25) mmol/L ABG Total CO2 29 H 29 H 27 H (19-24) mmol/L ABG O2 Saturation 100.0 H 100.0 H 100.0 H (94-97) % ABG Hematocrit 26 L 28 L 28 L (34.0-46.0) % ABG Ionized Calcium 4.3 L 4.3 L 4.2 L (4.5-5.3) mg/dL ABG Glucose 61 L 66 L 125 H (75-99) mg/dL ABG Lactic Acid (0.5-1.6) mmol/L Hemoglobin 8.6 L 9.2 L 9.3 L (13.0-17.5) gm/dL Chloride (98-107) mmol/L Glucose (74-99) mg/dL POC Glucose (mg/dL) (75-99) mg/dL Calcium (8.4-10.2) mg/dL Magnesium (1.6-2.3) mg/dL Total Bilirubin (0.2-1.3) mg/dL Alkaline Phosphatase (38-126) U/L Total Protein (6.3-8.2) g/dL Albumin (3.5-5.0) g/dL Arterial Blood Glucose 61 L 66 L 125 H (75-99) mg/dL Crossmatch 02/03/20 02/03/20 02/03/20 Range/Units 12:32 14:15 14:17 WBC (3.8-10.6) k/uL RBC 3.46 L (4.30-5.90) m/uL Hgb 10.4 L D (13.0-17.5) gm/dL Hct 32.0 L (39.0-53.0) % Plt Count 116 L (150-450) k/uL Neutrophils # (1.3-7.7) k/uL Lymphocytes # (1.0-4.8) k/uL INR (<1.2) ABG pH (7.35-7.45) ABG pCO2 (35-45) mmHg ABG pO2 285 H (83-108) mmHg ABG HCO3 (21-25) mmol/L ABG Total CO2 26 H (19-24) mmol/L ABG O2 Saturation 100.0 H (94-97) % ABG Hematocrit 29 L (34.0-46.0) % ABG Ionized Calcium 4.2 L (4.5-5.3) mg/dL ABG Glucose 120 H (75-99) mg/dL ABG Lactic Acid 1.7 H (0.5-1.6) mmol/L Hemoglobin 9.3 L (13.0-17.5) gm/dL Chloride (98-107) mmol/L Glucose (74-99) mg/dL POC Glucose (mg/dL) 106 H (75-99) mg/dL Calcium (8.4-10.2) mg/dL Magnesium (1.6-2.3) mg/dL Total Bilirubin (0.2-1.3) mg/dL Alkaline Phosphatase (38-126) U/L Total Protein (6.3-8.2) g/dL Albumin (3.5-5.0) g/dL Arterial Blood Glucose 120 H (75-99) mg/dL Crossmatch 02/03/20 02/03/20 02/03/20 Range/Units 14:17 14:17 14:39 WBC (3.8-10.6) k/uL RBC (4.30-5.90) m/uL Hgb (13.0-17.5) gm/dL Hct (39.0-53.0) % Plt Count (150-450) k/uL Neutrophils # (1.3-7.7) k/uL Lymphocytes # (1.0-4.8) k/uL INR 1.2 H (<1.2) ABG pH 7.33 L (7.35-7.45) ABG pCO2 51 H (35-45) mmHg ABG pO2 162 H (83-108) mmHg ABG HCO3 27 H (21-25) mmol/L ABG Total CO2 28 H (19-24) mmol/L ABG O2 Saturation 99.2 H (94-97) % ABG Hematocrit (34.0-46.0) % ABG Ionized Calcium (4.5-5.3) mg/dL ABG Glucose (75-99) mg/dL ABG Lactic Acid (0.5-1.6) mmol/L Hemoglobin (13.0-17.5) gm/dL Chloride 108 H (98-107) mmol/L Glucose (74-99) mg/dL POC Glucose (mg/dL) (75-99) mg/dL Calcium 7.8 L (8.4-10.2) mg/dL Magnesium 3.7 H (1.6-2.3) mg/dL Total Bilirubin 1.6 H (0.2-1.3) mg/dL Alkaline Phosphatase 33 L (38-126) U/L Total Protein 4.7 L (6.3-8.2) g/dL Albumin 2.8 L (3.5-5.0) g/dL Arterial Blood Glucose (75-99) mg/dL Crossmatch 02/03/20 02/03/20 02/03/20 Range/Units 15:10 16:03 16:58 WBC (3.8-10.6) k/uL RBC (4.30-5.90) m/uL Hgb (13.0-17.5) gm/dL Hct (39.0-53.0) % Plt Count (150-450) k/uL Neutrophils # (1.3-7.7) k/uL Lymphocytes # (1.0-4.8) k/uL INR (<1.2) ABG pH (7.35-7.45) ABG pCO2 (35-45) mmHg ABG pO2 (83-108) mmHg ABG HCO3 (21-25) mmol/L ABG Total CO2 (19-24) mmol/L ABG O2 Saturation (94-97) % ABG Hematocrit (34.0-46.0) % ABG Ionized Calcium (4.5-5.3) mg/dL ABG Glucose (75-99) mg/dL ABG Lactic Acid (0.5-1.6) mmol/L Hemoglobin (13.0-17.5) gm/dL Chloride (98-107) mmol/L Glucose (74-99) mg/dL POC Glucose (mg/dL) 108 H 134 H 137 H (75-99) mg/dL Calcium (8.4-10.2) mg/dL Magnesium (1.6-2.3) mg/dL Total Bilirubin (0.2-1.3) mg/dL Alkaline Phosphatase (38-126) U/L Total Protein (6.3-8.2) g/dL Albumin (3.5-5.0) g/dL Arterial Blood Glucose (75-99) mg/dL Crossmatch 02/03/20 02/03/20 02/03/20 Range/Units 17:00 17:50 17:52 WBC 13.1 H (3.8-10.6) k/uL RBC 3.98 L (4.30-5.90) m/uL Hgb 12.1 L (13.0-17.5) gm/dL Hct 37.2 L (39.0-53.0) % Plt Count 148 L (150-450) k/uL Neutrophils # 11.3 H (1.3-7.7) k/uL Lymphocytes # 0.9 L (1.0-4.8) k/uL INR (<1.2) ABG pH 7.31 L (7.35-7.45) ABG pCO2 50 H (35-45) mmHg ABG pO2 67 L (83-108) mmHg ABG HCO3 (21-25) mmol/L ABG Total CO2 27 H (19-24) mmol/L ABG O2 Saturation 91.8 L (94-97) % ABG Hematocrit (34.0-46.0) % ABG Ionized Calcium (4.5-5.3) mg/dL ABG Glucose (75-99) mg/dL ABG Lactic Acid (0.5-1.6) mmol/L Hemoglobin (13.0-17.5) gm/dL Chloride (98-107) mmol/L Glucose (74-99) mg/dL POC Glucose (mg/dL) 166 H (75-99) mg/dL Calcium (8.4-10.2) mg/dL Magnesium (1.6-2.3) mg/dL Total Bilirubin (0.2-1.3) mg/dL Alkaline Phosphatase (38-126) U/L Total Protein (6.3-8.2) g/dL Albumin (3.5-5.0) g/dL Arterial Blood Glucose (75-99) mg/dL Crossmatch 02/03/20 02/03/20 02/03/20 Range/Units 18:54 20:05 20:06 WBC 13.7 H (3.8-10.6) k/uL RBC 3.86 L (4.30-5.90) m/uL Hgb 11.7 L (13.0-17.5) gm/dL Hct 36.1 L (39.0-53.0) % Plt Count 143 L (150-450) k/uL Neutrophils # 12.7 H (1.3-7.7) k/uL Lymphocytes # 0.3 L (1.0-4.8) k/uL INR (<1.2) ABG pH (7.35-7.45) ABG pCO2 (35-45) mmHg ABG pO2 (83-108) mmHg ABG HCO3 (21-25) mmol/L ABG Total CO2 (19-24) mmol/L ABG O2 Saturation (94-97) % ABG Hematocrit (34.0-46.0) % ABG Ionized Calcium (4.5-5.3) mg/dL ABG Glucose (75-99) mg/dL ABG Lactic Acid (0.5-1.6) mmol/L Hemoglobin (13.0-17.5) gm/dL Chloride (98-107) mmol/L Glucose (74-99) mg/dL POC Glucose (mg/dL) 179 H 176 H (75-99) mg/dL Calcium (8.4-10.2) mg/dL Magnesium (1.6-2.3) mg/dL Total Bilirubin (0.2-1.3) mg/dL Alkaline Phosphatase (38-126) U/L Total Protein (6.3-8.2) g/dL Albumin (3.5-5.0) g/dL Arterial Blood Glucose (75-99) mg/dL Crossmatch 02/03/20 02/03/20 02/03/20 Range/Units 21:00 22:08 22:59 WBC (3.8-10.6) k/uL RBC (4.30-5.90) m/uL Hgb (13.0-17.5) gm/dL Hct (39.0-53.0) % Plt Count (150-450) k/uL Neutrophils # (1.3-7.7) k/uL Lymphocytes # (1.0-4.8) k/uL INR (<1.2) ABG pH (7.35-7.45) ABG pCO2 (35-45) mmHg ABG pO2 (83-108) mmHg ABG HCO3 (21-25) mmol/L ABG Total CO2 (19-24) mmol/L ABG O2 Saturation (94-97) % ABG Hematocrit (34.0-46.0) % ABG Ionized Calcium (4.5-5.3) mg/dL ABG Glucose (75-99) mg/dL ABG Lactic Acid (0.5-1.6) mmol/L Hemoglobin (13.0-17.5) gm/dL Chloride (98-107) mmol/L Glucose (74-99) mg/dL POC Glucose (mg/dL) 158 H 133 H 127 H (75-99) mg/dL Calcium (8.4-10.2) mg/dL Magnesium (1.6-2.3) mg/dL Total Bilirubin (0.2-1.3) mg/dL Alkaline Phosphatase (38-126) U/L Total Protein (6.3-8.2) g/dL Albumin (3.5-5.0) g/dL Arterial Blood Glucose (75-99) mg/dL Crossmatch 02/04/20 02/04/20 02/04/20 Range/Units 00:01 00:58 02:01 WBC (3.8-10.6) k/uL RBC (4.30-5.90) m/uL Hgb (13.0-17.5) gm/dL Hct (39.0-53.0) % Plt Count (150-450) k/uL Neutrophils # (1.3-7.7) k/uL Lymphocytes # (1.0-4.8) k/uL INR (<1.2) ABG pH (7.35-7.45) ABG pCO2 (35-45) mmHg ABG pO2 (83-108) mmHg ABG HCO3 (21-25) mmol/L ABG Total CO2 (19-24) mmol/L ABG O2 Saturation (94-97) % ABG Hematocrit (34.0-46.0) % ABG Ionized Calcium (4.5-5.3) mg/dL ABG Glucose (75-99) mg/dL ABG Lactic Acid (0.5-1.6) mmol/L Hemoglobin (13.0-17.5) gm/dL Chloride (98-107) mmol/L Glucose (74-99) mg/dL POC Glucose (mg/dL) 117 H 111 H 126 H (75-99) mg/dL Calcium (8.4-10.2) mg/dL Magnesium (1.6-2.3) mg/dL Total Bilirubin (0.2-1.3) mg/dL Alkaline Phosphatase (38-126) U/L Total Protein (6.3-8.2) g/dL Albumin (3.5-5.0) g/dL Arterial Blood Glucose (75-99) mg/dL Crossmatch 02/04/20 02/04/20 02/04/20 Range/Units 03:05 04:00 04:00 WBC (3.8-10.6) k/uL RBC 3.49 L (4.30-5.90) m/uL Hgb 10.5 L (13.0-17.5) gm/dL Hct 32.4 L (39.0-53.0) % Plt Count 109 L (150-450) k/uL Neutrophils # (1.3-7.7) k/uL Lymphocytes # 0.5 L (1.0-4.8) k/uL INR (<1.2) ABG pH (7.35-7.45) ABG pCO2 (35-45) mmHg ABG pO2 (83-108) mmHg ABG HCO3 (21-25) mmol/L ABG Total CO2 (19-24) mmol/L ABG O2 Saturation (94-97) % ABG Hematocrit (34.0-46.0) % ABG Ionized Calcium (4.5-5.3) mg/dL ABG Glucose (75-99) mg/dL ABG Lactic Acid (0.5-1.6) mmol/L Hemoglobin (13.0-17.5) gm/dL Chloride (98-107) mmol/L Glucose 111 H (74-99) mg/dL POC Glucose (mg/dL) 121 H (75-99) mg/dL Calcium 7.2 L (8.4-10.2) mg/dL Magnesium 2.9 H (1.6-2.3) mg/dL Total Bilirubin 1.5 H (0.2-1.3) mg/dL Alkaline Phosphatase 30 L (38-126) U/L Total Protein 4.9 L (6.3-8.2) g/dL Albumin 2.9 L (3.5-5.0) g/dL Arterial Blood Glucose (75-99) mg/dL Crossmatch 02/04/20 02/04/20 02/04/20 Range/Units 04:01 05:11 07:11 WBC (3.8-10.6) k/uL RBC (4.30-5.90) m/uL Hgb (13.0-17.5) gm/dL Hct (39.0-53.0) % Plt Count (150-450) k/uL Neutrophils # (1.3-7.7) k/uL Lymphocytes # (1.0-4.8) k/uL INR (<1.2) ABG pH (7.35-7.45) ABG pCO2 (35-45) mmHg ABG pO2 (83-108) mmHg ABG HCO3 (21-25) mmol/L ABG Total CO2 (19-24) mmol/L ABG O2 Saturation (94-97) % ABG Hematocrit (34.0-46.0) % ABG Ionized Calcium (4.5-5.3) mg/dL ABG Glucose (75-99) mg/dL ABG Lactic Acid (0.5-1.6) mmol/L Hemoglobin (13.0-17.5) gm/dL Chloride (98-107) mmol/L Glucose (74-99) mg/dL POC Glucose (mg/dL) 115 H 111 H 139 H (75-99) mg/dL Calcium (8.4-10.2) mg/dL Magnesium (1.6-2.3) mg/dL Total Bilirubin (0.2-1.3) mg/dL Alkaline Phosphatase (38-126) U/L Total Protein (6.3-8.2) g/dL Albumin (3.5-5.0) g/dL Arterial Blood Glucose (75-99) mg/dL Crossmatch 02/04/20 Range/Units 09:08 WBC (3.8-10.6) k/uL RBC (4.30-5.90) m/uL Hgb (13.0-17.5) gm/dL Hct (39.0-53.0) % Plt Count (150-450) k/uL Neutrophils # (1.3-7.7) k/uL Lymphocytes # (1.0-4.8) k/uL INR (<1.2) ABG pH (7.35-7.45) ABG pCO2 (35-45) mmHg ABG pO2 (83-108) mmHg ABG HCO3 (21-25) mmol/L ABG Total CO2 (19-24) mmol/L ABG O2 Saturation (94-97) % ABG Hematocrit (34.0-46.0) % ABG Ionized Calcium (4.5-5.3) mg/dL ABG Glucose (75-99) mg/dL ABG Lactic Acid (0.5-1.6) mmol/L Hemoglobin (13.0-17.5) gm/dL Chloride (98-107) mmol/L Glucose (74-99) mg/dL POC Glucose (mg/dL) 147 H (75-99) mg/dL Calcium (8.4-10.2) mg/dL Magnesium (1.6-2.3) mg/dL Total Bilirubin (0.2-1.3) mg/dL Alkaline Phosphatase (38-126) U/L Total Protein (6.3-8.2) g/dL Albumin (3.5-5.0) g/dL Arterial Blood Glucose (75-99) mg/dL Crossmatch - Imaging and Cardiology Chest x-ray: report reviewed, image reviewed Assessment and Plan Assessment: 1. Acute non-ST elevated myocardial infarction, abnormal troponins on admission 2. Coronary artery disease, status post heart catheterization, status post aortic valve replacement and coronary artery bypass grafting surgery 2 vessels 3. History of aortic valve stenosis, status post aortic valve replacement and coronary artery bypass grafting surgery 2 vessels 4. History of hypertension 5. History of type 2 diabetes mellitus 6. History of rheumatoid arthritis, on methotrexate at home 7. History of peripheral vascular disease, remote history of right carotid endarterectomy 8. Remote history of nicotine dependence, quit smoking in 1991 9. Postoperative acute blood loss anemia, an expected outcome secondary to cardiopulmonary bypass and hemodilution Plan: 1. Continue aspirin, Plavix, statin and beta nas. Increase metoprolol tartrate 25 mg by mouth twice a day 2. Wean oxygen as tolerated to keep oxygen saturations equal to or greater than 95%. 3. Encourage use of his incentive spirometry 10 times every hour while awake. 4. Remove right IJ Nelson-Corine catheter and keep right IJ Cordis in place with c ontinuous CVP monitoring. 5. Medical management and diabetic management per primary care service. 6. Keep Quevedo catheter in place and continue to record accurate I's and O's. 7. DVT and GI prophylaxis. 8. Bronchodilators management per pulmonary medicine recommendations. 9. Increase activity as tolerated. PT/OT is consulted. 10. Continue to monitor daily labs and chest x-rays. Replace electrolytes per protocol. 11. Pain control per current when necessary regimen. Toradol has been added. 12. Keep atrial and ventricular epicardial pacemaker wires in place, ground epicardial pacemaker wires. 13. Keep his mediastinal and left pleural chest tubes in place to low continuous wall suction -20 cm H2O. 14. Discontinue nitroglycerin drip. 15. Decrease lactated Ringer's to 20 mL per hour KVO. 16. Case management and home health care has been consulted for discharge planning. 17. More recommendations to follow based on patient's clinical course.
--- NOTE | 2020-02-04 10:14 | P.PN ---
Subjective Progress Note Date: 02/04/20 Principal diagnosis: chest pain, dyspnea, CAD and severe aortic stenosis 79-year-old white male patient of Dr. Mckeon, with past medical history of hypertension, type 2 diabetes mellitus, rheumatoid arthritis on methotrexate, carotid stenosis with previous history of right carotid endarterectomy, remote history of smoking, and known history of aortic valve stenosis, and atrial f ibrillation. Patient follows with Dr. Cruz. Patient presented to the emergency department on 01/30/2020 per EMS for evaluation of left chest pain, with diaphoresis, dyspnea and palpitations. EKG showed normal sinus rhythm with T-wave inversions in the inferior leads. First set of troponin was 0.035, second and third troponins was 0.181 and 0.137 respectively. CBC was within normal limits with the exception of lymphocyte count was 0.9 on admission. INR 0.9, sodium was 135, the rest of the electrolytes were within normal limits, B1 is 22 creatinine was 0.94, LFTs were within normal limits, proBNP was 158, lipase was normal at 36, urinalysis was negative. Admission chest x-ray showed mild pleural diaphragmatic scarring at the lateral right lung base. Patient had a cardiac catheterization on 01/31/2020 which showed RCA disease of 50%, 40% stenosis after the diagonal branch, 90% stenosis of the circumflex, and severe aortic stenosis with a peak gradient of 52 mmHg. LV end-diastolic pressures were mildly elevated. Patient was referred to cardiac surgery for evaluation, the patient is undergoing preoperative testing, and is being scheduled for surgery on 02/03/2020 for aortic valve replacement, and coronary artery bypass grafting by Dr. Watson On 02/02/2020 patient seen in follow-up on selective care unit, he is awake and alert, oriented 3, in no acute distress, currently on room air, no couplets chest pain or shortness of breath. No lightheadedness dizziness, syncopal episodes, room air pulse ox is 98%, hemodynamically patient is stable, patient is in sinus mechanism, the rate of 58 BPM. no drips. lung sounds are clear, no difficulty breathing. patient is pulling 2.5 L on his incentive spirometry. Today's labs have been reviewed. On 02/04/2020 patient seen in follow-up in intensive care unit, he status post aortic valve replacement, and two-vessel coronary artery bypass grafting, with MCCLAIN to LAD, and SVG to the PDA. He is postoperative day 1, OR exit time was 1406, and patient was successfully weaned and extubated from the mechanical ventilator at 1800. Doing very well, he today he is sitting up in the recliner, she is on 2 L of oxygen and the pulse ox is 98%, hemodynamically patient is stable, blood pressure is at 157/56, PA pressure is 30/10, CVP is 4-6, in sinus mechanism with a rate of 80 BPM, afebrile, cardiac output and cardiac index are 18.6, and 9.3 respectively. 2 mediastinal and one left pleural chest tubes all connected to the same Pleur-evac, and there has been 670 mL of serosanguineous output since surgery. Patient is nonoliguric, Quevedo catheter is in place, and patient is making urine in the order of 30-70 mL per hour. Patient is working on the incentive spirometer, he is achieving 1000 mL on the today, today's chest x-ray has been reviewed showing persistent atelectatic changes, and improved aeration bilaterally. His labs have been reviewed, showing with blood cell count of 8.4, hemoglobin of 10.5, platelet count is 109, electrolytes and renal profile were within normal limits, calcium was 7.2, ionized calcium was 4.5. Pain is reasonably controlled, patient appears to be in no acute distress. Objective - Vital Signs Vital signs: Vital Signs Temp 97.9 F 02/04/20 08:00 Pulse 80 02/04/20 09:00 Resp 16 02/04/20 09:00 BP 151/68 02/04/20 09:00 Pulse Ox 93 L 02/04/20 09:00 Intake & Output 02/03/20 02/04/20 02/04/20 18:59 06:59 18:59 Intake Total 502.763 6289.544 474.742 Output Total 2585 1192 95 Balance -2128.407 324.544 379.742 Weight 99.1 kg 99.1 kg Intake: IV 91 1414.5 208.5 ACETAMINOPHEN IV (For NPO 100 ) 1,000 mg In Empty Bag 1 bag @ 400 mls/hr IVPB Q6HR [facility] Rx#:[id number] Albumin 5% 250 CO/CI Injectate 40 360 40 LR 530 90 Nitroglycerine 16.5 1.5 ceFAZolin 2 gm In Sodium 50 50 Chloride 0.9% 50 ml @ 100 mls/hr IVPB Q8HR [facility] Rx# :[id number] pressure bags 18 108 27 Intake, IV Titration 365.593 102.044 26.242 Amount ACETAMINOPHEN IV (For NPO 100 ) 1,000 mg In Empty Bag 1 bag @ 400 mls/hr IVPB Q6HR [facility] Rx#:[id number] Clevidipine Butyrate 25 23.067 23.133 1.067 mg In Empty Bag 1 bag @ 1 MG/HR 2 mls/hr IV .Q24H [facility] Rx#:[id number] Insulin Regular 100 unit 1.212 28.911 0 In Sodium Chloride 0.9% 100 ml @ Per Protocol IV .Q0M [facility] Rx#:[id number] Lactated Ringers 1,000 ml 150 50 @ 20 mls/hr IV .Q24H [facility] Rx#:[id number] Nitroglycerin-D5w Pmx 50 25.175 mg In Dextrose/Water 1 250ml.bag @ 5 MCG/MIN 1.5 mls/hr IV .Q24H [facility] Rx#: [id number] Propofol 1,000 mg In 41.314 Empty Bag 1 bag @ Titrate IV .Q0M [facility] Rx#: [id number] ceFAZolin 2 gm In Sodium 50 Chloride 0.9% 50 ml @ 100 mls/hr IVPB Q8HR [facility] Rx# :[id number] Oral 240 Output: Chest Tube Drainage 210 460 20 mediastinal x2 and left 210 460 20 pleural Urine 1725 732 75 Estimated Blood Loss 650 Other: Voiding Method Indwelling Catheter Indwelling Catheter # Bowel Movements 0 0 ABP, PAP, CO, CI - Last Documented Arterial Blood Pressure 123/49 Pulmonary Artery Pressure 31/11 Cardiac Output 18.6 Cardiac Index 9.3 - Exam GENERAL EXAM: Alert, very pleasant, 71-year-old white male, on 2 L of oxygen with a pulse ox of 93-98%, and up in the recliner, in no acute distress HEAD: Normocephalic/atraumatic. EYES: Normal reaction of pupils, equal size. Conjunctiva pink, sclera white. NOSE: Clear with pink turbinates. THROAT: No erythema or exudates. NECK: No masses, no JVD, no thyroid enlargement, no adenopathy. CHEST: No chest wall deformity. Symmetrical expansion. Midsternal incision clean dry and intact, 2 mediastinal and left pleural chest tubes are all connected together to the same Pleur-evac, with a total of 670 mL of severe sanguinous output in the Pleur-evac, no evidence of air leak LUNGS: Equal air entry with no crackles, wheeze, rhonchi or dullness. CVS: Regular rate and rhythm, normal S1 and S2, no gallops, no murmurs, no rubs ABDOMEN: Soft, nontender. No hepatosplenomegaly, normal bowel sounds, no guarding or rigidity. EXTREMITIES: No clubbing, no edema, no cyanosis, 2+ pulses and upper and lower extremities. SCDs are in place MUSCULOSKELETAL: Muscle strength and tone normal. SPINE: No scoliosis or deformity SKIN: No rashes, left knee incision clean dry and intact, covered with a surgical dressing CENTRAL NERVOUS SYSTEM: Alert and oriented -3. No focal deficits, tone is normal in all 4 extremities. PSYCHIATRIC: Alert and oriented -3. Appropriate affect. Intact judgment and insight. - Labs CBC & Chem 7: 02/04/20 04:00 02/04/20 04:00 Labs: Abnormal Lab Results - Last 24 Hours (Table) 02/02/20 02/03/20 02/03/20 Range/Units 07:21 08:34 10:13 WBC (3.8-10.6) k/uL RBC (4.30-5.90) m/uL Hgb (13.0-17.5) gm/dL Hct (39.0-53.0) % Plt Count (150-450) k/uL Neutrophils # (1.3-7.7) k/uL Lymphocytes # (1.0-4.8) k/uL INR (<1.2) ABG pH (7.35-7.45) ABG pCO2 (35-45) mmHg ABG pO2 227 H 247 H (83-108) mmHg ABG HCO3 28 H 28 H (21-25) mmol/L ABG Total CO2 29 H 29 H (19-24) mmol/L ABG O2 Saturation 100.0 H 99.9 H (94-97) % ABG Hematocrit (34.0-46.0) % ABG Ionized Calcium 4.4 L 4.4 L (4.5-5.3) mg/dL ABG Glucose 128 H 128 H (75-99) mg/dL ABG Lactic Acid (0.5-1.6) mmol/L Hemoglobin 12.1 L 11.4 L (13.0-17.5) gm/dL Chloride (98-107) mmol/L Glucose (74-99) mg/dL POC Glucose (mg/dL) (75-99) mg/dL Calcium (8.4-10.2) mg/dL Magnesium (1.6-2.3) mg/dL Total Bilirubin (0.2-1.3) mg/dL Alkaline Phosphatase (38-126) U/L Total Protein (6.3-8.2) g/dL Albumin (3.5-5.0) g/dL Arterial Blood Glucose 128 H 128 H (75-99) mg/dL Crossmatch See Detail 02/03/20 02/03/20 02/03/20 Range/Units 11:28 11:40 12:06 WBC (3.8-10.6) k/uL RBC (4.30-5.90) m/uL Hgb (13.0-17.5) gm/dL Hct (39.0-53.0) % Plt Count (150-450) k/uL Neutrophils # (1.3-7.7) k/uL Lymphocytes # (1.0-4.8) k/uL INR (<1.2) ABG pH (7.35-7.45) ABG pCO2 46 H 49 H (35-45) mmHg ABG pO2 249 H 232 H 314 H (83-108) mmHg ABG HCO3 27 H 28 H 26 H (21-25) mmol/L ABG Total CO2 29 H 29 H 27 H (19-24) mmol/L ABG O2 Saturation 100.0 H 100.0 H 100.0 H (94-97) % ABG Hematocrit 26 L 28 L 28 L (34.0-46.0) % ABG Ionized Calcium 4.3 L 4.3 L 4.2 L (4.5-5.3) mg/dL ABG Glucose 61 L 66 L 125 H (75-99) mg/dL ABG Lactic Acid (0.5-1.6) mmol/L Hemoglobin 8.6 L 9.2 L 9.3 L (13.0-17.5) gm/dL Chloride (98-107) mmol/L Glucose (74-99) mg/dL POC Glucose (mg/dL) (75-99) mg/dL Calcium (8.4-10.2) mg/dL Magnesium (1.6-2.3) mg/dL Total Bilirubin (0.2-1.3) mg/dL Alkaline Phosphatase (38-126) U/L Total Protein (6.3-8.2) g/dL Albumin (3.5-5.0) g/dL Arterial Blood Glucose 61 L 66 L 125 H (75-99) mg/dL Crossmatch 02/03/20 02/03/20 02/03/20 Range/Units 12:32 14:15 14:17 WBC (3.8-10.6) k/uL RBC 3.46 L (4.30-5.90) m/uL Hgb 10.4 L D (13.0-17.5) gm/dL Hct 32.0 L (39.0-53.0) % Plt Count 116 L (150-450) k/uL Neutrophils # (1.3-7.7) k/uL Lymphocytes # (1.0-4.8) k/uL INR (<1.2) ABG pH (7.35-7.45) ABG pCO2 (35-45) mmHg ABG pO2 285 H (83-108) mmHg ABG HCO3 (21-25) mmol/L ABG Total CO2 26 H (19-24) mmol/L ABG O2 Saturation 100.0 H (94-97) % ABG Hematocrit 29 L (34.0-46.0) % ABG Ionized Calcium 4.2 L (4.5-5.3) mg/dL ABG Glucose 120 H (75-99) mg/dL ABG Lactic Acid 1.7 H (0.5-1.6) mmol/L Hemoglobin 9.3 L (13.0-17.5) gm/dL Chloride (98-107) mmol/L Glucose (74-99) mg/dL POC Glucose (mg/dL) 106 H (75-99) mg/dL Calcium (8.4-10.2) mg/dL Magnesium (1.6-2.3) mg/dL Total Bilirubin (0.2-1.3) mg/dL Alkaline Phosphatase (38-126) U/L Total Protein (6.3-8.2) g/dL Albumin (3.5-5.0) g/dL Arterial Blood Glucose 120 H (75-99) mg/dL Crossmatch 02/03/20 02/03/20 02/03/20 Range/Units 14:17 14:17 14:39 WBC (3.8-10.6) k/uL RBC (4.30-5.90) m/uL Hgb (13.0-17.5) gm/dL Hct (39.0-53.0) % Plt Count (150-450) k/uL Neutrophils # (1.3-7.7) k/uL Lymphocytes # (1.0-4.8) k/uL INR 1.2 H (<1.2) ABG pH 7.33 L (7.35-7.45) ABG pCO2 51 H (35-45) mmHg ABG pO2 162 H (83-108) mmHg ABG HCO3 27 H (21-25) mmol/L ABG Total CO2 28 H (19-24) mmol/L ABG O2 Saturation 99.2 H (94-97) % ABG Hematocrit (34.0-46.0) % ABG Ionized Calcium (4.5-5.3) mg/dL ABG Glucose (75-99) mg/dL ABG Lactic Acid (0.5-1.6) mmol/L Hemoglobin (13.0-17.5) gm/dL Chloride 108 H (98-107) mmol/L Glucose (74-99) mg/dL POC Glucose (mg/dL) (75-99) mg/dL Calcium 7.8 L (8.4-10.2) mg/dL Magnesium 3.7 H (1.6-2.3) mg/dL Total Bilirubin 1.6 H (0.2-1.3) mg/dL Alkaline Phosphatase 33 L (38-126) U/L Total Protein 4.7 L (6.3-8.2) g/dL Albumin 2.8 L (3.5-5.0) g/dL Arterial Blood Glucose (75-99) mg/dL Crossmatch 02/03/20 02/03/20 02/03/20 Range/Units 15:10 16:03 16:58 WBC (3.8-10.6) k/uL RBC (4.30-5.90) m/uL Hgb (13.0-17.5) gm/dL Hct (39.0-53.0) % Plt Count (150-450) k/uL Neutrophils # (1.3-7.7) k/uL Lymphocytes # (1.0-4.8) k/uL INR (<1.2) ABG pH (7.35-7.45) ABG pCO2 (35-45) mmHg ABG pO2 (83-108) mmHg ABG HCO3 (21-25) mmol/L ABG Total CO2 (19-24) mmol/L ABG O2 Saturation (94-97) % ABG Hematocrit (34.0-46.0) % ABG Ionized Calcium (4.5-5.3) mg/dL ABG Glucose (75-99) mg/dL ABG Lactic Acid (0.5-1.6) mmol/L Hemoglobin (13.0-17.5) gm/dL Chloride (98-107) mmol/L Glucose (74-99) mg/dL POC Glucose (mg/dL) 108 H 134 H 137 H (75-99) mg/dL Calcium (8.4-10.2) mg/dL Magnesium (1.6-2.3) mg/dL Total Bilirubin (0.2-1.3) mg/dL Alkaline Phosphatase (38-126) U/L Total Protein (6.3-8.2) g/dL Albumin (3.5-5.0) g/dL Arterial Blood Glucose (75-99) mg/dL Crossmatch 02/03/20 02/03/20 02/03/20 Range/Units 17:00 17:50 17:52 WBC 13.1 H (3.8-10.6) k/uL RBC 3.98 L (4.30-5.90) m/uL Hgb 12.1 L (13.0-17.5) gm/dL Hct 37.2 L (39.0-53.0) % Plt Count 148 L (150-450) k/uL Neutrophils # 11.3 H (1.3-7.7) k/uL Lymphocytes # 0.9 L (1.0-4.8) k/uL INR (<1.2) ABG pH 7.31 L (7.35-7.45) ABG pCO2 50 H (35-45) mmHg ABG pO2 67 L (83-108) mmHg ABG HCO3 (21-25) mmol/L ABG Total CO2 27 H (19-24) mmol/L ABG O2 Saturation 91.8 L (94-97) % ABG Hematocrit (34.0-46.0) % ABG Ionized Calcium (4.5-5.3) mg/dL ABG Glucose (75-99) mg/dL ABG Lactic Acid (0.5-1.6) mmol/L Hemoglobin (13.0-17.5) gm/dL Chloride (98-107) mmol/L Glucose (74-99) mg/dL POC Glucose (mg/dL) 166 H (75-99) mg/dL Calcium (8.4-10.2) mg/dL Magnesium (1.6-2.3) mg/dL Total Bilirubin (0.2-1.3) mg/dL Alkaline Phosphatase (38-126) U/L Total Protein (6.3-8.2) g/dL Albumin (3.5-5.0) g/dL Arterial Blood Glucose (75-99) mg/dL Crossmatch 02/03/20 02/03/20 02/03/20 Range/Units 18:54 20:05 20:06 WBC 13.7 H (3.8-10.6) k/uL RBC 3.86 L (4.30-5.90) m/uL Hgb 11.7 L (13.0-17.5) gm/dL Hct 36.1 L (39.0-53.0) % Plt Count 143 L (150-450) k/uL Neutrophils # 12.7 H (1.3-7.7) k/uL Lymphocytes # 0.3 L (1.0-4.8) k/uL INR (<1.2) ABG pH (7.35-7.45) ABG pCO2 (35-45) mmHg ABG pO2 (83-108) mmHg ABG HCO3 (21-25) mmol/L ABG Total CO2 (19-24) mmol/L ABG O2 Saturation (94-97) % ABG Hematocrit (34.0-46.0) % ABG Ionized Calcium (4.5-5.3) mg/dL ABG Glucose (75-99) mg/dL ABG Lactic Acid (0.5-1.6) mmol/L Hemoglobin (13.0-17.5) gm/dL Chloride (98-107) mmol/L Glucose (74-99) mg/dL POC Glucose (mg/dL) 179 H 176 H (75-99) mg/dL Calcium (8.4-10.2) mg/dL Magnesium (1.6-2.3) mg/dL Total Bilirubin (0.2-1.3) mg/dL Alkaline Phosphatase (38-126) U/L Total Protein (6.3-8.2) g/dL Albumin (3.5-5.0) g/dL Arterial Blood Glucose (75-99) mg/dL Crossmatch 02/03/20 02/03/20 02/03/20 Range/Units 21:00 22:08 22:59 WBC (3.8-10.6) k/uL RBC (4.30-5.90) m/uL Hgb (13.0-17.5) gm/dL Hct (39.0-53.0) % Plt Count (150-450) k/uL Neutrophils # (1.3-7.7) k/uL Lymphocytes # (1.0-4.8) k/uL INR (<1.2) ABG pH (7.35-7.45) ABG pCO2 (35-45) mmHg ABG pO2 (83-108) mmHg ABG HCO3 (21-25) mmol/L ABG Total CO2 (19-24) mmol/L ABG O2 Saturation (94-97) % ABG Hematocrit (34.0-46.0) % ABG Ionized Calcium (4.5-5.3) mg/dL ABG Glucose (75-99) mg/dL ABG Lactic Acid (0.5-1.6) mmol/L Hemoglobin (13.0-17.5) gm/dL Chloride (98-107) mmol/L Glucose (74-99) mg/dL POC Glucose (mg/dL) 158 H 133 H 127 H (75-99) mg/dL Calcium (8.4-10.2) mg/dL Magnesium (1.6-2.3) mg/dL Total Bilirubin (0.2-1.3) mg/dL Alkaline Phosphatase (38-126) U/L Total Protein (6.3-8.2) g/dL Albumin (3.5-5.0) g/dL Arterial Blood Glucose (75-99) mg/dL Crossmatch 02/04/20 02/04/20 02/04/20 Range/Units 00:01 00:58 02:01 WBC (3.8-10.6) k/uL RBC (4.30-5.90) m/uL Hgb (13.0-17.5) gm/dL Hct (39.0-53.0) % Plt Count (150-450) k/uL Neutrophils # (1.3-7.7) k/uL Lymphocytes # (1.0-4.8) k/uL INR (<1.2) ABG pH (7.35-7.45) ABG pCO2 (35-45) mmHg ABG pO2 (83-108) mmHg ABG HCO3 (21-25) mmol/L ABG Total CO2 (19-24) mmol/L ABG O2 Saturation (94-97) % ABG Hematocrit (34.0-46.0) % ABG Ionized Calcium (4.5-5.3) mg/dL ABG Glucose (75-99) mg/dL ABG Lactic Acid (0.5-1.6) mmol/L Hemoglobin (13.0-17.5) gm/dL Chloride (98-107) mmol/L Glucose (74-99) mg/dL POC Glucose (mg/dL) 117 H 111 H 126 H (75-99) mg/dL Calcium (8.4-10.2) mg/dL Magnesium (1.6-2.3) mg/dL Total Bilirubin (0.2-1.3) mg/dL Alkaline Phosphatase (38-126) U/L Total Protein (6.3-8.2) g/dL Albumin (3.5-5.0) g/dL Arterial Blood Glucose (75-99) mg/dL Crossmatch 02/04/20 02/04/20 02/04/20 Range/Units 03:05 04:00 04:00 WBC (3.8-10.6) k/uL RBC 3.49 L (4.30-5.90) m/uL Hgb 10.5 L (13.0-17.5) gm/dL Hct 32.4 L (39.0-53.0) % Plt Count 109 L (150-450) k/uL Neutrophils # (1.3-7.7) k/uL Lymphocytes # 0.5 L (1.0-4.8) k/uL INR (<1.2) ABG pH (7.35-7.45) ABG pCO2 (35-45) mmHg ABG pO2 (83-108) mmHg ABG HCO3 (21-25) mmol/L ABG Total CO2 (19-24) mmol/L ABG O2 Saturation (94-97) % ABG Hematocrit (34.0-46.0) % ABG Ionized Calcium (4.5-5.3) mg/dL ABG Glucose (75-99) mg/dL ABG Lactic Acid (0.5-1.6) mmol/L Hemoglobin (13.0-17.5) gm/dL Chloride (98-107) mmol/L Glucose 111 H (74-99) mg/dL POC Glucose (mg/dL) 121 H (75-99) mg/dL Calcium 7.2 L (8.4-10.2) mg/dL Magnesium 2.9 H (1.6-2.3) mg/dL Total Bilirubin 1.5 H (0.2-1.3) mg/dL Alkaline Phosphatase 30 L (38-126) U/L Total Protein 4.9 L (6.3-8.2) g/dL Albumin 2.9 L (3.5-5.0) g/dL Arterial Blood Glucose (75-99) mg/dL Crossmatch 02/04/20 02/04/20 02/04/20 Range/Units 04:01 05:11 07:11 WBC (3.8-10.6) k/uL RBC (4.30-5.90) m/uL Hgb (13.0-17.5) gm/dL Hct (39.0-53.0) % Plt Count (150-450) k/uL Neutrophils # (1.3-7.7) k/uL Lymphocytes # (1.0-4.8) k/uL INR (<1.2) ABG pH (7.35-7.45) ABG pCO2 (35-45) mmHg ABG pO2 (83-108) mmHg ABG HCO3 (21-25) mmol/L ABG Total CO2 (19-24) mmol/L ABG O2 Saturation (94-97) % ABG Hematocrit (34.0-46.0) % ABG Ionized Calcium (4.5-5.3) mg/dL ABG Glucose (75-99) mg/dL ABG Lactic Acid (0.5-1.6) mmol/L Hemoglobin (13.0-17.5) gm/dL Chloride (98-107) mmol/L Glucose (74-99) mg/dL POC Glucose (mg/dL) 115 H 111 H 139 H (75-99) mg/dL Calcium (8.4-10.2) mg/dL Magnesium (1.6-2.3) mg/dL Total Bilirubin (0.2-1.3) mg/dL Alkaline Phosphatase (38-126) U/L Total Protein (6.3-8.2) g/dL Albumin (3.5-5.0) g/dL Arterial Blood Glucose (75-99) mg/dL Crossmatch 02/04/20 Range/Units 09:08 WBC (3.8-10.6) k/uL RBC (4.30-5.90) m/uL Hgb (13.0-17.5) gm/dL Hct (39.0-53.0) % Plt Count (150-450) k/uL Neutrophils # (1.3-7.7) k/uL Lymphocytes # (1.0-4.8) k/uL INR (<1.2) ABG pH (7.35-7.45) ABG pCO2 (35-45) mmHg ABG pO2 (83-108) mmHg ABG HCO3 (21-25) mmol/L ABG Total CO2 (19-24) mmol/L ABG O2 Saturation (94-97) % ABG Hematocrit (34.0-46.0) % ABG Ionized Calcium (4.5-5.3) mg/dL ABG Glucose (75-99) mg/dL ABG Lactic Acid (0.5-1.6) mmol/L Hemoglobin (13.0-17.5) gm/dL Chloride (98-107) mmol/L Glucose (74-99) mg/dL POC Glucose (mg/dL) 147 H (75-99) mg/dL Calcium (8.4-10.2) mg/dL Magnesium (1.6-2.3) mg/dL Total Bilirubin (0.2-1.3) mg/dL Alkaline Phosphatase (38-126) U/L Total Protein (6.3-8.2) g/dL Albumin (3.5-5.0) g/dL Arterial Blood Glucose (75-99) mg/dL Crossmatch Assessment and Plan Plan: Assessment: #1. Severe aortic stenosis, and coronary artery disease, status post aortic valve replacement with bovine pericardial valve prosthesis, CABG 2 with MCCLAIN to LAD and saphenous vein graft to the PDA, exclusion of the left atrial appendage with 35mm Atricure clip, postoperative day 1 #2. Routine mechanical ventilator management, patient was successfully extubated at approximate 4 hours from OR exit time on postoperative day 0, 01/26/2020 at 1800. OR exit time was 1406 #3. Chest pain related to acute non-ST elevated myocardial infarction #4. Hypertension #5. Type 2 diabetes mellitus #6. Rheumatoid arthritis on methotrexate #7. Remote history of smoking #8. History of carotid stenosis, with history of right carotid endarterectomy #9. History of atrial fibrillation, currently in sinus rhythm #10. Dyslipidemia Plan: Continue current medical treatment, encourage deep breathing and coughing, today's chest x-ray has been reviewed showing interval extubation, and persistent atelectatic changes, with improved aeration. Hemodynamically patient is stable. In sinus mechanism. He is on GI and DVT prophylaxis. Continue breathing treatments. Increase activity as tolerated. Follow-up chest x-ray and labs in the morning, we'll continue to closely follow in the ICU along with cardiothoracic surgery. I performed a history & physical examination of the patient and discussed their management with my nurse practitioner, Minnie Mcmillan. I reviewed the nurse practitioner's note and agree with the documented findings and plan of care. Lung sounds are positive for clear breath sounds. The findings and the impression was discussed with the patient. I attest to the documentation by the nurse practitioner. Time with Patient: Less than 30
[2020-02-04 12:06] LABS: Glucose,Whole Blood 113 mg/dL (75-99)
[2020-02-04] MEDS: NITROGLYCERIN-D5W PMX 50 MG in DEXTROSE/WATER 1 250ML.BAG IV SCH (12:07)
[2020-02-04] MEDS: INSULIN ASPART (NovoLOG) 100 UNIT/ML VIAL SQ SCH ×3 (12:08→20:20)
[2020-02-04] MEDS: KETOROLAC 30 MG/ML 1 ML VIAL IVP SCH ×3 (12:08→23:15)
--- NOTE | 2020-02-04 15:32 | P.PN ---
Subjective Progress Note Date: 02/04/20 Principal diagnosis: Patient is admitted for non-ST elevation microinfarction found to have a 50% of disease in RCA and 90% occlusion in the circumflex with diffuse disease in the circumflex. Patient also found to have severe at stenosis and cardiac thoracic surgery was consulted for valve replacement and single graft to RCA 02/01/2020 No overnight events patient will undergo coronary artery bypass grafting along with aortic valve replacement on 02/02/2020 Patient will undergo valve replacement and CABG tomorrow overnight events Constitutional: Denied any fatigue denied any fever. Cardio vascular: denied any chest pain, palpitations Gastrointestinal denied any nausea vomiting Pulmonary: Denied any shortness of breath cough Neurologic denied any new focal deficits All inpatient medications were reviewed and appropriate changes in these medications as dictated in the interval history and assessment and plan. 02/03/2020 Patient is seen and evaluated status post CABG with valve replacement and is currently being monitored closely in the ICU. Patient currently remains on mechanical vent and is intubated and sedated at this time. Chest tubes noted wi indwelling Quevedo catheter with some mild hematuria noted may possibly be related to trauma during insertion. Nursing staff at the bedside stated patient will be weaned sometime this afternoon from the vent and will continue to monitor closely. Patient is on a small dose of club approximately blood pressure control along with propofol for sedation which will eventually be weaned. Patient is currently on an insulin drip for tight glycemic control. Surgical dressing noted of the mid sternum is dry and intact. 02/04/2020 Patient is seen in follow-up this morning currently sitting up in the chair recently extubated and doing well. Patient continues to have chest tubes along with indwelling Quevedo catheter noted. Urine is yellow and free from any signs of hematuria. Patient is off blood pressure medication and currently remains on an insulin drip. Blood sugars have been in the 100s and will discontinue the insulin drip and start with sliding scale and continue to monitor blood sugars before meals at bedtime. Patient is eating and tolerating thus far. Patient will be working with physical therapy this afternoon. Heart hugger noted and patient is having some difficulty squeezing it during coughing but states he is managing. Patient's cough is mostly dry with no phlegm production. Patient also using incentive spirometer and instructed the patient to continue using at least 10 times every hour while awake. Patient is having some mild chest discomfort although no reports of chest pain or palpitations. He denies any shortness of breath. Patient is afebrile. Reports nausea or vomiting and patient is tolerating diet. Objective - Vital Signs Vital signs: Vital Signs Temp 97.0 F L 02/03/20 18:00 Pulse 83 02/04/20 07:24 Resp 19 02/04/20 07:00 BP 164/70 02/03/20 06:26 Pulse Ox 97 02/04/20 07:00 Intake & Output 02/03/20 02/04/20 02/04/20 18:59 06:59 18:59 Intake Total 273.677 9408.544 116.742 Output Total 2585 1192 35 Balance -2128.407 324.544 81.742 Weight 99.1 kg Intake: IV 91 1414.5 90.5 ACETAMINOPHEN IV (For NPO 100 ) 1,000 mg In Empty Bag 1 bag @ 400 mls/hr IVPB Q6HR [facility] Rx#:[id number] Albumin 5% 250 CO/CI Injectate 40 360 30 LR 530 50 Nitroglycerine 16.5 1.5 ceFAZolin 2 gm In Sodium 50 Chloride 0.9% 50 ml @ 100 mls/hr IVPB Q8HR [facility] Rx# :[id number] pressure bags 18 108 9 Intake, IV Titration 365.593 102.044 26.242 Amount ACETAMINOPHEN IV (For NPO 100 ) 1,000 mg In Empty Bag 1 bag @ 400 mls/hr IVPB Q6HR [facility] Rx#:[id number] Clevidipine Butyrate 25 23.067 23.133 1.067 mg In Empty Bag 1 bag @ 1 MG/HR 2 mls/hr IV .Q24H [facility] Rx#:[id number] Insulin Regular 100 unit 1.212 28.911 0 In Sodium Chloride 0.9% 100 ml @ Per Protocol IV .Q0M [facility] Rx#:[id number] Lactated Ringers 1,000 ml 150 50 @ 50 mls/hr IV .Q20H [facility] Rx#:[id number] Nitroglycerin-D5w Pmx 50 25.175 mg In Dextrose/Water 1 250ml.bag @ 5 MCG/MIN 1.5 mls/hr IV .Q24H [facility] Rx#: [id number] Propofol 1,000 mg In 41.314 Empty Bag 1 bag @ Titrate IV .Q0M [facility] Rx#: [id number] ceFAZolin 2 gm In Sodium 50 Chloride 0.9% 50 ml @ 100 mls/hr IVPB Q8HR [facility] Rx# :[id number] Output: Chest Tube Drainage 210 460 20 mediastinal x2 and left 210 460 20 pleural Urine 1725 732 15 Estimated Blood Loss 650 Other: Voiding Method Indwelling Catheter # Bowel Movements 0 ABP, PAP, CO, CI - Last Documented Arterial Blood Pressure 136/51 Pulmonary Artery Pressure 28/9 Cardiac Output 18.6 Cardiac Index 9.3 - Exam GENERAL: The patient is awake, alert and oriented 3, sitting up in the chair, well-developed, well-nourished. HEENT: Pupils are round and equally reacting to light. EOMI. No scleral icterus. No conjunctival pallor. Normocephalic, atraumatic. No pharyngeal erythema. No thyromegaly. CARDIOVASCULAR: S1 and S2 present. No murmurs, rubs, or gallops. PULMONARY: Chest is clear to auscultation, no wheezing or crackles. ABDOMEN: Soft, nondistended, normoactive bowel sounds. No palpable organomegaly. MUSCULOSKELETAL: No joint swelling or deformity. EXTREMITIES: No cyanosis, clubbing, or pedal edema. NEUROLOGICAL: Cooperative, awake, alert and oriented 3 SKIN: No rashes. Sternal chest incision dressing is dry and intact - Labs CBC & Chem 7: 02/04/20 04:00 02/04/20 04:00 Labs: Abnormal Lab Results - Last 24 Hours (Table) 02/02/20 02/03/20 02/03/20 Range/Units 07:21 08:34 10:13 WBC (3.8-10.6) k/uL RBC (4.30-5.90) m/uL Hgb (13.0-17.5) gm/dL Hct (39.0-53.0) % Plt Count (150-450) k/uL Neutrophils # (1.3-7.7) k/uL Lymphocytes # (1.0-4.8) k/uL INR (<1.2) ABG pH (7.35-7.45) ABG pCO2 (35-45) mmHg ABG pO2 227 H 247 H (83-108) mmHg ABG HCO3 28 H 28 H (21-25) mmol/L ABG Total CO2 29 H 29 H (19-24) mmol/L ABG O2 Saturation 100.0 H 99.9 H (94-97) % ABG Hematocrit (34.0-46.0) % ABG Ionized Calcium 4.4 L 4.4 L (4.5-5.3) mg/dL ABG Glucose 128 H 128 H (75-99) mg/dL ABG Lactic Acid (0.5-1.6) mmol/L Hemoglobin 12.1 L 11.4 L (13.0-17.5) gm/dL Chloride (98-107) mmol/L Glucose (74-99) mg/dL POC Glucose (mg/dL) (75-99) mg/dL Calcium (8.4-10.2) mg/dL Magnesium (1.6-2.3) mg/dL Total Bilirubin (0.2-1.3) mg/dL Alkaline Phosphatase (38-126) U/L Total Protein (6.3-8.2) g/dL Albumin (3.5-5.0) g/dL Arterial Blood Glucose 128 H 128 H (75-99) mg/dL Crossmatch See Detail 02/03/20 02/03/20 02/03/20 Range/Units 11:28 11:40 12:06 WBC (3.8-10.6) k/uL RBC (4.30-5.90) m/uL Hgb (13.0-17.5) gm/dL Hct (39.0-53.0) % Plt Count (150-450) k/uL Neutrophils # (1.3-7.7) k/uL Lymphocytes # (1.0-4.8) k/uL INR (<1.2) ABG pH (7.35-7.45) ABG pCO2 46 H 49 H (35-45) mmHg ABG pO2 249 H 232 H 314 H (83-108) mmHg ABG HCO3 27 H 28 H 26 H (21-25) mmol/L ABG Total CO2 29 H 29 H 27 H (19-24) mmol/L ABG O2 Saturation 100.0 H 100.0 H 100.0 H (94-97) % ABG Hematocrit 26 L 28 L 28 L (34.0-46.0) % ABG Ionized Calcium 4.3 L 4.3 L 4.2 L (4.5-5.3) mg/dL ABG Glucose 61 L 66 L 125 H (75-99) mg/dL ABG Lactic Acid (0.5-1.6) mmol/L Hemoglobin 8.6 L 9.2 L 9.3 L (13.0-17.5) gm/dL Chloride (98-107) mmol/L Glucose (74-99) mg/dL POC Glucose (mg/dL) (75-99) mg/dL Calcium (8.4-10.2) mg/dL Magnesium (1.6-2.3) mg/dL Total Bilirubin (0.2-1.3) mg/dL Alkaline Phosphatase (38-126) U/L Total Protein (6.3-8.2) g/dL Albumin (3.5-5.0) g/dL Arterial Blood Glucose 61 L 66 L 125 H (75-99) mg/dL Crossmatch 02/03/20 02/03/20 02/03/20 Range/Units 12:32 14:15 14:17 WBC (3.8-10.6) k/uL RBC 3.46 L (4.30-5.90) m/uL Hgb 10.4 L D (13.0-17.5) gm/dL Hct 32.0 L (39.0-53.0) % Plt Count 116 L (150-450) k/uL Neutrophils # (1.3-7.7) k/uL Lymphocytes # (1.0-4.8) k/uL INR (<1.2) ABG pH (7.35-7.45) ABG pCO2 (35-45) mmHg ABG pO2 285 H (83-108) mmHg ABG HCO3 (21-25) mmol/L ABG Total CO2 26 H (19-24) mmol/L ABG O2 Saturation 100.0 H (94-97) % ABG Hematocrit 29 L (34.0-46.0) % ABG Ionized Calcium 4.2 L (4.5-5.3) mg/dL ABG Glucose 120 H (75-99) mg/dL ABG Lactic Acid 1.7 H (0.5-1.6) mmol/L Hemoglobin 9.3 L (13.0-17.5) gm/dL Chloride (98-107) mmol/L Glucose (74-99) mg/dL POC Glucose (mg/dL) 106 H (75-99) mg/dL Calcium (8.4-10.2) mg/dL Magnesium (1.6-2.3) mg/dL Total Bilirubin (0.2-1.3) mg/dL Alkaline Phosphatase (38-126) U/L Total Protein (6.3-8.2) g/dL Albumin (3.5-5.0) g/dL Arterial Blood Glucose 120 H (75-99) mg/dL Crossmatch 02/03/20 02/03/20 02/03/20 Range/Units 14:17 14:17 14:39 WBC (3.8-10.6) k/uL RBC (4.30-5.90) m/uL Hgb (13.0-17.5) gm/dL Hct (39.0-53.0) % Plt Count (150-450) k/uL Neutrophils # (1.3-7.7) k/uL Lymphocytes # (1.0-4.8) k/uL INR 1.2 H (<1.2) ABG pH 7.33 L (7.35-7.45) ABG pCO2 51 H (35-45) mmHg ABG pO2 162 H (83-108) mmHg ABG HCO3 27 H (21-25) mmol/L ABG Total CO2 28 H (19-24) mmol/L ABG O2 Saturation 99.2 H (94-97) % ABG Hematocrit (34.0-46.0) % ABG Ionized Calcium (4.5-5.3) mg/dL ABG Glucose (75-99) mg/dL ABG Lactic Acid (0.5-1.6) mmol/L Hemoglobin (13.0-17.5) gm/dL Chloride 108 H (98-107) mmol/L Glucose (74-99) mg/dL POC Glucose (mg/dL) (75-99) mg/dL Calcium 7.8 L (8.4-10.2) mg/dL Magnesium 3.7 H (1.6-2.3) mg/dL Total Bilirubin 1.6 H (0.2-1.3) mg/dL Alkaline Phosphatase 33 L (38-126) U/L Total Protein 4.7 L (6.3-8.2) g/dL Albumin 2.8 L (3.5-5.0) g/dL Arterial Blood Glucose (75-99) mg/dL Crossmatch 02/03/20 02/03/20 02/03/20 Range/Units 15:10 16:03 16:58 WBC (3.8-10.6) k/uL RBC (4.30-5.90) m/uL Hgb (13.0-17.5) gm/dL Hct (39.0-53.0) % Plt Count (150-450) k/uL Neutrophils # (1.3-7.7) k/uL Lymphocytes # (1.0-4.8) k/uL INR (<1.2) ABG pH (7.35-7.45) ABG pCO2 (35-45) mmHg ABG pO2 (83-108) mmHg ABG HCO3 (21-25) mmol/L ABG Total CO2 (19-24) mmol/L ABG O2 Saturation (94-97) % ABG Hematocrit (34.0-46.0) % ABG Ionized Calcium (4.5-5.3) mg/dL ABG Glucose (75-99) mg/dL ABG Lactic Acid (0.5-1.6) mmol/L Hemoglobin (13.0-17.5) gm/dL Chloride (98-107) mmol/L Glucose (74-99) mg/dL POC Glucose (mg/dL) 108 H 134 H 137 H (75-99) mg/dL Calcium (8.4-10.2) mg/dL Magnesium (1.6-2.3) mg/dL Total Bilirubin (0.2-1.3) mg/dL Alkaline Phosphatase (38-126) U/L Total Protein (6.3-8.2) g/dL Albumin (3.5-5.0) g/dL Arterial Blood Glucose (75-99) mg/dL Crossmatch 02/03/20 02/03/20 02/03/20 Range/Units 17:00 17:50 17:52 WBC 13.1 H (3.8-10.6) k/uL RBC 3.98 L (4.30-5.90) m/uL Hgb 12.1 L (13.0-17.5) gm/dL Hct 37.2 L (39.0-53.0) % Plt Count 148 L (150-450) k/uL Neutrophils # 11.3 H (1.3-7.7) k/uL Lymphocytes # 0.9 L (1.0-4.8) k/uL INR (<1.2) ABG pH 7.31 L (7.35-7.45) ABG pCO2 50 H (35-45) mmHg ABG pO2 67 L (83-108) mmHg ABG HCO3 (21-25) mmol/L ABG Total CO2 27 H (19-24) mmol/L ABG O2 Saturation 91.8 L (94-97) % ABG Hematocrit (34.0-46.0) % ABG Ionized Calcium (4.5-5.3) mg/dL ABG Glucose (75-99) mg/dL ABG Lactic Acid (0.5-1.6) mmol/L Hemoglobin (13.0-17.5) gm/dL Chloride (98-107) mmol/L Glucose (74-99) mg/dL POC Glucose (mg/dL) 166 H (75-99) mg/dL Calcium (8.4-10.2) mg/dL Magnesium (1.6-2.3) mg/dL Total Bilirubin (0.2-1.3) mg/dL Alkaline Phosphatase (38-126) U/L Total Protein (6.3-8.2) g/dL Albumin (3.5-5.0) g/dL Arterial Blood Glucose (75-99) mg/dL Crossmatch 02/03/20 02/03/20 02/03/20 Range/Units 18:54 20:05 20:06 WBC 13.7 H (3.8-10.6) k/uL RBC 3.86 L (4.30-5.90) m/uL Hgb 11.7 L (13.0-17.5) gm/dL Hct 36.1 L (39.0-53.0) % Plt Count 143 L (150-450) k/uL Neutrophils # 12.7 H (1.3-7.7) k/uL Lymphocytes # 0.3 L (1.0-4.8) k/uL INR (<1.2) ABG pH (7.35-7.45) ABG pCO2 (35-45) mmHg ABG pO2 (83-108) mmHg ABG HCO3 (21-25) mmol/L ABG Total CO2 (19-24) mmol/L ABG O2 Saturation (94-97) % ABG Hematocrit (34.0-46.0) % ABG Ionized Calcium (4.5-5.3) mg/dL ABG Glucose (75-99) mg/dL ABG Lactic Acid (0.5-1.6) mmol/L Hemoglobin (13.0-17.5) gm/dL Chloride (98-107) mmol/L Glucose (74-99) mg/dL POC Glucose (mg/dL) 179 H 176 H (75-99) mg/dL Calcium (8.4-10.2) mg/dL Magnesium (1.6-2.3) mg/dL Total Bilirubin (0.2-1.3) mg/dL Alkaline Phosphatase (38-126) U/L Total Protein (6.3-8.2) g/dL Albumin (3.5-5.0) g/dL Arterial Blood Glucose (75-99) mg/dL Crossmatch 02/03/20 02/03/20 02/03/20 Range/Units 21:00 22:08 22:59 WBC (3.8-10.6) k/uL RBC (4.30-5.90) m/uL Hgb (13.0-17.5) gm/dL Hct (39.0-53.0) % Plt Count (150-450) k/uL Neutrophils # (1.3-7.7) k/uL Lymphocytes # (1.0-4.8) k/uL INR (<1.2) ABG pH (7.35-7.45) ABG pCO2 (35-45) mmHg ABG pO2 (83-108) mmHg ABG HCO3 (21-25) mmol/L ABG Total CO2 (19-24) mmol/L ABG O2 Saturation (94-97) % ABG Hematocrit (34.0-46.0) % ABG Ionized Calcium (4.5-5.3) mg/dL ABG Glucose (75-99) mg/dL ABG Lactic Acid (0.5-1.6) mmol/L Hemoglobin (13.0-17.5) gm/dL Chloride (98-107) mmol/L Glucose (74-99) mg/dL POC Glucose (mg/dL) 158 H 133 H 127 H (75-99) mg/dL Calcium (8.4-10.2) mg/dL Magnesium (1.6-2.3) mg/dL Total Bilirubin (0.2-1.3) mg/dL Alkaline Phosphatase (38-126) U/L Total Protein (6.3-8.2) g/dL Albumin (3.5-5.0) g/dL Arterial Blood Glucose (75-99) mg/dL Crossmatch 02/04/20 02/04/20 02/04/20 Range/Units 00:01 00:58 02:01 WBC (3.8-10.6) k/uL RBC (4.30-5.90) m/uL Hgb (13.0-17.5) gm/dL Hct (39.0-53.0) % Plt Count (150-450) k/uL Neutrophils # (1.3-7.7) k/uL Lymphocytes # (1.0-4.8) k/uL INR (<1.2) ABG pH (7.35-7.45) ABG pCO2 (35-45) mmHg ABG pO2 (83-108) mmHg ABG HCO3 (21-25) mmol/L ABG Total CO2 (19-24) mmol/L ABG O2 Saturation (94-97) % ABG Hematocrit (34.0-46.0) % ABG Ionized Calcium (4.5-5.3) mg/dL ABG Glucose (75-99) mg/dL ABG Lactic Acid (0.5-1.6) mmol/L Hemoglobin (13.0-17.5) gm/dL Chloride (98-107) mmol/L Glucose (74-99) mg/dL POC Glucose (mg/dL) 117 H 111 H 126 H (75-99) mg/dL Calcium (8.4-10.2) mg/dL Magnesium (1.6-2.3) mg/dL Total Bilirubin (0.2-1.3) mg/dL Alkaline Phosphatase (38-126) U/L Total Protein (6.3-8.2) g/dL Albumin (3.5-5.0) g/dL Arterial Blood Glucose (75-99) mg/dL Crossmatch 02/04/20 02/04/20 02/04/20 Range/Units 03:05 04:00 04:00 WBC (3.8-10.6) k/uL RBC 3.49 L (4.30-5.90) m/uL Hgb 10.5 L (13.0-17.5) gm/dL Hct 32.4 L (39.0-53.0) % Plt Count 109 L (150-450) k/uL Neutrophils # (1.3-7.7) k/uL Lymphocytes # 0.5 L (1.0-4.8) k/uL INR (<1.2) ABG pH (7.35-7.45) ABG pCO2 (35-45) mmHg ABG pO2 (83-108) mmHg ABG HCO3 (21-25) mmol/L ABG Total CO2 (19-24) mmol/L ABG O2 Saturation (94-97) % ABG Hematocrit (34.0-46.0) % ABG Ionized Calcium (4.5-5.3) mg/dL ABG Glucose (75-99) mg/dL ABG Lactic Acid (0.5-1.6) mmol/L Hemoglobin (13.0-17.5) gm/dL Chloride (98-107) mmol/L Glucose 111 H (74-99) mg/dL POC Glucose (mg/dL) 121 H (75-99) mg/dL Calcium 7.2 L (8.4-10.2) mg/dL Magnesium 2.9 H (1.6-2.3) mg/dL Total Bilirubin 1.5 H (0.2-1.3) mg/dL Alkaline Phosphatase 30 L (38-126) U/L Total Protein 4.9 L (6.3-8.2) g/dL Albumin 2.9 L (3.5-5.0) g/dL Arterial Blood Glucose (75-99) mg/dL Crossmatch 02/04/20 02/04/20 02/04/20 Range/Units 04:01 05:11 07:11 WBC (3.8-10.6) k/uL RBC (4.30-5.90) m/uL Hgb (13.0-17.5) gm/dL Hct (39.0-53.0) % Plt Count (150-450) k/uL Neutrophils # (1.3-7.7) k/uL Lymphocytes # (1.0-4.8) k/uL INR (<1.2) ABG pH (7.35-7.45) ABG pCO2 (35-45) mmHg ABG pO2 (83-108) mmHg ABG HCO3 (21-25) mmol/L ABG Total CO2 (19-24) mmol/L ABG O2 Saturation (94-97) % ABG Hematocrit (34.0-46.0) % ABG Ionized Calcium (4.5-5.3) mg/dL ABG Glucose (75-99) mg/dL ABG Lactic Acid (0.5-1.6) mmol/L Hemoglobin (13.0-17.5) gm/dL Chloride (98-107) mmol/L Glucose (74-99) mg/dL POC Glucose (mg/dL) 115 H 111 H 139 H (75-99) mg/dL Calcium (8.4-10.2) mg/dL Magnesium (1.6-2.3) mg/dL Total Bilirubin (0.2-1.3) mg/dL Alkaline Phosphatase (38-126) U/L Total Protein (6.3-8.2) g/dL Albumin (3.5-5.0) g/dL Arterial Blood Glucose (75-99) mg/dL Crossmatch Assessment and Plan Assessment: -Non-ST elevation myocardial infarction: Cardiac catheterization but patient did not receive any stents further management was awaiting CABG and receiving maximum medical therapy -Status post post CABG and pericardial valve prosthesis with MCCLAIN to LAD and saphenous vein graft to PDA -Aortic stenosis: Patient underwent valve replacement with CABG, postop day #1 -Type 2 diabetes mellitus: Insulin drip discontinued and patient will be continued on a sliding scale and monitor blood sugars before meals at bedtime -Elevated troponin secondary to possible type II myocardial infarction
[2020-02-04 15:36] LABS: ABG PH 7.47 (7.35-7.45)
[2020-02-04 17:10] LABS: Glucose,Whole Blood 124 mg/dL (75-99)
[2020-02-04] MEDS: hydrALAZINE HCL 20 MG/ML 1 ML VIAL IVP PRN ×2 (18:32→20:09)
[2020-02-04] MEDS: SENNOSIDES-DOCUSATE SODIUM 1 EACH TAB PO SCH (20:09)
[2020-02-04 20:16] LABS: Glucose,Whole Blood 237 mg/dL (75-99)
[2020-02-04] MEDS ORDERED: METOPROLOL TARTRATE 25 MG TAB PO SCH (21:00)
[2020-02-04 23:20] LABS: Glucose,Whole Blood 162 mg/dL (75-99)
[2020-02-05 04:53] LABS: Basophils % (A) 0 %; Eosinophils # (A) 0.2 k/uL (0-0.7); Eosinophils % (A) 2 %; HCT 32.4 % (39.0-53.0); HGB 10.9 gm/dL (13.0-17.5); Hypochromasia Slight; Lymphocytes # (A) 0.6 k/uL (1.0-4.8); Lymphocytes % (A) 5 %; MCH 31.3 pg (25.0-35.0); MCHC 33.6 g/dL (31.0-37.0); MCV 93.2 fL (80.0-100.0); Mean Platelet Volume 8.6; Monocytes # (A) 0.6 k/uL (0-1.0); Monocytes % (A) 5 %; Neutrophils # (A) 9.5 k/uL (1.3-7.7); Neutrophils % (A) 87 %; Platelet Count 114 k/uL (150-450); RBC 3.48 m/uL (4.30-5.90); RDW 15.4 % (11.5-15.5); WBC 10.9 k/uL (3.8-10.6)
[2020-02-05 04:59] LABS: Ionized Calcium 4.7 mg/dL (4.5-5.3)
[2020-02-05 05:07] LABS: ALT 16 U/L (4-49); AST 36 U/L (17-59); African American GFR (CKD) >90 (>60 ml/min/1.73 sqM); Albumin 2.7 g/dL (3.5-5.0); Alkaline Phosphatase 37 U/L (38-126); Anion Gap 1 mmol/L; Blood Urea Nitrogen 19 mg/dL (9-20); Calcium 7.6 mg/dL (8.4-10.2); Carbon Dioxide 27 mmol/L (22-30); Chloride 108 mmol/L (98-107); Glucose 158 mg/dL (74-99); Non-African American GFR(CKD) 83 (>60 ml/min/1.73 sqM); Potassium 4.4 mmol/L (3.5-5.1); Sodium 136 mmol/L (137-145); Total Bilirubin 1.7 mg/dL (0.2-1.3); Total Protein 4.9 g/dL (6.3-8.2)
[2020-02-05] MEDS: KETOROLAC 30 MG/ML 1 ML VIAL IVP SCH ×4 (06:07→23:18)
[2020-02-05 06:44] LABS: Glucose,Whole Blood 184 mg/dL (75-99)
[2020-02-05] MEDS: PANTOPRAZOLE 40 MG TABLET PO SCH (06:45)
[2020-02-05] MEDS: INSULIN ASPART (NovoLOG) 100 UNIT/ML VIAL SQ SCH ×5 (06:45→20:35)
--- NOTE | 2020-02-05 06:49 | XR ---
EXAMINATION TYPE: XR chest 1V portable DATE OF EXAM: 02/05/2020 CLINICAL HISTORY: Post open cardiac surgery. TECHNIQUE: Single AP portable upright view of the chest is obtained. COMPARISON: Chest x-ray from one day earlier and older studies. FINDINGS: Interval removal of right internal jugular Goodman-Corine catheter. Stable left basilar chest t ube. Stable mediastinal drainage catheter. Overlying sternal wires and mediastinal clips along with c ardiac closure device superior left heart aspect are all redemonstrated. Persistent cardiomegaly and elevated left hemidiaphragm with central vascular congestion and bibasilar opacities on background ch ronic parenchymal change. Osseous structures remain demineralized. IMPRESSION: Overall stable findings, chronic parenchymal changes and cardiomegaly with small to tin y bilateral pleural effusions and central vascular congestion along with left greater than right biba silar acute infiltrate and/or atelectasis and left-sided chest tube are all redemonstrated.
--- NOTE | 2020-02-05 07:03 | P.PN ---
Subjective Progress Note Date: 02/05/20 Principal diagnosis: status post CABG This is a 79-year-old gentleman with diabetes, hypertension, and dyslipidemia who was admitted to the hospital with acute non-ST patient myocardial infarction. He washed to have severe aortic stenosis as well as severe coronary artery disease. He underwent yesterday aortic valve replacement with coronary artery bypass grafting with MCCLAIN to LAD and SVG to PDA. This is postoperative patient day #2. Overall the patient is doing good. He remains hemodynamically stable with some high blood pressure numbers. He remains in normal sinus mechanism. He is on dual antiplatelet therapy and the dose of metoprolol was increased yesterday but he still slightly tachycardic at I will suggest increasing the dose of metoprolol today as well. The blood work was reviewed and seems to be stable. Overall he is doing good from a cardiovascular standpoint of view. Objective - Vital Signs Vital signs: Vital Signs Temp 99.1 F 02/05/20 04:00 Pulse 99 02/05/20 06:00 Resp 26 H 02/05/20 06:00 BP 151/68 02/04/20 09:00 Pulse Ox 97 02/05/20 06:00 Intake & Output 02/04/20 02/05/20 02/05/20 18:59 06:59 18:59 Intake Total 810.742 276 Output Total 825 695 Balance -14.258 -419 Weight 99.1 kg 98.2 kg Intake: IV 424.5 276 CO/CI Injectate 40 LR 270 240 Nitroglycerine 1.5 ceFAZolin 2 gm In Sodium 50 Chloride 0.9% 50 ml @ 100 mls/hr IVPB Q8HR [facility] Rx# :[id number] pressure bags 63 36 Intake, IV Titration 146.242 Amount Clevidipine Butyrate 25 1.067 mg In Empty Bag 1 bag @ 1 MG/HR 2 mls/hr IV .Q24H [facility] Rx#:[id number] Insulin Regular 100 unit 0 In Sodium Chloride 0.9% 100 ml @ Per Protocol IV .Q0M [facility] Rx#:[id number] Lactated Ringers 1,000 ml 120 @ 20 mls/hr IV .Q24H [facility] Rx#:[id number] Nitroglycerin-D5w Pmx 50 25.175 mg In Dextrose/Water 1 250ml.bag @ 5 MCG/MIN 1.5 mls/hr IV .Q24H [facility] Rx#: [id number] Oral 240 Output: Chest Tube Drainage 350 150 mediastinal x2 and left 350 150 pleural Urine 475 545 Other: Voiding Method Indwelling Catheter Indwelling Catheter # Bowel Movements 0 ABP, PAP, CO, CI - Last Documented Arterial Blood Pressure 170/65 Pulmonary Artery Pressure 23/7 Cardiac Output 18.6 Cardiac Index 9.3 - Constitutional General appearance: Present: no acute distress - Respiratory Respiratory: bilateral: CTA - Cardiovascular Rhythm: regular Heart sounds: normal: S1, S2 - Labs CBC & Chem 7: 02/05/20 04:30 02/05/20 04:30 Labs: Abnormal Lab Results - Last 24 Hours (Table) 02/03/20 02/04/20 02/04/20 Range/Units 08:34 07:11 09:08 WBC (3.8-10.6) k/uL RBC (4.30-5.90) m/uL Hgb (13.0-17.5) gm/dL Hct (39.0-53.0) % Plt Count (150-450) k/uL Neutrophils # (1.3-7.7) k/uL Lymphocytes # (1.0-4.8) k/uL ABG pH 7.47 H (7.35-7.45) Sodium (137-145) mmol/L Chloride (98-107) mmol/L Glucose (74-99) mg/dL POC Glucose (mg/dL) 139 H 147 H (75-99) mg/dL Calcium (8.4-10.2) mg/dL Total Bilirubin (0.2-1.3) mg/dL Alkaline Phosphatase (38-126) U/L Total Protein (6.3-8.2) g/dL Albumin (3.5-5.0) g/dL 02/04/20 02/04/20 02/04/20 Range/Units 12:05 17:09 20:15 WBC (3.8-10.6) k/uL RBC (4.30-5.90) m/uL Hgb (13.0-17.5) gm/dL Hct (39.0-53.0) % Plt Count (150-450) k/uL Neutrophils # (1.3-7.7) k/uL Lymphocytes # (1.0-4.8) k/uL ABG pH (7.35-7.45) Sodium (137-145) mmol/L Chloride (98-107) mmol/L Glucose (74-99) mg/dL POC Glucose (mg/dL) 113 H 124 H 237 H (75-99) mg/dL Calcium (8.4-10.2) mg/dL Total Bilirubin (0.2-1.3) mg/dL Alkaline Phosphatase (38-126) U/L Total Protein (6.3-8.2) g/dL Albumin (3.5-5.0) g/dL 02/04/20 02/05/20 02/05/20 Range/Units 23:18 04:30 04:30 WBC 10.9 H (3.8-10.6) k/uL RBC 3.48 L (4.30-5.90) m/uL Hgb 10.9 L (13.0-17.5) gm/dL Hct 32.4 L (39.0-53.0) % Plt Count 114 L (150-450) k/uL Neutrophils # 9.5 H (1.3-7.7) k/uL Lymphocytes # 0.6 L (1.0-4.8) k/uL ABG pH (7.35-7.45) Sodium 136 L (137-145) mmol/L Chloride 108 H (98-107) mmol/L Glucose 158 H (74-99) mg/dL POC Glucose (mg/dL) 162 H (75-99) mg/dL Calcium 7.6 L (8.4-10.2) mg/dL Total Bilirubin 1.7 H (0.2-1.3) mg/dL Alkaline Phosphatase 37 L (38-126) U/L Total Protein 4.9 L (6.3-8.2) g/dL Albumin 2.7 L (3.5-5.0) g/dL 02/05/20 Range/Units 06:42 WBC (3.8-10.6) k/uL RBC (4.30-5.90) m/uL Hgb (13.0-17.5) gm/dL Hct (39.0-53.0) % Plt Count (150-450) k/uL Neutrophils # (1.3-7.7) k/uL Lymphocytes # (1.0-4.8) k/uL ABG pH (7.35-7.45) Sodium (137-145) mmol/L Chloride (98-107) mmol/L Glucose (74-99) mg/dL POC Glucose (mg/dL) 184 H (75-99) mg/dL Calcium (8.4-10.2) mg/dL Total Bilirubin (0.2-1.3) mg/dL Alkaline Phosphatase (38-126) U/L Total Protein (6.3-8.2) g/dL Albumin (3.5-5.0) g/dL Assessment and Plan Assessment: assessment Acute non-ST patient myocardial infarction Severe aortic stenosis and status post aortic valve replacement Multiple comorbid conditions Plan Continue the current medical regimen. I would suggest increase the dose of metoprolol Continue dual antiplatelet therapy along with anti-ischemic medication along wit h a statin Continue monitor the kidney function and electrolytes and hemoglobin Follow-up with the patient
[2020-02-05] MEDS: IPRATROPIUM-ALBUTEROL 3 ML NEB INHALATION SCH ×4 (07:52→19:49)
[2020-02-05] MEDS ORDERED: FUROSEMIDE 10 MG/ML 2 ML VIAL IV STA (08:06)
[2020-02-05] MEDS: ASPIRIN 325 MG TAB PO SCH (08:23)
[2020-02-05] MEDS: CLOPIDOGREL 75 MG TAB PO SCH (08:23)
[2020-02-05] MEDS: HEPARIN SODIUM,PORCINE 5,000 UNIT/ML 1 ML VIAL SQ SCH ×3 (08:23→23:18)
[2020-02-05] MEDS: METOPROLOL TARTRATE 25 MG TAB PO SCH ×3 (08:23→20:14)
[2020-02-05] MEDS: ATORVASTATIN 40 MG TAB PO SCH (08:23)
[2020-02-05] MEDS: LOSARTAN 25 MG TAB PO SCH (08:24)
--- NOTE | 2020-02-05 08:38 | P.PN ---
Subjective Progress Note Date: 02/05/20 Principal diagnosis: Aortic valve stenosis and coronary artery disease. This is 79-year-old gentleman who follows with Dr. Eduardo Mckeon on an outpatient basis. He has a past medical history significant for hypertension, type 2 diabetes mellitus, rheumatoid arthritis on methotrexate at home, ALLERGIC conjunctivitis, peripheral vascular disease with history of right carotid end arterectomy, remote history of nicotine dependence quit smoking in 1991 and known history of aortic valve stenosis. The patient reports he does follow with Dr. Cruz from [facility] on an outpatient basis for the aortic stenosis. On 01/30/2020, the patient reports he woke up around 12:30 AM from a deep sleep with complaints of burning type chest pain which radiated down both of his arms. He denies any complaints of shortness of breath, fever, chills, nausea, vomiting, presyncope or syncope. Subsequently, EMS was called and he was transferred to [facility] for further evaluation and workup. In the emergency department a 12-lead EKG was completed which showed normal sinus rhythm with T-wave inversion in the inferior leads and a heart rate of 89 BPM. Initial laboratory results showed a WBC count 7.8, hemoglobin 14.6, platelets 217, sodium 135, potassium 3.9, BUN 22, creatinine 0.94, glucose 183 and an initial troponin abnormal at 0.035. Serial troponins were completed and were as high as 0.181. Due to the patient's presenting symptoms and abnormal troponins cardiology was consulted and a cardiac catheterization was completed which demonstrated a 50% stenosis to his mid right coronary artery, a heavily calcified right coronary artery, diffuse disease to his left anterior descending coronary artery with a 40% stenosis to his mid left anterior descending coronary artery after his diagonal branch, and a 90% stenosis to the ostial obtuse mar ginal coronary artery as it comes off the circumflex coronary artery. A left ventricular gram was not completed during the cardiac catheterization and at this time his 2-D echocardiogram is pending. The patient does report he had a 2-D echocardiogram completed at Dr. Cruz's office, at this time the report is unavailable. Subsequently, due to the patient's presenting symptoms, history of aortic valve stenosis and the cardiac catheterization results a consult was placed to Dr. Ilya Watson from cardiothoracic surgery for evaluation and recommendations on aortic valve surgery and myocardial revascularization. POD #5 left heart catheterization and coronary angiography performed by Dr. KELLY Croft. POD #2 aortic valve replacement with a 25 mm Inspiris bovine pericardial valve prosthesis, coronary artery bypass grafting 2 vessels with left internal mammary artery to the left anterior descending coronary artery, a reverse greater saphenous vein graft to the posterior descending coronary artery, exclusion of the left atrial appendage with a 35 mm Atriclip and an intraoperative transesophageal echocardiogram performed by anesthesia. Postoperative acute blood loss anemia, an expected outcome due to cardiopulmonary bypass and hemodilution. The patient was seen in follow-up today 02/05/2020 at his bedside in the intensive care unit. He is currently sitting up to the bedside chair, is awake, alert and oriented 3 and is in no acute distress. He remains hemodynamically stable and is currently on no inotropic or pressor support. Currently he denies any complaints of pain or shortness of breath. The patient ambulated in the intensive care unit hallway yesterday with minimal assistance from nursing staff. He is somewhat hypertensive this morning with his current blood pressure 153/55 mmHg. The bedside telemetry showing sinus tachycardia heart rate 101. Oxygen saturations are 97% on 2 L nasal cannula and he is achieving 1000 mL on his incentive spirometry. Mediastinal and left pleural chest tubes remained in place to low continuous wall suction -20 cm H2O. No air leak is present. Draining thin serosanguineous drainage with 100 mL output in the last 8 hours a nd 550 mL output in the last 24 hours. Objective - Vital Signs Vital signs: Vital Signs Temp 99.1 F 02/05/20 04:00 Pulse 100 02/05/20 08:02 Resp 19 02/05/20 07:00 BP 151/68 02/04/20 09:00 Pulse Ox 97 02/05/20 07:00 Intake & Output 02/04/20 02/05/20 02/05/20 18:59 06:59 18:59 Intake Total 810.742 276 23 Output Total 825 695 45 Balance -14.258 -419 -22 Weight 99.1 kg 98.2 kg Intake: IV 424.5 276 23 CO/CI Injectate 40 LR 270 240 20 Nitroglycerine 1.5 ceFAZolin 2 gm In Sodium 50 Chloride 0.9% 50 ml @ 100 mls/hr IVPB Q8HR [facility] Rx# :[id number] pressure bags 63 36 3 Intake, IV Titration 146.242 Amount Clevidipine Butyrate 25 1.067 mg In Empty Bag 1 bag @ 1 MG/HR 2 mls/hr IV .Q24H [facility] Rx#:[id number] Insulin Regular 100 unit 0 In Sodium Chloride 0.9% 100 ml @ Per Protocol IV .Q0M [facility] Rx#:[id number] Lactated Ringers 1,000 ml 120 @ 20 mls/hr IV .Q24H [facility] Rx#:[id number] Nitroglycerin-D5w Pmx 50 25.175 mg In Dextrose/Water 1 250ml.bag @ 5 MCG/MIN 1.5 mls/hr IV .Q24H [facility] Rx#: [id number] Oral 240 Output: Chest Tube Drainage 350 150 mediastinal x2 and left 350 150 pleural Urine 475 545 45 Other: Voiding Method Indwelling Catheter Indwelling Catheter # Bowel Movements 0 ABP, PAP, CO, CI - Last Documented Arterial Blood Pressure 153/55 Pulmonary Artery Pressure 23/7 Cardiac Output 18.6 Cardiac Index 9.3 - Exam This is a pleasant 79-year-old gentleman who is sitting up to his bedside chair in intensive care unit. He is awake, alert and oriented 3 and is in no acute distress. Oxygen saturations are 97% on 2 L nasal cannula. - Constitutional General appearance: Present: cooperative, no acute distress, obese - EENT Eyes: Present: PERRLA, poor dentition (To his lower teeth), normal appearance. Absent: scleral icterus ENT: Present: hearing grossly normal - Neck Details: Neck is supple, no JVD. Neck: Absent: lymphadenopathy - Respiratory Details: Lungs sounds essentially clear throughout, diminished to his bilateral bases left greater than right. No wheezes, rhonchi or crackles. Oxygen saturation is 97% on 2 L nasal cannula. Mediastinal and left pleural chest tubes remain in place to low continuous wall suction -20 cm H2O. No air leak is present. Draining thin serosanguineous drainage with 100 mL output in the last 8 hours and 550 mL output in the last 24 hours. Achieving 1000 mL on his incentive spirometry. - Cardiovascular Details: Regular rhythm with tachycardic rate. S1 and S2 present, negative for S3, gallop or murmur. Sternum is stable. Bedside telemetry showing sinus tachycardia heart rate 101. No edema present. Heart hugger is in place and he is demonstrating appropriate use. Atrial and ventricular epicardial pacemaker wires in place and connected to a backup pacemaker generator on a VVI 50. Knee- high JOHNIE hose and sequential compression devices in place to his bilateral lower extremities. - Gastrointestinal Gastrointestinal Comment(s): Abdomen is soft, nontender and nondistended. Active bowel sounds present in all 4 abdominal quadrants. No guarding or rigidity. No organomegaly. Tolerating oral intake. Passing flatus. - Genitourinary Genitourinary Comment(s): Quevedo catheter for accurate I&O. Draining clear holli urine. 355 mL output in the last 8 hours. - Integumentary Integumentary Comment(s): Skin is warm and dry. No clubbing or cyanosis is present. No rash or abnormal pigmentation is present. Midline sternal incision is clean, dry and approximated. No drainage or redness is present. Left lower extremity EVH site is clean, dry and approximated. No drainage or redness present. - Neurologic Neurologic Comment(s): No focal neurological deficits. Neurologic: Present: CNII-XII intact - Musculoskeletal Musculoskeletal: Present: gait normal, generalized weakness, strength equal bilaterally - Psychiatric Psychiatric: Present: A&O x's 3, appropriate affect, intact judgment & insight - Allied health notes Allied health notes reviewed: nursing - Labs CBC & Chem 7: 02/05/20 04:30 02/05/20 04:30 Labs: Abnormal Lab Results - Last 24 Hours (Table) 02/03/20 02/04/20 02/04/20 Range/Units 08:34 09:08 12:05 WBC (3.8-10.6) k/uL RBC (4.30-5.90) m/uL Hgb (13.0-17.5) gm/dL Hct (39.0-53.0) % Plt Count (150-450) k/uL Neutrophils # (1.3-7.7) k/uL Lymphocytes # (1.0-4.8) k/uL ABG pH 7.47 H (7.35-7.45) Sodium (137-145) mmol/L Chloride (98-107) mmol/L Glucose (74-99) mg/dL POC Glucose (mg/dL) 147 H 113 H (75-99) mg/dL Calcium (8.4-10.2) mg/dL Total Bilirubin (0.2-1.3) mg/dL Alkaline Phosphatase (38-126) U/L Total Protein (6.3-8.2) g/dL Albumin (3.5-5.0) g/dL 02/04/20 02/04/20 02/04/20 Range/Units 17:09 20:15 23:18 WBC (3.8-10.6) k/uL RBC (4.30-5.90) m/uL Hgb (13.0-17.5) gm/dL Hct (39.0-53.0) % Plt Count (150-450) k/uL Neutrophils # (1.3-7.7) k/uL Lymphocytes # (1.0-4.8) k/uL ABG pH (7.35-7.45) Sodium (137-145) mmol/L Chloride (98-107) mmol/L Glucose (74-99) mg/dL POC Glucose (mg/dL) 124 H 237 H 162 H (75-99) mg/dL Calcium (8.4-10.2) mg/dL Total Bilirubin (0.2-1.3) mg/dL Alkaline Phosphatase (38-126) U/L Total Protein (6.3-8.2) g/dL Albumin (3.5-5.0) g/dL 02/05/20 02/05/20 02/05/20 Range/Units 04:30 04:30 06:42 WBC 10.9 H (3.8-10.6) k/uL RBC 3.48 L (4.30-5.90) m/uL Hgb 10.9 L (13.0-17.5) gm/dL Hct 32.4 L (39.0-53.0) % Plt Count 114 L (150-450) k/uL Neutrophils # 9.5 H (1.3-7.7) k/uL Lymphocytes # 0.6 L (1.0-4.8) k/uL ABG pH (7.35-7.45) Sodium 136 L (137-145) mmol/L Chloride 108 H (98-107) mmol/L Glucose 158 H (74-99) mg/dL POC Glucose (mg/dL) 184 H (75-99) mg/dL Calcium 7.6 L (8.4-10.2) mg/dL Total Bilirubin 1.7 H (0.2-1.3) mg/dL Alkaline Phosphatase 37 L (38-126) U/L Total Protein 4.9 L (6.3-8.2) g/dL Albumin 2.7 L (3.5-5.0) g/dL - Imaging and Cardiology Chest x-ray: report reviewed, image reviewed Assessment and Plan Assessment: 1. Acute non-ST elevated myocardial infarction, abnormal troponins on admission 2. Coronary artery disease, status post heart catheterization, status post aortic valve replacement and coronary artery bypass grafting surgery 2 vessels 3. History of aortic valve stenosis, status post aortic valve replacement and coronary artery bypass grafting surgery 2 vessels 4. Hypertension 5. History of type 2 diabetes mellitus 6. History of rheumatoid arthritis, on methotrexate at home 7. History of peripheral vascular disease, remote history of right carotid endarterectomy 8. Remote history of nicotine dependence, quit smoking in 1991 9. Postoperative acute blood loss anemia, an expected outcome secondary to cardiopulmonary bypass and hemodilution Plan: 1. Continue aspirin, Plavix, statin and beta nas. Increase metoprolol tartrate 50 mg by mouth twice a day 2. Wean oxygen as tolerated to keep oxygen saturations equal to or greater than 92%. 3. Encourage use of his incentive spirometry 10 times every hour while awake. 4. Lasix 20 mg IV 1 now. 5. Medical management and diabetic management per primary care service. 6. Remove Quevedo catheter. 7. DVT and GI prophylaxis. 8. Bronchodilators management per pulmonary medicine recommendations. 9. Increase activity as tolerated. PT/OT is following. 10. Continue to monitor daily labs and chest x-rays. Replace electrolytes per protocol. 11. Pain control per current when necessary regimen. 12. Keep atrial and ventricular epicardial pacemaker wires in place, ground epicardial pacemaker wires. 13. Remove mediastinal chest tubes and keep left pleural chest tube in place to low continuous wall suction -20 cm H2O. 14. Start Cozaar 25 mg by mouth daily for hypertension. 15. More recommendations to follow based on patient's clinical course Time with Patient: Greater than 30
[2020-02-05] MEDS ORDERED: METHOTREXATE SODIUM 2.5 MG TAB PO SCH (09:00)
[2020-02-05 11:56] LABS: Glucose,Whole Blood 192 mg/dL (75-99)
--- NOTE | 2020-02-05 13:51 | P.PN ---
Subjective Progress Note Date: 02/05/20 Principal diagnosis: Coronary artery disease with severe aortic stenosis 79-year-old white male patient of Dr. Mckeon, with past medical history of hypertension, type 2 diabetes mellitus, rheumatoid arthritis on methotrexate, carotid stenosis with previous history of right carotid endarterectomy, remote history of smoking, and known history of aortic valve stenosis, and atrial f ibrillation. Patient follows with Dr. Cruz. Patient presented to the emergency department on 01/30/2020 per EMS for evaluation of left chest pain, with diaphoresis, dyspnea and palpitations. EKG showed normal sinus rhythm with T-wave inversions in the inferior leads. First set of troponin was 0.035, second and third troponins was 0.181 and 0.137 respectively. CBC was within normal limits with the exception of lymphocyte count was 0.9 on admission. INR 0.9, sodium was 135, the rest of the electrolytes were within normal limits, B1 is 22 creatinine was 0.94, LFTs were within normal limits, proBNP was 158, lipase was normal at 36, urinalysis was negative. Admission chest x-ray showed mild pleural diaphragmatic scarring at the lateral right lung base. Patient had a cardiac catheterization on 01/31/2020 which showed RCA disease of 50%, 40% stenosis after the diagonal branch, 90% stenosis of the circumflex, and severe aortic stenosis with a peak gradient of 52 mmHg. LV end-diastolic pressures were mildly elevated. Patient was referred to cardiac surgery for evaluation, the patient is undergoing preoperative testing, and is being scheduled for surgery on 02/03/2020 for aortic valve replacement, and coronary artery bypass grafting by Dr. Watson On 02/02/2020 patient seen in follow-up on selective care unit, he is awake and alert, oriented 3, in no acute distress, currently on room air, no couplets chest pain or shortness of breath. No lightheadedness dizziness, syncopal episodes, room air pulse ox is 98%, hemodynamically patient is stable, patient is in sinus mechanism, the rate of 58 BPM. no drips. lung sounds are clear, no difficulty breathing. patient is pulling 2.5 L on his incentive spirometry. Today's labs have been reviewed. On 02/04/2020 patient seen in follow-up in intensive care unit, he status post aortic valve replacement, and two-vessel coronary artery bypass grafting, with MCCLAIN to LAD, and SVG to the PDA. He is postoperative day 1, OR exit time was 1406, and patient was successfully weaned and extubated from the mechanical ventilator at 1800. Doing very well, he today he is sitting up in the recliner, she is on 2 L of oxygen and the pulse ox is 98%, hemodynamically patient is stable, blood pressure is at 157/56, PA pressure is 30/10, CVP is 4-6, in sinus mechanism with a rate of 80 BPM, afebrile, cardiac output and cardiac index are 18.6, and 9.3 respectively. 2 mediastinal and one left pleural chest tubes all connected to the same Pleur-evac, and there has been 670 mL of serosanguineous output since surgery. Patient is nonoliguric, Quevedo catheter is in place, and patient is making urine in the order of 30-70 mL per hour. Patient is working on the incentive spirometer, he is achieving 1000 mL on the today, today's chest x-ray has been reviewed showing persistent atelectatic changes, and improved aeration bilaterally. His labs have been reviewed, showing with blood cell count of 8.4, hemoglobin of 10.5, platelet count is 109, electrolytes and renal profile were within normal limits, calcium was 7.2, ionized calcium was 4.5. Pain is reasonably controlled, patient appears to be in no acute distress. The patient is seen today 02/05/2020 in follow-up in the intensive care unit. He is status post 2 vessel coronary artery bypass grafting utilizing a MCCLAIN to LAD and SVG to the PDA along with aortic valve replacement. This is postoperative day #2. He is currently resting comfortably in bed. Awake and alert in no acute distress. He has been up with assistance. No worsening shortness of breath, cough or congestion. Maintaining good O2 saturations in the 90s on 2 L/m per nasal cannula. Pulling approximately 1000 MLS on his incentive spirometer. No current IV fluids. No drips. Chest x-ray reveals overall stable findings. There is chronic principal changes and cardiomegaly with small tiny bilateral pleural effusions and central vascular congestion with left greater than right infiltrate/atelectasis. Mediastinal and left chest tubes are present. Back up pacemaker wires in place. White count 10.9. Hemoglobin 10.9. Platelet count 114,000. Sodium 136. Potassium 4.4. Creatinine 0.84. Objective - Vital Signs Vital signs: Vital Signs Temp 98.4 F 02/05/20 12:00 Pulse 78 02/05/20 12:00 Resp 21 02/05/20 12:00 BP 147/71 02/05/20 12:00 Pulse Ox 97 02/05/20 12:00 Intake & Output 02/04/20 02/05/20 02/05/20 18:59 06:59 18:59 Intake Total 810.742 276 389 Output Total 825 695 445 Balance -14.258 -419 -56 Weight 99.1 kg 98.2 kg Intake: IV 424.5 276 49 CO/CI Injectate 40 LR 270 240 40 Nitroglycerine 1.5 ceFAZolin 2 gm In Sodium 50 Chloride 0.9% 50 ml @ 100 mls/hr IVPB Q8HR [facility] Rx# :[id number] pressure bags 63 36 9 Intake, IV Titration 146.242 Amount Clevidipine Butyrate 25 1.067 mg In Empty Bag 1 bag @ 1 MG/HR 2 mls/hr IV .Q24H [facility] Rx#:[id number] Insulin Regular 100 unit 0 In Sodium Chloride 0.9% 100 ml @ Per Protocol IV .Q0M [facility] Rx#:[id number] Lactated Ringers 1,000 ml 120 @ 20 mls/hr IV .Q24H [facility] Rx#:[id number] Nitroglycerin-D5w Pmx 50 25.175 mg In Dextrose/Water 1 250ml.bag @ 5 MCG/MIN 1.5 mls/hr IV .Q24H [facility] Rx#: [id number] Oral 240 340 Output: Chest Tube Drainage 350 150 mediastinal x2 and left 350 150 pleural Urine 475 545 445 Other: Voiding Method Indwelling Catheter Indwelling Catheter Indwelling Catheter # Bowel Movements 0 ABP, PAP, CO, CI - Last Documented Arterial Blood Pressure 163/53 Pulmonary Artery Pressure 23/7 Cardiac Output 18.6 Cardiac Index 9.3 - Exam GENERAL EXAM: Alert, very pleasant, 71-year-old male patient, on 2 L of oxygen with a pulse ox of 97%, in no acute distress HEAD: Normocephalic/atraumatic. EYES: Normal reaction of pupils, equal size. Conjunctiva pink, sclera white. NOSE: Clear with pink turbinates. THROAT: No erythema or exudates. NECK: No masses, no JVD, no thyroid enlargement, no adenopathy. CHEST: Symmetrical expansion. Midsternal incision clean dry and intact, 2 mediastinal and left pleural chest tubes are all connected together to the same Pleur-evac, no evidence of air leak LUNGS: Equal air entry with few scattered rhonchi, crackles in the bases. CVS: Regular rate and rhythm, normal S1 and S2, no gallops, no murmurs, no rubs ABDOMEN: Soft, nontender. No hepatosplenomegaly, normal bowel sounds, no guarding or rigidity. EXTREMITIES: No clubbing, no edema, no cyanosis, 2+ pulses and upper and lower extremities. SCDs are in place MUSCULOSKELETAL: Muscle strength and tone normal. SPINE: No scoliosis or deformity SKIN: No rashes, left knee incision clean dry and intact, covered with a surgical dressing CENTRAL NERVOUS SYSTEM: No focal deficits, tone is normal in all 4 extremities. PSYCHIATRIC: Alert and oriented -3. Appropriate affect. Intact judgment and insight. - Labs CBC & Chem 7: 02/05/20 04:30 02/05/20 04:30 Labs: Abnormal Lab Results - Last 24 Hours (Table) 02/03/20 02/04/20 02/04/20 Range/Units 08:34 17:09 20:15 WBC (3.8-10.6) k/uL RBC (4.30-5.90) m/uL Hgb (13.0-17.5) gm/dL Hct (39.0-53.0) % Plt Count (150-450) k/uL Neutrophils # (1.3-7.7) k/uL Lymphocytes # (1.0-4.8) k/uL ABG pH 7.47 H (7.35-7.45) Sodium (137-145) mmol/L Chloride (98-107) mmol/L Glucose (74-99) mg/dL POC Glucose (mg/dL) 124 H 237 H (75-99) mg/dL Calcium (8.4-10.2) mg/dL Total Bilirubin (0.2-1.3) mg/dL Alkaline Phosphatase (38-126) U/L Total Protein (6.3-8.2) g/dL Albumin (3.5-5.0) g/dL 05/02/05/20 02/05/20 Range/Units 23:18 04:30 04:30 WBC 10.9 H (3.8-10.6) k/uL RBC 3.48 L (4.30-5.90) m/uL Hgb 10.9 L (13.0-17.5) gm/dL Hct 32.4 L (39.0-53.0) % Plt Count 114 L (150-450) k/uL Neutrophils # 9.5 H (1.3-7.7) k/uL Lymphocytes # 0.6 L (1.0-4.8) k/uL ABG pH (7.35-7.45) Sodium 136 L (137-145) mmol/L Chloride 108 H (98-107) mmol/L Glucose 158 H (74-99) mg/dL POC Glucose (mg/dL) 162 H (75-99) mg/dL Calcium 7.6 L (8.4-10.2) mg/dL Total Bilirubin 1.7 H (0.2-1.3) mg/dL Alkaline Phosphatase 37 L (38-126) U/L Total Protein 4.9 L (6.3-8.2) g/dL Albumin 2.7 L (3.5-5.0) g/dL 02/05/20 02/05/20 Range/Units 06:42 11:52 WBC (3.8-10.6) k/uL RBC (4.30-5.90) m/uL Hgb (13.0-17.5) gm/dL Hct (39.0-53.0) % Plt Count (150-450) k/uL Neutrophils # (1.3-7.7) k/uL Lymphocytes # (1.0-4.8) k/uL ABG pH (7.35-7.45) Sodium (137-145) mmol/L Chloride (98-107) mmol/L Glucose (74-99) mg/dL POC Glucose (mg/dL) 184 H 192 H (75-99) mg/dL Calcium (8.4-10.2) mg/dL Total Bilirubin (0.2-1.3) mg/dL Alkaline Phosphatase (38-126) U/L Total Protein (6.3-8.2) g/dL Albumin (3.5-5.0) g/dL Assessment and Plan Assessment: #1. Severe aortic stenosis, and coronary artery disease, status post aortic valve replacement with bovine pericardial valve prosthesis, CABG 2 with MCCLAIN to LAD and saphenous vein graft to the PDA, exclusion of the left atrial appendage with 35mm Atricure clip, postoperative day #2 #2. Routine mechanical ventilator management, patient was successfully extubated at approximate 4 hours from OR exit time on postoperative day 0, 01/26/2020 at 1800. OR exit time was 1406. Currently on 2 L/m per nasal cannula #3. Chest pain related to acute non-ST elevated myocardial infarction #4. Hypertension #5. Type 2 diabetes mellitus #6. Rheumatoid arthritis on methotrexate #7. Remote history of smoking #8. History of carotid stenosis, with history of right carotid endarterectomy #9. History of atrial fibrillation, currently in sinus rhythm #10. Dyslipidemia Plan: The patient was seen and evaluated by Dr. Blancas Chest x-ray and labs reviewed Mediastinal chest tubes to be removed Lasix 20 mg IVP 1 Encouraged the increased use of the incentive spirometer Increase activity as tolerated Remains on DVT and GI prophylaxis Continue bronchodilators We will continue to follow I, the cosigning physician, performed a history & physical examination of the patient. Lungs sounds with few scattered rhonchi, crackles in the posterior bases. Maintaining good O2 saturations in the 90s on 2 L/m per nasal cannula. I discussed the assessment and plan of care with my nurse practitioner, Jennifer Mcnally. I attest to the above note as dictated by her.
--- NOTE | 2020-02-05 14:37 | P.PN ---
Subjective Patient is admitted for non-ST elevation microinfarction found to have a 50% of disease in RCA and 90% occlusion in the circumflex with diffuse disease in the circumflex. Patient also found to have severe at stenosis and cardiac thoracic surgery was consulted for valve replacement and single graft to RCA 02/01/2020 No overnight events patient will undergo coronary artery bypass grafting along with aortic valve replacement on 02/02/2020 Patient will undergo valve replacement and CABG tomorrow overnight events 02/03/2020 Patient is seen and evaluated status post CABG with valve replacement and is currently being monitored closely in the ICU. Patient currently remains on mechanical vent and is intubated and sedated at this time. Chest tubes noted with indwelling Quevedo catheter with some mild hematuria noted may possibly be related to trauma during insertion. Nursing staff at the bedside stated patient will be weaned sometime this afternoon from the vent and will continue to monitor closely. Patient is on a small dose of club approximately blood pressure control along with propofol for sedation which will eventually be weaned. Patient is currently on an insulin drip for tight glycemic control. Surgical dressing noted of the mid sternum is dry and intact. 02/04/2020 Patient is seen in follow-up this morning currently sitting up in the chair recently extubated and doing well. Patient continues to have chest tubes along with indwelling Quevedo catheter noted. Urine is yellow and free from any signs of hematuria. Patient is off blood pressure medication and currently remains on an insulin drip. Blood sugars have been in the 100s and will discontinue the insulin drip and start with sliding scale and continue to monitor blood sugars before meals at bedtime. Patient is eating and tolerating thus far. Patient will be working with physical therapy this afternoon. Heart hugger noted and patient is having some difficulty squeezing it during coughing but states he is managing. Patient's cough is mostly dry with no phlegm production. Patient also using incentive spirometer and instructed the patient to continue using at least 10 times every hour while awake. Patient is having some mild chest disc omfort although no reports of chest pain or palpitations. He denies any shortness of breath. Patient is afebrile. Reports nausea or vomiting and patient is tolerating diet. 02/05/2020 No overnight events Constitutional: Denied any fatigue denied any fever. Cardio vascular: denied any chest pain, palpitations Gastrointestinal denied any nausea vomiting Pulmonary: Denied any shortness of breath cough Neurologic denied any new focal deficits All inpatient medications were reviewed and appropriate changes in these medications as dictated in the interval history and assessment and plan. Objective - Vital Signs Vital signs: Vital Signs Temp 98.4 F 02/05/20 12:00 Pulse 74 02/05/20 14:00 Resp 26 H 02/05/20 14:00 BP 151/71 02/05/20 13:00 Pulse Ox 96 02/05/20 14:00 Intake & Output 02/04/20 02/05/20 02/05/20 18:59 06:59 18:59 Intake Total 810.742 276 389 Output Total 825 695 445 Balance -14.258 -419 -56 Weight 99.1 kg 98.2 kg Intake: IV 424.5 276 49 CO/CI Injectate 40 LR 270 240 40 Nitroglycerine 1.5 ceFAZolin 2 gm In Sodium 50 Chloride 0.9% 50 ml @ 100 mls/hr IVPB Q8HR [facility] Rx# :[id number] pressure bags 63 36 9 Intake, IV Titration 146.242 Amount Clevidipine Butyrate 25 1.067 mg In Empty Bag 1 bag @ 1 MG/HR 2 mls/hr IV .Q24H [facility] Rx#:[id number] Insulin Regular 100 unit 0 In Sodium Chloride 0.9% 100 ml @ Per Protocol IV .Q0M [facility] Rx#:[id number] Lactated Ringers 1,000 ml 120 @ 20 mls/hr IV .Q24H [facility] Rx#:[id number] Nitroglycerin-D5w Pmx 50 25.175 mg In Dextrose/Water 1 250ml.bag @ 5 MCG/MIN 1.5 mls/hr IV .Q24H [facility] Rx#: [id number] Oral 240 340 Output: Chest Tube Drainage 350 150 mediastinal x2 and left 350 150 pleural Urine 475 545 445 Other: Voiding Method Indwelling Catheter Indwelling Catheter Indwelling Catheter # Bowel Movements 0 ABP, PAP, CO, CI - Last Documented Arterial Blood Pressure 163/53 Pulmonary Artery Pressure 23/7 Cardiac Output 18.6 Cardiac Index 9.3 - Exam GENERAL: The patient is awake, alert and oriented 3, sitting up in the chair, w ell-developed, well-nourished. HEENT: Pupils are round and equally reacting to light. EOMI. No scleral icterus. No conjunctival pallor. Normocephalic, atraumatic. No pharyngeal erythema. No thyromegaly. CARDIOVASCULAR: S1 and S2 present. No murmurs, rubs, or gallops. PULMONARY: Chest is clear to auscultation, no wheezing or crackles. ABDOMEN: Soft, nondistended, normoactive bowel sounds. No palpable organomegaly. MUSCULOSKELETAL: No joint swelling or deformity. EXTREMITIES: No cyanosis, clubbing, or pedal edema. NEUROLOGICAL: Cooperative, awake, alert and oriented 3 SKIN: No rashes. Sternal chest incision dressing is dry and intact - Labs CBC & Chem 7: 02/05/20 04:30 02/05/20 04:30 Labs: Abnormal Lab Results - Last 24 Hours (Table) 02/03/20 02/04/20 02/04/20 Range/Units 08:34 17:09 20:15 WBC (3.8-10.6) k/uL RBC (4.30-5.90) m/uL Hgb (13.0-17.5) gm/dL Hct (39.0-53.0) % Plt Count (150-450) k/uL Neutrophils # (1.3-7.7) k/uL Lymphocytes # (1.0-4.8) k/uL ABG pH 7.47 H (7.35-7.45) Sodium (137-145) mmol/L Chloride (98-107) mmol/L Glucose (74-99) mg/dL POC Glucose (mg/dL) 124 H 237 H (75-99) mg/dL Calcium (8.4-10.2) mg/dL Total Bilirubin (0.2-1.3) mg/dL Alkaline Phosphatase (38-126) U/L Total Protein (6.3-8.2) g/dL Albumin (3.5-5.0) g/dL 02/04/20 02/05/20 02/05/20 Range/Units 23:18 04:30 04:30 WBC 10.9 H (3.8-10.6) k/uL RBC 3.48 L (4.30-5.90) m/uL Hgb 10.9 L (13.0-17.5) gm/dL Hct 32.4 L (39.0-53.0) % Plt Count 114 L (150-450) k/uL Neutrophils # 9.5 H (1.3-7.7) k/uL Lymphocytes # 0.6 L (1.0-4.8) k/uL ABG pH (7.35-7.45) Sodium 136 L (137-145) mmol/L Chloride 108 H (98-107) mmol/L Glucose 158 H (74-99) mg/dL POC Glucose (mg/dL) 162 H (75-99) mg/dL Calcium 7.6 L (8.4-10.2) mg/dL Total Bilirubin 1.7 H (0.2-1.3) mg/dL Alkaline Phosphatase 37 L (38-126) U/L Total Protein 4.9 L (6.3-8.2) g/dL Albumin 2.7 L (3.5-5.0) g/dL 02/05/20 02/05/20 Range/Units 06:42 11:52 WBC (3.8-10.6) k/uL RBC (4.30-5.90) m/uL Hgb (13.0-17.5) gm/dL Hct (39.0-53.0) % Plt Count (150-450) k/uL Neutrophils # (1.3-7.7) k/uL Lymphocytes # (1.0-4.8) k/uL ABG pH (7.35-7.45) Sodium (137-145) mmol/L Chloride (98-107) mmol/L Glucose (74-99) mg/dL POC Glucose (mg/dL) 184 H 192 H (75-99) mg/dL Calcium (8.4-10.2) mg/dL Total Bilirubin (0.2-1.3) mg/dL Alkaline Phosphatase (38-126) U/L Total Protein (6.3-8.2) g/dL Albumin (3.5-5.0) g/dL Assessment and Plan Plan: -Non-ST elevation microinfarction and aortic stenosis.: Patient is status post I did well the placement postoperative day 2 clinically doing well no overnight events . Patient had a CABG as well. Patient is presently on amiodarone -Aortic stenosis: Status post valve replacement -Type 2 diabetes mellitus: Patient is on sliding scale insulin -Hypertension -Elevated troponin secondary to possible type II myocardial infarction -Peripheral edema secondary to IV fluids patient received a dose of Lasix
[2020-02-05 16:30] LABS: Glucose,Whole Blood 155 mg/dL (75-99)
[2020-02-05] MEDS: ASPIRIN 81 MG PO SCH (16:51)
[2020-02-05] MEDS: HEPARIN SOD,PORK IN 0.45% NACL 25,000 UNIT in 0.45% NACL 1 250ML.BAG IV SCH (16:53)
[2020-02-05] MEDS: FUROSEMIDE 40 MG TAB PO SCH (16:53)
[2020-02-05] MEDS: KETOTIFEN 0.025% OPHTH DROPS 5 ML BTL BOTH EYES SCH (16:53)
[2020-02-05] MEDS: MUPIROCIN 2% OINT 22 GM TUBE NASAL SCH (16:53)
[2020-02-05] MEDS: ATORVASTATIN 80 MG TAB PO SCH (16:53)
[2020-02-05] MEDS: SENNOSIDES-DOCUSATE SODIUM 1 EACH TAB PO SCH (20:14)
[2020-02-05 20:18] LABS: Glucose,Whole Blood 206 mg/dL (75-99)
[2020-02-06 06:25] LABS: Glucose,Whole Blood 157 mg/dL (75-99)
[2020-02-06] MEDS: PANTOPRAZOLE 40 MG TABLET PO SCH (06:31)
[2020-02-06] MEDS: KETOROLAC 30 MG/ML 1 ML VIAL IVP SCH ×4 (06:31→22:40)
[2020-02-06] MEDS: INSULIN ASPART (NovoLOG) 100 UNIT/ML VIAL SQ SCH ×4 (06:31→22:42)
[2020-02-06 06:41] LABS: HGB 10.3 gm/dL (13.0-17.5); Hypochromasia Slight; MCH 29.9 pg (25.0-35.0); MCHC 32.1 g/dL (31.0-37.0); MCV 93.1 fL (80.0-100.0); Mean Platelet Volume 8.5; Platelet Count 122 k/uL (150-450); RBC 3.44 m/uL (4.30-5.90); RDW 15.1 % (11.5-15.5); WBC 8.5 k/uL (3.8-10.6)
[2020-02-06 06:54] LABS: African American GFR (CKD) >90 (>60 ml/min/1.73 sqM); Anion Gap 3 mmol/L; Blood Urea Nitrogen 20 mg/dL (9-20); Calcium 7.7 mg/dL (8.4-10.2); Carbon Dioxide 26 mmol/L (22-30); Chloride 109 mmol/L (98-107); Glucose 146 mg/dL (74-99); Non-African American GFR(CKD) 83 (>60 ml/min/1.73 sqM); Potassium 4.6 mmol/L (3.5-5.1); Sodium 138 mmol/L (137-145)
[2020-02-06] MEDS ORDERED: ACETAMINOPHEN TAB 500 MG TAB PO PRN (07:03)
[2020-02-06] MEDS: IPRATROPIUM-ALBUTEROL 3 ML NEB INHALATION SCH ×4 (07:34→18:58)
--- NOTE | 2020-02-06 07:39 | XR ---
EXAMINATION TYPE: XR chest 1V portable DATE OF EXAM: 02/06/2020 COMPARISON: 02/05/2020 HISTORY: Chest tube placement. Follow-up exam. TECHNIQUE: Single frontal view of the chest is obtained. FINDINGS: Similar position of the left thoracostomy tube. Multiple leads overlying the right hemitho rax and cross midline. Cardiomediastinal silhouette is again enlarged with post CABG change. At least trace bilateral pleural effusions remain. Patchy probable bibasilar atelectasis. Diffuse osseous dem ineralization. Stable left apical pneumothorax estimated to be less than 10%. IMPRESSION: Improving probable bibasilar atelectasis and stable trace pleural effusions. Unchanged p ositioning of the left thoracostomy tube. Stable left apical pneumothorax. This is estimated to be le ss than 10%.
[2020-02-06] MEDS: HEPARIN SODIUM,PORCINE 5,000 UNIT/ML 1 ML VIAL SQ SCH ×3 (08:56→22:41)
[2020-02-06] MEDS: METOPROLOL TARTRATE 25 MG TAB PO SCH ×2 (08:56→22:41)
[2020-02-06] MEDS: ASPIRIN 325 MG TAB PO SCH (08:56)
[2020-02-06] MEDS: ATORVASTATIN 40 MG TAB PO SCH (08:56)
[2020-02-06] MEDS: CLOPIDOGREL 75 MG TAB PO SCH (08:56)
[2020-02-06] MEDS: LOSARTAN 25 MG TAB PO SCH (08:56)
[2020-02-06] MEDS ORDERED: METOPROLOL TARTRATE 25 MG TAB PO STA (09:26)
[2020-02-06] MEDS ORDERED: FUROSEMIDE 10 MG/ML 2 ML VIAL IV STA (09:28)
--- NOTE | 2020-02-06 09:52 | P.PN ---
Subjective Progress Note Date: 02/06/20 Principal diagnosis: Aortic valve stenosis and coronary artery disease. This is 79-year-old gentleman who follows with Dr. Eduardo Mckeon on an outpatient basis. He has a past medical history significant for hypertension, type 2 diabetes mellitus, rheumatoid arthritis on methotrexate at home, ALLERGIC conjunctivitis, peripheral vascular disease with history of right carotid end arterectomy, remote history of nicotine dependence quit smoking in 1991 and known history of aortic valve stenosis. The patient reports he does follow with Dr. Cruz [facility] on an outpatient basis for the aortic stenosis. On 01/30/2020, the patient reports he woke up around 12:30 AM from a deep sleep with complaints of burning type chest pain which radiated down both of his arms. He denies any complaints of shortness of breath, fever, chills, nausea, vomiting, presyncope or syncope. Subsequently, EMS was called and he was transferred to [facility] for further evaluation and workup. In the emergency department a 12-lead EKG was completed which showed normal sinus rhythm with T-wave inversion in the inferior leads and a heart rate of 89 BPM. Initial laboratory results showed a WBC count 7.8, hemoglobin 14.6, platelets 217, sodium 135, potassium 3.9, BUN 22, creatinine 0.94, glucose 183 and an initial troponin abnormal at 0.035. Serial troponins were completed and were as high as 0.181. Due to the patient's presenting symptoms and abnormal troponins cardiology was consulted and a cardiac catheterization was completed which demonstrated a 50% stenosis to his mid right coronary artery, a heavily calcified right coronary artery, diffuse disease to his left anterior descending coronary artery with a 40% stenosis to his mid left anterior descending coronary artery after his diagonal branch, and a 90% stenosis to the ostial obtuse mar ginal coronary artery as it comes off the circumflex coronary artery. A left ventricular gram was not completed during the cardiac catheterization and at this time his 2-D echocardiogram is pending. The patient does report he had a 2-D echocardiogram completed at Dr. Cruz's office, at this time the report is unavailable. Subsequently, due to the patient's presenting symptoms, history of aortic valve stenosis and the cardiac catheterization results a consult was placed to Dr. Ilya Watson from cardiothoracic surgery for evaluation and recommendations on aortic valve surgery and myocardial revascularization. POD #6 left heart catheterization and coronary angiography performed by Dr. KELLY Croft. POD #3 aortic valve replacement with a 25 mm Inspiris bovine pericardial valve prosthesis, coronary artery bypass grafting 2 vessels with left internal mammary artery to the left anterior descending coronary artery, a reverse greater saphenous vein graft to the posterior descending coronary artery, exclusion of the left atrial appendage with a 35 mm Atriclip and an intraoperative transesophageal echocardiogram performed by anesthesia. Postoperative acute blood loss anemia, an expected outcome due to cardiopulmonary bypass and hemodilution. The patient was seen and examined at his bedside today 02/06/2020 on the cardiac stepdown unit. Currently he is sitting up to the bedside chair and he is in no acute distress. He is awake, alert and oriented 3, remains hemodynamically s table and is currently on no inotropic or pressor support. Denies any complaints of pain or shortness of breath. He tolerated ambulating in the cardiac stepdown unit hallway with minimal assist. Oxygen saturations are 95% on room air and he is achieving 1000 mL on his incentive spirometry. Left pleural chest tube remains in place to low continuous wall suction -20 cm H2O. No air leak is present. Draining thin serous drainage with 140 mL output in the last 8 hours and 250 mL output in the last 24 hours. Atrial and ventricular epicardial pacemaker wires are in place and grounded. Laboratory results this morning show a wbc's 8.5, hemoglobin 10.3, platelets 122, BUN 20 and creatinine 0.86. Remote telemetry showing sinus tachycardia heart rate 106 bpm. His blood pressure is better controlled this morning and is currently 148/79 mmHg. Objective - Vital Signs Vital signs: Vital Signs Temp 98.1 F 02/06/20 04:04 Pulse 76 02/06/20 07:47 Resp 18 02/06/20 04:04 BP 148/79 02/06/20 04:04 Pulse Ox 98 02/06/20 04:04 Intake & Output 02/05/20 02/06/20 02/06/20 18:59 06:59 18:59 Intake Total 389 240 Output Total 820 740 Balance -431 -500 Weight 97.4 kg Intake: IV 49 LR 40 pressure bags 9 Oral 340 240 Output: Chest Tube Drainage 140 mediastinal x2 and left 140 pleural Urine 820 600 Other: Voiding Method Urinal Urinal # Voids 0 ABP, PAP, CO, CI - Last Documented Arterial Blood Pressure 163/53 Pulmonary Artery Pressure 23/7 Cardiac Output 18.6 Cardiac Index 9.3 - Exam This is a pleasant 79-year-old gentleman who is sitting up to his bedside chair on the cardiac stepdown unit. He is in no acute distress, he is awake, alert and oriented 3. Remains hemodynamically stable and is currently on no inotropic pressure support. Oxygen saturation is 95% on room air. - Constitutional General appearance: Present: cooperative, no acute distress, obese - EENT Eyes: Present: PERRLA, poor dentition (Lower teeth. Dentures to his upper.), normal appearance. Absent: scleral icterus ENT: Present: hearing grossly normal - Neck Details: Neck is supple, no lymphadenopathy, no JVD. - Respiratory Details: Lung sounds are essentially clear throughout, diminished loaiza bilateral bases left greater than right. No wheezes, rhonchi or crackles. Respirations are symmetrical and nonlabored. Oxygen saturation is 95% on room air. Achieving 1000 mL on his incentive spirometry. Left pleural chest tube remains in place to low continuous wall suction -20 cm H2O. No air leak is present. Draining thin serous drainage with 140 mL output in the last 8 hours, 250 mL output in the last 24 hours. - Cardiovascular Details: Regular rhythm and rate. S1 and S2 present, negative for S3, gallop or murmur. Sternum is stable. Atrial and ventricular epicardial pacemaker wires in place and grounded. Remote telemetry showing sinus tachycardia heart rate 106 BPM. No edema present. Knee-high JOHNIE hose and sequential compression devices in place to his bilateral lower extremities. Heart hugger is in place and he is demonstrating appropriate use. - Gastrointestinal Gastrointestinal Comment(s): Abdomen is soft, nontender and nondistended. Active bowel sounds present in all 4 abdominal quadrants. No guarding or rigidity. No organomegaly appreciated. Tolerating oral intake. Passing flatus. - Genitourinary Genitourinary Comment(s): Voiding clear holli urine. - Integumentary Integumentary Comment(s): Skin is warm and dry. No clubbing or cyanosis is present. Midline sternal incision is clean, dry and approximated. No drainage or redness is present. Left lower extremity EVH site is clean, dry and intact. No drainage or redness is present. - Neurologic Neurologic Comment(s): No focal neurological deficits. Neurologic: Present: CNII-XII intact - Musculoskeletal Musculoskeletal: Present: gait normal, generalized weakness, strength equal bilaterally - Psychiatric Psychiatric: Present: A&O x's 3, appropriate affect, intact judgment & insight - Allied health notes Allied health notes reviewed: nursing - Labs CBC & Chem 7: 02/06/20 05:48 02/06/20 05:48 Labs: Abnormal Lab Results - Last 24 Hours (Table) 02/05/20 02/05/20 02/05/20 Range/Units 11:52 16:27 20:16 RBC (4.30-5.90) m/uL Hgb (13.0-17.5) gm/dL Hct (39.0-53.0) % Plt Count (150-450) k/uL Chloride (98-107) mmol/L Glucose (74-99) mg/dL POC Glucose (mg/dL) 192 H 155 H 206 H (75-99) mg/dL Calcium (8.4-10.2) mg/dL 02/06/20 02/06/20 02/06/20 Range/Units 05:48 05:48 06:18 RBC 3.44 L (4.30-5.90) m/uL Hgb 10.3 L (13.0-17.5) gm/dL Hct 32.0 L (39.0-53.0) % Plt Count 122 L (150-450) k/uL Chloride 109 H (98-107) mmol/L Glucose 146 H (74-99) mg/dL POC Glucose (mg/dL) 157 H (75-99) mg/dL Calcium 7.7 L (8.4-10.2) mg/dL - Imaging and Cardiology Chest x-ray: report reviewed, image reviewed Assessment and Plan Assessment: 1. Acute non-ST elevated myocardial infarction, abnormal troponins on admission 2. Coronary artery disease, status post heart catheterization, status post aortic valve replacement and coronary artery bypass grafting surgery 2 vessels 3. History of aortic valve stenosis, status post aortic valve replacement and coronary artery bypass grafting surgery 2 vessels 4. Hypertension 5. History of type 2 diabetes mellitus 6. History of rheumatoid arthritis, on methotrexate at home 7. History of peripheral vascular disease, remote history of right carotid endarterectomy 8. Remote history of nicotine dependence, quit smoking in 1991 9. Postoperative acute blood loss anemia, an expected outcome secondary to cardiopulmonary bypass and hemodilution Plan: 1. Continue aspirin, Plavix, statin and beta nas. Increase metoprolol tartrate 75 mg by mouth twice a day 2. Left pleural chest tube removed without incident. 4 x 4 gauze, impregnated Vaseline gauze to cover and secured with tape. 3. Encourage use of his incentive spirometry 10 times every hour while awake. 4. Lasix 20 mg IV 1 now. 5. Medical management and diabetic management per primary care service. 6. Keep atrial and ventricular epicardial pacemaker wires in place and grounded. We will discontinue them early tomorrow a.m. 7. DVT and GI prophylaxis. 8. Bronchodilators management per pulmonary medicine recommendations. 9. Increase activity as tolerated. PT/OT is following. Patient is doing well with ambulating. 10. Continue to monitor daily labs and chest x-rays. Replace electrolytes per protocol. 11. Pain control per current when necessary regimen. Discontinue [place]. Start acetaminophen 1000 mg by mouth every 6 hours when necessary pain. 12. Continue Cozaar 25 mg by mouth daily. 13. The patient's has been updated on his care by phone at the patient's bedside. 14. Discharge planning is in place, anticipate discharged home with [facility] in the next 24 hours. 15. More recommendations to follow based on patient's clinical course. Time with Patient: Greater than 30
--- NOTE | 2020-02-06 11:25 | P.PN ---
Subjective Progress Note Date: 02/06/20 This is a 79-year-old patient with history of hypertension, diabetes, rheumatoid arthritis on methotrexate, carotid stenosis with prior right carotid endarterectomy, remote history of smoking, history of aortic valve stenosis and atrial fibrillation who follows with Dr. Cruz in the office. Patient p resented to the emergency department on 01/30/2020 per EMS for evaluation of left chest pain, with diaphoresis, dyspnea and palpitations. EKG showed normal sinus rhythm with T-wave inversions in the inferior leads. First set of troponin was 0.035, second and third troponins was 0.181 and 0.137 respectively. CBC was within normal limits with the exception of lymphocyte count was 0.9 on admission. INR 0.9, sodium was 135, the rest of the electrolytes were within normal limits, B1 is 22 creatinine was 0.94, LFTs were within normal limits, proBNP was 158, lipase was normal at 36, urinalysis was negative. Admission chest x-ray showed mild pleural diaphragmatic scarring at the lateral right lung base. Patient had a cardiac catheterization on 01/31/2020 which showed RCA disease of 50%, 40% stenosis after the diagonal branch, 90% stenosis of the circumflex, and severe aortic stenosis with a peak gradient of 52 mmHg. LV end- diastolic pressures were mildly elevated. Patient was referred to cardiac surgery for evaluation, the patient is undergoing preoperative testing, and is being scheduled for surgery on 02/03/2020 for aortic valve replacement, and coronary artery bypass grafting by Dr. Watson. Patient was seen and examined this morning, denied any chest discomfort in his breathing is stable. Blood pressure 120/57, heart rate in the 50s to 60s, 98% on room air. 02/02/2020 Patient seen and examined this morning, hemodynamically stable. He's been up ambulating in the hallway without any difficulty. Scheduled for bypass and aortic valve replacement tomorrow. 02/06/2020 Patient is status post coronary bypass grafting surgery and aortic valve replacement. He was seen and examined this morning, up and bleeding in the hallway today twice, tolerating it well. Blood pressure 148/80 with a heart rate in the 80s, beta nas dose increased today. White blood cell count 8.5, hemoglobin 10.3, platelet count 122. Sodium 138, potassium 4.6, BUN 20, creatinine 0.8. Objective - Vital Signs Vital signs: Vital Signs Temp 98.7 F 02/06/20 08:00 Pulse 86 02/06/20 11:14 Resp 18 02/06/20 08:00 BP 149/80 02/06/20 08:00 Pulse Ox 95 02/06/20 08:00 Intake & Output 02/05/20 02/06/20 02/06/20 18:59 06:59 18:59 Intake Total 389 240 600 Output Total 820 740 275 Balance -431 -500 325 Weight 97.4 kg Intake: IV 49 LR 40 pressure bags 9 Oral 340 240 600 Output: Chest Tube Drainage 140 mediastinal x2 and left 140 pleural Urine 820 600 275 Other: Voiding Method Urinal Urinal # Voids 0 ABP, PAP, CO, CI - Last Documented Arterial Blood Pressure 163/53 Pulmonary Artery Pressure 23/7 Cardiac Output 18.6 Cardiac Index 9.3 - Exam GENERAL EXAM: Alert, very pleasant, 71-year-old male patient, on 2 L of oxygen with a pulse ox of 97%, in no acute distress HEAD: Normocephalic/atraumatic. EYES: Normal reaction of pupils, equal size. Conjunctiva pink, sclera white. NOSE: Clear with pink turbinates. THROAT: No erythema or exudates. NECK: No masses, no JVD, no thyroid enlargement, no adenopathy. CHEST: Symmetrical expansion. Midsternal incision clean dry and intact, 2 mediastinal and left pleural chest tubes are all connected together to the same Pleur-evac, no evidence of air leak LUNGS: Equal air entry with few scattered rhonchi, crackles in the bases. CVS: Regular rate and rhythm, normal S1 and S2, no gallops, no murmurs, no rubs ABDOMEN: Soft, nontender. No hepatosplenomegaly, normal bowel sounds, no guarding or rigidity. EXTREMITIES: No clubbing, no edema, no cyanosis, 2+ pulses and upper and lower extremities. SCDs are in place MUSCULOSKELETAL: Muscle strength and tone normal. SPINE: No scoliosis or deformity SKIN: No rashes, left knee incision clean dry and intact, covered with a surgical dressing CENTRAL NERVOUS SYSTEM: No focal deficits, tone is normal in all 4 extremities. PSYCHIATRIC: Alert and oriented -3. Appropriate affect. Intact judgment and insight. - Labs CBC & Chem 7: 02/06/20 05:48 02/06/20 05:48 Labs: Abnormal Lab Results - Last 24 Hours (Table) 02/05/20 02/05/20 02/05/20 Range/Units 11:52 16:27 20:16 RBC (4.30-5.90) m/uL Hgb (13.0-17.5) gm/dL Hct (39.0-53.0) % Plt Count (150-450) k/uL Chloride (98-107) mmol/L Glucose (74-99) mg/dL POC Glucose (mg/dL) 192 H 155 H 206 H (75-99) mg/dL Calcium (8.4-10.2) mg/dL 02/06/20 02/06/20 02/06/20 Range/Units 05:48 05:48 06:18 RBC 3.44 L (4.30-5.90) m/uL Hgb 10.3 L (13.0-17.5) gm/dL Hct 32.0 L (39.0-53.0) % Plt Count 122 L (150-450) k/uL Chloride 109 H (98-107) mmol/L Glucose 146 H (74-99) mg/dL POC Glucose (mg/dL) 157 H (75-99) mg/dL Calcium 7.7 L (8.4-10.2) mg/dL Assessment and Plan Plan: Assessment: #1. Non-ST elevated myocardial infarction #2. Severe aortic stenosis, status post aortic valve replacement with a bovine pericardial valve prosthesis #3. Coronary artery disease, status post CABG 2 with a MCCLAIN to the LAD and saphenous vein graft to the PDA #4. Hypertension #5. Type 2 diabetes mellitus #6. Rheumatoid arthritis on methotrexate #7. Remote history of smoking #8. History of carotid stenosis, with history of right carotid endarterectomy #9. History of paroxysmal atrial fibrillation, currently in sinus rhythm Plan Patient had 1 brief run of atrial fibrillation while ambulating this morning, dose of beta nas was increased today. DNP note has been reviewed, I agree with a documented findings and plan of care. Patient was seen and examined.
[2020-02-06 11:43] LABS: Glucose,Whole Blood 165 mg/dL (75-99)
--- NOTE | 2020-02-06 12:07 | P.PN ---
Subjective Patient is admitted for non-ST elevation microinfarction found to have a 50% of disease in RCA and 90% occlusion in the circumflex with diffuse disease in the circumflex. Patient also found to have severe at stenosis and cardiac thoracic surgery was consulted for valve replacement and single graft to RCA 02/01/2020 No overnight events patient will undergo coronary artery bypass grafting along with aortic valve replacement on 02/02/2020 Patient will undergo valve replacement and CABG tomorrow overnight events 02/03/2020 Patient is seen and evaluated status post CABG with valve replacement and is currently being monitored closely in the ICU. Patient currently remains on mechanical vent and is intubated and sedated at this time. Chest tubes noted with indwelling Quevedo catheter with some mild hematuria noted may possibly be related to trauma during insertion. Nursing staff at the bedside stated patient will be weaned sometime this afternoon from the vent and will continue to monitor closely. Patient is on a small dose of club approximately blood pressure control along with propofol for sedation which will eventually be weaned. Patient is currently on an insulin drip for tight glycemic control. Surgical dressing noted of the mid sternum is dry and intact. 02/04/2020 Patient is seen in follow-up this morning currently sitting up in the chair recently extubated and doing well. Patient continues to have chest tubes along with indwelling Quevedo catheter noted. Urine is yellow and free from any signs of hematuria. Patient is off blood pressure medication and currently remains on an insulin drip. Blood sugars have been in the 100s and will discontinue the insulin drip and start with sliding scale and continue to monitor blood sugars before meals at bedtime. Patient is eating and tolerating thus far. Patient will be working with physical therapy this afternoon. Heart hugger noted and patient is having some difficulty squeezing it during coughing but states he is managing. Patient's cough is mostly dry with no phlegm production. Patient also using incentive spirometer and instructed the patient to continue using at least 10 times every hour while awake. Patient is having some mild chest disc omfort although no reports of chest pain or palpitations. He denies any shortness of breath. Patient is afebrile. Reports nausea or vomiting and patient is tolerating diet. 02/05/2020 No overnight events 02/06/2020 No overnight events patient is clinically doing well probably will be discharged tomorrow Constitutional: Denied any fatigue denied any fever. Cardio vascular: denied any chest pain, palpitations Gastrointestinal denied any nausea vomiting Pulmonary: Denied any shortness of breath cough Neurologic denied any new focal deficits All inpatient medications were reviewed and appropriate changes in these medications as dictated in the interval history and assessment and plan. Objective - Vital Signs Vital signs: Vital Signs Temp 98.7 F 02/06/20 08:00 Pulse 86 02/06/20 11:14 Resp 18 02/06/20 08:00 BP 149/80 02/06/20 08:00 Pulse Ox 95 02/06/20 08:00 Intake & Output 02/05/20 02/06/20 02/06/20 18:59 06:59 18:59 Intake Total 389 240 600 Output Total 820 740 275 Balance -431 -500 325 Weight 97.4 kg Intake: IV 49 LR 40 pressure bags 9 Oral 340 240 600 Output: Chest Tube Drainage 140 mediastinal x2 and left 140 pleural Urine 820 600 275 Other: Voiding Method Urinal Urinal # Voids 0 ABP, PAP, CO, CI - Last Documented Arterial Blood Pressure 163/53 Pulmonary Artery Pressure 23/7 Cardiac Output 18.6 Cardiac Index 9.3 - Exam GENERAL: The patient is awake, alert and oriented 3, sitting up in the chair, well-developed, well-nourished. HEENT: Pupils are round and equally reacting to light. EOMI. No scleral icterus. No conjunctival pallor. Normocephalic, atraumatic. No pharyngeal erythema. No thyromegaly. CARDIOVASCULAR: S1 and S2 present. No murmurs, rubs, or gallops. PULMONARY: Chest is clear to auscultation, no wheezing or crackles. ABDOMEN: Soft, nondistended, normoactive bowel sounds. No palpable organomegaly. MUSCULOSKELETAL: No joint swelling or deformity. EXTREMITIES: No cyanosis, clubbing, or pedal edema. NEUROLOGICAL: Cooperative, awake, alert and oriented 3 SKIN: No rashes. Sternal chest incision dressing is dry and intact - Labs CBC & Chem 7: 02/06/20 05:48 02/06/20 05:48 Labs: Abnormal Lab Results - Last 24 Hours (Table) 02/05/20 02/05/20 02/06/20 Range/Units 16:27 20:16 05:48 RBC 3.44 L (4.30-5.90) m/uL Hgb 10.3 L (13.0-17.5) gm/dL Hct 32.0 L (39.0-53.0) % Plt Count 122 L (150-450) k/uL Chloride (98-107) mmol/L Glucose (74-99) mg/dL POC Glucose (mg/dL) 155 H 206 H (75-99) mg/dL Calcium (8.4-10.2) mg/dL 02/06/20 02/06/20 02/06/20 Range/Units 05:48 06:18 11:41 RBC (4.30-5.90) m/uL Hgb (13.0-17.5) gm/dL Hct (39.0-53.0) % Plt Count (150-450) k/uL Chloride 109 H (98-107) mmol/L Glucose 146 H (74-99) mg/dL POC Glucose (mg/dL) 157 H 165 H (75-99) mg/dL Calcium 7.7 L (8.4-10.2) mg/dL Assessment and Plan Plan: -Non-ST elevation microinfarction and aortic stenosis.: Patient is status post I did well the placement postoperative day 2 clinically doing well no overnight events . Patient had a CABG as well. Patient is presently on amiodarone -Aortic stenosis: Status post valve replacement -Type 2 diabetes mellitus: Patient is on sliding scale insulin -Hypertension -Elevated troponin secondary to possible type II myocardial infarction -Peripheral edema secondary to IV fluids patient received a dose of Lasix
--- NOTE | 2020-02-06 14:16 | P.PN ---
Subjective Progress Note Date: 02/06/20 Principal diagnosis: Coronary artery disease with severe aortic stenosis 79-year-old white male patient of Dr. Mckeon, with past medical history of hypertension, type 2 diabetes mellitus, rheumatoid arthritis on methotrexate, carotid stenosis with previous history of right carotid endarterectomy, remote history of smoking, and known history of aortic valve stenosis, and atrial f ibrillation. Patient follows with Dr. Cruz. Patient presented to the emergency department on 01/30/2020 per EMS for evaluation of left chest pain, with diaphoresis, dyspnea and palpitations. EKG showed normal sinus rhythm with T-wave inversions in the inferior leads. First set of troponin was 0.035, second and third troponins was 0.181 and 0.137 respectively. CBC was within normal limits with the exception of lymphocyte count was 0.9 on admission. INR 0.9, sodium was 135, the rest of the electrolytes were within normal limits, B1 is 22 creatinine was 0.94, LFTs were within normal limits, proBNP was 158, lipase was normal at 36, urinalysis was negative. Admission chest x-ray showed mild pleural diaphragmatic scarring at the lateral right lung base. Patient had a cardiac catheterization on 01/31/2020 which showed RCA disease of 50%, 40% stenosis after the diagonal branch, 90% stenosis of the circumflex, and severe aortic stenosis with a peak gradient of 52 mmHg. LV end-diastolic pressures were mildly elevated. Patient was referred to cardiac surgery for evaluation, the patient is undergoing preoperative testing, and is being scheduled for surgery on 02/03/2020 for aortic valve replacement, and coronary artery bypass grafting by Dr. Watson On 02/02/2020 patient seen in follow-up on selective care unit, he is awake and alert, oriented 3, in no acute distress, currently on room air, no couplets chest pain or shortness of breath. No lightheadedness dizziness, syncopal episodes, room air pulse ox is 98%, hemodynamically patient is stable, patient is in sinus mechanism, the rate of 58 BPM. no drips. lung sounds are clear, no difficulty breathing. patient is pulling 2.5 L on his incentive spirometry. Today's labs have been reviewed. On 02/04/2020 patient seen in follow-up in intensive care unit, he status post aortic valve replacement, and two-vessel coronary artery bypass grafting, with MCCLAIN to LAD, and SVG to the PDA. He is postoperative day 1, OR exit time was 1406, and patient was successfully weaned and extubated from the mechanical ventilator at 1800. Doing very well, he today he is sitting up in the recliner, she is on 2 L of oxygen and the pulse ox is 98%, hemodynamically patient is stable, blood pressure is at 157/56, PA pressure is 30/10, CVP is 4-6, in sinus mechanism with a rate of 80 BPM, afebrile, cardiac output and cardiac index are 18.6, and 9.3 respectively. 2 mediastinal and one left pleural chest tubes all connected to the same Pleur-evac, and there has been 670 mL of serosanguineous output since surgery. Patient is nonoliguric, Quevedo catheter is in place, and patient is making urine in the order of 30-70 mL per hour. Patient is working on the incentive spirometer, he is achieving 1000 mL on the today, today's chest x-ray has been reviewed showing persistent atelectatic changes, and improved aeration bilaterally. His labs have been reviewed, showing with blood cell count of 8.4, hemoglobin of 10.5, platelet count is 109, electrolytes and renal profile were within normal limits, calcium was 7.2, ionized calcium was 4.5. Pain is reasonably controlled, patient appears to be in no acute distress. The patient is seen today 02/05/2020 in follow-up in the intensive care unit. He is status post 2 vessel coronary artery bypass grafting utilizing a MCCLAIN to LAD and SVG to the PDA along with aortic valve replacement. This is postoperative day #2. He is currently resting comfortably in bed. Awake and alert in no acute distress. He has been up with assistance. No worsening shortness of breath, cough or congestion. Maintaining good O2 saturations in the 90s on 2 L/m per nasal cannula. Pulling approximately 1000 MLS on his incentive spirometer. No current IV fluids. No drips. Chest x-ray reveals overall stable findings. There is chronic principal changes and cardiomegaly with small tiny bilateral pleural effusions and central vascular congestion with left greater than right infiltrate/atelectasis. Mediastinal and left chest tubes are present. Back up pacemaker wires in place. White count 10.9. Hemoglobin 10.9. Platelet count 114,000. Sodium 136. Potassium 4.4. Creatinine 0.84. The patient is seen today 02/06/2020 in follow-up on the selective care unit. He is currently awake and alert in no acute distress. He is resting quite comfortably in bed. He is status post coronary artery bypass grafting and aortic valve replacement. Postoperative day #3. Chest x-ray reveals improved bibasilar atelectasis with trace pleural effusions. Stable left apical pneumothorax of less than 10%. Left chest tube removed today per CT services. He continues to work well with the incentive spirometer. He's been up ambulating with assistance. He is maintaining good O2 saturations in the mid 90s on room air. White count 8.5. Hemoglobin 10.3. Platelet count 122. Sodium 138. Potassium 4.6. Creatinine 0.86. He remains on bronchodilators. Heparin for DVT prophylaxis. Given additional Lasix this morning. Objective - Vital Signs Vital signs: Vital Signs Temp 98.3 F 02/06/20 12:00 Pulse 83 02/06/20 12:00 Resp 18 02/06/20 12:00 BP 150/72 02/06/20 12:00 Pulse Ox 95 02/06/20 12:00 Intake & Output 02/05/20 02/06/20 02/06/20 18:59 06:59 18:59 Intake Total 389 240 600 Output Total 820 740 575 Balance -431 -500 25 Weight 97.4 kg Intake: IV 49 LR 40 pressure bags 9 Oral 340 240 600 Output: Chest Tube Drainage 140 mediastinal x2 and left 140 pleural Urine 820 600 575 Other: Voiding Method Urinal Urinal Urinal # Voids 0 2 ABP, PAP, CO, CI - Last Documented Arterial Blood Pressure 163/53 Pulmonary Artery Pressure 23/7 Cardiac Output 18.6 Cardiac Index 9.3 - Exam GENERAL EXAM: Alert, very pleasant, 71-year-old male patient, on room air, in no acute distress HEAD: Normocephalic/atraumatic. EYES: Normal reaction of pupils, equal size. Conjunctiva pink, sclera white. NOSE: Clear with pink turbinates. THROAT: No erythema or exudates. NECK: No masses, no JVD, no thyroid enlargement, no adenopathy. CHEST: Symmetrical expansion. Midsternal dressing dry and intact, chest tubes removed. Heart hugger in place. LUNGS: Equal air entry with faint crackles in the bases. CVS: Regular rate and rhythm, normal S1 and S2, no gallops, no murmurs, no rubs ABDOMEN: Soft, nontender. No hepatosplenomegaly, normal bowel sounds, no guarding or rigidity. EXTREMITIES: No clubbing, no edema, no cyanosis, 2+ pulses and upper and lower extremities. SCDs are in place MUSCULOSKELETAL: Muscle strength and tone normal. SPINE: No scoliosis or deformity SKIN: No rashes, left knee incision clean dry and intact, covered with a surgical dressing CENTRAL NERVOUS SYSTEM: No focal deficits, tone is normal in all 4 extremities. PSYCHIATRIC: Alert and oriented -3. Appropriate affect. Intact judgment and insight. - Labs CBC & Chem 7: 02/06/20 05:48 02/06/20 05:48 Labs: Abnormal Lab Results - Last 24 Hours (Table) 02/05/20 02/05/20 02/06/20 Range/Units 16:27 20:16 05:48 RBC 3.44 L (4.30-5.90) m/uL Hgb 10.3 L (13.0-17.5) gm/dL Hct 32.0 L (39.0-53.0) % Plt Count 122 L (150-450) k/uL Chloride (98-107) mmol/L Glucose (74-99) mg/dL POC Glucose (mg/dL) 155 H 206 H (75-99) mg/dL Calcium (8.4-10.2) mg/dL 02/06/20 02/06/20 02/06/20 Range/Units 05:48 06:18 11:41 RBC (4.30-5.90) m/uL Hgb (13.0-17.5) gm/dL Hct (39.0-53.0) % Plt Count (150-450) k/uL Chloride 109 H (98-107) mmol/L Glucose 146 H (74-99) mg/dL POC Glucose (mg/dL) 157 H 165 H (75-99) mg/dL Calcium 7.7 L (8.4-10.2) mg/dL Assessment and Plan Assessment: #1. Severe aortic stenosis, and coronary artery disease, status post aortic valve replacement with bovine pericardial valve prosthesis, CABG 2 with MCCLAIN to LAD and saphenous vein graft to the PDA, exclusion of the left atrial appendage with 35mm Atricure clip, postoperative day #3 #2. Routine mechanical ventilator management, patient was successfully extubated at approximate 4 hours from OR exit time on postoperative day 0, 01/26/2020 at 1800. OR exit time was 1406. Currently on room air #3. Chest pain related to acute non-ST elevated myocardial infarction #4. Hypertension #5. Type 2 diabetes mellitus #6. Rheumatoid arthritis on methotrexate #7. Remote history of smoking #8. History of carotid stenosis, with history of right carotid endarterectomy #9. History of atrial fibrillation, currently in sinus rhythm #10. Dyslipidemia Plan: The patient was seen and evaluated by Dr. Blancas Chest x-ray and labs reviewed Lasix 20 mg IVP 1 Working well with the incentive spirometer Increase activity as tolerated Remains on DVT and GI prophylaxis Continue bronchodilators We will continue to follow I, the cosigning physician, performed a history & physical examination of the patient. Lungs sounds with crackles in the posterior bases. Maintaining good O2 saturations in the 90s on room air. I discussed the assessment and plan of care with my nurse practitioner, Jennifer Mcnally. I attest to the above note as dictated by her.
[2020-02-06 16:33] LABS: Glucose,Whole Blood 167 mg/dL (75-99)
[2020-02-06 20:37] LABS: Glucose,Whole Blood 184 mg/dL (75-99)
[2020-02-06] MEDS: SENNOSIDES-DOCUSATE SODIUM 1 EACH TAB PO SCH (22:41)
[2020-02-07 03:38] VITALS: RESP 18
[2020-02-07 05:55] LABS: Glucose,Whole Blood 153 mg/dL (75-99)
[2020-02-07 06:29] LABS: HCT 32.1 % (39.0-53.0); HGB 10.2 gm/dL (13.0-17.5); Hypochromasia Slight; MCH 29.4 pg (25.0-35.0); MCHC 31.7 g/dL (31.0-37.0); MCV 92.6 fL (80.0-100.0); Mean Platelet Volume 8.5; Platelet Count 152 k/uL (150-450); RBC 3.47 m/uL (4.30-5.90); RDW 15.2 % (11.5-15.5)
[2020-02-07 06:47] LABS: African American GFR (CKD) >90 (>60 ml/min/1.73 sqM); Anion Gap 4 mmol/L; Blood Urea Nitrogen 20 mg/dL (9-20); Carbon Dioxide 27 mmol/L (22-30); Chloride 106 mmol/L (98-107); Glucose 148 mg/dL (74-99); Non-African American GFR(CKD) 80 (>60 ml/min/1.73 sqM); Potassium 4.5 mmol/L (3.5-5.1); Sodium 137 mmol/L (137-145)
[2020-02-07] MEDS: INSULIN ASPART (NovoLOG) 100 UNIT/ML VIAL SQ SCH ×2 (07:08→15:46)
[2020-02-07] MEDS: PANTOPRAZOLE 40 MG TABLET PO SCH (07:08)
--- NOTE | 2020-02-07 07:33 | XR ---
EXAMINATION TYPE: XR chest 2V DATE OF EXAM: 02/07/2020 COMPARISON: 02/06/2020 TECHNIQUE: PA and lateral views submitted. HISTORY: Post cardiac surgery FINDINGS: Chest tube is been removed and there is bilateral lower lobe infiltrate and small effusion. Postopera tive changes and cardiomegaly noted. Interstitium is slightly improved. No sizable pneumothorax. Arth ropathy of the shoulders and biapical pleural thickening. Suspect underlying COPD. Degenerative hyper trophic change of the spine. Surgical clips in the abdomen. IMPRESSION: 1. Bilateral lower lobe infiltrate and small effusion superimposed on a background of COPD. 2. No sizable pneumothorax
[2020-02-07] MEDS ORDERED: FUROSEMIDE 10 MG/ML 2 ML VIAL IV STA (07:39)
[2020-02-07] MEDS: IPRATROPIUM-ALBUTEROL 3 ML NEB INHALATION SCH ×2 (07:54→11:01)
[2020-02-07] MEDS ORDERED: LOSARTAN 50 MG TAB PO SCH (09:00)
[2020-02-07] MEDS ORDERED: LOSARTAN 25 MG TAB PO SCH (09:00)
[2020-02-07] MEDS: KETOROLAC 30 MG/ML 1 ML VIAL IVP SCH ×2 (10:32→15:46)
[2020-02-07] MEDS: HEPARIN SODIUM,PORCINE 5,000 UNIT/ML 1 ML VIAL SQ SCH (10:34)
[2020-02-07] MEDS: ASPIRIN 325 MG TAB PO SCH (10:36)
[2020-02-07] MEDS: ATORVASTATIN 40 MG TAB PO SCH (10:37)
[2020-02-07] MEDS: CLOPIDOGREL 75 MG TAB PO SCH (10:37)
[2020-02-07] MEDS: METOPROLOL TARTRATE 25 MG TAB PO SCH (10:37)
--- NOTE | 2020-02-07 10:55 | P.PN ---
Subjective Progress Note Date: 02/07/20 Principal diagnosis: status post CABG This is a 79-year-old gentleman with diabetes, hypertension, and dyslipidemia who was admitted to the hospital with acute non-ST patient myocardial infarction. He washed to have severe aortic stenosis as well as severe coronary artery disease. He underwent yesterday aortic valve replacement with coronary artery bypass grafting with MCCLAIN to LAD and SVG to PDA. The patient was seen today, February 062019. He is doing well clinically. H emodynamically he is stable beside being on the hypertensive side. The dose of losartan was increased today by the surgical team. Otherwise he's on dual antiplatelet therapy along with high intensity statin. The patient possibly can be discharged home in the next 24 hours. Objective - Vital Signs Vital signs: Vital Signs Temp 98.2 F 02/07/20 00:00 Pulse 80 02/07/20 03:33 Resp 18 02/07/20 03:33 BP 166/70 02/07/20 03:33 Pulse Ox 93 L 02/07/20 03:33 Intake & Output 02/06/20 02/07/20 02/07/20 18:59 06:59 18:59 Intake Total 840 180 Output Total 1125 100 Balance -285 -100 180 Weight 96.8 kg Intake: Oral 840 180 Output: Urine 1125 100 Other: Voiding Method Urinal Urinal # Voids 1 ABP, PAP, CO, CI - Last Documented Arterial Blood Pressure 163/53 Pulmonary Artery Pressure 23/7 Cardiac Output 18.6 Cardiac Index 9.3 - Constitutional General appearance: Present: no acute distress - Respiratory Respiratory: bilateral: CTA - Cardiovascular Rhythm: regular Heart sounds: normal: S1, S2 - Labs CBC & Chem 7: 02/07/20 05:58 02/07/20 05:58 Labs: Abnormal Lab Results - Last 24 Hours (Table) 02/06/20 02/06/20 02/06/20 Range/Units 11:41 16:31 20:36 RBC (4.30-5.90) m/uL Hgb (13.0-17.5) gm/dL Hct (39.0-53.0) % Glucose (74-99) mg/dL POC Glucose (mg/dL) 165 H 167 H 184 H (75-99) mg/dL Calcium (8.4-10.2) mg/dL 02/07/20 02/07/20 02/07/20 Range/Units 05:54 05:58 05:58 RBC 3.47 L (4.30-5.90) m/uL Hgb 10.2 L (13.0-17.5) gm/dL Hct 32.1 L (39.0-53.0) % Glucose 148 H (74-99) mg/dL POC Glucose (mg/dL) 153 H (75-99) mg/dL Calcium 8.0 L (8.4-10.2) mg/dL Assessment and Plan Assessment: assessment Acute non-ST patient myocardial infarction Severe aortic stenosis and status post aortic valve replacement Multiple comorbid conditions Plan Continue the current medical regimen The patient can be discharged home
[2020-02-07 12:37] LABS: Glucose,Whole Blood 137 mg/dL (75-99)
--- NOTE | 2020-02-07 12:39 | P.PN ---
Subjective Progress Note Date: 02/07/20 Principal diagnosis: chest pain, dyspnea, CAD and severe aortic stenosis 79-year-old white male patient of Dr. Mckeon, with past medical history of hypertension, type 2 diabetes mellitus, rheumatoid arthritis on methotrexate, carotid stenosis with previous history of right carotid endarterectomy, remote history of smoking, and known history of aortic valve stenosis, and atrial f ibrillation. Patient follows with Dr. Cruz. Patient presented to the emergency department on 01/30/2020 per EMS for evaluation of left chest pain, with diaphoresis, dyspnea and palpitations. EKG showed normal sinus rhythm with T-wave inversions in the inferior leads. First set of troponin was 0.035, second and third troponins was 0.181 and 0.137 respectively. CBC was within normal limits with the exception of lymphocyte count was 0.9 on admission. INR 0.9, sodium was 135, the rest of the electrolytes were within normal limits, B1 is 22 creatinine was 0.94, LFTs were within normal limits, proBNP was 158, lipase was normal at 36, urinalysis was negative. Admission chest x-ray showed mild pleural diaphragmatic scarring at the lateral right lung base. Patient had a cardiac catheterization on 01/31/2020 which showed RCA disease of 50%, 40% stenosis after the diagonal branch, 90% stenosis of the circumflex, and severe aortic stenosis with a peak gradient of 52 mmHg. LV end-diastolic pressures were mildly elevated. Patient was referred to cardiac surgery for evaluation, the patient is undergoing preoperative testing, and is being scheduled for surgery on 02/03/2020 for aortic valve replacement, and coronary artery bypass grafting by Dr. Watson On 02/02/2020 patient seen in follow-up on selective care unit, he is awake and alert, oriented 3, in no acute distress, currently on room air, no couplets chest pain or shortness of breath. No lightheadedness dizziness, syncopal episodes, room air pulse ox is 98%, hemodynamically patient is stable, patient is in sinus mechanism, the rate of 58 BPM. no drips. lung sounds are clear, no difficulty breathing. patient is pulling 2.5 L on his incentive spirometry. Today's labs have been reviewed. On 02/04/2020 patient seen in follow-up in intensive care unit, he status post aortic valve replacement, and two-vessel coronary artery bypass grafting, with MCCLAIN to LAD, and SVG to the PDA. He is postoperative day 1, OR exit time was 1406, and patient was successfully weaned and extubated from the mechanical ventilator at 1800. Doing very well, he today he is sitting up in the recliner, she is on 2 L of oxygen and the pulse ox is 98%, hemodynamically patient is stable, blood pressure is at 157/56, PA pressure is 30/10, CVP is 4-6, in sinus mechanism with a rate of 80 BPM, afebrile, cardiac output and cardiac index are 18.6, and 9.3 respectively. 2 mediastinal and one left pleural chest tubes all connected to the same Pleur-evac, and there has been 670 mL of serosanguineous output since surgery. Patient is nonoliguric, Quevedo catheter is in place, and patient is making urine in the order of 30-70 mL per hour. Patient is working on the incentive spirometer, he is achieving 1000 mL on the today, today's chest x-ray has been reviewed showing persistent atelectatic changes, and improved aeration bilaterally. His labs have been reviewed, showing with blood cell count of 8.4, hemoglobin of 10.5, platelet count is 109, electrolytes and renal profile were within normal limits, calcium was 7.2, ionized calcium was 4.5. Pain is reasonably controlled, patient appears to be in no acute distress. On 02/07/2020 patient seen in follow-up on selective care unit, he is awake and alert, oriented 3, room air pulse ox is 97%, hemodynamically patient is stable, a bit hypertensive, but pressures in the 160s systolic to 180s systolic and 70s diastolic, in sinus mechanism with a rate of 65 BPM, no fever or chills. He sitting up in the recliner, he is working on his incentive spirometer, achieving 1160-8926 ML on the today, tenacious actually has been reviewed showing small left pleural effusion. Lung sounds reveal some limited crackles at the bases, no rhonchi no wheezing. Today's labs have been reviewed showing white blood cell count of 8.0, hemoglobin of 10.2, electrolytes and renal profile are within normal limits. Quevedo catheter has been discontinued patient is voiding, all chest tubes have been discontinued. Objective - Vital Signs Vital signs: Vital Signs Temp 98.1 F 02/07/20 09:35 Pulse 88 02/07/20 09:35 Resp 18 02/07/20 09:35 BP 182/75 02/07/20 09:35 Pulse Ox 97 02/07/20 09:35 Intake & Output 02/06/20 02/07/20 02/07/20 18:59 06:59 18:59 Intake Total 840 180 Output Total 1125 100 Balance -285 -100 180 Weight 96.8 kg Intake: Oral 840 180 Output: Urine 1125 100 Other: Voiding Method Urinal Urinal Urinal # Voids 1 ABP, PAP, CO, CI - Last Documented Arterial Blood Pressure 163/53 Pulmonary Artery Pressure 23/7 Cardiac Output 18.6 Cardiac Index 9.3 - Exam GENERAL EXAM: Alert, very pleasant, 71-year-old white male, on 2 L of oxygen with a pulse ox of 93-98%, and up in the recliner, in no acute distress HEAD: Normocephalic/atraumatic. EYES: Normal reaction of pupils, equal size. Conjunctiva pink, sclera white. NOSE: Clear with pink turbinates. THROAT: No erythema or exudates. NECK: No masses, no JVD, no thyroid enlargement, no adenopathy. CHEST: No chest wall deformity. Symmetrical expansion. Midsternal incision clean dry and intact, interval removal of the 2 mediastinal and left pleural chest tubes LUNGS: Equal air entry with no crackles, wheeze, rhonchi or dullness. CVS: Regular rate and rhythm, normal S1 and S2, no gallops, no murmurs, no rubs ABDOMEN: Soft, nontender. No hepatosplenomegaly, normal bowel sounds, no guarding or rigidity. EXTREMITIES: No clubbing, no edema, no cyanosis, 2+ pulses and upper and lower extremities. SCDs are in place MUSCULOSKELETAL: Muscle strength and tone normal. SPINE: No scoliosis or deformity SKIN: No rashes, left knee incision clean dry and intact, covered with a surgical dressing CENTRAL NERVOUS SYSTEM: Alert and oriented -3. No focal deficits, tone is normal in all 4 extremities. PSYCHIATRIC: Alert and oriented -3. Appropriate affect. Intact judgment and insight. - Labs CBC & Chem 7: 02/07/20 05:58 02/07/20 05:58 Labs: Abnormal Lab Results - Last 24 Hours (Table) 02/06/20 02/06/20 02/07/20 Range/Units 16:31 20:36 05:54 RBC (4.30-5.90) m/uL Hgb (13.0-17.5) gm/dL Hct (39.0-53.0) % Glucose (74-99) mg/dL POC Glucose (mg/dL) 167 H 184 H 153 H (75-99) mg/dL Calcium (8.4-10.2) mg/dL 02/07/20 02/07/20 Range/Units 05:58 05:58 RBC 3.47 L (4.30-5.90) m/uL Hgb 10.2 L (13.0-17.5) gm/dL Hct 32.1 L (39.0-53.0) % Glucose 148 H (74-99) mg/dL POC Glucose (mg/dL) (75-99) mg/dL Calcium 8.0 L (8.4-10.2) mg/dL Assessment and Plan Plan: Assessment: #1. Severe aortic stenosis, and coronary artery disease, status post aortic valve replacement with bovine pericardial valve prosthesis, CABG 2 with MCCLAIN to LAD and saphenous vein graft to the PDA, exclusion of the left atrial appendage with 35mm Atricure clip, postoperative day 4 #2. Routine mechanical ventilator management, patient was successfully extubated at approximate 4 hours from OR exit time on postoperative day 0, 01/26/2020 at 1800. OR exit time was 1406 #3. Chest pain related to acute non-ST elevated myocardial infarction #4. Hypertension #5. Type 2 diabetes mellitus #6. Rheumatoid arthritis on methotrexate #7. Remote history of smoking #8. History of carotid stenosis, with history of right carotid endarterectomy #9. History of atrial fibrillation, currently in sinus rhythm #10. Dyslipidemia Plan: Patient is doing well, is on room air, vital signs are stable, tolerating activity, he is working incentive spirometer, today's chest x-ray has been reviewed showing small left pleural effusion. Hemodynamically stable, in sinus mechanism, patient is being discharged home today, will need a follow-up appointment for repeat chest x-ray in the office with Dr. Blancas in one week I performed a history & physical examination of the patient and discussed their management with my nurse practitioner, Minnie Mcmillan. I reviewed the nurse practitioner's note and agree with the documented findings and plan of care. Lung sounds are positive for clear breath sounds. The findings and the impression was discussed with the patient. I attest to the documentation by the nurse practitioner. Time with Patient: Less than 30
--- NOTE | 2020-02-07 14:38 | P.DS ---
Providers Date of admission: 01/30/20 04:25 Expected date of discharge: 02/07/20 Attending physician: Ryanne Moore Consults: 01/30/20 14:20 Consult Physician Routine Consulting Provider: Ilya Watson Consult Reason/Comments: aortic stenosis Do you want consulting provider notified?: Yes, Notify in am 01/31/20 13:14 Consult Physician Routine Consulting Provider: Reva Rodriguez Consult Reason/Comments: PUlmonary Management cardiac surgery Do you want consulting provider notified?: Yes 02/01/20 08:00 Consult to Anesthesia Routine Consulting Provider: Anesthesia,Services Consult Reason/Comments: Cardiac Surgery Pre-Op 02/03/20 14:19 Consult Physician Routine Consulting Provider: Mercy Cruz Consult Reason/Comments: Exercise Specialist Consult: post cardiac surgery Do you want consulting provider notified?: Already Contacted Consult Physician Routine Consulting Provider: Turner Pathak Consult Reason/Comments: Medical/ Diabetic Management Do you want consulting provider notified?: Yes Primary care physician: Linda Clark [facility] Course: FINAL DIAGNOSIS: 1. Acute non-ST elevated myocardial infarction, abnormal troponins on admission 2. Coronary artery disease, status post heart catheterization, status post aortic valve replacement and coronary artery bypass grafting surgery 2 vessels 3. History of aortic valve stenosis, status post aortic valve replacement and coronary artery bypass grafting surgery 2 vessels 4. Hypertension 5. History of type 2 diabetes mellitus, admission hemoglobin A1c 5.6 6. History of rheumatoid arthritis, on methotrexate at home 7. History of peripheral vascular disease, remote history of right carotid endarterectomy 8. Remote history of nicotine dependence, quit smoking in 1991 9. Postoperative acute blood loss anemia, an expected outcome secondary to cardiopulmonary bypass and hemodilution PRINCIPAL PROCEDURE: 1. Left heart catheterization and coronary angiography performed by Dr. KELLY Croft. 2. Aortic valve replacement with a 25 mm Inspiris bovine pericardial valve prosthesis. 3. Coronary artery bypass grafting 2 vessels with left internal mammary artery to the left anterior descending coronary artery, a reverse greater saphenous vein graft to the posterior descending coronary artery. 4. Exclusion the left atrial appendage with a 35 mm Atriclip. 5. Intraoperative transesophageal echocardiogram performed by anesthesia. HISTORY OF PRESENT ILLNESS: This is 79-year-old gentleman who follows with Dr. Eduardo Mckeon on an outpatient basis. He is a past medical history significant for hypertension, type 2 diabetes mellitus with an admission hemoglobin A1c of 5.6, rheumatoid arthritis on methotrexate at home, ALLERGIC conjunctivitis, peripheral vascular disease with history of right carotid endarterectomy, remote history of nicotine dependence quit smoking in 1991 and a known history of aortic valve stenosis. The patient follows with Dr. Cruz from [facility] who follows the patient's aortic valve stenosis. Recently, the patient was awoken from a sleep with complaints of burning type chest pain which radiated down both of his arms. EMS was called and he was transferred to [facility] for further evaluation and workup. In the emergency department a 12-lead EKG was completed which showed normal sinus rhythm with T-wave inversion in the inferior leads and a heart rate of 89 BPM. Laboratory results showed a WBC count 7.8, hemoglobin 14.6, platelets 217, sodium 135, BUN 22, creatinine 0.94, glucose 183, and abnormal troponins of 0.035. Subsequently a cardiac catheterization was completed which demonstrated a 50% stenosis to his mid right coronary artery, a heavily calcified right coronary artery, diffuse disease to his left anterior descending coronary artery with a 40% stenosis to his mid left anterior descending coronary artery after his diagonal branch and a 90% stenosis to the ostial obtuse marginal coronary artery as it comes off the circumflex coronary artery. A 2-D echocardiogram was also completed which showed an overall left ventricular systolic function to be normal with an ejection fraction between 55 and 60%, severe aortic valve stenosis with no evidence of aortic valve regurgitation, a peak/mean gradient across the aortic valve of 90.99 mmHg and 54.87 mmHg, mild mitral valve regurgitation, mild mitral valve stenosis, moderate tricuspid valve regurgitation and moderate pulmonary hypertension. Due to the patient's presenting symptoms, abnormal troponins being ruled in for a acute non-ST elevated myocardial infarction, the 2-D echocardiogram results and a cardiac catheterization results a consult was placed to Dr. Ilya Watson from cardiothoracic surgery for further evaluation and treatment recommendations. HOSPITAL COURSE: The patient was admitted to the hospital, Dr. Watson reviewed the findings of the cardiac catheterization and 2-D echocardiogram results with the patient and recommended myocardial revascularization surgery with aortic valve replacement. Risks and benefits of the surgery were discussed with the patient and the patient's including the STS risk score and understanding the risks the patient wished to proceed with surgery. A consent was obtained and he was brought to the preoperative area on 02/03/2020, prepared in the usual fashion and subsequently taken to the operating room where Dr. Ilya Watson performed an aortic valve replacement with a 25 mm Inspiris bovine pericardial valve prosthesis, a coronary artery bypass grafting 2 vessels with the left internal mammary artery to the left anterior descending coronary artery, a reverse greater saphenous vein graft to the posterior descending coronary artery, exclusion of his left atrial appendage using a 35 mm Atriclip and an intraoperative transesophageal echocardiogram performed by anesthesia. Upon completion of the surgery the patient was transferred to the cardiovascular intensive care unit where he was recovered, monitored hemodynamically and where he progressed cardiac rehabilitation phase 1. He was extubated, all lines, tubes and supportive drips were discontinued when appropriate and he was transferred to the cardiac stepdown unit for further monitoring and rehabilitation. His oxygen was titrated down, he continued to work with physical and occupational therapy, he was tolerating oral diet, his pain was well-controlled and he was ready to be discharged home with [facility] care on postoperative day #4. He has received written and verbal instructions regarding his medications, activity restrictions, signs and symptoms requiring physician notification and his follow-up appointments. COMPLICATIONS: There were no postoperative complications. CONSULTATIONS: 1. Dr. Cruz for cardiology management. 2. Dr. Blancas for pulmonary and Ventilator management. 3. Dr. Pathak for medical and diabetic management. 4. Dr. Fermin for dental clearance. DISCHARGE INSTRUCTIONS: 1. No driving for 4 weeks, or until physician gives their ok. 2. The patient should sleep in their own bed, no medical bed needed. 3. Stairs are not an issue. If the bedroom is upstairs, it is advised that the patient go up at night and down in the morning for the first week. Go slowly, using handrail and take 1 step at a time. 4. JOHNIE hose are to be worn for 30 days or until physician discontinues. 5. Heart hugger is to be worn 100% of the time until physician discontinues.(except when showering) 6. No lifting, pushing, or pulling more than 10 pounds for 12 weeks. The physician will advise of any restriction changes. 7. The patient is expected to continue the prescribed walking program. 8. Continue pain control per as needed orders. 9. Continue with incentive spirometry and splinting/heart hugger until otherwise directed by the physician. 10. Must shower daily using liquid antibacterial soap and a separate white washcloth for each individual incision. 11. Routine sternal incision care, no ointments, lotions or powders on the incisions. 12. Please notify surgeon/nurse practitioner for temperature greater than 101F or purulent drainage from incisions 13. Prescriptions for first 30 days given per cardiac surgery service. After 30 days, all prescription refills obtained through cardiology/primary care physician. 14. A red arm and has been placed on this patient it should be worn for 30 days post surgery and will be removed by the cardiothoracic surgeons. If an ER visit is necessary, please make sure the number on the red arm band is called. HOME HEALTH SERVICES TO PROVIDE: RN SKILLED HOME CARE SERVICES FOR POST-OP SURGICAL PATIENTS WITH THE FOLLOWING: Coronary Artery Bypass Surgery (CABG), Mitral Valve Replacement/Repair ( MVR), Aortic Valve Replacement/Repair (AVR) RN TO CONTINUE EDUCATION FROM ``ROAD TO A HEALTH HEART PATIENT EDUCATION MANUAL" (GIVEN TO PATIENT IN THE HOSPITAL) MEDICATION RECONCILIATION WITH EDUCATION NEEDED ON FIRST HOME VISIT EMPHASIZE IMPORTANCE OF WEARING BREAST SUPPORT/HEART HUGGER ENCOURAGE USE OF INCENTIVE SPIROMETER 10 X EVERY HOUR WHILE AWAKE ENCOURAGE UTILIZATION OF LOWER EXTREMITY COMPRESSION STOCKINGS/JOHNIE HOSE and ELEVATE LEGS ABOVE LEVEL OF HEART WHILE AT REST. ENCOURAGE AMBULATION 3-5x/day INCREASING TOLERATES, WHILE AVOID EXTREMES IN TEMPERATURE FREQUENCY: RN TO OPEN THE PATIENT WITHIN 24 HOURS OF DISCHARGE FROM THE HOSPITAL WITH TELEHEALTH INSTALLED AT [facility], RN TO VISIT 2-3 X A WEEK FOR 4 WEEKS ESTABLISHED BY PATIENT NEEDS. REMOVAL OF SUTURES: NURSING SERVICES TO REMOVE SUTURES TWO WEEKS POST SURGICAL DATE [ default ]. If any questions regarding suture removal please call the office at [phone]. LABORATORY: CBC, CMP TO BE DRAWN ON THE THIRD DAY HOME,(RAN STAT) FAX RESULTS TO [phone]. TELEHEALTH PARAMETERS: WEIGHT: NOTIFY MD OF WEIGHT GAIN OF 2 LBS IN 24 HOURS OR 5 LBS IN ONE WEEK HR: NOTIFY MD OF HR <55 BPM OR HR>100 BPM BP: NOTIFY MD IF BP <90/55 OR BP>140/100 O2 SAT: NOTIFY MD IF PO2<93% ON ROOM AIR SEND TELEHEALTH REPORT TO ANIMAL HUSBANDRY TEACHER AND CARDIOVASCULAR SURGEON THE FIRST WEEK OF CARE AND THEN BI-WEEKLY. PLEASE ADDITIONALLY COMMUNICATE ANY ABNORMALS AND NEW FINDINGS TO THE SURGEONS OFFICE. Patient Condition at Discharge: Fair Plan - Discharge Summary Discharge Rx Participant: No New Discharge Prescriptions: New Aspirin 325 mg PO DAILY 30 Days #30 tab Losartan [Cozaar] 50 mg PO DAILY 30 Days #30 tab Atorvastatin [Lipitor] 40 mg PO DAILY 30 Days #30 tab Metoprolol Tartrate [Lopressor] 75 mg PO BID 30 Days #60 tab Clopidogrel [Plavix] 75 mg PO DAILY 30 Days #30 tab Sennosides-Docusate Sodium [Senokot-S] 2 each PO HS 30 Days #60 tab Pantoprazole [Protonix] 40 mg PO AC-BRKFST #30 tablet. Acetaminophen Tab [Tylenol] 1,000 mg PO Q6HR PRN tab PRN Reason: Fever And/ Or Pain Continue Folic Acid 1 mg PO DAILY metFORMIN HCL [Glucophage] 500 mg PO AC-BID Olopatadine HCl [Pataday] 1 drop BOTH EYES BID Methotrexate Sodium [Methotrexate] 25 mg PO SA Cinnamon Bark [Cinnamon] 500 mg PO TID Discontinued Metoprolol Tartrate [Lopressor] 25 mg PO BID Furosemide [Lasix] 40 mg PO BID Clorazepate Dipotassium [Tranxene T] 7.5 mg PO HS hydrALAZINE HCL [Apresoline] 50 mg PO AC-BID Discharge Medication List Cinnamon Bark [Cinnamon] 500 mg PO TID 01/30/20 [History] Folic Acid 1 mg PO DAILY 01/30/20 [History] Methotrexate Sodium [Methotrexate] 25 mg PO SA 01/30/20 [History] Olopatadine HCl [Pataday] 1 drop BOTH EYES BID 01/30/20 [History] metFORMIN HCL [Glucophage] 500 mg PO AC-BID 01/30/20 [History] Acetaminophen Tab [Tylenol] 1,000 mg PO Q6HR PRN tab 02/07/20 [Rx] Aspirin 325 mg PO DAILY 30 Days #30 tab 02/07/20 [Rx] Atorvastatin [Lipitor] 40 mg PO DAILY 30 Days #30 tab 02/07/20 [Rx] Clopidogrel [Plavix] 75 mg PO DAILY 30 Days #30 tab 02/07/20 [Rx] Losartan [Cozaar] 50 mg PO DAILY 30 Days #30 tab 02/07/20 [Rx] Metoprolol Tartrate [Lopressor] 75 mg PO BID 30 Days #60 tab 02/07/20 [Rx] Pantoprazole [Protonix] 40 mg PO JOEL-MITCHEL #30 tablet. 02/07/20 [Rx] Sennosides-Docusate Sodium [Senokot-S] 2 each PO HS 30 Days #60 tab 02/07/20 [Rx] Follow up Appointment(s)/Referral(s): Eduardo Mckeon MD [Primary Care Provider] - 02/17/20 10:30 am Ilya Watson MD [STAFF PHYSICIAN] - 03/02/20 10:00 am Brown Philippe NPC [Nurse Practitioner] - 02/14/20 11:00 am Colten Blancas DO [Doctor of Osteopathic Medicine] - 1 Week [facility], [NON-STAFF] - Mercy Cruz MD [STAFF PHYSICIAN] - 02/14/20 8:30 am Ambulatory/Diagnostic Orders: Complete Blood Count w/diff [LAB.AMB] Time Frame: 02/10/20, Facility: [facility], Location: [facility] Comprehensive Metabolic Panel [LAB.AMB] Time Frame: 02/10/20, Facility: [facility], Location: [facility] Patient Instructions/Handouts: Aortic Valve Replacement (DC), CABG (Coronary Artery Bypass Graft) (DC) Activity/Diet/Wound Care/Special Instructions: DISCHARGE INSTRUCTIONS: 1. No driving for 4 weeks, or until physician gives their ok. 2. The patient should sleep in their own bed, no medical bed needed. 3. Stairs are not an issue. If the bedroom is upstairs, it is advised that the patient go up at night and down in the morning for the first week. Go slowly, using handrail and take 1 step at a time. 4. JOHNIE hose are to be worn for 30 days or until physician discontinues. 5. Heart hugger is to be worn 100% of the time until physician discontinues.(except when showering) 6. No lifting, pushing, or pulling more than 10 pounds for 12 weeks. The physician will advise of any restriction changes. 7. The patient is expected to continue the prescribed walking program. 8. Continue pain control per as needed orders. 9. Continue with incentive spirometry and splinting/heart hugger until otherwise directed by the physician. 10. Must shower daily using liquid antibacterial soap and a separate white washcloth for each individual incision. 11. Routine sternal incision care. No powders, lotions, ointments on incisions. No dressings are necessary on incisions unless they are draining. Dermabond tape is to remain on sternal incision until surgeon follow-up. 12. Please call surgeon/SEPARATOR OPERATOR for temp greater than 101 F or purulent drainage from incisions. 13. All prescriptions given by surgeon for 30 days. Refills need to be filled through dealer accounts investigator/primary care physician. 14. A Red armband has been placed on the patient. It should be worn for 30 days post surgery and will be removed by the cardiac surgeons. If an ER visit is necessary, please make sure the number on the Red armband is called. 15. You have been referred to and are expected to begin Cardiac Rehab in approximately 4-6 weeks. HOME HEALTH SERVICES TO PROVIDE: RN SKILLED HOME CARE SERVICES FOR POST-OP SURGICAL PATIENTS WITH THE FOLLOWING: Coronary Artery Bypass Surgery (CABG), Mitral Valve Replacement/Repair ( MVR), Aortic Valve Replacement/Repair (AVR) RN TO CONTINUE EDUCATION FROM ``ROAD TO A HEALTH HEART PATIENT EDUCATION MANUAL (GIVEN TO PATIENT IN THE HOSPITAL) MEDICATION RECONCILIATION WITH EDUCATION NEEDED ON FIRST HOME VISIT EMPHASIZE IMPORTANCE OF WEARING BREAST SUPPORT/HEART HUGGER ENCOURAGE USE OF INCENTIVE SPIROMETER 10 X EVERY HOUR WHILE AWAKE ENCOURAGE UTILIZATION OF LOWER EXTREMITY COMPRESSION STOCKINGS/JOHNIE HOSE and ELEVATE LEGS ABOVE LEVEL OF HEART WHILE AT REST. ENCOURAGE AMBULATION 3-5x/day INCREASING TOLERATES, WHILE AVOIDING EXTREMES IN TEMPERATURE FREQUENCY: RN TO OPEN THE PATIENT WITHIN 24 HOURS OF DISCHARGE FROM THE HOSPITAL WITH TELEHEALTH INSTALLED AT [facility], RN TO VISIT 2-3 X A WEEK FOR 4 WEEKS ESTABLISHED BY PATIENT NEEDS. LABORATORY: CBC, CMP TO BE DRAWN ON THE THIRD DAY HOME, (RAN STAT) FAX RESULTS TO [phone]. TELEHEALTH PARAMETERS: WEIGHT: NOTIFY MD OF WEIGHT GAIN OF 2 LBS IN 24 HOURS OR 5 LBS IN ONE WEEK HR: NOTIFY MD OF HR <55 BPM OR HR>100 BPM BP: NOTIFY MD IF BP <90/55 OR BP>140/100 O2 SAT: NOTIFY MD IF PO2<93% ON ROOM AIR SEND TELEHEALTH REPORT TO ANIMAL HUSBANDRY TEACHER AND CARDIOVASCULAR SURGEON THE FIRST WEEK OF CARE AND THEN BI-WEEKLY. PLEASE ADDITIONALLY COMMUNICATE ANY ABNORMALS AND NEW FINDINGS TO THE SURGEONS OFFICE. For any questions or concerns please call MAIKEL Mina @ Discharge Disposition: HOME WITH HOME HEALTH SERVICES
[2020-02-07 15:50] VITALS: BP 137/67; PULSE 69; TEMP 98.2
--- NOTE | 2020-02-08 15:18 | P.DS ---
Providers Date of admission: 01/30/20 04:25 Expected date of discharge: 02/07/20 Attending physician: Ryanne Moore Consults: 01/30/20 14:20 Consult Physician Routine Consulting Provider: Ilya Watson Consult Reason/Comments: aortic stenosis Do you want consulting provider notified?: Yes, Notify in am 01/31/20 13:14 Consult Physician Routine Consulting Provider: Reva Rodriguez Consult Reason/Comments: PUlmonary Management cardiac surgery Do you want consulting provider notified?: Yes 02/01/20 08:00 Consult to Anesthesia Routine Consulting Provider: Anesthesia,Services Consult Reason/Comments: Cardiac Surgery Pre-Op 02/03/20 14:19 Consult Physician Routine Consulting Provider: Mercy Cruz Consult Reason/Comments: Offset Pressman Consult: post cardiac surgery Do you want consulting provider notified?: Already Contacted Consult Physician Routine Consulting Provider: Turner Pathak Consult Reason/Comments: Medical/ Diabetic Management Do you want consulting provider notified?: Yes Primary care physician: Linda Clark Hospital Course: Final diagnosis -Non-ST elevation myocardial infarction and aortic stenosis -Aortic stenosis: Status post valve replacement -Type 2 diabetes mellitus -Hypertension -Elevated troponin secondary to type II myocardial infarction -Peripheral edema secondary to IV fluids Discharge disposition Patient is being discharged in a stable condition with guarded prognosis to home and will have continued home care in the outpatient setting. Patient will follow-up with Dr. Mckeon along with Dr. Watson, pulmonary, cardiothoracic surgery, and cardiology in the outpatient setting. Total time taken is 35 minutes. History of present illness This is a 80-year-old male who was recently admitted for non-ST segment elevat ion myocardial infarction and was found to have 50% in the RCA along with 90% occlusion in the circumflex with severe aortic stenosis and underwent CABG with valve replacement to the RCA. Patient tolerated the procedure well and will be discharged today. Patient will continue with home care and rehab in the outpatient setting. Currently no reports of chest pain, palpitations, or shortness. Patient is afebrile. No reports of nausea or vomiting and patient is tolerating diet. Patient will continue with the heart hugger and instructed to continue using incentive spirometer at least 10 times every hour while awake. On exam vital signs are stable. Temp is 98.2F, pulse is 69, respirations are 16, blood pressure 137/67, oxygen saturation is 96% on room air. Cardio S1, S2 are present. Respiratory shows clear to auscultation. Abdomen is soft and nontender. Nervous system shows no focal deficits. Please refer to medication reconciliation sheet for a list of medications. Patient Condition at Discharge: Stable Plan - Discharge Summary Discharge Rx Participant: No New Discharge Prescriptions: New Aspirin 325 mg PO DAILY 30 Days #30 tab Losartan [Cozaar] 50 mg PO DAILY 30 Days #30 tab Atorvastatin [Lipitor] 40 mg PO DAILY 30 Days #30 tab Metoprolol Tartrate [Lopressor] 75 mg PO BID 30 Days #60 tab Clopidogrel [Plavix] 75 mg PO DAILY 30 Days #30 tab Sennosides-Docusate Sodium [Senokot-S] 2 each PO HS 30 Days #60 tab Pantoprazole [Protonix] 40 mg PO AC-BRKFST #30 tablet. Acetaminophen Tab [Tylenol] 1,000 mg PO Q6HR PRN tab PRN Reason: Fever And/ Or Pain Continue Folic Acid 1 mg PO DAILY metFORMIN HCL [Glucophage] 500 mg PO AC-BID Olopatadine HCl [Pataday] 1 drop BOTH EYES BID Methotrexate Sodium [Methotrexate] 25 mg PO SA Cinnamon Bark [Cinnamon] 500 mg PO TID Discontinued Metoprolol Tartrate [Lopressor] 25 mg PO BID Furosemide [Lasix] 40 mg PO BID Clorazepate Dipotassium [Tranxene T] 7.5 mg PO HS hydrALAZINE HCL [Apresoline] 50 mg PO AC-BID Discharge Medication List Cinnamon Bark [Cinnamon] 500 mg PO TID 01/30/20 [History] Folic Acid 1 mg PO DAILY 01/30/20 [History] Methotrexate Sodium [Methotrexate] 25 mg PO SA 01/30/20 [History] Olopatadine HCl [Pataday] 1 drop BOTH EYES BID 01/30/20 [History] metFORMIN HCL [Glucophage] 500 mg PO AC-BID 01/30/20 [History] Acetaminophen Tab [Tylenol] 1,000 mg PO Q6HR PRN tab 02/07/20 [Rx] Aspirin 325 mg PO DAILY 30 Days #30 tab 02/07/20 [Rx] Atorvastatin [Lipitor] 40 mg PO DAILY 30 Days #30 tab 06/01/20 [Rx] Clopidogrel [Plavix] 75 mg PO DAILY 30 Days #30 tab 02/07/20 [Rx] Losartan [Cozaar] 50 mg PO DAILY 30 Days #30 tab 02/07/20 [Rx] Metoprolol Tartrate [Lopressor] 75 mg PO BID 30 Days #60 tab 02/07/20 [Rx] Pantoprazole [Protonix] 40 mg PO AC-BRKFST #30 tablet. 02/07/20 [Rx] Sennosides-Docusate Sodium [Senokot-S] 2 each PO HS 30 Days #60 tab 02/07/20 [Rx] Follow up Appointment(s)/Referral(s): Eduardo Mckeon MD [Primary Care Provider] - 02/17/20 10:30 am Jennifer Mcnally NPC [Nurse Practitioner] - 02/23/20 3:00 pm Ilya Watson MD [STAFF PHYSICIAN] - 03/02/20 10:00 am Brown Philippe NPC [Nurse Practitioner] - 02/14/20 11:00 am Colten Blancas DO [Doctor of Osteopathic Medicine] - 1 Week (Office staff will call with time and date of appointment. ) [facility], [NON-STAFF] - Mercy Cruz MD [STAFF PHYSICIAN] - 02/14/20 8:30 am Ambulatory/Diagnostic Orders: Complete Blood Count w/diff [LAB.AMB] Time Frame: 02/10/20, Facility: [facility], Location: [facility] Comprehensive Metabolic Panel [LAB.AMB] Time Frame: 02/10/20, Facility: [facility], Location: [facility] Patient Instructions/Handouts: Aortic Valve Replacement (DC), CABG (Coronary Artery Bypass Graft) (DC) Activity/Diet/Wound Care/Special Instructions: DISCHARGE INSTRUCTIONS: 1. No driving for 4 weeks, or until physician gives their ok. 2. The patient should sleep in their own bed, no medical bed needed. 3. Stairs are not an issue. If the bedroom is upstairs, it is advised that the patient go up at night and down in the morning for the first week. Go slowly, using handrail and take 1 step at a time. 4. JOHNIE hose are to be worn for 30 days or until physician discontinues. 5. Heart hugger is to be worn 100% of the time until physician discontinues.(except when showering) 6. No lifting, pushing, or pulling more than 10 pounds for 12 weeks. The physician will advise of any restriction changes. 7. The patient is expected to continue the prescribed walking program. 8. Continue pain control per as needed orders. 9. Continue with incentive spirometry and splinting/heart hugger until otherwise directed by the physician. 10. Must shower daily using liquid antibacterial soap and a separate white washcloth for each individual incision. 11. Routine sternal incision care. No powders, lotions, ointments on incisions. No dressings are necessary on incisions unless they are draining. Dermabond tape is to remain on sternal incision until surgeon follow-up. 12. Please call surgeon/SOLDER CREAM MAKER for temp greater than 101 F or purulent drainage from incisions. 13. All prescriptions given by surgeon for 30 days. Refills need to be filled through audit associate/primary care physician. 14. A Red armband has been placed on the patient. It should be worn for 30 days post surgery and will be removed by the cardiac surgeons. If an ER visit is necessary, please make sure the number on the Red armband is called. 15. You have been referred to and are expected to begin Cardiac Rehab in approximately 4-6 weeks. HOME HEALTH SERVICES TO PROVIDE: RN SKILLED HOME CARE SERVICES FOR POST-OP SURGICAL PATIENTS WITH THE FOLLOWING: Coronary Artery Bypass Surgery (CABG), Mitral Valve Replacement/Repair ( MVR), Aortic Valve Replacement/Repair (AVR) RN TO CONTINUE EDUCATION FROM ``ROAD TO A HEALTH HEART PATIENT EDUCATION MANUAL (GIVEN TO PATIENT IN THE HOSPITAL) MEDICATION RECONCILIATION WITH EDUCATION NEEDED ON FIRST HOME VISIT EMPHASIZE IMPORTANCE OF WEARING BREAST SUPPORT/HEART HUGGER ENCOURAGE USE OF INCENTIVE SPIROMETER 10 X EVERY HOUR WHILE AWAKE ENCOURAGE UTILIZATION OF LOWER EXTREMITY COMPRESSION STOCKINGS/JOHNIE HOSE and ELEVATE LEGS ABOVE LEVEL OF HEART WHILE AT REST. ENCOURAGE AMBULATION 3-5x/day INCREASING TOLERATES, WHILE AVOIDING EXTREMES IN TEMPERATURE FREQUENCY: RN TO OPEN THE PATIENT WITHIN 24 HOURS OF DISCHARGE FROM THE HOSPITAL WITH TELEHEALTH INSTALLED AT [facility], RN TO VISIT 2-3 X A WEEK FOR 4 WEEKS ESTABLISHED BY PATIENT NEEDS. LABORATORY: CBC, CMP TO BE DRAWN ON THE THIRD DAY HOME, (RAN STAT) FAX RESULTS TO [phone]. TELEHEALTH PARAMETERS: WEIGHT: NOTIFY MD OF WEIGHT GAIN OF 2 LBS IN 24 HOURS OR 5 LBS IN ONE WEEK HR: NOTIFY MD OF HR <55 BPM OR HR>100 BPM BP: NOTIFY MD IF BP <90/55 OR BP>140/100 O2 SAT: NOTIFY MD IF PO2<93% ON ROOM AIR SEND TELEHEALTH REPORT TO FIRE CONTROL TECHNICIAN G AND CARDIOVASCULAR SURGEON THE FIRST WEEK OF CARE AND THEN BI-WEEKLY. PLEASE ADDITIONALLY COMMUNICATE ANY ABNORMALS AND NEW FINDINGS TO THE SURGEONS OFFICE. For any questions or concerns please call SOLDER CREAM MAKER Don @ Discharge Disposition: HOME WITH HOME HEALTH SERVICES
== END 2020-02-07 15:44 | disposition home health service (06) | DRG 216 ==
LOC: EC 02:25 → 3SCARD 04:25 → 2SICU 02-03 07:42 → 3SCARD 02-05 15:30
PROVIDERS: ADMIT Hospitalist; ATTEND Hospitalist
PROC: B2111ZZ Fluoroscopy of Multiple Coronary Arteries using Low Osmolar Contrast (ICD-10-PCS; 2020-01-30)
PROC: 4A023N7 Measurement of Cardiac Sampling and Pressure, Left Heart, Percutaneous Approach (ICD-10-PCS; 2020-01-30)
PROC: 06BQ4ZZ Excision of Left Saphenous Vein, Percutaneous Endoscopic Approach (ICD-10-PCS; principal; 2020-02-03 08:00)
PROC: 5A1221Z Performance of Cardiac Output, Continuous (ICD-10-PCS; principal; 2020-02-03 08:00)
PROC: 02RF08Z Replacement of Aortic Valve with Zooplastic Tissue, Open Approach (ICD-10-PCS; principal; 2020-02-03 08:00)
PROC: 02L70ZK Occlusion of Left Atrial Appendage, Open Approach (ICD-10-PCS; principal; 2020-02-03 08:00)
PROC: 02100Z9 Bypass Coronary Artery, One Artery from Left Internal Mammary, Open Approach (ICD-10-PCS; principal; 2020-02-03 08:00)
PROC: 021009W Bypass Coronary Artery, One Artery from Aorta with Autologous Venous Tissue, Open Approach (ICD-10-PCS; principal; 2020-02-03 08:00)
DX: I08.3 Combined rheumatic disorders of mitral, aortic and tricuspid valves (principal); I21.4 Non-ST elevation (NSTEMI) myocardial infarction; D62 Acute posthemorrhagic anemia; J93.83 Other pneumothorax; J98.11 Atelectasis; I25.10 Atherosclerotic heart disease of native coronary artery without angina pectoris; I25.2 Old myocardial infarction; E11.51 Type 2 diabetes mellitus with diabetic peripheral angiopathy without gangrene; E78.5 Hyperlipidemia, unspecified; H10.10 Acute atopic conjunctivitis, unspecified eye; I10 Essential (primary) hypertension; I25.84 Coronary atherosclerosis due to calcified coronary lesion; I48.0 Paroxysmal atrial fibrillation; M06.9 Rheumatoid arthritis, unspecified; Z79.84 Long term (current) use of oral hypoglycemic drugs; Z79.899 Other long term (current) drug therapy; Z82.49 Family history of ischemic heart disease and other diseases of the circulatory system; Z87.891 Personal history of nicotine dependence; Z88.0 Allergy status to penicillin; Z11.59 Encounter for screening for other viral diseases
CPT/HCPCS: 36410; 36415; 70486; 71045; 71046; 76937; 80048; 80053; 80061; 80074; 81003; 82330; 82805; 83036; 83690; 83735; 83880; 84443; 84484; 85025; 85027; 85520; 85610; 85730; 86850; 86891; 86900; 86901; 86920; 87070; 87635; 88305; 88311; 93005; 93306; 93458; 93880; 93922; 93970; 94002; 94150; 94640; 99285

== ENCOUNTER 2020-05-01 16:57 | Observation (INO) | payer MEDICARE, BC ==
--- NOTE | 2020-05-01 17:34 | ED ---
General Adult HPI - General Chief complaint: Altered Mental Status Stated complaint: Confused Time Seen by Provider: 05/01/20 16:59 Source: EMS Mode of arrival: EMS Limitations: no limitations - History of Present Illness Initial comments: Dictation was produced using [employer] dictation software. please excuse any grammatical, word or spelling errors. This patient was cared for during a federal and state declared state of emergency secondary to Covid 19 Chief Complaint: 80-year-old male presents with brief episode of altered mental status and dysarthria History of Present Illness: 80-year-old male is accompanied by his . reports that her proximal arm to prior to arrival patient showed signs of slurred speech and confusion. Patient's history of stroke. EMS was called patient is brought to the emergency department. According to patient has history of stroke. He had a CVA during a bypass procedure. Patient does not take any anticoagulation medications. According to patient's symptoms have resolved. She notes that his speech is much clearer than what she witnessed one hour prior to arrival. Patient has any numbness or paresthesias. No extremity weakness. No facial droop. The ROS documented in this emergency department record has been reviewed and confirmed by me. Those systems with pertinent positive or negative responses have been documented in the HPI. All other systems are other negative and/or noncontributory. PHYSICAL EXAM: General Impression: Alert and oriented x3, not in acute distress HEENT: Normocephalic atraumatic, extra-ocular movements intact, pupils equal and reactive to light bilaterally, mucous membranes moist. Cardiovascular: Heart regular rate and rhythm Chest: Able to complete full sentences, no retractions, no tachypnea Abdomen: abdomen soft, non-tender, non-distended, no organomegaly Musculoskeletal: Pulses present and equal in all extremities, no peripheral edema Motor: no focal deficits noted Neurological: CN II-XII grossly intact, no focal motor or sensory deficits noted, no facial droop, non-aphasic, no extremity drift, no ataxia Skin: Intact with no visualized rashes Psych: Normal affect and mood ED course: 80-year-old male with a presentation consistent for transient ischemic ischemic attack. Vital signs upon arrival are within acceptable limits. Patient not showing any signs of CVA at this time. Physical examination is benign. CBC shows no signs of bleeding. Patient given aspirin.Laboratory evaluation obtained. CBC, coag panel, metabolic panel is unremarkable.Computed tomography scan of the brain was obtained showing no acute processes. Chest x-ray shows no acute processes. Patient case was discussed with Dr. Pathak who is willing to accept patients care. Patient given aspirin. Patient admitted to observation with consultation to neurology. EKG interpretation: Ventricular rate 53, sinus bradycardia, when necessary 156, QRS 84, QTC 429. No SD prolongation, no QTC prolongation, no ST or T-wave changes noted. EKG compared to 01/30/2020 showing no changes. Overall, this EKG is unremarkable - Related Data Home Medications Medication Instructions Recorded Confirmed Cinnamon Bark [Cinnamon] 500 mg PO TID 01/30/20 05/01/20 metFORMIN HCL [Glucophage] 500 mg PO AC-BID 01/30/20 05/01/20 Clorazepate Dipotassium [Tranxene 7.5 mg PO HS 05/01/20 05/01/20 T] Nitroglycerin Sl Tabs [Nitrostat] 0.4 mg SUBLINGUAL Q5M PRN 05/01/20 05/01/20 Olopatadine HCl [Patanol] 1 drop BOTH EYES BID 05/01/20 05/01/20 Previous Rx's Medication Instructions Recorded Aspirin 325 mg PO DAILY 30 Days #30 tab 02/07/20 Atorvastatin [Lipitor] 40 mg PO DAILY 30 Days #30 tab 02/07/20 Clopidogrel [Plavix] 75 mg PO DAILY 30 Days #30 tab 02/07/20 Losartan [Cozaar] 50 mg PO DAILY 30 Days #30 tab 02/07/20 Metoprolol Tartrate [Lopressor] 75 mg PO BID 30 Days #60 tab 02/07/20 Pantoprazole [Protonix] 40 mg PO AC-BRKFST #30 tablet. 02/07/20 Allergies Allergy/AdvReac Type Severity Reaction Status Date / Time Penicillins Allergy Intermediate shortness Verified 05/01/20 18:29 of breath/nausea Review of Systems ROS Statement: Those systems with pertinent positive or pertinent negative responses have been documented in the HPI. ROS Other: All systems not noted in ROS Statement are negative. Past Medical History Past Medical History: Diabetes Mellitus, Eye Disorder, Hypertension, Rheumatoid Arthritis (RA), Vascular Disorder Last Myocardial Infarction Date:: 1993 and 01/30/2020 History of Any Multi-Drug Resistant Organisms: None Reported Past Surgical History: Cholecystectomy Additional Past Surgical History / Comment(s): Open heart January 2020 Past Anesthesia/Blood Transfusion Reactions: No Reported Reaction Past Psychological History: No Psychological Hx Reported Smoking Status: Never smoker Past Alcohol Use History: None Reported Past Drug Use History: None Reported - Past Family History Father History Unknown: Yes Additional Family Medical History / Comment(s): The patient reports he was adopted and is unaware of his parents medical history. Mother History Unknown: Yes Additional Family Medical History / Comment(s): The patient reports he was adopted and is unaware of his parents medical history. Brother(s) Family Medical History: Myocardial Infarction ([place]) Additional Family Medical History / Comment(s): The patient reports that he does know his biological brother and he does have a history of myocardial infarction in his 60s. General Exam Limitations: no limitations Course Vital Signs 05/01/20 05/01/20 05/01/20 16:59 17:00 17:09 Temperature 98.7 F Pulse Rate 55 L 58 L 58 L Respiratory 18 16 16 Rate Blood Pressure 198/86 175/70 193/86 O2 Sat by Pulse 97 98 97 Oximetry 05/01/20 05/01/20 17:30 18:00 Temperature Pulse Rate 61 62 Respiratory 15 16 Rate Blood Pressure 178/85 189/78 O2 Sat by Pulse 98 98 Oximetry Medical Decision Making - Lab Data Result diagrams: 05/01/20 17:25 05/01/20 17:25 Lab Results 05/01/20 05/01/20 05/01/20 Range/Units 17:25 17:25 17:25 WBC 6.5 (3.8-10.6) k/uL RBC 5.34 (4.30-5.90) m/uL Hgb 13.9 (13.0-17.5) gm/dL Hct 44.0 (39.0-53.0) % MCV 82.5 (80.0-100.0) fL MCH 26.0 (25.0-35.0) pg MCHC 31.5 (31.0-37.0) g/dL RDW 15.2 (11.5-15.5) % Plt Count 166 (150-450) k/uL Neutrophils % 66 % Lymphocytes % 17 % Monocytes % 7 % Eosinophils % 8 % Basophils % 1 % Neutrophils # 4.3 (1.3-7.7) k/uL Lymphocytes # 1.1 (1.0-4.8) k/uL Monocytes # 0.4 (0-1.0) k/uL Eosinophils # 0.5 (0-0.7) k/uL Basophils # 0.0 (0-0.2) k/uL Hypochromasia Slight PT 10.5 (9.0-12.0) sec INR 1.0 (<1.2) APTT 22.6 (22.0-30.0) sec Sodium 137 (137-145) mmol/L Potassium 4.6 (3.5-5.1) mmol/L Chloride 105 (98-107) mmol/L Carbon Dioxide 25 (22-30) mmol/L Anion Gap 7 mmol/L BUN 16 (9-20) mg/dL Creatinine 0.91 (0.66-1.25) mg/dL Est GFR (CKD-EPI)AfAm >90 (>60 ml/min/1.73 sqM) Est GFR (CKD-EPI)NonAf 80 (>60 ml/min/1.73 sqM) Glucose 118 H (74-99) mg/dL Calcium 8.7 (8.4-10.2) mg/dL Total Bilirubin 1.6 H (0.2-1.3) mg/dL AST 22 (17-59) U/L ALT 17 (4-49) U/L Alkaline Phosphatase 67 (38-126) U/L Troponin I (0.000-0.034) ng/mL Total Protein 6.5 (6.3-8.2) g/dL Albumin 3.7 (3.5-5.0) g/dL 05/01/20 Range/Units 17:25 WBC (3.8-10.6) k/uL RBC (4.30-5.90) m/uL Hgb (13.0-17.5) gm/dL Hct (39.0-53.0) % MCV (80.0-100.0) fL MCH (25.0-35.0) pg MCHC (31.0-37.0) g/dL RDW (11.5-15.5) % Plt Count (150-450) k/uL Neutrophils % % Lymphocytes % % Monocytes % % Eosinophils % % Basophils % % Neutrophils # (1.3-7.7) k/uL Lymphocytes # (1.0-4.8) k/uL Monocytes # (0-1.0) k/uL Eosinophils # (0-0.7) k/uL Basophils # (0-0.2) k/uL Hypochromasia PT (9.0-12.0) sec INR (<1.2) APTT (22.0-30.0) sec Sodium (137-145) mmol/L Potassium (3.5-5.1) mmol/L Chloride (98-107) mmol/L Carbon Dioxide (22-30) mmol/L Anion Gap mmol/L BUN (9-20) mg/dL Creatinine (0.66-1.25) mg/dL Est GFR (CKD-EPI)AfAm (>60 ml/min/1.73 sqM) Est GFR (CKD-EPI)NonAf (>60 ml/min/1.73 sqM) Glucose (74-99) mg/dL Calcium (8.4-10.2) mg/dL Total Bilirubin (0.2-1.3) mg/dL AST (17-59) U/L ALT (4-49) U/L Alkaline Phosphatase (38-126) U/L Troponin I <0.012 (0.000-0.034) ng/mL Total Protein (6.3-8.2) g/dL Albumin (3.5-5.0) g/dL Disposition Clinical Impression: TIA (transient ischemic attack) Disposition: ADMITTED IP TO THIS HOSP Condition: Fair Referrals: Eduardo Mckeon MD [Primary Care Provider] - 1-2 days Decision Time: 19:06
[2020-05-01 17:39] LABS: Basophils % (A) 1 %; Eosinophils # (A) 0.5 k/uL (0-0.7); Eosinophils % (A) 8 %; HGB 13.9 gm/dL (13.0-17.5); Hypochromasia Slight; Lymphocytes # (A) 1.1 k/uL (1.0-4.8); Lymphocytes % (A) 17 %; MCHC 31.5 g/dL (31.0-37.0); MCV 82.5 fL (80.0-100.0); Mean Platelet Volume 8.1; Monocytes # (A) 0.4 k/uL (0-1.0); Monocytes % (A) 7 %; Neutrophils # (A) 4.3 k/uL (1.3-7.7); Neutrophils % (A) 66 %; Platelet Count 166 k/uL (150-450); RBC 5.34 m/uL (4.30-5.90); RDW 15.2 % (11.5-15.5); WBC 6.5 k/uL (3.8-10.6)
[2020-05-01 17:49] LABS: ALT 17 U/L (4-49); AST 22 U/L (17-59); African American GFR (CKD) >90 (>60 ml/min/1.73 sqM); Albumin 3.7 g/dL (3.5-5.0); Alkaline Phosphatase 67 U/L (38-126); Anion Gap 7 mmol/L; Blood Urea Nitrogen 16 mg/dL (9-20); Calcium 8.7 mg/dL (8.4-10.2); Carbon Dioxide 25 mmol/L (22-30); Chloride 105 mmol/L (98-107); Glucose 118 mg/dL (74-99); Non-African American GFR(CKD) 80 (>60 ml/min/1.73 sqM); Potassium 4.6 mmol/L (3.5-5.1); Sodium 137 mmol/L (137-145); Total Bilirubin 1.6 mg/dL (0.2-1.3); Total Protein 6.5 g/dL (6.3-8.2)
[2020-05-01 17:50] LABS: Partial Thromboplastin Time 22.6 sec (22.0-30.0); Prothrombin Time 10.5 sec (9.0-12.0)
--- NOTE | 2020-05-01 18:59 | CT ---
EXAMINATION TYPE: CT brain wo con DATE OF EXAM: 05/01/2020 HISTORY: Altered mental status and slurred speech. CT DLP: 1158.4 mGycm. Automated Exposure Control for Dose Reduction was Utilized. TECHNIQUE: CT scan of the head is performed without contrast. COMPARISON: None FINDINGS: There is no acute intracranial hemorrhage, midline shift, or mass effect identified. Brain parenchyma demonstrates generalized volume loss. Old tiny lacunar infarct of the left basal ganglia. There is o ld appearing encephalomalacia of the right frontal lobe. Periventricular white matter patchy hypodens ities likely sequela of chronic microvascular ischemic change. The ventricles, sulci, and cisterns ar e prominent in size concordant with volume loss. No extra-axial fluid collection. Bones and extracran ial soft tissues are intact. The globes are grossly symmetric. Visualized sinuses and mastoid air rivas ls are clear. IMPRESSION: 1. No acute intracranial hemorrhage, midline shift, or mass effect. 2. Periventricular white matter patchy hypodensities likely sequela of chronic microvascular ischemic change. There are also old lacunar infarcts and chronic appearing areas of encephalomalacia. If ther e is persistent concern for acute process, consideration can be given to MRI.
[2020-05-01] MEDS ORDERED: ASPIRIN 325 MG TAB PO STA (19:00)
[2020-05-01] MEDS ORDERED: SODIUM CHLORIDE 0.9% 1,000 ML IV SCH (19:00)
--- NOTE | 2020-05-01 19:00 | XR ---
EXAMINATION TYPE: XR chest 2V DATE OF EXAM: 05/01/2020 CLINICAL HISTORY: Altered mental status TECHNIQUE: Frontal and lateral views of the chest are obtained. COMPARISON: 02/23/2020 chest radiograph FINDINGS: Sternotomy wires, valvular prosthesis, and left atrial appendage clip redemonstrated. Card iomegaly. Mediastinal silhouette normal. No focal airspace opacity or pneumothorax. Persistent small left pleural effusion. No evidence of displaced osseous fracture. IMPRESSION: No acute cardiopulmonary process. Unchanged cardiomegaly and small left pleural effusion versus 02/23/2020.
[2020-05-01] MEDS ORDERED: CINNAMON BARK 500 MG PO SCH (22:00)
[2020-05-01] MEDS: METOPROLOL TARTRATE 25 MG TAB PO SCH (22:45)
[2020-05-01] MEDS: hydrALAZINE HCL 25 MG TAB PO PRN (23:06)
--- NOTE | 2020-05-01 23:20 | US ---
EXAMINATION TYPE: US carotid duplex BILAT DATE OF EXAM: 05/01/2020 COMPARISON: 2019 CLINICAL HISTORY: TIA patient . TIA. Former smoker. Poor historian. Patient had open heart surgery on 02/03/2020. Patient had surgery on "artery in right neck" many years ago. EXAM MEASUREMENTS: RIGHT: Peak Systolic Velocity (PSV) cm/sec ----- Right CCA: 86.2 ----- Right ICA: 136.6 ----- Right ECA: 150.1 ICA/CCA ratio: 1.6 RIGHT: End Diastole cm/sec ----- Right CCA: 12.4 ----- Right ICA: 17.1 ----- Right ECA: 0.0 LEFT: Peak Systolic Velocity (PSV) cm/sec ----- Left CCA: 91.4 ----- Left ICA: 96.3 ----- Left ECA: 122.7 ICA/CCA ratio: 1.1 LEFT: End Diastole cm/sec ----- Left CCA: 15.5 ----- Left ICA: 12.3 ----- Left ECA: 0.0 VERTEBRALS (direction of flow): Right Vertebral: Antegrade Left Vertebral: Antegrade Rhythm: Normal Limited exam right bulb-right ICA. Very difficult to visualize right ICA. Unable to see color flow in prox right ICA. Elevated velocities in right bulb, right mid ICA, and right ECA. Plaque is seen bila teral bifurcations, right ICA, right ECA, and left prox ICA. IMPRESSION: There is extensive shadowing and we could not show very well flow in the right internal carotid arter y through the segment of calcification. Based on velocities there is more than 50% stenosis in the [facility] internal carotid artery. Stenosis could easily be more than 85%. There is left side plaque formation and estimated 40% stenosis in the left internal carotid artery. There is antegrade flow in the vertebral arteries. Criteria for Assigning % of Stenosis / Diameter reduction (Estimation based on the indirect measurements of the internal carotid artery velocities (ICA PSV). 1. Normal (no stenosis)=ICA PSV < 125 cm/s: ratio < 2.0: ICA EDV<40 cm/s. 2. Less than 50% stenosis=ICA PSV < 125 cm/s: ratio < 2.0: ICA EDV<40 cm/s. 3. 50 to 69% stenosis=ICA PSV of 125 to 230 cm/s: ration 2.0 ? 4.0: ICA EDV 40-100 cm/s. 4. Greater than 70% stenosis to near occlusion= ICA PSV > 230 cm/s: ratio > 4.0: ICA EDV > 100 cm/s. 5. Near occlusion= ICA PSV velocities may be low or undetectable: variable ratio and ICA EDV. 6. Total occlusion=unable to detect flow.
[2020-05-02] MEDS ORDERED: NITROGLYCERIN SL TABS 0.4 MG TAB SUBLINGUAL PRN
[2020-05-02 06:54] LABS: Cholesterol 109 mg/dL (<200); HDL Cholesterol 49 mg/dL (40-60); LDL Cholesterol,Calculated 35 mg/dL (0-99); Triglycerides 123 mg/dL (<150)
[2020-05-02] MEDS ORDERED: PANTOPRAZOLE 40 MG TABLET PO SCH (07:30)
[2020-05-02 07:33] LABS: Glucose,Whole Blood 130 mg/dL (75-99)
[2020-05-02] MEDS: metFORMIN 500 MG TAB PO SCH ×2 (08:08→17:45)
[2020-05-02] MEDS: METOPROLOL TARTRATE 25 MG TAB PO SCH (08:08)
[2020-05-02 08:47] VITALS: RESP 14
[2020-05-02] MEDS ORDERED: ATORVASTATIN 40 MG TAB PO SCH (09:00)
[2020-05-02] MEDS ORDERED: ASPIRIN 325 MG TAB PO SCH ×2 (09:00→12:00)
[2020-05-02] MEDS ORDERED: LOSARTAN 50 MG TAB PO SCH (09:00)
[2020-05-02] MEDS ORDERED: CLOPIDOGREL 75 MG TAB PO SCH (09:00)
[2020-05-02] MEDS ORDERED: KETOTIFEN 0.025% OPHTH DROPS 5 ML BTL BOTH EYES SCH (09:00)
[2020-05-02] MEDS ORDERED: LOSARTAN 50 MG TAB PO STA (10:36)
--- NOTE | 2020-05-02 10:38 | P.HPIM ---
History of Present Illness Patient is pleasant 71-year-old male came in with complaint of slurred speech and confusion. Patient had a previous history of stroke. Patient doesn't have any severe weakness from stroke. Patient apparently had a stroke during the coronary artery bypass procedure. Patient had a recent coronary artery bypass. Patient is already on Dilantin with B patient's LDL is 35 and patient is already in statin. Patient's symptoms resolved at this time. Patient had history of heart valve replacement. Patient denied any paresthesias numbness or weakness. Patient denied any facial droop headache seizure-like activity. Patient's sy mptoms resolved at this time patient's symptoms lasted less than 24 hours. She denied any fever chills. CT of the head did not show any intracranial hemorrhage. It did show preventative or white matter patchy hypodensities from chronic microvascular ischemic changes and old lacunar infarcts with some encephalomalacia. Neurology was consulted neurology will evaluate the patient if patient is cleared from neurology perspective patient will be discharged. Patient will not require any physical therapy at patient appears speech therapy support at this time. Review of Systems REVIEW OF SYSTEMS: CONSTITUTIONAL: No fever, no malaise, no fatigue. HEENT: No recent visual problems or hearing problems. Denied any sore throat. CARDIOVASCULAR: No chest pain, orthopnea, PND, no palpitations, no syncope. PULMONARY: No shortness of breath, no cough, no hemoptysis. GASTROINTESTINAL: No diarrhea, no nausea, no vomiting, no abdominal pain. NEUROLOGICAL: No headaches, no weakness, no numbness. HEMATOLOGICAL: Denies any bleeding or petechiae. GENITOURINARY: Denies any burning micturition, frequency, or urgency. MUSCULOSKELETAL/RHEUMATOLOGICAL: Denies any joint pain, swelling, or any muscle pain. ENDOCRINE: Denies any polyuria or polydipsia. The rest of the 14-point review of systems is negative. Past Medical History Past Medical History: Diabetes Mellitus, Hypertension, Rheumatoid Arthritis (RA), Vascular Disorder Last Myocardial Infarction Date:: 1993 and 01/30/2020 History of Any Multi-Drug Resistant Organisms: None Reported Past Surgical History: Cholecystectomy Additional Past Surgical History / Comment(s): Open heart January 2020 Past Anesthesia/Blood Transfusion Reactions: No Reported Reaction Past Psychological History: No Psychological Hx Reported Smoking Status: Former smoker Past Alcohol Use History: None Reported Additional Past Alcohol Use History / Comment(s): pt. states that he quit smoking in 1989 Past Drug Use History: None Reported - Past Family History Father History Unknown: Yes Additional Family Medical History / Comment(s): The patient reports he was adopted and is unaware of his parents medical history. Mother History Unknown: Yes Additional Family Medical History / Comment(s): The patient reports he was adopted and is unaware of his parents medical history. Brother(s) Family Medical History: [place]ocardial Infarction ([place]) Additional Family Medical History / Comment(s): The patient reports that he does know his biological brother and he does have a history of myocardial infarction in his 60s. Medications and Allergies Home Medications Medication Instructions Recorded Confirmed Type Cinnamon Bark [Cinnamon] 500 mg PO TID 01/30/20 05/01/20 History metFORMIN HCL [Glucophage] 500 mg PO AC-BID 01/30/20 05/01/20 History Aspirin 325 mg PO DAILY 30 Days #30 tab 02/07/20 05/01/20 Rx Atorvastatin [Lipitor] 40 mg PO DAILY 30 Days #30 tab 02/07/20 05/01/20 Rx Clopidogrel [Plavix] 75 mg PO DAILY 30 Days #30 tab 02/07/20 05/01/20 Rx Losartan [Cozaar] 50 mg PO DAILY 30 Days #30 tab 02/07/20 05/01/20 Rx Metoprolol Tartrate [Lopressor] 75 mg PO BID 30 Days #60 tab 02/07/20 05/01/20 Rx Pantoprazole [Protonix] 40 mg PO AC-BRKFST #30 tablet. 02/07/20 05/01/20 Rx Clorazepate Dipotassium [Tranxene 7.5 mg PO HS 05/01/20 05/01/20 History T] Nitroglycerin Sl Tabs [Nitrostat] 0.4 mg SUBLINGUAL Q5M PRN 05/01/20 05/01/20 History Olopatadine HCl [Patanol] 1 drop BOTH EYES BID 05/01/20 05/01/20 History Allergies Allergy/AdvReac Type Severity Reaction Status Date / Time Penicillins Allergy Intermediate shortness Verified 05/01/20 18:29 of breath/nausea Physical Exam Vitals: Vital Signs Temp Pulse Pulse Resp BP BP Pulse Ox 05/02/20 08:43 97.9 F 70 14 194/70 93 L 05/02/20 03:00 97.7 F 77 18 151/79 96 05/01/20 21:00 98.0 F 56 L 18 202/77 96 05/01/20 20:58 52 L 16 200/81 98 05/01/20 19:30 52 L 18 173/71 97 05/01/20 18:00 62 16 189/78 98 05/01/20 17:30 61 15 178/85 98 05/01/20 17:09 58 L 16 193/86 97 05/01/20 17:00 58 L 16 175/70 98 05/01/20 16:59 98.7 F 55 L 18 198/86 97 Intake and Output 05/01/20 05/02/20 05/02/20 22:59 06:59 14:59 Intake Total 240 Balance 240 Intake: Oral 240 Other: Voiding Method Toilet Toilet Toilet # Voids 1 2 Weight 95.254 kg PHYSICAL EXAMINATION: GENERAL: The patient is alert and oriented x3, not in any acute distress. Well developed, well nourished. HEENT: Pupils are round and equally reacting to light. EOMI. No scleral icterus. No conjunctival pallor. Normocephalic, atraumatic. No pharyngeal erythema. No thyromegaly. CARDIOVASCULAR: S1 and S2 present. No murmurs, rubs, or gallops. PULMONARY: Chest is clear to auscultation, no wheezing or crackles. ABDOMEN: Soft, nontender, nondistended, normoactive bowel sounds. No palpable organomegaly. MUSCULOSKELETAL: No joint swelling or deformity. EXTREMITIES: No cyanosis, clubbing, or pedal edema. NEUROLOGICAL: Gross neurological examination did not reveal any focal deficits. SKIN: No rashes. Results CBC & Chem 7: 05/01/20 17:25 05/01/20 17:25 Labs: Abnormal Lab Results - Last 24 Hours (Table) 05/01/20 05/02/20 Range/Units 17:25 07:32 Glucose 118 H (74-99) mg/dL POC Glucose (mg/dL) 130 H (75-99) mg/dL Total Bilirubin 1.6 H (0.2-1.3) mg/dL Thrombosis Risk Factor Assmnt - Choose All That Apply Each Factor Represents 1 point: Obesity (BMI >25) Each Risk Factor Represents 3 Points: Age 75 years or older Thrombosis Risk Factor Assessment Total Risk Factor Score: 4 Thrombosis Risk Factor Assessment Level: Moderate Risk Assessment and Plan Plan: -Slurred speech: Possibility of TIA patient is already in March and fitted today and statin which will be continued patient had a carotid Doppler which showed possible stenosis ranging from 50-85% on the right side. Patient had a normal carotid Doppler in the past which was on month of January this year. -Hypertension: Elevated blood pressure uncontrolled blood pressure probably secondary to TIA but patient may need additional antidepressant medications upon discharge and losartan dose will be increased to 100. -Recent non-ST elevation microinfarction for which patient had stent to RCA and the patient had history of hepatic cirrhosis for which patient had a valve replacement next and-type 2 diabetes mellitus -Hyperlipidemia -History of CVA in the past Patient will be discharged today if cleared by neurology patient will be monitored for about 24 hours post TIA
--- NOTE | 2020-05-02 10:39 | P.DS ---
Providers Date of admission: 05/01/20 19:00 Attending physician: Turner Pathak Consults: 05/01/20 19:00 Consult Physician Routine Consulting Provider: Chava Liu Consult Reason/Comments: tia Do you want consulting provider notified?: Yes Primary care physician: Linda Clark [facility] Course: As mentioned in HPI Patient Condition at Discharge: Fair Plan - Discharge Summary Discharge Rx Participant: No New Discharge Prescriptions: Continue metFORMIN HCL [Glucophage] 500 mg PO AC-BID Cinnamon Bark [Cinnamon] 500 mg PO TID Aspirin 325 mg PO DAILY 30 Days #30 tab Atorvastatin [Lipitor] 40 mg PO DAILY 30 Days #30 tab Metoprolol Tartrate [Lopressor] 75 mg PO BID 30 Days #60 tab Clopidogrel [Plavix] 75 mg PO DAILY 30 Days #30 tab Pantoprazole [Protonix] 40 mg PO AC-BRKFST #30 tablet. Clorazepate Dipotassium [Tranxene T] 7.5 mg PO HS Olopatadine HCl [Patanol] 1 drop BOTH EYES BID Nitroglycerin Sl Tabs [Nitrostat] 0.4 mg SUBLINGUAL Q5M PRN PRN Reason: Chest Pain Changed Losartan [Cozaar] 100 mg PO DAILY 30 Days #30 tab Discharge Medication List Cinnamon Bark [Cinnamon] 500 mg PO TID 01/30/20 [History] metFORMIN HCL [Glucophage] 500 mg PO AC-BID 01/30/20 [History] Aspirin 325 mg PO DAILY 30 Days #30 tab 02/07/20 [Rx] Atorvastatin [Lipitor] 40 mg PO DAILY 30 Days #30 tab 02/07/20 [Rx] Clopidogrel [Plavix] 75 mg PO DAILY 30 Days #30 tab 02/07/20 [Rx] Metoprolol Tartrate [Lopressor] 75 mg PO BID 30 Days #60 tab 02/07/20 [Rx] Pantoprazole [Protonix] 40 mg PO AC-BRKFST #30 tablet. 02/07/20 [Rx] Clorazepate Dipotassium [Tranxene T] 7.5 mg PO HS 05/01/20 [History] Nitroglycerin Sl Tabs [Nitrostat] 0.4 mg SUBLINGUAL Q5M PRN 05/01/20 [History] Olopatadine HCl [Patanol] 1 drop BOTH EYES BID 05/01/20 [History] Losartan [Cozaar] 100 mg PO DAILY 30 Days #30 tab 05/02/20 [Rx] Follow up Appointment(s)/Referral(s): Eduardo Mckeon MD [Primary Care Provider] - 3 Days Discharge Disposition: HOME SELF-CARE
--- NOTE | 2020-05-02 11:00 | ECHOF ---
Referral Reason:TIA patient MEASUREMENTS -------- HEIGHT: 177.8 cm WEIGHT: 95.3 kg BP: 151/79 RVIDd: 3.9 cm (< 3.3) IVSd: 1.4 cm (0.6 - 1.1) LVIDd: 4.0 cm (3.9 - 5.3) LVPWd: 1.6 cm (0.6 - 1.1) IVSs: 1.9 cm LVIDs: 2.4 cm LVPWs: 2.1 cm LAESV Index (A-L): 43.08 ml/m Ao Diam: 3.5 cm (2.0 - 3.7) MV EXCURSION: 16.486 mm (> 18.000) MV EF SLOPE: 67 mm/s (70 - 150) EPSS: 0.7 cm MV E Nate: 1.50 m/s MV DecT: 233 ms MV A Nate: 0.90 m/s MV E/A Ratio: 1.68 AV maxP.25 mmHg AV meanP.19 mmHg RAP: 5.00 mmHg RVSP: 36.05 mmHg FINDINGS -------- Sinus rhythm. This was a technically adequate study. The left ventricular size is normal. There is moderate concentric left ventricular hypertrophy. O verall left ventricular systolic function is normal with, an EF between 55 - 60 %. The right ventricle is moderately enlarged. LA is severely dilated >40 ml/m2 The right atrium is mildly enlarged. Interatrial and interventricular septum intact. Normally functioning bioprosthetic valve. Mild mitral annular calcification present. Mild mitral regurgitation is present. Mild tricuspid regurgitation present. There is mild pulmonary hypertension. The right ventricular systolic pressure, as measured by Doppler, is 36.05mmHg. There is no pulmonic regurgitation present. The aortic root size is normal. IVC Not well visulized. There is no pericardial effusion. CONCLUSIONS -------- 1. There is moderate concentric left ventricular hypertrophy. 2. Overall left ventricular systolic function is normal with, an EF between 55 - 60 %. 3. The right ventricle is moderately enlarged. 4. LA is severely dilated >40 ml/m2 5. The right atrium is mildly enlarged. 6. Normally functioning bioprosthetic valve. 7. Mild mitral annular calcification present. 8. Mild mitral regurgitation is present. 9. Mild tricuspid regurgitation present. 10. There is mild pulmonary hypertension. ARTIFICIAL LIMB FITTER: Donna Carvajal RDCS
[2020-05-02 11:33] LABS: Glucose,Whole Blood 111 mg/dL (75-99)
--- NOTE | 2020-05-02 12:45 | P.CNNES ---
History of Present Illness Consult date: 05/02/20 Requesting physician: Lewis Britton Reason for Consult: TIA History of Present Illness: Patient is a 80-year-old right-handed male, arrived to the hospital yesterday at 5 PM with symptoms of slurred speech, confusion and memory difficulties. Patient states that yesterday at around noon he noticed slurred speech, and could not remember things. There was no report of facial droop, problems with vision, balance, focal numbness tingling or weakness. According to patient's , he has history of stroke during bypass procedure. Patient not on anticoagulants. Patient does take aspirin 325 mg and Plavix 75 mg daily and Lipitor 40 mg daily at home. On arrival, his vital signs were blood pressure 198/86, pulse rate 55, temperature 98.7. CT head showed no acute intracranial process. Periventricular white matter patchy hypodensities likely sequela of chronic microvascular ischemic change. There are also old lacunar infarct in the left basal ganglia. Chest x-ray showed no acute cardiopulmonary process. Unchanged cardiomegaly and small left pleural effusion. EKG shows sinus bradycardia. Carotid Doppler showed extensive shadowing and we could not show very well flow in the right internal carotid artery through the segment of calcification. Based on velocities there is more than 50% stenosis of the right ICA. Stenosis could easily be more than 85%. There is left-sided plaque formation an estimated 40% stenosis left ICA. Antegrade flow in the vertebral arteries. 2-D echo showed moderate concentric LVH. EF is 55-60%. Left atrial is severely dilated, right atrium is mildly enlarged. Normally functioning bioprosthetic valve. CBC, PT/PTT normal. Chem- 7 normal. CMP normal. Triglycerides 123, cholesterol 109, LDL 35 and HDL 49. Hemoglobin A1c 5.6 on 01/31/2020. TSH normal. Patient apparently was not a candidate for TPA, as he came outside the window for TPA, and it was also reported the symptoms had resolved in the ER. However patient states that his speech has much improved but not back to normal yet. Also his memory functions has not returned back to normal yet although improved. Patient has history of hypertension, diabetes for last couple years. Patient smokes one pack per day for 5-10 years, quit 40 years ago. Denies any history of CVA, although patient's has mentioned to the ED staff that he had stroke at the time of his bypass surgery. No family history of strokes. Review of Systems Patient denies any chest pain, shortness of breath, wheezing or cough. Denies any abdominal pain nausea vomiting diarrhea. All other review of systems unremarkable. Patient has arthritis. Past Medical History Past Medical History: Diabetes Mellitus, Hypertension, Rheumatoid Arthritis (RA), Vascular Disorder Last Myocardial Infarction Date:: 1993 and 01/30/2020 History of Any Multi-Drug Resistant Organisms: None Reported Past Surgical History: Cholecystectomy Additional Past Surgical History / Comment(s): Open heart January 2020 Past Anesthesia/Blood Transfusion Reactions: No Reported Reaction Past Psychological History: No Psychological Hx Reported Smoking Status: Former smoker Past Alcohol Use History: None Reported Additional Past Alcohol Use History / Comment(s): pt. states that he quit smoking in 1989 Past Drug Use History: None Reported - Past Family History Father History Unknown: Yes Additional Family Medical History / Comment(s): The patient reports he was adopted and is unaware of his parents medical history. Mother History Unknown: Yes Additional Family Medical History / Comment(s): The patient reports he was adopted and is unaware of his parents medical history. Brother(s) Family Medical History: Myocardial Infarction ([place]) Additional Family Medical History / Comment(s): The patient reports that he does know his biological brother and he does have a history of myocardial infarction in his 60s. Medications and Allergies Home Medications Medication Instructions Recorded Confirmed Type Cinnamon Bark [Cinnamon] 500 mg PO TID 01/30/20 05/01/20 History metFORMIN HCL [Glucophage] 500 mg PO AC-BID 01/30/20 05/01/20 History Aspirin 325 mg PO DAILY 30 Days #30 tab 02/07/20 05/01/20 Rx Atorvastatin [Lipitor] 40 mg PO DAILY 30 Days #30 tab 02/07/20 05/01/20 Rx Clopidogrel [Plavix] 75 mg PO DAILY 30 Days #30 tab 02/07/20 05/01/20 Rx Metoprolol Tartrate [Lopressor] 75 mg PO BID 30 Days #60 tab 02/07/20 05/01/20 Rx Pantoprazole [Protonix] 40 mg PO AC-BRKFST #30 tablet. 02/07/20 05/01/20 Rx Clorazepate Dipotassium [Tranxene 7.5 mg PO HS 05/01/20 05/01/20 History T] Nitroglycerin Sl Tabs [Nitrostat] 0.4 mg SUBLINGUAL Q5M PRN 05/01/20 05/01/20 History Olopatadine HCl [Patanol] 1 drop BOTH EYES BID 05/01/20 05/01/20 History Losartan [Cozaar] 100 mg PO DAILY 30 Days #30 tab 05/02/20 05/01/20 Rx Allergies Allergy/AdvReac Type Severity Reaction Status Date / Time Penicillins Allergy Intermediate shortness Verified 05/01/20 18:29 of breath/nausea Physical Examination - Vital Signs Vital Signs: Vital Signs Temp Pulse Pulse Resp BP BP BP 05/02/20 10:34 194/85 194/85 05/02/20 08:43 97.9 F 70 14 194/70 05/02/20 03:00 97.7 F 77 18 151/79 05/01/20 21:00 98.0 F 56 L 18 202/77 05/01/20 20:58 52 L 16 200/81 05/01/20 19:30 52 L 18 173/71 05/01/20 18:00 62 16 189/78 05/01/20 17:30 61 15 178/85 05/01/20 17:09 58 L 16 193/86 05/01/20 17:00 58 L 16 175/70 05/01/20 16:59 98.7 F 55 L 18 198/86 Pulse Ox 05/02/20 10:34 05/02/20 08:43 93 L 05/02/20 03:00 96 05/01/20 21:00 96 05/01/20 20:58 98 05/01/20 19:30 97 05/01/20 18:00 98 05/01/20 17:30 98 05/01/20 17:09 97 05/01/20 17:00 98 05/01/20 16:59 97 Intake and Output 05/01/20 05/02/20 05/02/20 22:59 06:59 14:59 Intake Total 240 Balance 240 Intake: Oral 240 Other: Voiding Method Toilet Toilet Toilet # Voids 1 2 Weight 95.254 kg On examination patient is an elderly male, in no acute distress. Patient is alert awake oriented to time place and person. Speech is mildly dysarthric but no aphasia. Attention, concentration and fund of knowledge is adequate. On cranial examination pupils are round and reactive to light, visual archuleta are full on confrontation, extraocular muscles are intact with no nystagmus. Face is symmetric, tongue protrudes to the midline. Palatal elevation and sensation normal. Hearing and shoulder shrug normal. On muscle strength testing there is no pronator drift and the strength is normal in arms a nd legs distally and proximally. Reflexes are diminished and plantars possible up on the right whereas down on left. Sensory to touch is equal with no neglect. No ataxia for [id number] testing. Tone and bulk of muscles normal. Gait appears normal. Patient has mild left carotid bruit. S1 and S2 was audible. Abdomen soft nontender. Chest is clear. No peripheral edema. Results - Laboratory Findings CBC and BMP: 05/01/20 17:25 05/01/20 17:25 Abnormal Lab Findings: Abnormal Labs 05/01/20 05/02/20 17:25 07:32 Glucose 118 H POC Glucose (mg/dL) 130 H Total Bilirubin 1.6 H Assessment and Plan Assessment: * Probable acute stroke, manifesting with slurred speech and memory disturbance. * Right ICA stenosis, rule out occlusion. * Hypertension * Dyslipidemia, well controlled * History of diabetes, very well controlled. * CAD, history of bypass surgery Plan: * MRI of brain to evaluate for probable acute stroke, and also to assess for the mechanism of CVA (lacunar versus embolic) * MRA of the neck with and without contrast for right ICA stenosis, rule out occlusion. * Patient may need vascular surgical consultation. * Continue dual antiplatelet medications and statins. Lipids are well controlled. * Permissible hypertension for 24 hours. * Neurology will follow.
[2020-05-02 13:40] VITALS: TEMP 97.6
--- NOTE | 2020-05-02 16:14 | MR ---
EXAMINATION TYPE: MR brain wo con DATE OF EXAM: 05/02/2020 COMPARISON: CT brain from yesterday. HISTORY: Altered mental status, slurred speech, CVA, right ICA stenosis TECHNIQUE: Multiplanar, multisequence imaging of the brain and brainstem is performed without IV cont rast. FINDINGS: Diffusion weighted images demonstrate no evidence of a recent infarct or other diffusion abnormality. There is no worrisome extra-axial fluid collection. Diffuse ventricular and sulcal prominence. Low-at tenuation in the deep and periventricular white matter. Prominent Virchow-Baldo space or old lacunar infarct left basal ganglia axial image 16 redemonstrated. Midline structures demonstrate normal morphology. The craniocervical junction appears within normal limits. Normal vascular flow voids are present. The visualized sinuses are clear and the globes are i ntact. Nasal septum remains deviated to right of midline. IMPRESSION: No MRI evidence for recent infarct. Moderate diffuse cerebral atrophy and mild to moderat e chronic small vessel ischemic changes are present.
--- NOTE | 2020-05-02 16:47 | MR ---
EXAMINATION TYPE: MR angio neck wo/w con DATE OF EXAM: 05/02/2020 COMPARISON: Carotid ultrasound from yesterday. HISTORY: Altered mental status, slurred speech, CVA, right ICA stenosis TECHNIQUE: Time of flight images focusing on the [place] [facility] [place] were performed without and with IV contrast.. 2-D and 3-D postprocessing imaging is performed on a independent workstation. Patient inj ected with 9.5 cc of gadolinium. FINDINGS: Normal three-vessel origin from aortic arch. Right common carotid artery shows normal origi n from the right brachiocephalic artery. No significant stenosis in the right common or internal stev[place] tid artery. Stenosis measured under 50% at origin of right internal carotid artery at the carotid bul b level. Left internal carotid artery shows some posterior plaque without significant stenosis just p ast carotid bulb. Visualized portion of the left common and internal carotid artery show no significa nt plaque or stenosis. Imaging is performed through the [facility] [place] on postcontrast imaging. There is dominant left vertebral artery patent to basilar junction. Portions of smaller caliber right vertebral artery are not visualized. IMPRESSION: No significant stenosis in common or internal carotid arteries bilaterally.
[2020-05-02 16:52] LABS: Glucose,Whole Blood 127 mg/dL (75-99)
[2020-05-02 17:50] VITALS: BP 220/75; PULSE 58
[2020-05-02] MEDS: hydrALAZINE HCL 25 MG TAB PO PRN (17:52)
[2020-05-02] MEDS ORDERED: diazePAM 5 MG TAB PO SCH (21:00)
== END 2020-05-02 18:01 | disposition home or self-care (01) ==
LOC: EC 16:57 → 3NCARDOBS 19:00
PROVIDERS: ADMIT Internal Medicine; ATTEND Internal Medicine
DX: R41.0 Disorientation, unspecified (principal); R47.81 Slurred speech; R41.3 Other amnesia; R47.1 Dysarthria and anarthria; I10 Essential (primary) hypertension; E78.5 Hyperlipidemia, unspecified; M06.9 Rheumatoid arthritis, unspecified; I25.2 Old myocardial infarction; H57.9 Unspecified disorder of eye and adnexa; E11.9 Type 2 diabetes mellitus without complications; I65.21 Occlusion and stenosis of right carotid artery; I25.10 Atherosclerotic heart disease of native coronary artery without angina pectoris; E66.9 Obesity, unspecified; Z68.30 Body mass index [BMI] 30.0-30.9, adult; Z86.73 Personal history of transient ischemic attack (TIA), and cerebral infarction without residual deficits; Z79.84 Long term (current) use of oral hypoglycemic drugs; Z79.899 Other long term (current) drug therapy; Z88.0 Allergy status to penicillin; Z90.49 Acquired absence of other specified parts of digestive tract; Z95.1 Presence of aortocoronary bypass graft; Z95.2 Presence of prosthetic heart valve; Z87.891 Personal history of nicotine dependence; Z79.82 Long term (current) use of aspirin; Z79.02 Long term (current) use of antithrombotics/antiplatelets; Z82.49 Family history of ischemic heart disease and other diseases of the circulatory system
CPT/HCPCS: 99285; 36415; 93005; 93306; 97161; 97165; 80061; 80053; 84484; 85025; 85610; 85730; 71046; 93880; 70450; 70549; 70551; G0378 ×3; A9585

== ENCOUNTER → 2020-07-31 | Outpatient (CLI) | payer MEDICARE, BC ==
[2020-07-31 10:57] LABS: HCT 48.1 % (39.0-53.0); HGB 15.9 gm/dL (13.0-17.5); MCH 28.2 pg (25.0-35.0); MCV 85.4 fL (80.0-100.0); Mean Platelet Volume 7.4; Platelet Count 165 k/uL (150-450); RBC 5.63 m/uL (4.30-5.90); WBC 7.2 k/uL (3.8-10.6)
[2020-07-31 15:55] LABS: Albumin/Globulin Ratio 1.74 (1.60-3.17); Bilirubin, Conjugated 0.6 mg/dL (0.20-0.40); Bilirubin,Unconjugated 1.5 mg/dL; Chol/HDL Ratio 2.48; Globulin 2.3 g/dL (1.6-3.3); LDL Cholesterol,Calculated 43.6 mg/dL (0.0-131.0); Total Bilirubin 2.1 mg/dL (0.3-1.2); Total Protein 6.3 g/dL (6.2-8.2); VLDL Calculation 27.4 mg/dL (5.00-40.00)
[2020-07-31 17:13] LABS: Hemoglobin A1C 6.2 % (4.0-6.0)
== END | disposition home or self-care (01) ==
LOC: LABWHC1 09:04
PROVIDERS: ATTEND Internal Medicine
DX: E11.9 Type 2 diabetes mellitus without complications (principal); E78.5 Hyperlipidemia, unspecified; M06.9 Rheumatoid arthritis, unspecified; F41.9 Anxiety disorder, unspecified; I51.9 Heart disease, unspecified
CPT/HCPCS: 80299; 80061; 80076; 82746; 85027; 83036; 36415; G0480; 80346

== ENCOUNTER → 2021-04-30 | Outpatient (CLI) | payer MEDICARE, BC ==
[2021-04-30 23:38] LABS: African American GFR (CKD) 65.8 (60.0-200.0); Anion Gap 8.4 mmol/L (4.00-12.00); BUN/Creat Ratio 15.83 Ratio (12.00-20.00); Carbon Dioxide 26.6 mmol/L (21.6-31.8); Non-African American GFR(CKD) 56.8 (60.0-200.0); Potassium 5.2 mmol/L (3.5-5.5)
== END | disposition home or self-care (01) ==
LOC: LABWHC1 10:00
PROVIDERS: ATTEND Internal Medicine Cardiovascular Disease
DX: I10 Essential (primary) hypertension (principal)
CPT/HCPCS: 36415; 80048

== ENCOUNTER → 2021-07-26 | Outpatient (CLI) | payer MEDICARE, BC ==
[2021-07-26 19:47] LABS: Chol/HDL Ratio 2.42 Ratio; LDL Cholesterol,Calculated 48.8 mg/dL (0.0-131.0)
[2021-07-26 20:55] LABS: ALT 21 U/L (10-49); AST 20 U/L (14-35); African American GFR (CKD) 70.8 (60.0-200.0); Albumin 3.9 g/dL (3.8-4.9); Albumin/Globulin Ratio 1.48 (1.60-3.17); Alkaline Phosphatase 84 U/L (41-126); BUN/Creat Ratio 12.12 Ratio (12.00-20.00); Blood Urea Nitrogen 13.7 mg/dL (9.0-27.0); Calcium 9.1 mg/dL (8.7-10.3); Carbon Dioxide 22.5 mmol/L (21.6-31.8); Chloride 102 mmol/L (96-109); Folate, Serum >20.00 ng/mL (4.40-31.00); Globulin 2.6 g/dL (1.6-3.3); Glucose 196 mg/dL (70-110); Non-African American GFR(CKD) 61.1 (60.0-200.0); Potassium 4.6 mmol/L (3.5-5.5); Sodium 138 mmol/L (135-145); Total Protein 6.5 g/dL (6.2-8.2)
[2021-07-26 21:09] LABS: Basophils # (A) 0.04 X 10*3/uL (0.00-0.10); Basophils % (A) 0.5 %; Eosinophils # (A) 0.57 X 10*3/uL (0.04-0.35); Eosinophils % (A) 7.7 %; HCT 41.1 % (39.6-50.0); HGB 12.8 g/dL (13.0-17.0); Lymphocytes % (A) 13.5 %; MCHC 31.1 g/dL (32.0-37.0); MCV 96.3 fL (80.0-97.0); Mean Platelet Volume 10.9 fL (9.5-12.2); Monocytes # (A) 0.55 X 10*3/uL (0.20-1.00); Monocytes % (A) 7.4 %; Neutrophils # (A) 5.23 X 10*3/uL (1.80-7.70); Neutrophils % (A) 70.4 %; Platelet Count 184 X 10*3/uL (140-440); RBC 4.27 X 10*6/uL (4.40-5.60); RDW 14.8 % (11.5-14.5); WBC 7.43 X 10*3/uL (4.50-10.00)
== END | disposition home or self-care (01) ==
LOC: LABWHC1 08:27
PROVIDERS: ATTEND Internal Medicine
DX: I10 Essential (primary) hypertension (principal); I25.119 Atherosclerotic heart disease of native coronary artery with unspecified angina pectoris; I51.9 Heart disease, unspecified; E11.9 Type 2 diabetes mellitus without complications; E78.5 Hyperlipidemia, unspecified; M06.9 Rheumatoid arthritis, unspecified; F41.9 Anxiety disorder, unspecified
CPT/HCPCS: 36415; 80053; 80061; 80204; 82746; 83036; 85025